=== PATIENT | male | born 1955 | race Two or more races ===

== ENCOUNTER 2024-08-04 04:27 | Inpatient (IN) | payer OTHER ==
[~2024-08-04] VITALS: Ht 182.9 cm; Wt 210.7 kg
--- NOTE | 2024-08-04 04:56 | ED.PDOC ---
History of Present Illness HPI Comments 68 y/o M, with a Hx of AFIB, CHF, DM type II, HTN, 2xSTEMI, and 3xPTCA, is BIBA for c/o shortness of breath, chest pain, dizzy spells, and nausea, today. Per EMS report, patient endorses on having symptoms for over the past 2x weeks and calling, today, due to being no longer able to tolerate them. He comments on no additional relevant or pertinent Hx, such as recent injuries, strenuous activities, sick contact, or travel. Patient denies any cough, wheezing, congestion, palpitations, vomiting, or other associated symptoms or modifiers at this time. Time Seen by MD: 04:35 Reviewed Notes: Nurses Notes, Professional Healthcare Representative Notes, Medications, Allergies Allergies: Coded Allergies: Metformin (Verified Allergy, Unknown, 08/04/24) Information Source: Patient, Emergency Med Personnel Mode of Arrival: EMS Severity: Moderate Timing: Weeks Duration: Since onset Prehospital treatment: 12 Lead EKG, Audiometrist, Other (IV access ) Past Medical History PAST MEDICAL HISTORY: AFIB, CHF, DM (type II), HTN, [place] (2x NSTEMI) Surgical History: PTCA (3x) Family History Family History: Unknown Social History Smoker: Non-Smoker Alcohol: Denies ETOH Use Drugs: Denies Drug Use Lives In: Home Respiratory: reports: shortness of breath Cardiovascular: reports: chest pain, dizzy spells Gastrointestinal: reports: nausea All Other Systems: Reviewed and Negative (negative unless otherwise stated above or in HPI) Physical Exam General Appearance: No Apparent Distress, Normal HEENT: Normal ENT Inspection, Pharynx Normal, TMs Normal Neck: Full Range of Motion, Non-Tender, Normal, Normal Inspection Respiratory: Chest Non-Tender, Lungs Clear, No Accessory Muscle Use, No Respiratory Distress, Normal Breath Sounds Cardiovascular: No Edema, No JVD, No Murmur, No Gallop, Normal Peripheral Pulses, Regular Rate/Rhythm Breast Exam: Deferred Gastrointestinal: No Organomegaly, Non Tender, No Pulsatile Mass, Normal Bowel Sounds, Soft Genitalia: Deferred Pelvic: Deferred Rectal: Deferred Extremities: No calf tenderness, Normal capillary refill, Normal inspection, Normal range of motion, Non-tender, No pedal edema Musculoskeletal : Apperance: Normal Neurologic: Alert, maint mechanic II-XII nml as Tested, No Motor Deficits, Normal Affect, Normal Mood, No Sensory Deficits Cerebellar Function: Normal Reflexes: Normal Skin: Dry, Normal Color, Warm Lymphatic: No Adenopathy Was a procedure done? Was a procedure done?: No EKG EKG : Pulse Rate (adult): 132 [place]: Normal Cardiac Rhythm: Afib (RVR) Block: None Hypertrophy: None ST: Normal Differential Dx Considerations may include: AFIB RVR, TX, PE, PNA, ACS, URI, costochondritis, pericarditis X-Ray, Labs, Meds, VS Vital Signs Date Time Temp Pulse Resp B/P (MAP) Pulse Ox O2 Delivery O2 Flow Rate FiO2 08/04/24 04:56 132 08/04/24 04:30 132 08/04/24 04:30 98.8 132 16 143/79 (100) 96 Lab Test 08/04/24 04:27 Range/Units White Blood Count 10.7 4.4-10.8 10^3/uL Red Blood Count 6.66 H 4.5-5.90 10^6/uL Hemoglobin 18.8 H 13.5-17.5 g/dL Hematocrit 55.4 H 41.0-53.0 % Mean Corpuscular Volume 83.3 80.0-100.0 fL Mean Corpuscular Hemoglobin 28.2 28.0-32.0 pg Mean Corpuscular Hemoglobin Concent 33.9 32.0-36.0 g/dL Red Cell Distribution Width 16.2 H 11.8-14.3 % Platelet Count 212 140-450 10^3/uL Mean Platelet Volume 8.5 6.9-10.8 fL Neutrophils (%) (Auto) 79.4 37.0-80.0 % Lymphocytes (%) (Auto) 8.4 L 10.0-50.0 % Monocytes (%) (Auto) 11.8 0.0-12.0 % Eosinophils (%) (Auto) 0.0 0.0-7.0 % Basophils (%) (Auto) 0.4 0.0-2.0 % Neutrophils # (Auto) 8.5 1.6-8.6 10 ^3/uL Lymphocytes # (Auto) 0.9 0.4-5.4 10 ^3/uL Monocytes # (Auto) 1.3 0-1.3 10 ^3/uL Eosinophils # (Auto) 0 0-0.8 10 ^3/uL Basophils # (Auto) 0 0-0.2 10 ^3/uL Nucleated Red Blood Cells 0.1 % Prothrombin Time 16.2 H 9.3-11.8 sec Prothrombin Time INR 1.58 H 0.9-1.15 Activated Partial Thromboplast Time 36.1 H 24.5-34.5 SEC Sodium Level 131 L 136-145 mmol/L Potassium Level 3.3 L 3.5-5.1 mmol/L Chloride Level 99 98-107 mmol/L Carbon Dioxide Level 20 20-31 mmol/L Anion Gap 12 5-15 Blood Urea Nitrogen Pending Creatinine 1.13 0.700-1.30 mg/dL Glomerular Filtration Rate Calc 70 >90 mL/min BUN/Creatinine Ratio Pending Serum Glucose 392 H 74-106 mg/dL Calcium Level 8.7 8.7-10.4 mg/dL Total Bilirubin 1.2 H 0.2-1.0 mg/dL Aspartate Amino Transferase (AST) 14 13-40 U/L Alanine Aminotransferase (ALT) < 9 7-40 U/L Alkaline Phosphatase 64 46-116 U/L Troponin I High Sensitivity 50 </=54 ng/L B-Type Natriuretic Peptide 456.28 0-100 pg/mL Total Protein 6.0 5.7-8.2 g/dL Albumin 3.6 3.2-4.8 g/dL T hemoglobin is 18. Potassium 3.3. Sodium 131. Troponin is 50. BNP is 456. EKG shows AFib. Metoprolol was ordered 5 mg Q 5 minutes IV. Time of 1ST Reevaluation: 05:05 Reevaluation 1ST: Unchanged Patient Education/Counseling: Diagnosis, Treatment Family Education/Counseling: No Family Present Departure 1 Departure Time of Disposition: 05:50 Impression: Primary Impression: Chest pain Qualified Codes: R07.9 - Chest pain, unspecified Additional Impression: Atrial fibrillation Disposition: ADMITTED INPATIENT Admit to: Tele Condition: Guarded Critical Care Note Critical Care Time?: Yes (45 min-critical care time only) Stability Stability form required: No Heart Score Heart Score: Heart Score Response (Comments) Value History Highly Suspicious 2 EKG Repolarization Disturb 1 Age >65 2 Risk Factors >3 or Hx ASHD 2 Troponin Normal limit 0 Total 7 I personally scribed for MANUEL HERNANDEZ MD ([email or web address]) on 08/04/24 at 04:56. Electronically submitted by Houston Canchola ([email or web address]). MANUEL HERNANDEZ MD Aug 04, 2024 04:56
[2024-08-04 05:05] LABS: Basophils # (auto) 0 10 ^3/uL (0-0.2); Basophils % (auto) 0.4 % (0.0-2.0); Eosinophils # (auto) 0 10 ^3/uL (0-0.8); Lymphocytes # (auto) 0.9 10 ^3/uL (0.4-5.4); Lymphocytes % (auto) 8.4 % (10.0-50.0); Mean Corpuscular Volume 83.3 fL (80.0-100.0); Monocytes # (auto) 1.3 10 ^3/uL (0-1.3); Monocytes % (auto) 11.8 % (0.0-12.0); Neutrophils % (auto) 79.4 % (37.0-80.0)
[2024-08-04] MEDS: METOPROLOL TARTRATE 1MG/1ML-5ML VIAL IV SCH (05:05)
[2024-08-04 05:06] LABS: Hematocrit 55.4 % (41.0-53.0); Hemoglobin 18.8 g/dL (13.5-17.5); Mean Corpuscular Hemoglobin 28.2 pg (28.0-32.0); Mean Corpuscular Hgb Conc. 33.9 g/dL (32.0-36.0); Neutrophils # (auto) 8.5 10 ^3/uL (1.6-8.6); Nucleated Red Blood Cells % 0.1 %; Platelet Count (auto) 212 10^3/uL (140-450); Red Blood Cells 6.66 10^6/uL (4.5-5.90); Red Cell Distribution Width 16.2 % (11.8-14.3); White Blood Cell 10.7 10^3/uL (4.4-10.8)
[2024-08-04 05:19] LABS: INR 1.58 (0.9-1.15); Partial Thromboplastin Time 36.1 SEC (24.5-34.5); Prothrombin Time 16.2 sec (9.3-11.8)
[2024-08-04 05:29] LABS: Albumin 3.6 g/dL (3.2-4.8); Alkaline Phosphatase 64 U/L (46-116); Anion Gap 12 (5-15); Aspartate Aminotransferase 14 U/L (13-40); Chloride 99 mmol/L (98-107)
[2024-08-04 05:30] LABS: Alanine Aminotransferase < 9 U/L (7-40); Bilirubin, Total 1.2 mg/dL (0.2-1.0); Carbon Dioxide 20 mmol/L (20-31); Glucose 392 mg/dL (74-106); Potassium 3.3 mmol/L (3.5-5.1); Sodium 131 mmol/L (136-145)
[2024-08-04 05:31] LABS: Calcium 8.7 mg/dL (8.7-10.4)
[2024-08-04 05:40] LABS: BUN/Creatinine Ratio 17.7 (10.0-20.0); Blood Urea Nitrogen 20 mg/dL (9-23)
--- NOTE | 2024-08-04 05:50 | DVH ---
CHEST RADIOGRAPH Indication: chest pain Technique: Single frontal view of the chest was obtained COMPARISON: None FINDINGS: Lines and Tubes: None Lungs: Multifocal airspace disease. Pleura: No effusion. No pneumothorax. Cardiomediastinal contours: Cardiomegaly Bones: Unremarkable IMPRESSION: Multifocal airspace disease and/or pulmonary vascular congestion
[2024-08-04] MEDS: MORPHINE SULFATE 4 MG/ML SYR/VIAL IV ONE (06:54)
[2024-08-04] MEDS: ONDANSETRON HCL 4 MG/2 ML VIAL IV ONE (06:55)
[2024-08-04] MEDS: SODIUM CHLORIDE 0.9% 1,000 ML IV ONE (06:55)
[2024-08-04] MEDS: InsuLIN REG 1unit/0.01ml Soln (100units/ml) SC ONE (06:59)
[2024-08-04] MEDS ORDERED: DEXTROSE (50%) 50ML SYRG IV PRN (07:15)
[2024-08-04] MEDS ORDERED: DOCUSATE SOD 100 MG CAP PO PRN (07:15)
[2024-08-04 07:30] VITALS: RESP 23; O2SAT 95
[2024-08-04] MEDS: ACCU-CHEK COMFORT CURVE STRIP VI SCH (08:22)
[2024-08-04] MEDS: FUROSEMIDE 40 MG/4 ML VIAL IV ONE (08:45)
[2024-08-04] MEDS: InsuLIN REG 1unit/0.01ml Soln (100units/ml) SC SCH (08:56)
[2024-08-04] MEDS ORDERED: NITROGLYCERIN 0.4 MG SL TAB SL PRN (11:00)
[2024-08-04] MEDS: ASPirin 81 mg TAB PO SCH (11:09)
[2024-08-04] MEDS: CARVEDILOL 12.5 MG TAB PO SCH (11:10)
--- NOTE | 2024-08-04 11:18 | DVHHP2 ---
History of Present Illness Reason for Visit: Atrial fibrillation History of Present Illness The patient is a 68-year-old male with past medical history of AFib, CHF, DM, hypertension, DE, and hypertension who presented to [facility] ED with complaint of chest pain. Patient reports symptoms progressively get worse with dizzy spells, shortness of breath, nausea, rating pain 7/10 numeric scale, getting worse that prompted this visit. Patient was seen and evaluated in the ED, laboratory data shows WBC 10.7, hemoglobin 18.8, hematocrit 55.4, platelets 212, sodium 131, potassium 3.3, BUN 20, creatinine 1.13, glucose 392, troponin 50, BNP 456.28, PT 16.2, INR 1.58, PTT 36.1, blood pressure 118/84, heart rate 145 trending down to 110, temperature 98.2 F, O2 saturation 94% on oxygen. Chest x-ray revealing multifocal airspace disease and/or pulmonary vascular congestion. Patient was started on IV antibiotic regimen azithromycin, please medication orders section in the computer. On my assessment, patient denied chest pain, no headache, no dizziness, no diaphoresis, no diarrhea, no nausea, no vomiting, no fever, no chills. Patient was admitted further evaluation and medical management. Past Medical History AFIB, CHF, DM (type II), HTN, [place] (2x NSTEMI) Past Surgical History PTCA (3x) Family History Reviewed, noncontributory to the management of this case. Past Social History The patient lives at home, denies smoking, alcohol or illicit drugs abuse. Review of Systems Constitutional: Yes: Weakness; No: Fever, Chills, Sweats, Malaise, Other Eyes: No: Pain, Vision change, Conjunctivae inflammation, Eyelid inflammation, Other, Redness ENT: No: Ear pain, Ear discharge, Nose pain, Nose discharge, Nose congestion, Mouth pain, Mouth swelling, Throat pain, Throat swelling, Other Respiratory: Shortness of breath; No: Cough, Dry, SOB with excertion, Wheezing, Hemoptysis, Pleuritic Pain, Sputum, Wheezing, Other Cardiovascular: Chest Pain, Other (Dizzy spells); No: Palpitations, Orthopnea, Paroxysmal Noc. Dyspnea, Edema, Lt Headedness Gastrointestinal: Nausea; No: Vomiting, Abdominal Pain, Diarrhea, Constipation, Melena, Hematochezia, Other Genitourinary: No Dysuria, No Frequency, No Incontinence, No Hematuria, No Retention, No Other Musculoskeletal: No: other, neck pain, shoulder pain, arm pain, back pain, hand pain, leg pain, foot pain Skin: No: Rash, Lesions, Jaundice, Bruising, Other Neurological: No: Weakness, Numbness, Incoordination, Change in speech, Confusion, Seizures, Other Allergies: Coded Allergies: Metformin (Verified Allergy, Unknown, 08/04/24) Medications Current Medications Medications Dose Ordered Sig/Johan Route Start Time Stop Time Status Last Admin Dose Admin Furosemide 40 mg DAILY IV 08/05/24 10:00 Aspirin 81 mg DAILY PO 08/04/24 10:00 Carvedilol 12.5 mg Q12HR PO 08/04/24 10:00 Diagnostic Test (Pha) 1 strip IQ4HR 08/04/24 08:00 08/04/24 08:22 1 STRIP Insulin Human Regular IQ4HR SC 08/04/24 08:00 08/04/24 08:56 15 UNITS Dextrose 50 ml UD PRN IV 08/04/24 07:15 Sodium Chloride 10 ml Q8HR IV 08/04/24 14:00 Acetaminophen/ Hydrocodone Bitart 1 tab Q4HP PRN PO 08/04/24 07:15 Ondansetron HCl 4 mg Q4HP PRN IV 08/04/24 07:15 Docusate Sodium 100 mg BIDPRN PRN PO 08/04/24 07:15 Acetaminophen 650 mg Q6HP PRN PO 08/04/24 07:15 Exam Vital Signs Vital Signs Date Time Temp Pulse Resp B/P (MAP) Pulse Ox O2 Delivery O2 Flow Rate FiO2 08/04/24 08:45 113/82 08/04/24 08:00 98 08/04/24 07:30 97.7 23 95 97.7 08/04/24 07:30 Nasal Cannula* 2 28 General Appearance: Alert, Oriented X3, Cooperative, No acute distress HEENT: Atraumatic, PERRLA, EOMI, Mucous membr. moist/pink Respiratory: Normal air movement, Other (Diminished breath sounds) Cardiovascular: Regular rate, Normal S1, Normal S2, No murmurs Abdominal: Normal bowel sounds, Soft, No tenderness, No hepatospenomegaly, No masses Extremities: No clubbing, No cyanosis, No edema, Normal pulses, No tenderness/swelling Skin: No rashes, No breakdown, No significant lesion Neuro: Normal speech, Normal tone, Sensation intact, Cranial nerves 3-12 NL, Reflexes 2+, Other (Generalized weakness) Psych/Mental Status: Mental status NL, Mood NL Labs/Xrays Labs Test 08/04/24 08:42 08/04/24 04:27 Range/Units Troponin I High Sensitivity 42 </=54 ng/L White Blood Count 10.7 4.4-10.8 10^3/uL Red Blood Count 6.66 H 4.5-5.90 10^6/uL Hemoglobin 18.8 H 13.5-17.5 g/dL Hematocrit 55.4 H 41.0-53.0 % Mean Corpuscular Volume 83.3 80.0-100.0 fL Mean Corpuscular Hemoglobin 28.2 28.0-32.0 pg Mean Corpuscular Hemoglobin Concent 33.9 32.0-36.0 g/dL Red Cell Distribution Width 16.2 H 11.8-14.3 % Platelet Count 212 140-450 10^3/uL Mean Platelet Volume 8.5 6.9-10.8 fL Neutrophils (%) (Auto) 79.4 37.0-80.0 % Lymphocytes (%) (Auto) 8.4 L 10.0-50.0 % Monocytes (%) (Auto) 11.8 0.0-12.0 % Eosinophils (%) (Auto) 0.0 0.0-7.0 % Basophils (%) (Auto) 0.4 0.0-2.0 % Neutrophils # (Auto) 8.5 1.6-8.6 10 ^3/uL Lymphocytes # (Auto) 0.9 0.4-5.4 10 ^3/uL Monocytes # (Auto) 1.3 0-1.3 10 ^3/uL Eosinophils # (Auto) 0 0-0.8 10 ^3/uL Basophils # (Auto) 0 0-0.2 10 ^3/uL Nucleated Red Blood Cells 0.1 % Prothrombin Time 16.2 H 9.3-11.8 sec Prothrombin Time INR 1.58 H 0.9-1.15 Activated Partial Thromboplast Time 36.1 H 24.5-34.5 SEC Sodium Level 131 L 136-145 mmol/L Potassium Level 3.3 L 3.5-5.1 mmol/L Chloride Level 99 98-107 mmol/L Carbon Dioxide Level 20 20-31 mmol/L Anion Gap 12 5-15 Blood Urea Nitrogen 20 9-23 mg/dL Creatinine 1.13 0.700-1.30 mg/dL Glomerular Filtration Rate Calc 70 >90 mL/min BUN/Creatinine Ratio 17.7 10.0-20.0 Serum Glucose 392 H 74-106 mg/dL Calcium Level 8.7 8.7-10.4 mg/dL Total Bilirubin 1.2 H 0.2-1.0 mg/dL Aspartate Amino Transferase (AST) 14 13-40 U/L Alanine Aminotransferase (ALT) < 9 7-40 U/L Alkaline Phosphatase 64 46-116 U/L B-Type Natriuretic Peptide 456.28 0-100 pg/mL Total Protein 6.0 5.7-8.2 g/dL Albumin 3.6 3.2-4.8 g/dL PATIENT: STEVIE PRIEST ACCT: [id number] UNIT: [id number] : 1955 LOC: ER ROOM / BED: / AGE / SEX: 68 / M ADM STATUS: REG ER SERVICE [id number] ORDERING PHYSICIAN: MANUEL HERNANDEZ MD PROCEDURE(s): CXRP - CHEST PORTABLE REASON: chest pain ORDER NUMBER(s): [id number], ACCESSION NUMBER(s): [id number] CHEST RADIOGRAPH Indication: chest pain Technique: Single frontal view of the chest was obtained COMPARISON: None FINDINGS: Lines and Tubes: None Lungs: Multifocal airspace disease. Pleura: No effusion. No pneumothorax. Cardiomediastinal contours: Cardiomegaly Bones: Unremarkable IMPRESSION: Multifocal airspace disease and/or pulmonary vascular congestion Assessment/Plan Assessment/Plan Atrial fibrillation Chest pain Electrolyte imbalance Pneumonia, unspecified organism Generalized weakness Acute exacerbation of congestive heart failure Plan 1. Admit to telemetry unit 2. Breathing treatment 3. Pain control management 4. IV antibiotic management 5. Management of fluids and electrolytes 6. Consultation for cardiology 7. Diagnostic test chest x-ray 8. DVT prophylaxis-on aspirin 9. Repeat labs CBC, CMP in a.m. 10. Home medication reviewed and reconciled 11. Continue with current medical management 12. Treatment plan discussed with patient and RN. Patient verbalized understanding. Plan discussed with: Patient, Other (RN) My Orders Orders - ISABELLE MINER DNP Procedure Category Date Status Time Aspirin Tablet PHA 08/04/24 In Process 10:00 Consistent DIET 08/04/24 Transmitted Carb(Ccho)Diabetes Breakfast Carvedilol Tablet PHA 08/04/24 In Process (Coreg Tablet) 10:00 Glucose Blood PHA 08/04/24 In Process (Accu-Chek Comfort 08:00 Insulin R (Human) PHA 08/04/24 In Process (Insulin R) 08:00 Dextrose 50% Syringe PHA 08/04/24 In Process 07:15 Allergies RACHNA 08/04/24 In Process 07:13 Code Status CODE 08/04/24 Transmitted 07:13 Sodium Chloride Lock PHA 08/04/24 In Process (Saline Lock Ns) 14:00 Oxygen Per Hour RT 08/04/24 Transmitted 07:13 Hydrocodone-Acet PHA 08/04/24 In Process 5/325mg Tab ([place] 07:15 Ondansetron Hcl PHA 08/04/24 In Process (Zofran) 07:15 Docusate Sodium PHA 08/04/24 In Process Capsule (Colace 07:15 Complete Blood Count LAB 08/05/24 Verified 04:00 Comprehensive LAB 08/05/24 Verified Metabolic Panel 04:00 Condition: Serious RACHNA 08/04/24 In Process 07:13 Acetaminophen Tablet PHA 08/04/24 In Process (Tylenol Tablet) 07:15 Bedrest With Bathroom RACHNA 08/04/24 In Process Privileg 07:13 Sequential RACHNA 08/04/24 In Process Compression Device Furosemide Injection PHA 08/05/24 In Process (Lasix Injection) 10:00 Problem List: (1) Atrial fibrillation (2) Chest pain (3) Electrolyte imbalance (4) Generalized weakness (5) Pneumonia, unspecified organism (6) Acute exacerbation of congestive heart failure Date of Service: Aug 04, 2024 Billing Provider: ISABELLE MINER DNP Common Visit Codes: [id number] INP/OBS CARE (HIGH) ISABELLE MINER DNP Aug 04, 2024 11:18
[2024-08-04] MEDS: POTASSIUM CHL 20 Meq TABLET PO ONE (11:59)
[2024-08-04] MEDS: cefTRIAXone 1GM/50ML D5W 50 ML IV ONE (12:00)
[2024-08-04] MEDS: AZITHROMYCIN 500MG/ 250ML 250 ML IV ONE (12:54)
[2024-08-04] MEDS: SODIUM CHLOR 0.9% PF (SALINE LOCK) 10ML VIAL/SYR IV SCH (14:09)
[2024-08-04 15:56] LABS: Urine Bacteria None Seen /hpf (None Seen)
[2024-08-04 16:14] LABS: Urine Blood TRACE /uL (Negative); Urine Clarity Clear (Clear); Urine Color Yellow (Yellow); Urine Hyaline Cast FEW /lpf (0 - 2); Urine Mucus FEW (None Seen); Urine Protein, UAD 1+ (Negative); Urine Specific Gravity 1.014 (1.001-1.035); Urine Squamous Epithelial Cell FEW /hpf (<5); Urine Urobilinogen Normal (Negative); Urine WBC 2 /hpf (0 - 3)
[2024-08-04 16:22] LABS: Benzodiazephine Screen, Urine Neg (NEGATIVE)
[2024-08-04 16:23] LABS: Opiate Scree,Urine Neg (NEGATIVE)
[2024-08-04 16:27] LABS: Amphetamine Screen, Urine Neg (NEGATIVE); Barbiturate Scree,Urine Neg (NEGATIVE); Cannabinoid Screen, Urine Neg (NEGATIVE); Cocaine Screen, Urine Neg (NEGATIVE); Phencyclidine Screen, Urine Neg (NEGATIVE)
--- NOTE | 2024-08-04 17:42 | DVHINCON2 ---
Date Seen: Aug 04, 2024 Referring Physician MARIEL Colon Reason for Consultation Atrial fibrillation History of Present Illness This is a 68-year-old male who presented to the emergency room via EMS with a chief complaint of shortness of breath for two weeks. At time of assessment, the patient was found somewhat somnolent. He is a poor historian. Information mostly obtained from records which indicate patient presented with complaints of progressive shortness of breath associated with chest pain, dizziness, and nausea. He underwent multiple 12 lead electrocardiogram revealing an atrial fibrillation rhythm with anterolateral ST depression. Serial troponin levels are negative. Follows up with primary vertical contour band saw operator Dr. Garcia. Significant medical history includes coronary artery disease status post PTCA including three AGUEDA, congestive heart failure, paroxysmal atrial fibrillation on amiodarone/Eliquis therapy, insulin-dependent diabetes mellitus, hypertension, dyslipidemia, benign prostatic hyperplasia, and obesity. Past Medical History Past medical history reviewed. No other significant than mentioned above. Past Surgical History PTCA including three AGUEDA Family History Unable to retrieve family history. Social History Unable to retrieve social history. Allergies: Coded Allergies: Metformin (Verified Allergy, Unknown, 08/04/24) Home Meds Home medications reviewed. Current Medications Current Medications Medications (Trade) Dose Ordered Sig/Johan Route PRN Reason Start Time Stop Time Status Last Admin Metoprolol Tartrate (Lopressor) 5 mg Q5M IV 08/04/24 05:00 08/04/24 05:11 DC 08/04/24 06:55 Furosemide (Lasix Injection) 40 mg DAILY IV 08/05/24 10:00 Aspirin 81 mg DAILY PO 08/04/24 10:00 08/04/24 11:09 Carvedilol (Coreg Tablet) 12.5 mg Q12HR PO 08/04/24 10:00 08/04/24 11:10 Diagnostic Test (Pha) (Accu-Chek Comfort Curve T) 1 strip IQ4HR 08/04/24 08:00 08/04/24 16:26 Insulin Human Regular (InsuLIN R) IQ4HR SC 08/04/24 08:00 08/04/24 16:26 Dextrose 50 ml UD PRN IV Blood Sugar LESS THAN 60 08/04/24 07:15 Sodium Chloride (Saline Lock Ns) 10 ml Q8HR IV 08/04/24 14:00 08/04/24 14:09 Acetaminophen/ Hydrocodone Bitart ([place] 5/325MG Tab) 1 tab Q4HP PRN PO MODERATE PAIN (4-6 PAIN SCALE) 08/04/24 07:15 Ondansetron HCl (Zofran) 4 mg Q4HP PRN IV NAUSEA / VOMITING 08/04/24 07:15 Docusate Sodium (Colace Capsule) 100 mg BIDPRN PRN PO FOR CONSTIPATION 08/04/24 07:15 Acetaminophen (Tylenol Tablet) 650 mg Q6HP PRN PO PAIN SCALE 1-3 OR TEMP>100.4 08/04/24 07:15 Nitroglycerin (Ntrostat Sublingual) 0.4 mg Q5MINP PRN SL FOR CHEST PAIN 08/04/24 11:00 Morphine Sulfate 2 mg Q30M PRN IV FOR CHEST PAIN 08/04/24 11:00 Ceftriaxone Sodium 50 ml @ 100 mls/hr DAILY@09 IV 08/05/24 09:00 Azithromycin 250 ml @ 125 mls/hr DAILY IV 08/05/24 10:00 Review of Systems Constitutional: No symptom reported Ears, Nose, & Throat: No symptom reported Eyes: No symptom reported Neurological: Dizziness Pulmonary/Respiratory: Shortness of breath Cardiovascular: Chest pain Gastrointestinal: No symptom reported Genitourinary: No symptom reported Musculoskeletal: No symptom reported Skin: No symptom reported Psychiatric: No symptom reported Endocrine: No symptom reported Hemotologic/Lymphatic: No symptom reported Vital Signs Vital Signs Date Time Temp Pulse Resp B/P (MAP) Pulse Ox O2 Delivery O2 Flow Rate FiO2 08/04/24 16:00 91 08/04/24 14:00 22 101/71 (81) 92 08/04/24 07:30 97.7 97.7 08/04/24 07:30 Nasal Cannula* 2 28 Physical Exam General Appearance: Somnolent. Mild acute respiratory distress Head Exam: Normal inspection Neck Exam: Normal inspection. Non-tender. Normal alignment Pulmonary/Respiratory: Crackles to bilateral breath sounds Cardiovascular/Chest: Irregularly irregular rate and rhythm. AFib with a RVR and associated anterolateral ST depression. Peripheral Pulses: 2+ Radial (R). 2+ Radial (L). 2+ Pedal (R). 2+ Pedal (L) Abdominal Exam: Normal bowel sounds. Soft. Nontender. No hepatospenomegaly. No masses Ankle Exam: Negative ankle edema Lower extremities: Negative lower extremity edema Neuro/Mental Status: A&O x2. Somnolent, poor historian Thoughts/Psych: Unable to assess Appearance: Mild acute respiratory distress Skin Exam: Normal inspection. Normal color. Warm. Dry Labs/Diagnostic Data Labs Test 08/04/24 15:54 08/04/24 08:42 08/04/24 04:27 Range/Units Urine Color Yellow Yellow Urine Clarity Clear Clear Urine pH 6.0 5.0-9.0 Urine Specific [place] 1.014 1.001-1.035 Urine Protein 1+ H Negative Urine Ketones Trace Negative Urine Blood Trace H Negative /uL Urine Nitrite Negative Negative Urine Bilirubin Negative Negative Urine Urobilinogen Normal Negative mg/dL Urine Leukocyte Esterase Negative Negative /uL Urine RBC 1 0 - 3 /hpf Urine WBC 2 0 - 3 /hpf Urine Squamous Epithelial Cells Few <5 /hpf Urine Bacteria None seen None Seen /hpf Urine Hyaline Casts Few 0 - 2 /lpf Urine Mucus Few None Seen Urine Glucose 3+ H Normal mg/dL Urine Opiates Screen Neg NEGATIVE Urine Fentanyl Screen Neg NEGATIVE Urine Barbiturates Screen Neg NEGATIVE Urine Phencyclidine Screen Neg NEGATIVE Urine Amphetamines Screen Neg NEGATIVE Urine Benzodiazepines Screen Neg NEGATIVE Urine Cocaine Screen Neg NEGATIVE Urine Cannabinoids Screen Neg NEGATIVE Troponin I High Sensitivity 42 </=54 ng/L White Blood Count 10.7 4.4-10.8 10^3/uL Red Blood Count 6.66 H 4.5-5.90 10^6/uL Hemoglobin 18.8 H 13.5-17.5 g/dL Hematocrit 55.4 H 41.0-53.0 % Mean Corpuscular Volume 83.3 80.0-100.0 fL Mean Corpuscular Hemoglobin 28.2 28.0-32.0 pg Mean Corpuscular Hemoglobin Concent 33.9 32.0-36.0 g/dL Red Cell Distribution Width 16.2 H 11.8-14.3 % Platelet Count 212 140-450 10^3/uL Mean Platelet Volume 8.5 6.9-10.8 fL Neutrophils (%) (Auto) 79.4 37.0-80.0 % Lymphocytes (%) (Auto) 8.4 L 10.0-50.0 % Monocytes (%) (Auto) 11.8 0.0-12.0 % Eosinophils (%) (Auto) 0.0 0.0-7.0 % Basophils (%) (Auto) 0.4 0.0-2.0 % Neutrophils # (Auto) 8.5 1.6-8.6 10 ^3/uL Lymphocytes # (Auto) 0.9 0.4-5.4 10 ^3/uL Monocytes # (Auto) 1.3 0-1.3 10 ^3/uL Eosinophils # (Auto) 0 0-0.8 10 ^3/uL Basophils # (Auto) 0 0-0.2 10 ^3/uL Nucleated Red Blood Cells 0.1 % Prothrombin Time 16.2 H 9.3-11.8 sec Prothrombin Time INR 1.58 H 0.9-1.15 Activated Partial Thromboplast Time 36.1 H 24.5-34.5 SEC Sodium Level 131 L 136-145 mmol/L Potassium Level 3.3 L 3.5-5.1 mmol/L Chloride Level 99 98-107 mmol/L Carbon Dioxide Level 20 20-31 mmol/L Anion Gap 12 5-15 Blood Urea Nitrogen 20 9-23 mg/dL Creatinine 1.13 0.700-1.30 mg/dL Glomerular Filtration Rate Calc 70 >90 mL/min BUN/Creatinine Ratio 17.7 10.0-20.0 Serum Glucose 392 H 74-106 mg/dL Calcium Level 8.7 8.7-10.4 mg/dL Total Bilirubin 1.2 H 0.2-1.0 mg/dL Aspartate Amino Transferase (AST) 14 13-40 U/L Alanine Aminotransferase (ALT) < 9 7-40 U/L Alkaline Phosphatase 64 46-116 U/L B-Type Natriuretic Peptide 456.28 0-100 pg/mL Total Protein 6.0 5.7-8.2 g/dL Albumin 3.6 3.2-4.8 g/dL Assessment Paroxysmal atrial fibrillation with RVR, on amiodarone/Eliquis therapy Chest pain rule out progressive coronary artery disease Acute on chronic decompensated unspecified CHF Coronary artery disease status post PTCA including 3 AGUEDA Acute hypoxic respiratory failure with PNA Insulin-dependent diabetes mellitus Hypertension Dyslipidemia Obesity Plan/Recommendation We will continue the following plan/recommendations (Dr. Warren): * Echocardiogram to evaluate cardiac function * Preload and afterload reduction as tolerated * Strict I&Os. Daily weight. Fluid restriction * Single-antiplatelet therapy and lipid lowering agent * Therapeutic Lovenox. Hold Eliquis therapy * [id number] Score 5. HAS-BLED Score 2 * Initiate antiarrhythmic therapy, amiodarone * Rate control, metoprolol XL * Monitor ECG changes and notify * Chest pain protocol * Influenza A&B, COVID-19 swabs The patient presents with an abnormal 12-lead electrocardiogram with no other ECGs on the past for comparison. We will consider ischemic work-up with improved mental status and clinical stability. Thank you for allowing us to participate in this patient's care. Please call if you have any questions or concerns. This medical document was created using an electronic medical record system with voice recognition software and computerized dictation system. Although this document has been carefully reviewed, there might still be some phonetic and typographical errors. Occasional wrong-word or ``sound-alike substitutions may have occurred due to the inherent limitations of voice recognition software. These areas are purely typographical due to imperfections of the software programs and do not reflect any compromise in the patient's medical care. Please read the chart carefully and recognize, using context, where these substitutions have occurred. Plan discussed with: Patient, Other NYHA Physical activity limitations: Class3(Marked) ordinary Date of Service: Aug 04, 2024 Billing Provider: KORINA WARERN MD Cardiology Common Codes: [id number] INP/OBS CARE (High) BRIDGER CHEN [facility] Aug 04, 2024 17:42
[2024-08-04 18:35] VITALS: BP 116/89; PULSE 85; RESP 19; TEMP 97.6; O2SAT 97
[2024-08-04] MEDS ORDERED: AMIO200T13 PO (18:38)
[2024-08-04] MEDS ORDERED: SACU1TAB PO (18:38)
[2024-08-04] MEDS ORDERED: FURO40TA4 PO (18:38)
[2024-08-04] MEDS ORDERED: METO1TAB9 PO (18:38)
[2024-08-04] MEDS ORDERED: TRAM50TA2 PO (18:38)
[2024-08-04] MEDS ORDERED: GABA-339 PO (18:38)
[2024-08-04] MEDS ORDERED: FIN5T PO (18:38)
[2024-08-04] MEDS ORDERED: APIX5TAB PO (18:38)
[2024-08-04] MEDS ORDERED: SPIR25TA8 PO (18:38)
[2024-08-04] MEDS ORDERED: HYDR-4072 PO (18:38)
[2024-08-04 20:00] VITALS: PULSE 101
[2024-08-04 20:26] LABS: COVID19 ANTIGEN SOFIA FIA NEGATIVE (NEGATIVE); Rapid Influenza A Negative (Negative); Rapid Influenza B Negative (Negative)
[2024-08-04] MEDS: ONDANSETRON HCL 4 MG/2 ML VIAL IV PRN (20:30)
[2024-08-04 21:00] VITALS: BP 119/76; PULSE 65; RESP 18; TEMP 97.7; O2SAT 94
[2024-08-04] MEDS: ENOXAPARIN SOD 120 MG/0.8 ML SYRINGE SC SCH (21:14)
[2024-08-04] MEDS: SACUBITRIL-VALSARTAN 24mg/26mg TAB PO SCH (21:14)
[2024-08-04] MEDS: ATORVASTATIN 20 MG TAB PO SCH (21:14)
[2024-08-04] MEDS: AMIODARONE HCL 200 MG TAB PO SCH (21:14)
[2024-08-04] MEDS: HYDROcodone-ACET 5/325MG TAB PO PRN (21:24)
[2024-08-05] VITALS (27 sets, daily range): BP systolic 75–127; BP diastolic 40–90; PULSE 50–131; RESP 16–33; TEMP 97.5–98.4; O2SAT 92–100
--- NOTE | 2024-08-05 06:35 | ECG ---
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
--- NOTE | 2024-08-05 06:36 | ECG ---
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
[2024-08-05] MEDS: AMIODARONE BOLUS KIT 100 ML IV ONE ×3 (08:56→10:54)
[2024-08-05] MEDS: AMIODARONE 450mg/250ml AE 250 ML IV ONE (08:56)
[2024-08-05 09:12] LABS: Basophils # (auto) 0 10 ^3/uL (0-0.2); Basophils % (auto) 0.2 % (0.0-2.0); Eosinophils # (auto) 0.1 10 ^3/uL (0-0.8); Eosinophils % (auto) 0.5 % (0.0-7.0); Hematocrit 46.3 % (41.0-53.0); Hemoglobin 15.8 g/dL (13.5-17.5); Lymphocytes % (auto) 13.4 % (10.0-50.0); Mean Corpuscular Hgb Conc. 34.1 g/dL (32.0-36.0); Mean Corpuscular Volume 82.2 fL (80.0-100.0); Monocytes # (auto) 1.9 10 ^3/uL (0-1.3); Monocytes % (auto) 13.1 % (0.0-12.0); Neutrophils # (auto) 10.7 10 ^3/uL (1.6-8.6); Neutrophils % (auto) 72.8 % (37.0-80.0); Nucleated Red Blood Cells % 0.1 %; Platelet Count (auto) 342 10^3/uL (140-450); Red Blood Cells 5.64 10^6/uL (4.5-5.90); Red Cell Distribution Width 16.4 % (11.8-14.3); White Blood Cell 14.6 10^3/uL (4.4-10.8)
--- NOTE | 2024-08-05 09:13 | DVHPN2 ---
Subjective 68 year old male with h/o CHF, afib, CAD, stents, DM2, HTN, BPH came with CP and SOB after he says he caught a cold. Now c/o CP, 03/08, BP dropped to 70s, HR 130s afib RVR, He also has been having loose stools since yesterday He just had a large black BM He take amiodarone and Eliquis at home He is on Lovenox and ASA here Changes from previous H/P or p: Changes Eyes: No Pain, No Vision change, No Conjunctivae inflammation, No Eyelid inflammation, No Other, No Redness ENT: No Ear pain, No Ear discharge, No Nose pain, No Nose discharge, No Nose congestion, No Mouth pain, No Mouth swelling, No Throat pain, No Throat swelling, No Other Cardiovascular: Chest Pain; No Palpitations, No Orthopnea, No Paroxysmal Noc. Dyspnea, No Edema, No Lt Headedness; Other (Dizzy spells) Respiratory: No Cough, No Dry; Shortness of breath; No SOB with excertion, No Wheezing, No Hemoptysis, No Pleuritic Pain, No Sputum, No Other Gastrointestinal: Nausea; No Vomiting, No Abdominal Pain, No Diarrhea, No Constipation, No Melena, No Hematochezia, No Other Genitourinary: No Dysuria, No Frequency, No Incontinence, No Hematuria, No Retention, No Other Musculoskeletal: No other, No neck pain, No shoulder pain, No arm pain, No back pain, No hand pain, No leg pain, No foot pain Skin: No Rash, No Lesions, No Jaundice, No Bruising, No Other Objective Vitals Vital Signs Date Time Temp Pulse Resp B/P (MAP) Pulse Ox O2 Delivery O2 Flow Rate FiO2 08/05/24 05:00 98.4 113 18 93/74 (80) 95 98.4 08/04/24 20:00 Nasal Cannula* 2 28 Intake/Output Intake and Output 08/05/24 07:00 Intake Total 1825 ml Output Total 650 ml Balance 1175 ml Intake Oral 350 ml IV Total 1475 ml Output Urine Total 650 ml # Bowel Movements 2 General Appearance: Alert, Oriented X3, Cooperative, moderate distress Lungs: Clear to auscultation Cardiovascular: Other (irregularly irregular) Extremities: No edema Medications Current Medications Medications Dose Ordered Sig/Johan Route Start Time Stop Time Status Last Admin Dose Admin Furosemide 40 mg DAILY IV 08/05/24 10:00 Aspirin 81 mg DAILY PO 08/04/24 10:00 08/04/24 11:09 81 MG Diagnostic Test (Pha) 1 strip IQ4HR 08/04/24 08:00 08/05/24 04:46 1 STRIP Insulin Human Regular IQ4HR SC 08/04/24 08:00 08/05/24 04:48 6 UNITS Dextrose 50 ml UD PRN IV 08/04/24 07:15 Sodium Chloride 10 ml Q8HR IV 08/04/24 14:00 08/05/24 06:19 10 ML Acetaminophen/ Hydrocodone Bitart 1 tab Q4HP PRN PO 08/04/24 07:15 08/05/24 04:45 1 TAB Ondansetron HCl 4 mg Q4HP PRN IV 08/04/24 07:15 Docusate Sodium 100 mg BIDPRN PRN PO 08/04/24 07:15 Acetaminophen 650 mg Q6HP PRN PO 08/04/24 07:15 Nitroglycerin 0.4 mg Q5MINP PRN SL 08/04/24 11:00 Morphine Sulfate 2 mg Q30M PRN IV 08/04/24 11:00 Ceftriaxone Sodium 50 ml @ 100 mls/hr DAILY@09 IV 08/05/24 09:00 Azithromycin 250 ml @ 125 mls/hr DAILY IV 08/05/24 10:00 Enoxaparin Sodium 110 mg Q12HR SC 08/04/24 22:00 08/04/24 21:14 110 MG Empaglifozin 10 mg DAILY PO 08/05/24 10:00 Sacubitril/ Valsartan 1 tab BID PO 08/04/24 22:00 08/04/24 21:14 1 TAB Atorvastatin Calcium 40 mg HS PO 08/04/24 22:00 08/04/24 21:14 40 MG Metoprolol Succinate 25 mg DAILY PO 08/05/24 10:00 Amiodarone HCl 200 mg Q12HR PO 08/04/24 22:00 08/04/24 21:14 200 MG Amiodarone HCl 250 ml @ 33.333 mls/ hr Q7H30M IV 08/05/24 09:15 08/05/24 15:14 UNV Amiodarone HCl 250 ml @ 16.667 mls/ hr Q15H IV 08/05/24 15:15 UNV Laboratory Results Chemistry Test 08/05/24 07:42 Albumin Pending Calcium Level Pending Magnesium Level Pending Total Protein Pending LFT Test 08/05/24 07:42 Alanine Aminotransferase (ALT) Pending Alkaline Phosphatase Pending Aspartate Amino Transferase (AST) Pending Total Bilirubin Pending HgA1c, TSH Test 08/05/24 07:42 Thyroid Stimulating Hormone (TSH) Pending Urinalysis Test 08/04/24 15:54 Urine Color Yellow (Yellow) Urine Clarity Clear (Clear) Urine pH 6.0 (5.0-9.0) Urine Specific [place] 1.014 (1.001-1.035) Urine Protein 1+ (Negative) H Urine Ketones Trace (Negative) Urine Blood Trace /uL (Negative) H Urine Nitrite Negative (Negative) Urine Bilirubin Negative (Negative) Urine Urobilinogen Normal mg/dL (Negative) Urine Leukocyte Esterase Negative /uL (Negative) Urine RBC 1 /hpf (0 - 3) Urine WBC 2 /hpf (0 - 3) Urine Squamous Epithelial Cells Few /hpf (<5) Urine Bacteria None seen /hpf (None Seen) Urine Hyaline Casts Few /lpf (0 - 2) Urine Mucus Few (None Seen) Urine Glucose 3+ mg/dL (Normal) H Assessment/Plan Assessment/Plan Afib RVR Hypotension GI Bleed Hypovolemic shock vs cardiogenic shock CHF CAD Dyslipidemia BPH DM2 Obstructive sleep apnea on C-PAP at home PLAN: IV fluids low rate due to CHF Afib RVR Patient declines blood transfusion DNR Amiodarone bolus and drip Stop Lovenox and aspirin IV Protonix GI consult Cardiology consult Echo: Pending Discussed advance directives with patient, he wants DNR, agrees to medications and BiPAP only Plan discussed with: Patient My Orders Orders - HADLEY LAZCANO MD Procedure Category Date Status Time Thyroid Stimulating LAB 08/05/24 In Process Hormone 04:00 Sodium Chloride 0.9% PHA 08/05/24 In Process 09:00 Amiodarone Bolus Kit PHA 08/05/24 Logged (Cordarone) 09:00 Amiodarone PHA 08/05/24 Logged 450mg/250ml Ae 09:15 Amiodarone PHA 08/05/24 Logged 450mg/250ml Ae 15:15 Date of Service: Aug 05, 2024 Billing Provider: HADLEY LAZCANO MD Common Visit Codes: NOT BILLABLE HADLEY LAZCANO MD Aug 05, 2024 09:13
[2024-08-05] MEDS: AMIODARONE 450mg/250ml AE 250 ML IV SCH ×2 (09:15→16:03)
[2024-08-05] MEDS: PANTOPRAZOLE 80 MG in SODIUM CHL 0.9% 100 ML IV ONE (09:15)
--- NOTE | 2024-08-05 09:21 | DVHPN2 ---
Consult Progress Note Date Seen: Aug 05, 2024 Subjective Review of Systems: CVS:Abnormal, RESPIRATORY:Normal, NEURO:Normal Other Systems: Notified of acute chest pain episodes with associated hypotension. Repeat ECG reviewed. Rectal bleed present Objective vital signs Vital Sign Date Time Temp Pulse Resp B/P (MAP) Pulse Ox O2 Delivery O2 Flow Rate FiO2 08/05/24 05:00 98.4 113 18 93/74 (80) 95 98.4 08/04/24 20:00 Nasal Cannula* 2 28 Total Intake and Output 08/04/24 08/04/24 08/05/24 15:00 23:00 07:00 Intake Total 1475 ml 350 ml Output Total 650 ml Balance 1475 ml -300 ml medications Current Medications Medications Dose Ordered Sig/Johan Route Start Time Stop Time Status Last Admin Dose Admin Furosemide 40 mg DAILY IV 08/05/24 10:00 Aspirin 81 mg DAILY PO 08/04/24 10:00 08/04/24 11:09 81 MG Diagnostic Test (Pha) 1 strip IQ4HR 08/04/24 08:00 08/05/24 04:46 1 STRIP Insulin Human Regular IQ4HR SC 08/04/24 08:00 08/05/24 04:48 6 UNITS Dextrose 50 ml UD PRN IV 08/04/24 07:15 Sodium Chloride 10 ml Q8HR IV 08/04/24 14:00 08/05/24 06:19 10 ML Acetaminophen/ Hydrocodone Bitart 1 tab Q4HP PRN PO 08/04/24 07:15 08/05/24 04:45 1 TAB Ondansetron HCl 4 mg Q4HP PRN IV 08/04/24 07:15 Docusate Sodium 100 mg BIDPRN PRN PO 08/04/24 07:15 Acetaminophen 650 mg Q6HP PRN PO 08/04/24 07:15 Nitroglycerin 0.4 mg Q5MINP PRN SL 08/04/24 11:00 Morphine Sulfate 2 mg Q30M PRN IV 08/04/24 11:00 Ceftriaxone Sodium 50 ml @ 100 mls/hr DAILY@09 IV 08/05/24 09:00 Azithromycin 250 ml @ 125 mls/hr DAILY IV 08/05/24 10:00 Enoxaparin Sodium 110 mg Q12HR SC 08/04/24 22:00 08/04/24 21:14 110 MG Empaglifozin 10 mg DAILY PO 08/05/24 10:00 Sacubitril/ Valsartan 1 tab BID PO 08/04/24 22:00 08/04/24 21:14 1 TAB Atorvastatin Calcium 40 mg HS PO 08/04/24 22:00 08/04/24 21:14 40 MG Metoprolol Succinate 25 mg DAILY PO 08/05/24 10:00 Amiodarone HCl 200 mg Q12HR PO 08/04/24 22:00 08/04/24 21:14 200 MG Amiodarone HCl 250 ml @ 33.333 mls/ hr Q7H30M IV 08/05/24 09:15 08/05/24 15:14 UNV Amiodarone HCl 250 ml @ 16.667 mls/ hr Q15H IV 08/05/24 15:15 UNV Examination: GENERAL:Abnormal (Pale), LUNGS:Abnormal (Diminished), CVS:Normal, NEURO:Normal laboratory and microbiology Test 08/05/24 07:42 Range/Units Serum Glucose Pending Problem List/Assessment/Plan Problem List/Assessment/Plan Paroxysmal atrial fibrillation with RVR, on amiodarone/Eliquis therapy Chest pain rule out progressive coronary artery disease Acute on chronic decompensated unspecified CHF Coronary artery disease status post PTCA including 3 AGUEDA Acute hypoxic respiratory failure with PNA Insulin-dependent diabetes mellitus Hypertension Dyslipidemia Obesity Rectal bleed Plan/Recommendation (Dr. Casanova) * Echocardiogram to evaluate cardiac function * Preload and afterload reduction as tolerated * Strict I&Os. Daily weight. Fluid restriction * Hold all AC/antiplatelet therapy given active rectal bleed * [id number] Score 5. HAS-BLED Score 2 * Antiarrhythmic therapy, amiodarone * Lipid lowering agent * Monitor ECG changes and notify * Chest pain protocol * GI consult. T&S. IVF. FOBT. Upgrade to PAVAN The patient with active chest pain and rectal bleed is pending H&H and T&S levels at this time. Per patient he does not want blood transfusion and would like to be a modified DNR with BiPAP and medications only. Thank you for allowing us to participate in this patient's care. Please call if you have any questions or concerns. Critical care time: 30 min. This medical document was created using an electronic medical record system with voice recognition software and computerized dictation system. Although this document has been carefully reviewed, there might still be some phonetic and typographical errors. Occasional wrong-word or ``sound-alike substitutions may have occurred due to the inherent limitations of voice recognition software. These areas are purely typographical due to imperfections of the software programs and do not reflect any compromise in the patient's medical care. Please read the chart carefully and recognize, using context, where these substitutions have occurred. Plan discussed with: Patient, Other Date of Service: Aug 05, 2024 Billing Provider: ELIZABETH CASANOVA Sr., MD Cardiology Common Codes: [id number] CARE 30-74 MIN BRIDGER CHEN [facility] Aug 05, 2024 09:21
[2024-08-05 09:24] LABS: Alkaline Phosphatase 56 U/L (46-116); Anion Gap 9 (5-15); Aspartate Aminotransferase 24 U/L (13-40); BUN/Creatinine Ratio 40.4 (10.0-20.0); Carbon Dioxide 25 mmol/L (20-31); Chloride 105 mmol/L (98-107); Magnesium 2.2 mg/dL (1.6-2.6); Potassium 3.8 mmol/L (3.5-5.1); Sodium 139 mmol/L (136-145)
[2024-08-05 09:25] LABS: Bilirubin, Total 0.8 mg/dL (0.2-1.0)
[2024-08-05] MEDS: SODIUM CHLORIDE 0.9% 1,000 ML IV SCH (09:30)
[2024-08-05 09:41] LABS: Alanine Aminotransferase < 9 U/L (7-40); Blood Urea Nitrogen 46 mg/dL (9-23); Calcium 8.2 mg/dL (8.7-10.4); Glucose 224 mg/dL (74-106)
[2024-08-05] MEDS: FUROSEMIDE 40 MG/4 ML VIAL IV SCH (10:00)
[2024-08-05] MEDS ORDERED: METOPROLOL SUCCINATE XL 50 MG TAB PO SCH (10:00)
[2024-08-05] MEDS ORDERED: AMIODARONE BOLUS KIT 100 ML IV ONE (10:30)
[2024-08-05] MEDS ORDERED: AMIODARONE 450mg/250ml AE 250 ML IV SCH ×2 (10:45→16:45)
[2024-08-05] MEDS: EMPAGLIFLOZIN 10 MG TAB PO SCH (10:46)
[2024-08-05] MEDS: cefTRIAXone 1GM/50ML D5W 50 ML IV SCH (10:46)
[2024-08-05] MEDS: AZITHROMYCIN 500MG/ 250ML 250 ML IV SCH (10:46)
[2024-08-05] MEDS: SODIUM CHLORIDE 0.9% 250 ML IV ONE (10:53)
[2024-08-05] MEDS: PANTOPRAZOLE 40mg/50ML NS AE 50 ML IV SCH (12:05)
[2024-08-05 13:58] LABS: Hematocrit 41.2 % (41.0-53.0); Hemoglobin 13.7 g/dL (13.5-17.5)
--- NOTE | 2024-08-05 14:59 | ECG ---
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
--- NOTE | 2024-08-05 14:59 | ECG ---
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1955 Requested By: BRIDGER CHEN Order Number: [id number] Reading MD: Edison Montilla Measurements Intervals [place] Rate: 133 P: 50 MI: 80 QRS: 83 QRSD: 114 T: 235 QT: 347 QTc: 517 Interpretive Statements Incomplete analysis due to missing data in precordial lead(s) Atrial fibrillation with rapid ventricular response Multiform ventricular premature complexes Borderline intraventricular conduction delay Abnormal R-wave progression, late transition Nonspecific T abnormalities Prolonged QT interval Missing lead(s): V3 Electronically Signed On 08-06-2024 12:27:00 PST by Edison Montilla Please click the below link to view image of tracing.
--- NOTE | 2024-08-05 16:12 | DVHINCON2 ---
GI Consult Consult Note GI consult note Date of Consultation: 08/05/2024 Chief Complaint: GI bleed Referring Physician: Dr. Romano H&P: 68-year-old male presented to ER with shortness of breath, chest pain, and nausea Patient also complaining of periumbilical abdominal pain, , for two weeks getting worse now. Patient describes pain as a constant pressure-like pain No nausea or vomiting. Patient has history of GERD which is occasional only. Patient has weight loss of 25 lb in the last few months due to dental issues. Patient has loose stool on and off for two months, and has been tarry the last few times Patient takes Eliquis, last dose 3-4 days ago SP colonoscopy 10-12 years ago. No EGD in past Patient also complaining of neck and back pain, which he has a history of chronic pain Past Medical History: AFIB, CHF, DM (type II), HTN, MA (2x NSTEMI) Past Surgical History: PTCA x3 Social History: NO smoking, drinking ETOH and use of illegal drugs. Family History: Unknown per chart Review of Systems: Constitutional: no fever, chill, weight loss HEENT: no eye pain, no hearing loss, no oral lesion, no scleral icterus Heart: no chest pain, no chest pressure Lung: no cough, no dyspnea with exertion Abdomen: see HPI Physical exam: General: NAD, AAOX3 Chest: lung dickson clear to auscultation Heart: RRR, no murmur Abdomen: [id number] periumbilical tenderness to palpation, +BS Labs: Labs Test 08/05/24 13:32 08/05/24 09:15 08/05/24 07:42 08/04/24 19:52 Range/Units Hemoglobin 13.7 13.5-17.5 g/dL Hematocrit 41.2 # 41.0-53.0 % Stool Occult Blood Positive Negative Stool Occult Blood Sample #3 Negative White Blood Count 14.6 #H 4.4-10.8 10^3/uL Red Blood Count 5.64 4.5-5.90 10^6/uL Mean Corpuscular Volume 82.2 80.0-100.0 fL Mean Corpuscular Hemoglobin 28.0 28.0-32.0 pg Mean Corpuscular Hemoglobin Concent 34.1 32.0-36.0 g/dL Red Cell Distribution Width 16.4 H 11.8-14.3 % Platelet Count 342 # 140-450 10^3/uL Mean Platelet Volume 8.8 6.9-10.8 fL Neutrophils (%) (Auto) 72.8 37.0-80.0 % Lymphocytes (%) (Auto) 13.4 10.0-50.0 % Monocytes (%) (Auto) 13.1 H 0.0-12.0 % Eosinophils (%) (Auto) 0.5 0.0-7.0 % Basophils (%) (Auto) 0.2 0.0-2.0 % Neutrophils # (Auto) 10.7 H 1.6-8.6 10 ^3/uL Lymphocytes # (Auto) 2.0 0.4-5.4 10 ^3/uL Monocytes # (Auto) 1.9 H 0-1.3 10 ^3/uL Eosinophils # (Auto) 0.1 0-0.8 10 ^3/uL Basophils # (Auto) 0 0-0.2 10 ^3/uL Nucleated Red Blood Cells 0.1 % Sodium Level 139 # 136-145 mmol/L Potassium Level 3.8 3.5-5.1 mmol/L Chloride Level 105 98-107 mmol/L Carbon Dioxide Level 25 20-31 mmol/L Anion Gap 9 5-15 Blood Urea Nitrogen 46 #H 9-23 mg/dL Creatinine 1.14 0.700-1.30 mg/dL Glomerular Filtration Rate Calc 69 >90 mL/min BUN/Creatinine Ratio 40.4 H 10.0-20.0 Serum Glucose 224 #H 74-106 mg/dL Calcium Level 8.2 L 8.7-10.4 mg/dL Magnesium Level 2.2 1.6-2.6 mg/dL Total Bilirubin 0.8 0.2-1.0 mg/dL Aspartate Amino Transferase (AST) 24 13-40 U/L Alanine Aminotransferase (ALT) < 9 7-40 U/L Alkaline Phosphatase 56 46-116 U/L Total Protein 5.0 L 5.7-8.2 g/dL Albumin 3.0 L 3.2-4.8 g/dL Thyroid Stimulating Hormone (TSH) 0.20 L 0.55-4.78 uIU/mL Influenza Type A Antigen Negative Negative Influenza Type B Antigen Negative Negative SARS-CoV-2 Antigen (Rapid) Negative NEGATIVE Test 1/6/25 15:54 08/04/24 08:42 08/04/24 04:27 Range/Units Urine Color Yellow Yellow Urine Clarity Clear Clear Urine pH 6.0 5.0-9.0 Urine Specific [place] 1.014 1.001-1.035 Urine Protein 1+ H Negative Urine Ketones Trace Negative Urine Blood Trace H Negative /uL Urine Nitrite Negative Negative Urine Bilirubin Negative Negative Urine Urobilinogen Normal Negative mg/dL Urine Leukocyte Esterase Negative Negative /uL Urine RBC 1 0 - 3 /hpf Urine WBC 2 0 - 3 /hpf Urine Squamous Epithelial Cells Few <5 /hpf Urine Bacteria None seen None Seen /hpf Urine Hyaline Casts Few 0 - 2 /lpf Urine Mucus Few None Seen Urine Glucose 3+ H Normal mg/dL Urine Opiates Screen Neg NEGATIVE Urine Fentanyl Screen Neg NEGATIVE Urine Barbiturates Screen Neg NEGATIVE Urine Phencyclidine Screen Neg NEGATIVE Urine Amphetamines Screen Neg NEGATIVE Urine Benzodiazepines Screen Neg NEGATIVE Urine Cocaine Screen Neg NEGATIVE Urine Cannabinoids Screen Neg NEGATIVE Troponin I High Sensitivity 42 </=54 ng/L Prothrombin Time 16.2 H 9.3-11.8 sec Prothrombin Time INR 1.58 H 0.9-1.15 Activated Partial Thromboplast Time 36.1 H 24.5-34.5 SEC B-Type Natriuretic Peptide 456.28 0-100 pg/mL Imaging: Assessment: Acute abdominal pain GI bleed Diarrhea per history Chest pain Obstructive sleep apnea on CPAP at home AFib on Eliquis Plan: Discussed with Dr. Thomas - Pt will be scheduled for an EGD tomorrow 08/06/2024 if cleared by Cardiology Pt was informed of the risks (bleeding, infection, perforation, reaction to sedation medications and cardiopulmonary arrest) and benefit and is agreeable to undergo the procedures. Monitor lab Protonix and Zofran Cardiac workup is pending Stool for WBC, culture and C diff Discussed plan with patient, at bedside and RN Thank you for the consult Date of Service: Aug 05, 2024 Billing Provider: SARAHI DIAZ Common Visit Codes: CONSULT ONLY Consultation Codes: [id number] CONSULT <60MIN SARAHI DIAZ Aug 05, 2024 16:12
[2024-08-05] MEDS ORDERED: CLOP75TA70 PO (16:53)
[2024-08-05] MEDS ORDERED: TAMS0.4C39 PO (16:53)
[2024-08-05] MEDS ORDERED: HYDR-4902 PO (16:53)
[2024-08-05] MEDS ORDERED: MONT-8 PO (16:53)
[2024-08-05] MEDS ORDERED: ALPR0.5T PO (16:53)
[2024-08-05] MEDS ORDERED: INSU100I2 SC (16:53)
[2024-08-05] MEDS ORDERED: VORT1TAB PO (16:53)
[2024-08-05] MEDS ORDERED: NITR0.4S29 SL (16:53)
[2024-08-05] MEDS ORDERED: INSLANTI SC (16:53)
--- NOTE | 2024-08-05 17:11 | DVHSR ---
APPROVED REPORT EXAM: Two-dimensional and M-mode echocardiogram with Doppler and color Doppler. Blood Pressure: 93/74 mmHg INDICATION Heart Failure RISK FACTORS Height: 6', Weight: 229 DIMENSIONS LVDd6.3 (3.8-5.7cm)LA (2D)4.8 (1.9-4.0cm)Aortic Root4.5 (2.0-3.7cm) LVDs5.2 (2.5-4.0cm)LA (MM) (1.9-4.0cm)Aortic Cusp Exc2.3 (1.5-2.0cm) EF (%) 35.0 (55-70%)Rt. Atrium (1.9-4.0cm)Asc. Aorta3.7 cm IVSd1.4 (0.7-1.1cm)RV (D) (1.8-2.4cm) PWd0.9 (0.7-1.1cm) Mitral Valve MitralMitral Stenosis E/A ratio0.02D MVAcm2 Aortic Valve Aortic ValveAortic Stenosis LVOT Diameter2.6 (1.8-2.4cm)Doppler AVAcm2 Tricuspid Valve TR Velocity2.03m/s [id number] Other Information Quality : Technically LimitedRhythm : Technically limited study due to body habitus. Pt requested for exam to be stopped. Conclusion lvef 30% by visual estimate moderate LVH mild to mdoerate LVH
--- NOTE | 2024-08-05 17:48 | MEDREC ---
[facility] ASP Intervention Section I [facility] ASP Intervention: Review courses of therapy (DUE TO PROLONG QTc > 500 PLEASE CONSIDER SWITCHING AZITHROMYCIN TO DOXYCYCLINE ) SCOTTY CARR PHARMACIST Aug 05, 2024 17:48
--- NOTE | 2024-08-05 18:36 | DVH ---
Exam: CT CT AB PEL WO CON-NO ORAL OR IV History: abdominal pain Comparison Study: None available at time of dictation. Technique: Multidetector spiral CT of the abdomen was performed from lung bases to pubic symphysis. Imaging was performed without IV contrast. Axial, coronal and sagittal multiplanar reformats were ob tained from the axial data set by the technologist. Radiation Dose : 1. Abdomen/Pelvis: CTDIvol 21 mGy, DLP 1163 mGy*cm. Findings: Evaluation of solid organs is limited due to lack of intravenous contrast use. Lung Bases: Trace effusions. Mild cardiomegaly. Scattered patchy ground-glass opacities predominantl y in the periphery of the bilateral lung bases. Liver: The liver is normal in size. No focal lesions. Gallbladder and Biliary Tree: Distended gallbladder demonstrating multiple small stones layering in t he gallbladder. Spleen: Unremarkable Pancreas: The pancreas is grossly normal in appearance. Adrenal Glands: Unremarkable Kidneys: Kidneys are grossly normal without calculi or hydronephrosis. Subcentimeter hypodensity in t he left kidney. Likely represents a cyst but can not exclude other etiologies. Bladder: Bladder is decompressed with a Bonner catheter and cannot be adequately assessed. Bowel: The stomach is grossly normal in appearance. Small bowel and colon are normal in caliber and d istribution. The appendix is not visualized; however, no secondary findings of acute appendicitis id entified. Ascites: Absent Lymphadenopathy: No mesenteric, retroperitoneal or periportal lymphadenopathy. Abdominal Wall and Mesentery: Unremarkable. Vasculature: The visualized abdominal aorta is normal in size and caliber. Evaluation of abdominal a nd pelvic vessels is limited due to lack of intravenous contrast. Pelvic Organs: Unremarkable Musculoskeletal: No aggressive focal bony lesions, acute fractures or dislocation. IMPRESSION: With trace bilateral pleural effusions. Scattered patchy ground-glass opacities predominantly in the periphery of the bilateral lung bases concerning for pulmonary edema versus multifocal pneumonia. Distended gallbladder demonstrating multiple small stones layering in the gallbladder. Consider furt her evaluation with ultrasound clinically indicated. END IMPRESSION:
[2024-08-05] MEDS: NOREPINEPHRINE 8 MG/250ML KIT 250 ML IV ONE (19:10)
[2024-08-05] MEDS: NOREPINEPHRINE BITARTRATE 32 MG in SODIUM CHL 0.9% 218 ML IV SCH (19:30)
[2024-08-05 20:12] LABS: Hematocrit 38.3 % (41.0-53.0); Hemoglobin 12.7 g/dL (13.5-17.5)
[2024-08-05] MEDS: INSULIN LANTUS (GLARGINE) 1 /0.01ml (100units/ml) SC SCH (22:06)
[2024-08-06] VITALS (119 sets, daily range): BP systolic 85–156; BP diastolic 47–115; PULSE 84–125; RESP 7–30; TEMP 96.5–99.1; O2SAT 90–100
[2024-08-06] MEDS: MORPHINE SULFATE INJ 2 MG/ml SYRG IV ONE (01:32)
[2024-08-06 04:00] LABS: Hemoglobin 12.2 g/dL (13.5-17.5)
[2024-08-06 04:04] LABS: Hematocrit 37.3 % (41.0-53.0); Mean Corpuscular Hemoglobin 27.6 pg (28.0-32.0); Mean Corpuscular Hgb Conc. 32.7 g/dL (32.0-36.0); Mean Corpuscular Volume 84.6 fL (80.0-100.0); Platelet Count (auto) 404 10^3/uL (140-450); Red Blood Cells 4.41 10^6/uL (4.5-5.90)
[2024-08-06 04:12] LABS: Band Neutrophils % (manual) 0; Basophils % (manual) 0 (0.0-2.0); Blast Cells 0; Eosinophils % (manual) 0 (0-7); Metamyelocytes % 0; Myelocytes % 0; Promyelocytes % 0; Reactive Lymphocytes 0
[2024-08-06 04:16] LABS: Alkaline Phosphatase 55 U/L (46-116); Anion Gap 11 (5-15); BUN/Creatinine Ratio 24.6 (10.0-20.0); Bilirubin, Total 0.5 mg/dL (0.2-1.0); Chloride 105 mmol/L (98-107); Magnesium 2.3 mg/dL (1.6-2.6); Potassium 3.9 mmol/L (3.5-5.1)
[2024-08-06 04:18] LABS: Alanine Aminotransferase 103 U/L (7-40); Albumin 2.9 g/dL (3.2-4.8); Aspartate Aminotransferase 358 U/L (13-40); Blood Urea Nitrogen 73 mg/dL (9-23); Calcium 8.2 mg/dL (8.7-10.4); Carbon Dioxide 19 mmol/L (20-31); Glucose 360 mg/dL (74-106); Sodium 135 mmol/L (136-145); Total Protein 4.9 g/dL (5.7-8.2)
[2024-08-06 06:53] LABS: Lymphocytes % (manual) 10 (10.0-50.0); Monocytes % (manual) 6 (0-12)
[2024-08-06 06:54] LABS: Anisocytosis Slight; Platelet Estimate Adequate
[2024-08-06 06:55] LABS: Giant Platelets Few; Large Platelets FEW
[2024-08-06 08:43] LABS: LDL Cholesterol 59 mg/dL (< 100)
[2024-08-06 08:44] LABS: Cholesterol 93 mg/dL (< 200)
[2024-08-06 08:47] LABS: HDL Cholesterol 11 mg/dL (40-59); Triglycerides 166 mg/dL (< 150)
[2024-08-06 09:13] LABS: Base Excess -4.4 mmol/L (-2.0-3.0)
--- NOTE | 2024-08-06 09:24 | DVH ---
XY CHEST XRAY 1 VIEW, HISTORY: resp failure COMPARISON: XY CHEST PORTABLE on DOS: 08/04/24 XY CHEST PORTABLE on DOS: 08/04/24 TECHNICAL DATA: 1 view of the chest was obtained. FINDINGS: Lines and tubes: None Cardiomediastinal silhouette: Enlarged Pulmonary vasculature: prominent Lung expansion: normal Lung airspace: normal Lung interstitium: normal Pleura: normal Pneumothorax: no Bones: Unremarkable Other: no IMPRESSION: Cardiomegaly with mild pulmonary congestion.
[2024-08-06] MEDS: SODIUM CHLORIDE 0.9% 500 ML IV ONE (09:27)
[2024-08-06] MEDS ORDERED: VANCOMYCIN PER PHARMACY 0 MG IV SCH (09:45)
[2024-08-06] MEDS ORDERED: VANCOMYCIN 1GM/250ML KIT 250 ML IV ONE (09:45)
[2024-08-06] MEDS: ALBUMIN 25% 100 ML IV SCH (09:46)
--- NOTE | 2024-08-06 10:10 | DVHPN2 ---
Consult Progress Note Date Seen: Aug 06, 2024 Subjective Other Systems: No overnight cardiac events reported. No further GI bleed events Objective vital signs Vital Sign Date Time Temp Pulse Resp B/P (MAP) Pulse Ox O2 Delivery O2 Flow Rate FiO2 08/06/24 06:30 106 16 90/60 (70) 100 08/05/24 20:00 Nasal Cannula* 2 28 08/05/24 19:21 97.7 97.7 Total Intake and Output 08/05/24 08/05/24 08/06/24 15:00 23:00 07:00 Intake Total 660 ml 892.83 ml 218.55 ml Output Total 350 ml 200 ml Balance 660 ml 542.83 ml 18.55 ml medications Current Medications Medications Dose Ordered Sig/Johan Route Start Time Stop Time Status Last Admin Dose Admin Furosemide 40 mg DAILY IV 08/05/24 10:00 Diagnostic Test (Pha) 1 strip IQ4HR 08/04/24 08:00 08/06/24 08:00 1 STRIP Insulin Human Regular IQ4HR SC 08/04/24 08:00 08/06/24 09:48 9 UNITS Dextrose 50 ml UD PRN IV 08/04/24 07:15 Sodium Chloride 10 ml Q8HR IV 08/04/24 14:00 08/06/24 03:41 10 ML Acetaminophen/ Hydrocodone Bitart 1 tab Q4HP PRN PO 08/04/24 07:15 08/05/24 04:45 1 TAB Ondansetron HCl 4 mg Q4HP PRN IV 08/04/24 07:15 08/04/24 20:30 4 MG Docusate Sodium 100 mg BIDPRN PRN PO 08/04/24 07:15 Acetaminophen 650 mg Q6HP PRN PO 08/04/24 07:15 Nitroglycerin 0.4 mg Q5MINP PRN SL 08/04/24 11:00 Morphine Sulfate 2 mg Q30M PRN IV 08/04/24 11:00 Empaglifozin 10 mg DAILY PO 08/05/24 10:00 08/05/24 10:46 10 MG Atorvastatin Calcium 40 mg HS PO 08/04/24 22:00 08/04/24 21:14 40 MG Amiodarone HCl 250 ml @ 16.667 mls/ hr Q15H IV 08/05/24 15:15 08/06/24 06:28 16.667 MLS/HR Pantoprazole Sodium 50 ml @ 10 mls/hr Q5H IV 08/05/24 09:15 08/06/24 05:23 10 MLS/HR Sodium Chloride 1,000 ml @ 60 mls/hr [id number] IV 08/05/24 09:30 08/05/24 09:30 60 MLS/HR Insulin Glargine 20 units BID@0700,2200 SC 08/05/24 22:00 08/06/24 06:28 20 UNITS Norepinephrine Bitartrate 32 mg/ Sodium Chloride 250 ml @ 0.938 mls/ hr Q24H IV 08/05/24 17:30 08/05/24 19:30 0.938 MLS/HR Albumin Human 100 ml @ 100 mls/hr Q8H IV 08/06/24 07:45 08/07/24 00:44 08/06/24 09:46 100 MLS/HR Meropenem 50 ml @ 17 mls/hr Q12HR IV 08/06/24 10:00 Linezolid 300 ml @ 150 mls/hr Q12HR IV 08/06/24 10:00 Examination: GENERAL:Abnormal (Pale), LUNGS:Abnormal (Crackles to BLS. O2 via NC), CVS:Abnormal (On vasopressor and amiodarone drip. A-fib 110s bpm), NEURO:Abnormal (A&O x 2) laboratory and microbiology Laboratory Tests 08/06/24 03:36 Test 08/06/24 03:36 Range/Units Serum Glucose 360 #H 74-106 mg/dL Problem List/Assessment/Plan Problem List/Assessment/Plan Septic/hypovolemic shock Paroxysmal atrial fibrillation with RVR, on amiodarone/Eliquis therapy Acute on chronic decompensated HFrEF Coronary artery disease status post PTCA including 3 AGUEDA Acute hypoxic respiratory failure with PNA Chest pain rule out progressive CAD Insulin-dependent diabetes mellitus Hypertension Dyslipidemia Obesity Rectal bleed LIANA Plan/Recommendation (Dr. Casanova) * Echocardiogram revealed EF 30% with moderate LVH * Hold all AC/antiplatelet therapy given active rectal bleed * [id number] Score 5. HAS-BLED Score 2 * Antiarrhythmic therapy, amiodarone drip per protocol * Lipid lowering agent, monitor LFTs trending up * Monitor ECG changes and notify * GI/Nephrology/Pulmonology recommendations * Septic work-up per primary care team Thank you for allowing us to participate in this patient's care. Please call if you have any questions or concerns. Critical care time: 30 min. This medical document was created using an electronic medical record system with voice recognition software and computerized dictation system. Although this document has been carefully reviewed, there might still be some phonetic and typographical errors. Occasional wrong-word or ``sound-alike substitutions may have occurred due to the inherent limitations of voice recognition software. These areas are purely typographical due to imperfections of the software programs and do not reflect any compromise in the patient's medical care. Please read the chart carefully and recognize, using context, where these substitutions have occurred. Plan discussed with: Patient, Other Date of Service: Aug 06, 2024 Billing Provider: KORINA WARREN MD Cardiology Common Codes: 18335-[id number] CARE 30-74 MIN BRIDGER CHEN COCOA PRESS OPERATOR Aug 06, 2024 10:10
--- NOTE | 2024-08-06 10:28 | CONS ---
Pharmacy Clinical Information: From Heart Failure Fallout Report on CQM Appplication, Gustavo Munoz is a 68 year old male with PMH of paroxysmal Afib, T2DM, HTN, CAD x/p PTCA, NM, BPH, and dyslipidemia. His home medications for heart failure include sacubitril/valsartan, dapagliflozin, spironolactone, metoprolol succinate, and furosemide. His inpatient medications that were discontinued/held include furosemide, empagliflozin, metoprolol succinate, and sacubitril/valsartan. Continue to hold off on initiating GDMT due to NPO for EGD procedure, hypotension, and LIANA. SATHYA UNGER PHARMACIST Aug 06, 2024 10:28
[2024-08-06] MEDS: LINEZOLID 600MG/300ML 300 ML IV SCH (10:45)
--- NOTE | 2024-08-06 11:27 | DVHPN2 ---
Subjective He is more altered today Labs shows metabolic acidosis The blood gas also shows metabolic acidosis with respiratory compensation Chest x-ray shows cardiomegaly with mild pulmonary congestion The echocardiogram yesterday showed ejection fraction 30% with moderate LVH Kidney function is worse today with a creatinine of 2.9 and a CO2 of 19 Liver functions are elevated White count is higher at 32 Changes from previous H/P or p: Changes Eyes: No Pain, No Vision change, No Conjunctivae inflammation, No Eyelid inflammation, No Other, No Redness ENT: No Ear pain, No Ear discharge, No Nose pain, No Nose discharge, No Nose congestion, No Mouth pain, No Mouth swelling, No Throat pain, No Throat swelling, No Other Cardiovascular: Chest Pain; No Palpitations, No Orthopnea, No Paroxysmal Noc. Dyspnea, No Edema, No Lt Headedness; Other (Dizzy spells) Respiratory: No Cough, No Dry; Shortness of breath; No SOB with excertion, No Wheezing, No Hemoptysis, No Pleuritic Pain, No Sputum, No Other Gastrointestinal: Nausea; No Vomiting, No Abdominal Pain, No Diarrhea, No Constipation, No Melena, No Hematochezia, No Other Genitourinary: No Dysuria, No Frequency, No Incontinence, No Hematuria, No Retention, No Other Musculoskeletal: No other, No neck pain, No shoulder pain, No arm pain, No back pain, No hand pain, No leg pain, No foot pain Skin: No Rash, No Lesions, No Jaundice, No Bruising, No Other Objective Vitals Vital Signs Date Time Temp Pulse Resp B/P (MAP) Pulse Ox O2 Delivery O2 Flow Rate FiO2 08/06/24 06:30 106 16 90/60 (70) 100 08/05/24 20:00 Nasal Cannula* 2 28 08/05/24 19:21 97.7 97.7 Intake/Output Intake and Output 08/06/24 07:00 Intake Total 1787.98 ml Output Total 550 ml Balance 1237.98 ml Intake Oral 740 ml IV Total 1047.98 ml Output Urine Total 550 ml # Bowel Movements 8 General Appearance: Alert, Cooperative, moderate distress, Other (Disoriented) Lungs: Clear to auscultation Cardiovascular: Other (irregularly irregular) Extremities: No edema Medications Current Medications Medications Dose Ordered Sig/Johan Route Start Time Stop Time Status Last Admin Dose Admin Diagnostic Test (Pha) 1 strip IQ4HR 08/04/24 08:00 08/06/24 08:00 1 STRIP Insulin Human Regular IQ4HR SC 08/04/24 08:00 08/06/24 09:48 9 UNITS Dextrose 50 ml UD PRN IV 08/04/24 07:15 Sodium Chloride 10 ml Q8HR IV 08/04/24 14:00 08/06/24 03:41 10 ML Acetaminophen/ Hydrocodone Bitart 1 tab Q4HP PRN PO 08/04/24 07:15 08/05/24 04:45 1 TAB Ondansetron HCl 4 mg Q4HP PRN IV 08/04/24 07:15 08/04/24 20:30 4 MG Docusate Sodium 100 mg BIDPRN PRN PO 08/04/24 07:15 Acetaminophen 650 mg Q6HP PRN PO 08/04/24 07:15 Nitroglycerin 0.4 mg Q5MINP PRN SL 08/04/24 11:00 Morphine Sulfate 2 mg Q30M PRN IV 08/04/24 11:00 Atorvastatin Calcium 40 mg HS PO 08/04/24 22:00 08/04/24 21:14 40 MG Amiodarone HCl 250 ml @ 16.667 mls/ hr Q15H IV 08/05/24 15:15 08/06/24 06:28 16.667 MLS/HR Pantoprazole Sodium 50 ml @ 10 mls/hr Q5H IV 08/05/24 09:15 08/06/24 10:46 10 MLS/HR Sodium Chloride 1,000 ml @ 60 mls/hr [id number] IV 08/05/24 09:30 08/05/24 09:30 60 MLS/HR Insulin Glargine 20 units BID@0700,2200 SC 08/05/24 22:00 08/06/24 06:28 20 UNITS Norepinephrine Bitartrate 32 mg/ Sodium Chloride 250 ml @ 0.938 mls/ hr Q24H IV 08/05/24 17:30 08/05/24 19:30 0.938 MLS/HR Albumin Human 100 ml @ 100 mls/hr Q8H IV 08/06/24 07:45 08/07/24 00:44 08/06/24 09:46 100 MLS/HR Meropenem 50 ml @ 17 mls/hr Q12HR IV 08/06/24 10:00 Linezolid 300 ml @ 150 mls/hr Q12HR IV 08/06/24 10:00 08/06/24 10:45 150 MLS/HR Laboratory Results Laboratory Tests 08/06/24 03:36 Chemistry Test 08/06/24 03:36 Albumin 2.9 g/dL (3.2-4.8) L Calcium Level 8.2 mg/dL (8.7-10.4) L Magnesium Level 2.3 mg/dL (1.6-2.6) Total Protein 4.9 g/dL (5.7-8.2) L Lipid panel Test 08/06/24 03:36 Cholesterol Level 93 mg/dL (< 200) HDL Cholesterol 11 mg/dL (40-59) L Triglycerides Level 166 mg/dL (< 150) H LFT Test 08/06/24 03:36 Alanine Aminotransferase (ALT) 103 U/L (7-40) H Alkaline Phosphatase 55 U/L (46-116) Aspartate Amino Transferase (AST) 358 U/L (13-40) H Total Bilirubin 0.5 mg/dL (0.2-1.0) HgA1c, TSH Test 08/06/24 03:36 Hemoglobin A1c 9.7 % A1C (<5.7) H Urinalysis Test 08/04/24 15:54 Urine Color Yellow (Yellow) Urine Clarity Clear (Clear) Urine pH 6.0 (5.0-9.0) Urine Specific [place] 1.014 (1.001-1.035) Urine Protein 1+ (Negative) H Urine Ketones Trace (Negative) Urine Blood Trace /uL (Negative) H Urine Nitrite Negative (Negative) Urine Bilirubin Negative (Negative) Urine Urobilinogen Normal mg/dL (Negative) Urine Leukocyte Esterase Negative /uL (Negative) Urine RBC 1 /hpf (0 - 3) Urine WBC 2 /hpf (0 - 3) Urine Squamous Epithelial Cells Few /hpf (<5) Urine Bacteria None seen /hpf (None Seen) Urine Hyaline Casts Few /lpf (0 - 2) Urine Mucus Few (None Seen) Urine Glucose 3+ mg/dL (Normal) H Blood Gas Results Test 08/06/24 09:05 Arterial Blood pH 7.444 (7.350-7.450) FiO2 % 32.0 Assessment/Plan Assessment/Plan Afib RVR Hypotension GI Bleed Here sepsis with septic shock CHF CAD Dyslipidemia BPH DM2 Obstructive sleep apnea on C-PAP at home PLAN: 08/05/2024: IV fluids low rate due to CHF Afib RVR Patient declines blood transfusion DNR Amiodarone bolus and drip Stop Lovenox and aspirin IV Protonix GI consult Cardiology consult Echo: Pending Discussed advance directives with patient, he wants DNR, agrees to medications and BiPAP only 08/06/2024: Sepsis with septic shock: Continue Levophed, change IV antibiotics to Zyvox and meropenem LIANA of due to septic shock: Nephrology consult, ordered IV fluids however cardiology recommended against giving more IV fluids due to low ejection fraction Metabolic acidosis Atrial fibrillation with rapid ventricular response: Amiodarone drip Acute hypoxic respiratory failure simply due to pneumonia Possible underlying pneumonia, Gram-negative versus Gram-positive GI bleed: Protonix drip, GI consult, type 2 diabetes Congestive heart failure, acute on chronic, systolic Coronary artery disease with a history of stents BPH Obstructive sleep apnea on CPAP at home No anticoagulation due to GI bleed NPO Pulmonary consultation Cardiology consultation Nephrology consultation Full Code: Patient stated yesterday that he wanted to be DNR however after his came and the reason reversed the decision and he is full code now The rest of the management will depend on the hospital course Plan discussed with: Patient, Other My Orders Orders - HADLEY LAZCANO MD Procedure Category Date Status Time * Gi [facility] [employer] Clerk CONS 08/05/24 Transmitted 12:04 Insulin Lantus PHA 08/05/24 In Process (Glargine) (Lantus) 22:00 Blood Culture ARIEL 08/06/24 In Process 08:56 Abg W/ Co-Ox RT 08/06/24 Logged 08:57 Chest Xray 1 View XY 08/06/24 Resulted 08:58 *Consult CONS 08/06/24 Transmitted / 08:59 Meropenem 1gm Ivpb PHA 08/06/24 In Process (Merrem 1gm/ Ns) 10:00 Linezolid 600mg/300ml PHA 08/06/24 In Process (Zyvox) 10:00 Date of Service: Aug 06, 2024 Billing Provider: HADLEY LAZCANO MD Common Visit Codes: NOT BILLABLE HADLEY LAZCANO MD Aug 06, 2024 11:27
[2024-08-06] MEDS: MEROPENEM 1GM IVPB 50 ML IV SCH ×2 (14:00→21:43)
--- NOTE | 2024-08-06 17:15 | DVHPN2 ---
Progress Note - Dictate Date Seen: Aug 06, 2024 Medical Necessity Reason Pt with a Central, PICC or Fol: No Subjective No active GI bleeding reported, hemoglobin stable at 12.2 Stool was occult blood positive with a few WBC He is more altered today Labs shows metabolic acidosis The blood gas also shows metabolic acidosis with respiratory compensation Chest x-ray shows cardiomegaly with mild pulmonary congestion The echocardiogram yesterday showed ejection fraction 30% with moderate LVH Kidney function is worse today with a creatinine of 2.9 and a CO2 of 19 Liver functions are elevated White count is higher at 32 vital signs Vital Sign Date Time Temp Pulse Resp B/P (MAP) Pulse Ox O2 Delivery O2 Flow Rate FiO2 08/06/24 12:52 107 20 107/65 (79) 95 08/06/24 11:48 99.1 99.1 08/06/24 08:00 Nasal Cannula* 3 32 Total Intake and Output 08/05/24 08/05/24 08/06/24 15:00 23:00 07:00 Intake Total 660 ml 892.83 ml 306.05 ml Output Total 350 ml 200 ml Balance 660 ml 542.83 ml 106.05 ml medications Current Medications Medications Dose Ordered Sig/Johan Route Start Time Stop Time Status Last Admin Dose Admin Diagnostic Test (Pha) 1 strip IQ4HR 08/04/24 08:00 08/06/24 15:43 1 STRIP Insulin Human Regular IQ4HR SC 08/04/24 08:00 08/06/24 15:49 2 UNITS Dextrose 50 ml UD PRN IV 08/04/24 07:15 Sodium Chloride 10 ml Q8HR IV 08/04/24 14:00 08/06/24 14:00 10 ML Ondansetron HCl 4 mg Q4HP PRN IV 08/04/24 07:15 08/04/24 20:30 4 MG Docusate Sodium 100 mg BIDPRN PRN PO 08/04/24 07:15 Acetaminophen 650 mg Q6HP PRN PO 08/04/24 07:15 Nitroglycerin 0.4 mg Q5MINP PRN SL 08/04/24 11:00 Morphine Sulfate 2 mg Q30M PRN IV 08/04/24 11:00 Atorvastatin Calcium 40 mg HS PO 08/04/24 22:00 08/04/24 21:14 40 MG Amiodarone HCl 250 ml @ 16.667 mls/ hr Q15H IV 08/05/24 15:15 08/06/24 06:28 16.667 MLS/HR Pantoprazole Sodium 50 ml @ 10 mls/hr Q5H IV 08/05/24 09:15 08/06/24 15:23 10 MLS/HR Sodium Chloride 1,000 ml @ 60 mls/hr [id number] IV 08/05/24 09:30 08/05/24 09:30 60 MLS/HR Insulin Glargine 20 units BID@0700,2200 SC 08/05/24 22:00 08/06/24 06:28 20 UNITS Norepinephrine Bitartrate 32 mg/ Sodium Chloride 250 ml @ 0.938 mls/ hr Q24H IV 08/05/24 17:30 08/05/24 19:30 0.938 MLS/HR Albumin Human 100 ml @ 100 mls/hr Q8H IV 08/06/24 07:45 08/07/24 00:44 08/06/24 15:30 100 MLS/HR Meropenem 50 ml @ 17 mls/hr Q12HR IV 08/06/24 10:00 08/06/24 14:00 17 MLS/HR Linezolid 300 ml @ 150 mls/hr Q12HR IV 08/06/24 10:00 08/06/24 10:45 150 MLS/HR objective General Appearance: Alert, Cooperative, moderate distress, Other (Disoriented) Lungs: Clear to auscultation Cardiovascular: Other (irregularly irregular) Extremities: No edema laboratory and microbiology Laboratory Tests 08/06/24 03:36 Test 08/06/24 03:36 Range/Units Serum Glucose 360 #H 74-106 mg/dL Problems(with codes): (1) Pneumonia, unspecified organism (2) Acute exacerbation of congestive heart failure (3) Electrolyte imbalance (4) Generalized weakness (5) Chest pain (6) Atrial fibrillation Prognosis Plan Head tentatively schedule him for an endoscopy today However because of no further active bleeding and patient's overall poor clinical condition this has been canceled Continue Protonix 40 mg IV q.12 hours Continue to monitor labs Supportive care Prognosis guarded Plan discussed with: Other (Dorie Barahona) NINA KENDALL MD Aug 06, 2024 17:15
--- NOTE | 2024-08-06 18:28 | DVHNC2 ---
Procedure - ULTRASOUND-GUIDED RIGHT INTERNAL JUGULAR CENTRAL VENOUS CANNULATION CPT Codes: 09097 (ultrasound guidance) 19863 (insertion of non-tunneled centrally inserted central venous catheter) 09874 (CXR interpretation) Time out time: 1745 pm Patient medications and allergies reviewed. The risks and benefits of the procedure and the sedation options and risk were discussed with the patient's healthcare proxy. All questions were answered and informed consent was obtain ed. Patient identification and proposed procedure were verified prior to the procedure by the physician, and a nurse in the patient's room. The heart rate, respiratory rate, oxygen saturations, blood pressure, adequacy of pulmonary ventilation, and response to care were monitored throughout the procedure. The physical status of the patient was reassessed after the procedure. DATE: August 18, 2024 PHYSICIAN: Paul Junior PREOPERATIVE DIAGNOSIS: Septic shock POSTOPERATIVE DIAGNOSIS: Septic shock PROCEDURE PERFORMED: Limited Ultrasound-guided Right internal jugular central line placement. ANESTHESIA: 2 mL of 1% lidocaine plain. ESTIMATED BLOOD LOSS: less than 5 mL. SPECIMENS: None. COMPLICATIONS: None. INDICATIONS FOR PROCEDURE: The patient is in need of large bore IV access for administration of fluids, including blood products and vasoactive drugs, possible transvenous cardiac pacing and CVP monitoring for hemodynamic instability. DESCRIPTION OF PROCEDURE IN DETAIL: The patient was lying in the Trendelenburg position with head turned 30 degrees away from the insertion site. The skin was thoroughly sponged with chlorhexidine and allowed to dry. All persons involved were shielded with hair nets, face masks and sterile gowns. With sterile-gloved hands the right neck area was draped with the large disposable sterile field provided in the pre-manufactured kit. The skin and subcutaneous tissues superficial to the RIGHT internal jugular vein were anesthetized with 2 mL of 1% lidocaine. The RIGHT internal jugular vein was identified on ultrasound from the angle of the mandible down into the supraclavicular fossa using the linear ultrasound probe in the transverse orientation. The carotid artery was identified and avoided utilizing color-flow. The internal jugular vein was then placed in the center of the ultrasound field and compressed for patency. A movement artifact was identified as the needle was advanced through the skin and advanced toward the vessel. A real time hyperechoic signal revealed visualization of vascular needle entry into the lumen as blood was noted to flashback in the syringe. The needle was then held in place while the guide wire was advanced. The needle was then removed. Direct visualization of guide wire location within the vein was noted on ultrasound indicating proper placement and was document in the electronic medical record chart. A skin dilator was advanced over the guidewire and removed, and the triple-lumen catheter was then advanced over the guide wire into proper position. The guide wire was removed and discarded. The ports were aspirated which showed good blood return and then carefully flushed with normal saline. The catheter was stabilized and sutured to the skin with 2-0 silk at 4 anchor points. A sterile bio-patch and dressing was placed over the catheter, including the insertion site. The patient tolerated the procedure well. A chest x-ray was ordered for position confirmation. I reviewed the image immediately after it was taken at bedside. Post-procedure chest x-ray demonstrates the central line in the superior vena and no evidence of any pneumothorax. An image recording of the procedure accompanies the chart. PAUL JUNIOR MD Aug 06, 2024 18:28
--- NOTE | 2024-08-06 18:32 | DVHINCON2 ---
Date of service: Aug 06, 2024 Reason for Consultation LIANA History of Present Illness 68 years old man with past medical history of coronary artery disease status post PTCA including three AGUEDA, congestive heart failure, paroxysmal atrial fibrillation on amiodarone/Eliquis therapy, insulin-dependent diabetes mellitus, hypertension, dyslipidemia, benign prostatic hyperplasia, and obesity. Presented with chief complaints of shortness breath he is eventually intubated for worsening hypoxia, also found to have septic shock treated with vasopressors antibiotics had GI bleed bloody stool as reported by RN nephrology consulted for Acute kidney injury urine output going down Patient seen and examined in ICU Ejection fraction is 30 Past Medical History As per HPI Past Surgical History As per HPI Allergies: Coded Allergies: Metformin (Verified Allergy, Unknown, 08/04/24) Home Meds Reported Medications Hydrocodone-Acetaminophen (Hydrocodone Bitartrate/AC 5-325 mg) 1 Tab Tab, 1 TAB PO, TAB 08/05/24 Alprazolam (Xanax) 0.5 Mg Tb, 1 TAB PO DAILY, #30 TAB 08/05/24 Tramadol Hcl (Tramadol Hcl) 50 Mg Tab, 50 MG PO Q4HPRN, MG 08/05/24 Nitroglycerin (NTROSTAT SUBLINGUAL) 0.4 Mg Sl, 0.4 MG SL PRN, TAB *MAY REPEAT EVERY 5 MINUTES X 3 TOTAL IF NO RELIEF, INITIATE ANALGESIC THERAPY. NOTIFY PHYSICIAN *Do not crush. 08/05/24 Insulin Lispro (Human) (Humalog) 100 Unit/Ml Inj, 10 UNIT SC TID, INJ 08/05/24 Insulin Glargine (Lantus) 100 Unit/Ml Inj, 70 UNIT SC, INJ 08/05/24 Vortioxetine Hydrobromide (Trintellix) 5 Mg Tab, 5 MG PO, TAB 08/05/24 Montelukast Sodium (MONTELUKAST SODIUM) 10 Mg Tab, 1 TAB PO DAILY, #30 TAB 5 Refills 08/05/24 Tamsulosin Hcl (Tamsulosin Hcl) 0.4 Mg Cap, 1 CAP PO DAILY, #30 CAP 5 Refills 08/05/24 Clopidogrel Bisulfate (CLOPIDOGREL) 75 Mg Tab, 75 MG PO DAILY for 30 Days, MG 08/05/24 Tramadol Hcl (Tramadol Hcl) 50 Mg Tab, 1 TAB PO Q4HPRN PRN for MILD PAIN (1-3 PAIN SCALE) 08/04/24 Amiodarone HCl (Amiodarone HCl) 200 Mg Tab, 1 TAB PO DAILY 08/04/24 Furosemide (Furosemide) 40 Mg Tab, 1 TAB PO BID 08/04/24 Metoprolol Succinate (Metoprolol Succinate Er) 100 Mg Tab, 1 TAB PO BID 08/04/24 Finasteride (Finasteride) 5 Mg Tab, 1 TAB PO DAILY 08/04/24 Spironolactone (Spironolactone) 25 Mg Tab, 1 TAB PO DAILY 08/04/24 Apixaban Base (ELIQUIS) 5 Mg Tab, 1 TAB PO BID 08/04/24 Sacubitril-Valsartan (Entresto 24-26 mg) 1 Tab Tab, 1 TAB PO BID 08/04/24 Gabapentin (Gabapentin) 600 Mg Tab, 1 TAB PO TID 08/04/24 Hydrocodone-Acetaminophen (Hydrocodone/Acetaminophen 10-325 mg) 1 Tab Tab, 1 TAB PO TID PRN for MODERATE PAIN (4-6 PAIN SCALE) 08/04/24 Current Medications Current Medications Medications (Trade) Dose Ordered Sig/Johan Route PRN Reason Start Time Stop Time Status Last Admin Insulin Glargine (Lantus) 20 units BID@0700,2200 SC 08/05/24 22:00 08/06/24 06:28 Albumin Human 100 ml @ 100 mls/hr Q8H IV 08/06/24 07:45 08/07/24 00:44 08/06/24 15:30 Vancomycin HCl 0 ml @ 0 mls/hr UD IV 08/06/24 09:45 08/06/24 09:34 DC Meropenem 50 ml @ 17 mls/hr Q12HR IV 08/06/24 10:00 08/06/24 17:14 DC 08/06/24 14:00 Linezolid 300 ml @ 150 mls/hr Q12HR IV 08/06/24 10:00 08/06/24 10:45 Meropenem 50 ml @ 17 mls/hr Q12HR IV 08/06/24 22:00 Family History: Cardiovascular disease G8 FATHER Diabetes mellitus G8 MOTHER Review of Systems Unable to obtain H&P Exam Vital Signs/I&O Vital Sign Date Time Temp Pulse Resp B/P (MAP) Pulse Ox O2 Delivery O2 Flow Rate FiO2 08/06/24 12:52 107 20 107/65 (79) 95 08/06/24 11:48 99.1 99.1 08/06/24 08:00 Nasal Cannula* 3 32 Intake and Output 08/05/24 08/06/24 19:00 07:00 Intake Total 1440 ml 418.88 ml Output Total 350 ml 200 ml Balance 1090 ml 218.88 ml Intake Oral 720 ml 20 ml IV Total 720 ml 398.88 ml Output Urine Total 350 ml 200 ml # Bowel Movements 5 3 Physical Exam General-intubated HEENT-normocephalic, no icterus, no pallor, neck supple Respiratory-fair air entry bilateral, no rhonchi, no wheeze [id number] heard, Abdominal-soft, nontender, nondistended Musculoskeletal-no pedal edema, no calf tenderness Labs/Diagnostic Data Labs/Diagnostic Data Laboratory Tests Test 08/06/24 15:45 08/06/24 11:48 08/06/24 10:00 08/06/24 09:05 Range/Units POC Glucose 157 H 231 H 70-106 mg/dl Lactic Acid Level 1.6 0.4-2.0 mmol/L Blood Gas Specimen Type Arterial Blood Gas Sample Site Left radial Blood Gas Patient Temperature 37.0 Arterial Blood Date Drawn [id number] Arterial Blood pH 7.444 7.350-7.450 Arterial Blood Partial Pressure CO2 27.3 L 35.0-48.0 mmHg Arterial Blood Partial Pressure O2 67.2 L 83.0-108.0 mmHg Arterial Blood HCO3 18.3 L 21.0-28.0 mmol/L Arterial Blood Oxygen Saturation 91.8 L 94.0-98.0 % Arterial Blood Base Excess -4.4 L -2.0-3.0 mmol/L Arterial Blood Oxyhemoglobin 91.3 L 94.0-98.0 % Arterial Blood Carboxyhemoglobin 0.3 L 0.5-1.5 % Arterial Blood Methemoglobin 0.2 0.0-1.5 % Art Test Modified Blood Gas Total Hemoglobin 12.50 L 13.5-17.5 g/dL Blood Gas Liter Flow 3.00 Blood Gas Modality Nasal cannula FiO2 % 32.0 Test 08/06/24 08:10 08/06/24 06:26 08/06/24 03:36 08/06/24 03:31 Range/Units POC Glucose 267 H 269 H 351 H 70-106 mg/dl White Blood Count 32.0 #*H 4.4-10.8 10^3/uL Red Blood Count 4.41 L 4.5-5.90 10^6/uL Hemoglobin 12.2 L 13.5-17.5 g/dL Hematocrit 37.3 L 41.0-53.0 % Mean Corpuscular Volume 84.6 80.0-100.0 fL Mean Corpuscular Hemoglobin 27.6 L 28.0-32.0 pg Mean Corpuscular Hemoglobin Concent 32.7 32.0-36.0 g/dL Red Cell Distribution Width 16.0 H 11.8-14.3 % Platelet Count 404 140-450 10^3/uL Mean Platelet Volume 8.7 6.9-10.8 fL Neutrophils (%) (Auto) 37.0-80.0 % Lymphocytes (%) (Auto) 10.0-50.0 % Monocytes (%) (Auto) 0.0-12.0 % Basophils (%) (Auto) 0.0-2.0 % Neutrophils # (Auto) 1.6-8.6 10 ^3/uL Lymphocytes # (Auto) 0.4-5.4 10 ^3/uL Monocytes # (Auto) 0-1.3 10 ^3/uL Differential Total Cells Counted 100.0 100 Neutrophils % (Manual) 84 H 37.0-80.0 Band Neutrophils % (Manual) 0 Lymphocytes % (Manual) 10 10.0-50.0 Monocytes % (Manual) 6 0-12 Eosinophils % (Manual) 0 0-7 Basophils % (Manual) 0 0.0-2.0 Metamyelocytes % (manual) 0 Myelocytes % (Manual) 0 Promyelocytes % (Manual) 0 Blast Cells % (Manual) 0 Reactive Lymphocytes 0 Platelet Estimate Adequate Large Platelets Few Giant Platelets Few Anisocytosis (manual) Slight Schistocytes Few Sodium Level 135 L 136-145 mmol/L Potassium Level 3.9 3.5-5.1 mmol/L Chloride Level 105 98-107 mmol/L Carbon Dioxide Level 19 L 20-31 mmol/L Anion Gap 11 5-15 Blood Urea Nitrogen 73 #H 9-23 mg/dL Creatinine 2.97 H 0.700-1.30 mg/dL Glomerular Filtration Rate Calc 22 >90 mL/min BUN/Creatinine Ratio 24.6 H 10.0-20.0 Serum Glucose 360 #H 74-106 mg/dL Hemoglobin A1c 9.7 H <5.7 % A1C Calcium Level 8.2 L 8.7-10.4 mg/dL Magnesium Level 2.3 1.6-2.6 mg/dL Total Bilirubin 0.5 0.2-1.0 mg/dL Aspartate Amino Transferase (AST) 358 H 13-40 U/L Alanine Aminotransferase (ALT) 103 H 7-40 U/L Alkaline Phosphatase 55 46-116 U/L Total Protein 4.9 L 5.7-8.2 g/dL Albumin 2.9 L 3.2-4.8 g/dL Triglycerides Level 166 H < 150 mg/dL Cholesterol Level 93 < 200 mg/dL LDL Cholesterol 59 < 100 mg/dL HDL Cholesterol 11 L 40-59 mg/dL Test 08/06/24 00:15 08/05/24 22:01 08/05/24 21:00 08/05/24 20:22 Range/Units POC Glucose 333 H 393 H 365 H 70-106 mg/dl Stool for White Cells Few Test 08/05/24 19:52 08/05/24 16:11 08/05/24 16:09 08/05/24 13:32 Range/Units Hemoglobin 12.7 L 13.7 13.5-17.5 g/dL Hematocrit 38.3 L 41.2 # 41.0-53.0 % POC Glucose 470 *H 427 *H 70-106 mg/dl Test 08/05/24 11:39 08/05/24 09:15 08/05/24 08:09 08/05/24 07:42 Range/Units POC Glucose 380 H 210 H 70-106 mg/dl Stool Occult Blood Positive Negative Stool Occult Blood Sample #3 Negative White Blood Count 14.6 #H 4.4-10.8 10^3/uL Red Blood Count 5.64 4.5-5.90 10^6/uL Hemoglobin 15.8 # 13.5-17.5 g/dL Hematocrit 46.3 # 41.0-53.0 % Mean Corpuscular Volume 82.2 80.0-100.0 fL Mean Corpuscular Hemoglobin 28.0 28.0-32.0 pg Mean Corpuscular Hemoglobin Concent 34.1 32.0-36.0 g/dL Red Cell Distribution Width 16.4 H 11.8-14.3 % Platelet Count 342 # 140-450 10^3/uL Mean Platelet Volume 8.8 6.9-10.8 fL Neutrophils (%) (Auto) 72.8 37.0-80.0 % Lymphocytes (%) (Auto) 13.4 10.0-50.0 % Monocytes (%) (Auto) 13.1 H 0.0-12.0 % Eosinophils (%) (Auto) 0.5 0.0-7.0 % Basophils (%) (Auto) 0.2 0.0-2.0 % Neutrophils # (Auto) 10.7 H 1.6-8.6 10 ^3/uL Lymphocytes # (Auto) 2.0 0.4-5.4 10 ^3/uL Monocytes # (Auto) 1.9 H 0-1.3 10 ^3/uL Eosinophils # (Auto) 0.1 0-0.8 10 ^3/uL Basophils # (Auto) 0 0-0.2 10 ^3/uL Nucleated Red Blood Cells 0.1 % Sodium Level 139 # 136-145 mmol/L Potassium Level 3.8 3.5-5.1 mmol/L Chloride Level 105 98-107 mmol/L Carbon Dioxide Level 25 20-31 mmol/L Anion Gap 9 5-15 Blood Urea Nitrogen 46 #H 9-23 mg/dL Creatinine 1.14 0.700-1.30 mg/dL Glomerular Filtration Rate Calc 69 >90 mL/min BUN/Creatinine Ratio 40.4 H 10.0-20.0 Serum Glucose 224 #H 74-106 mg/dL Calcium Level 8.2 L 8.7-10.4 mg/dL Magnesium Level 2.2 1.6-2.6 mg/dL Total Bilirubin 0.8 0.2-1.0 mg/dL Aspartate Amino Transferase (AST) 24 13-40 U/L Alanine Aminotransferase (ALT) < 9 7-40 U/L Alkaline Phosphatase 56 46-116 U/L Total Protein 5.0 L 5.7-8.2 g/dL Albumin 3.0 L 3.2-4.8 g/dL Thyroid Stimulating Hormone (TSH) 0.20 L 0.55-4.78 uIU/mL Test 08/05/24 04:37 08/05/24 00:53 08/04/24 20:32 08/04/24 19:52 Range/Units POC Glucose 201 H 180 H 177 H 70-106 mg/dl Influenza Type A Antigen Negative Negative Influenza Type B Antigen Negative Negative SARS-CoV-2 Antigen (Rapid) Negative NEGATIVE Test 08/04/24 16:15 08/04/24 15:54 08/04/24 12:23 08/04/24 08:42 Range/Units POC Glucose 140 H 260 H 70-106 mg/dl Urine Color Yellow Yellow Urine Clarity Clear Clear Urine pH 6.0 5.0-9.0 Urine Specific [place] 1.014 1.001-1.035 Urine Protein 1+ H Negative Urine Ketones Trace Negative Urine Blood Trace H Negative /uL Urine Nitrite Negative Negative Urine Bilirubin Negative Negative Urine Urobilinogen Normal Negative mg/dL Urine Leukocyte Esterase Negative Negative /uL Urine RBC 1 0 - 3 /hpf Urine WBC 2 0 - 3 /hpf Urine Squamous Epithelial Cells Few <5 /hpf Urine Bacteria None seen None Seen /hpf Urine Hyaline Casts Few 0 - 2 /lpf Urine Mucus Few None Seen Urine Glucose 3+ H Normal mg/dL Urine Opiates Screen Neg NEGATIVE Urine Fentanyl Screen Neg NEGATIVE Urine Barbiturates Screen Neg NEGATIVE Urine Phencyclidine Screen Neg NEGATIVE Urine Amphetamines Screen Neg NEGATIVE Urine Benzodiazepines Screen Neg NEGATIVE Urine Cocaine Screen Neg NEGATIVE Urine Cannabinoids Screen Neg NEGATIVE Troponin I High Sensitivity 42 </=54 ng/L Test 08/04/24 08:04 08/04/24 04:27 Range/Units Troponin I High Sensitivity 44 50 </=54 ng/L White Blood Count 10.7 4.4-10.8 10^3/uL Red Blood Count 6.66 H 4.5-5.90 10^6/uL Hemoglobin 18.8 H 13.5-17.5 g/dL Hematocrit 55.4 H 41.0-53.0 % Mean Corpuscular Volume 83.3 80.0-100.0 fL Mean Corpuscular Hemoglobin 28.2 28.0-32.0 pg Mean Corpuscular Hemoglobin Concent 33.9 32.0-36.0 g/dL Red Cell Distribution Width 16.2 H 11.8-14.3 % Platelet Count 212 140-450 10^3/uL Mean Platelet Volume 8.5 6.9-10.8 fL Neutrophils (%) (Auto) 79.4 37.0-80.0 % Lymphocytes (%) (Auto) 8.4 L 10.0-50.0 % Monocytes (%) (Auto) 11.8 0.0-12.0 % Eosinophils (%) (Auto) 0.0 0.0-7.0 % Basophils (%) (Auto) 0.4 0.0-2.0 % Neutrophils # (Auto) 8.5 1.6-8.6 10 ^3/uL Lymphocytes # (Auto) 0.9 0.4-5.4 10 ^3/uL Monocytes # (Auto) 1.3 0-1.3 10 ^3/uL Eosinophils # (Auto) 0 0-0.8 10 ^3/uL Basophils # (Auto) 0 0-0.2 10 ^3/uL Nucleated Red Blood Cells 0.1 % Prothrombin Time 16.2 H 9.3-11.8 sec Prothrombin Time INR 1.58 H 0.9-1.15 Activated Partial Thromboplast Time 36.1 H 24.5-34.5 SEC Sodium Level 131 L 136-145 mmol/L Potassium Level 3.3 L 3.5-5.1 mmol/L Chloride Level 99 98-107 mmol/L Carbon Dioxide Level 20 20-31 mmol/L Anion Gap 12 5-15 Blood Urea Nitrogen 20 9-23 mg/dL Creatinine 1.13 0.700-1.30 mg/dL Glomerular Filtration Rate Calc 70 >90 mL/min BUN/Creatinine Ratio 17.7 10.0-20.0 Serum Glucose 392 H 74-106 mg/dL Calcium Level 8.7 8.7-10.4 mg/dL Total Bilirubin 1.2 H 0.2-1.0 mg/dL Aspartate Amino Transferase (AST) 14 13-40 U/L Alanine Aminotransferase (ALT) < 9 7-40 U/L Alkaline Phosphatase 64 46-116 U/L B-Type Natriuretic Peptide 456.28 0-100 pg/mL Total Protein 6.0 5.7-8.2 g/dL Albumin 3.6 3.2-4.8 g/dL Assessment Acute kidney injury likely ATN in the setting of shock Septic shock Acute on chronic Congestive heart failure reduced ejection fraction 30 Ventilator-dependent hypoxic respiratory failure Obesity GI bleed recs dc ivf lasix drip as ordered abx vasopressors will f/u Plan discussed with: Other BOOKER GALE MD Aug 06, 2024 18:32
--- NOTE | 2024-08-06 18:41 | DVH ---
CHEST RADIOGRAPH Indication: CENTRAL LINE PLACEMENT Technique: Single frontal view of the chest was obtained Comparison: XY CHEST XRAY 1 VIEW on DOS: 08/06/24, XY CHEST PORTABLE on DOS: 08/04/24 FINDINGS: Lines and Tubes: Interval placement of Right IJ approach central venous catheter terminating over the distal SVC. Lungs: Diffuse interstitial prominence. Motion of the left hemidiaphragm. No pneumothorax. Cardiomediastinal contours: Unremarkable Bones: No acute osseous abnormality. IMPRESSION: Right IJ approach central venous catheter terminating over the distal SVC. Cardiomegaly with mild pulmonary congestion. Obscuration of the left hemidiaphragm which may be from overlying cardiac silhouette. Underlying effu kvein with atelectasis can not be excluded.
[2024-08-06] MEDS: FUROSEMIDE INJECTION 100 MG in SODIUM CHL 0.9% 100 ML IV SCH (20:20)
[2024-08-06] MEDS: ALBUMIN 25% 50 ML IV SCH (20:30)
--- NOTE | 2024-08-06 22:32 | DVHINCON2 ---
Date of service: Aug 06, 2024 Referring Physician Nehemias Romano MD Reason for Consultation Acute hypoxic respiratory failure, pneumonia, ROSENDA History of Present Illness A 68-year-old man with past medical history that includes AFib, CHF, diabetes, hypertension, and MD who presented to ED on 08/04/24 with c/o chest pain rated 7/10. Patient reported progressively worsening symptoms with dizzy spells, shortness of breath, and nausea, prompting him to seek care. Workup in ED notable for WBC of 10.7, hemoglobin 18.8, hematocrit 55.4, platelets 212, sodium 131, potassium 3.3, BUN 20, creatinine 1.13, glucose 392, troponin 50, BNP 456.28, PT 16.2, INR 1.58, PTT 36.1. Blood pressure was 118/84, heart rate 145 trending down to 110, temperature 98.2 F, O2 saturation 94% on oxygen. Chest x- ray showed multifocal airspace disease and/or pulmonary vascular congestion. Patient was admitted for further care, and pulmonary consultation is called for evaluation and management due to these findings. Review of Systems: 14-point review of systems negative unless otherwise noted above. Past Medical History: AFIB, CHF, DM (type II), hypertension, MD (2x NSTEMI) Past Surgical History: PTCA (3x) Medications: Reviewed. Allergies: No known drug allergies. Family History: Heart disease, diabetes. Social History: Nonsmoker. No alcohol or illicit drug use. Family History: Cardiovascular disease G8 FATHER Diabetes mellitus G8 MOTHER Allergies: Coded Allergies: Metformin (Verified Allergy, Unknown, 08/04/24) Home Meds Reported Medications Hydrocodone-Acetaminophen (Hydrocodone Bitartrate/AC 5-325 mg) 1 Tab Tab, 1 TAB PO, TAB 08/05/24 Alprazolam (Xanax) 0.5 Mg Tb, 1 TAB PO DAILY, #30 TAB 08/05/24 Tramadol Hcl (Tramadol Hcl) 50 Mg Tab, 50 MG PO Q4HPRN, MG 08/05/24 Nitroglycerin (NTROSTAT SUBLINGUAL) 0.4 Mg Sl, 0.4 MG SL PRN, TAB *MAY REPEAT EVERY 5 MINUTES X 3 TOTAL IF NO RELIEF, INITIATE ANALGESIC THERAPY. NOTIFY PHYSICIAN *Do not crush. 08/05/24 Insulin Lispro (Human) (Humalog) 100 Unit/Ml Inj, 10 UNIT SC TID, INJ 08/05/24 Insulin Glargine (Lantus) 100 Unit/Ml Inj, 70 UNIT SC, INJ 08/05/24 Vortioxetine Hydrobromide (Trintellix) 5 Mg Tab, 5 MG PO, TAB 08/05/24 Montelukast Sodium (MONTELUKAST SODIUM) 10 Mg Tab, 1 TAB PO DAILY, #30 TAB 5 Refills 08/05/24 Tamsulosin Hcl (Tamsulosin Hcl) 0.4 Mg Cap, 1 CAP PO DAILY, #30 CAP 5 Refills 08/05/24 Clopidogrel Bisulfate (CLOPIDOGREL) 75 Mg Tab, 75 MG PO DAILY for 30 Days, MG 08/05/24 Tramadol Hcl (Tramadol Hcl) 50 Mg Tab, 1 TAB PO Q4HPRN PRN for MILD PAIN (1-3 PAIN SCALE) 08/04/24 Amiodarone HCl (Amiodarone HCl) 200 Mg Tab, 1 TAB PO DAILY 08/04/24 Furosemide (Furosemide) 40 Mg Tab, 1 TAB PO BID 08/04/24 Metoprolol Succinate (Metoprolol Succinate Er) 100 Mg Tab, 1 TAB PO BID 08/04/24 Finasteride (Finasteride) 5 Mg Tab, 1 TAB PO DAILY 08/04/24 Spironolactone (Spironolactone) 25 Mg Tab, 1 TAB PO DAILY 08/04/24 Apixaban Base (ELIQUIS) 5 Mg Tab, 1 TAB PO BID 08/04/24 Sacubitril-Valsartan (Entresto 24-26 mg) 1 Tab Tab, 1 TAB PO BID 08/04/24 Gabapentin (Gabapentin) 600 Mg Tab, 1 TAB PO TID 08/04/24 Hydrocodone-Acetaminophen (Hydrocodone/Acetaminophen 10-325 mg) 1 Tab Tab, 1 TAB PO TID PRN for MODERATE PAIN (4-6 PAIN SCALE) 08/04/24 Current Medications Current Medications Medications (Trade) Dose Ordered Sig/Johan Route PRN Reason Start Time Stop Time Status Last Admin Albumin Human 100 ml @ 100 mls/hr Q8H IV 08/06/24 07:45 08/06/24 18:37 DC 08/06/24 15:30 Vancomycin HCl 0 ml @ 0 mls/hr UD IV 08/06/24 09:45 08/06/24 09:34 DC Meropenem 50 ml @ 17 mls/hr Q12HR IV 08/06/24 10:00 08/06/24 17:14 DC 08/06/24 14:00 Linezolid 300 ml @ 150 mls/hr Q12HR IV 08/06/24 10:00 08/06/24 21:43 Meropenem 50 ml @ 17 mls/hr Q12HR IV 08/06/24 22:00 08/06/24 21:43 Furosemide 100 mg/ Sodium Chloride 110 ml @ 4.4 mls/hr Q24H IV 08/06/24 18:30 08/06/24 20:20 Albumin Human 50 ml @ 100 mls/hr Q8H IV 08/06/24 18:45 08/07/24 11:14 08/06/24 21:54 Vital Signs Vital Signs Date Time Temp Pulse Resp B/P (MAP) Pulse Ox O2 Delivery O2 Flow Rate FiO2 08/06/24 20:20 111/67 08/06/24 19:01 98 16 98 08/06/24 18:15 Nasal Cannula* 3 32 08/06/24 11:48 99.1 99.1 Physical Exam Gen.: Patient lying in bed in no apparent distress. On supplemental oxygen. Head: Normocephalic, atraumatic. Eyes: EOMI/PERRLA. Ears: Normal hearing. Normal anatomy. Neck/trachea: Trachea midline, supple. Nose: Normal external anatomy. Mouth: Moist mucous membranes. Chest: Decreased air entry bilaterally. No wheezing or rhonchi. Cardiovascular: Positive S1, positive S2. Regular rate and rhythm. Abdomen: Positive bowel sounds in all 4 quadrants. Soft, non-tender, non- distended. : Deferred. Rectal: Deferred. Skin: Warm, dry. Intact. Extremities: 2+ radial pulses bilaterally. No lower extremity edema. Neuro: Awake, alert, oriented x3. No gross motor or sensory deficits. Cranial nerves II through XII intact. Gait not assessed. Labs/Diagnostic Data Labs Test 08/06/24 21:00 08/06/24 10:00 08/06/24 09:05 08/06/24 03:36 Range/Units POC Glucose 136 H 70-106 mg/dl Lactic Acid Level 1.6 0.4-2.0 mmol/L Blood Gas Specimen Type Arterial Blood Gas Sample Site Left radial Blood Gas Patient Temperature 37.0 Arterial Blood Date Drawn [id number] Arterial Blood pH 7.444 7.350-7.450 Arterial Blood Partial Pressure CO2 27.3 L 35.0-48.0 mmHg Arterial Blood Partial Pressure O2 67.2 L 83.0-108.0 mmHg Arterial Blood HCO3 18.3 L 21.0-28.0 mmol/L Arterial Blood Oxygen Saturation 91.8 L 94.0-98.0 % Arterial Blood Base Excess -4.4 L -2.0-3.0 mmol/L Arterial Blood Oxyhemoglobin 91.3 L 94.0-98.0 % Arterial Blood Carboxyhemoglobin 0.3 L 0.5-1.5 % Arterial Blood Methemoglobin 0.2 0.0-1.5 % Art Test Modified Blood Gas Total Hemoglobin 12.50 L 13.5-17.5 g/dL Blood Gas Liter Flow 3.00 Blood Gas Modality Nasal cannula FiO2 % 32.0 White Blood Count 32.0 #*H 4.4-10.8 10^3/uL Red Blood Count 4.41 L 4.5-5.90 10^6/uL Hemoglobin 12.2 L 13.5-17.5 g/dL Hematocrit 37.3 L 41.0-53.0 % Mean Corpuscular Volume 84.6 80.0-100.0 fL Mean Corpuscular Hemoglobin 27.6 L 28.0-32.0 pg Mean Corpuscular Hemoglobin Concent 32.7 32.0-36.0 g/dL Red Cell Distribution Width 16.0 H 11.8-14.3 % Platelet Count 404 140-450 10^3/uL Mean Platelet Volume 8.7 6.9-10.8 fL Neutrophils (%) (Auto) 37.0-80.0 % Lymphocytes (%) (Auto) 10.0-50.0 % Monocytes (%) (Auto) 0.0-12.0 % Basophils (%) (Auto) 0.0-2.0 % Neutrophils # (Auto) 1.6-8.6 10 ^3/uL Lymphocytes # (Auto) 0.4-5.4 10 ^3/uL Monocytes # (Auto) 0-1.3 10 ^3/uL Differential Total Cells Counted 100.0 100 Neutrophils % (Manual) 84 H 37.0-80.0 Band Neutrophils % (Manual) 0 Lymphocytes % (Manual) 10 10.0-50.0 Monocytes % (Manual) 6 0-12 Eosinophils % (Manual) 0 0-7 Basophils % (Manual) 0 0.0-2.0 Metamyelocytes % (manual) 0 Myelocytes % (Manual) 0 Promyelocytes % (Manual) 0 Blast Cells % (Manual) 0 Reactive Lymphocytes 0 Platelet Estimate Adequate Large Platelets Few Giant Platelets Few Anisocytosis (manual) Slight Schistocytes Few Sodium Level 135 L 136-145 mmol/L Potassium Level 3.9 3.5-5.1 mmol/L Chloride Level 105 98-107 mmol/L Carbon Dioxide Level 19 L 20-31 mmol/L Anion Gap 11 5-15 Blood Urea Nitrogen 73 #H 9-23 mg/dL Creatinine 2.97 H 0.700-1.30 mg/dL Glomerular Filtration Rate Calc 22 >90 mL/min BUN/Creatinine Ratio 24.6 H 10.0-20.0 Serum Glucose 360 #H 74-106 mg/dL Hemoglobin A1c 9.7 H <5.7 % A1C Calcium Level 8.2 L 8.7-10.4 mg/dL Magnesium Level 2.3 1.6-2.6 mg/dL Total Bilirubin 0.5 0.2-1.0 mg/dL Aspartate Amino Transferase (AST) 358 H 13-40 U/L Alanine Aminotransferase (ALT) 103 H 7-40 U/L Alkaline Phosphatase 55 46-116 U/L Total Protein 4.9 L 5.7-8.2 g/dL Albumin 2.9 L 3.2-4.8 g/dL Triglycerides Level 166 H < 150 mg/dL Cholesterol Level 93 < 200 mg/dL LDL Cholesterol 59 < 100 mg/dL HDL Cholesterol 11 L 40-59 mg/dL Test 08/05/24 21:00 08/05/24 09:15 08/05/24 07:42 08/04/24 19:52 Range/Units Stool for White Cells Few Stool Occult Blood Positive Negative Stool Occult Blood Sample #3 Negative Eosinophils (%) (Auto) 0.5 0.0-7.0 % Eosinophils # (Auto) 0.1 0-0.8 10 ^3/uL Basophils # (Auto) 0 0-0.2 10 ^3/uL Nucleated Red Blood Cells 0.1 % Thyroid Stimulating Hormone (TSH) 0.20 L 0.55-4.78 uIU/mL Influenza Type A Antigen Negative Negative Influenza Type B Antigen Negative Negative SARS-CoV-2 Antigen (Rapid) Negative NEGATIVE Test 08/04/24 15:54 08/04/24 08:42 08/04/24 04:27 Range/Units Urine Color Yellow Yellow Urine Clarity Clear Clear Urine pH 6.0 5.0-9.0 Urine Specific [place] 1.014 1.001-1.035 Urine Protein 1+ H Negative Urine Ketones Trace Negative Urine Blood Trace H Negative /uL Urine Nitrite Negative Negative Urine Bilirubin Negative Negative Urine Urobilinogen Normal Negative mg/dL Urine Leukocyte Esterase Negative Negative /uL Urine RBC 1 0 - 3 /hpf Urine WBC 2 0 - 3 /hpf Urine Squamous Epithelial Cells Few <5 /hpf Urine Bacteria None seen None Seen /hpf Urine Hyaline Casts Few 0 - 2 /lpf Urine Mucus Few None Seen Urine Glucose 3+ H Normal mg/dL Urine Opiates Screen Neg NEGATIVE Urine Fentanyl Screen Neg NEGATIVE Urine Barbiturates Screen Neg NEGATIVE Urine Phencyclidine Screen Neg NEGATIVE Urine Amphetamines Screen Neg NEGATIVE Urine Benzodiazepines Screen Neg NEGATIVE Urine Cocaine Screen Neg NEGATIVE Urine Cannabinoids Screen Neg NEGATIVE Troponin I High Sensitivity 42 </=54 ng/L Prothrombin Time 16.2 H 9.3-11.8 sec Prothrombin Time INR 1.58 H 0.9-1.15 Activated Partial Thromboplast Time 36.1 H 24.5-34.5 SEC B-Type Natriuretic Peptide 456.28 0-100 pg/mL Assessment Impression: Acute hypoxic respiratory failure Dependence on supplemental oxygen Septic shock Atrial fibrillation w/ RVR Obstructive sleep apnea Multifocal pneumonia, likely gram negative. Obesity, BMI 31.1 Plan: Supplemental oxygen 2 LPM NC Titrate to keep O2 sats above 92%. Taper O2 as tolerated. Continue antibiotics Amiodarone drip. On pressors for hemodynamic support Levophed 6 mcg/min Titrate to keep mean arterial pressure greater than 65 mmHg. Monitor hemoglobin Monitor renal function. Monitor electrolytes. Supplement as necessary. Monitor ins and outs. Diet and lifestyle modifications for weight reduction Obesity - complicates all care GI prophylaxis - Protonix drip DVT prophylaxis. Prognosis: Poor given patient's multiple co-morbidities. Rest of plan per hospitalist and other consultants. Thank you, Dr. Romano, for allowing me to participate in this patient's care. Further recommendations will depend on the patient's clinical course. Please do not hesitate to contact me if you have any questions or concerns. This medical document was created using an electronic medical record system with [employer] dictation system. Although these documentations are being carefully reviewed, there may still be some phonetic and typographical changes. The errors are purely typographical, due to imperfection on the software program, and do not reflect any compromise in the patient's medical care. Plan discussed with: Patient, Other (JOSE ELIAS [place]/MD Romano) PAUL HERNANDEZ MD Aug 06, 2024 22:32
[2024-08-07] VITALS (92 sets, daily range): BP systolic 85–139; BP diastolic 51–88; PULSE 82–105; RESP 12–25; TEMP 98.4–98.8; O2SAT 79–100
[2024-08-07 04:10] LABS: Albumin 3.6 g/dL (3.2-4.8); Anion Gap 9 (5-15); BUN/Creatinine Ratio 25.1 (10.0-20.0); Bilirubin, Total 0.9 mg/dL (0.2-1.0); Carbon Dioxide 27 mmol/L (20-31); Magnesium 2.3 mg/dL (1.6-2.6); Sodium 143 mmol/L (136-145)
[2024-08-07 04:26] LABS: Chloride 107 mmol/L (98-107); Glucose 199 mg/dL (74-106); Potassium 2.9 mmol/L (3.5-5.1)
[2024-08-07 04:27] LABS: Alanine Aminotransferase 69 U/L (7-40); Alkaline Phosphatase 45 U/L (46-116); Aspartate Aminotransferase 89 U/L (13-40); Calcium 8.4 mg/dL (8.7-10.4); Total Protein 5.2 g/dL (5.7-8.2)
[2024-08-07 04:28] LABS: Blood Urea Nitrogen 82 mg/dL (9-23)
--- NOTE | 2024-08-07 05:03 | DVH ---
CHEST RADIOGRAPH Indication: resp failure Technique: Single frontal view of the chest was obtained COMPARISON: XY CHEST PORTABLE on DOS: 08/06/24, XY CHEST XRAY 1 VIEW on DOS: 08/06/24, XY CHEST PORTABLE on DOS: 08/04/24 FINDINGS: Lines and Tubes: Right central venous catheter in satisfactory position. Lungs: Congestion Pleura: No effusion. No pneumothorax. Cardiomediastinal contours: Cardiomegaly Bones: Unremarkable IMPRESSION: No significant interval change.
[2024-08-07] MEDS: POTASSIUM CHL 20MEQ/100ML 100 ML IV ONE ×3 (05:55→14:49)
[2024-08-07 06:10] LABS: Basophils # (auto) 0 10 ^3/uL (0-0.2); Eosinophils # (auto) 0 10 ^3/uL (0-0.8); Eosinophils % (auto) 0.1 % (0.0-7.0); Hematocrit 29.5 % (41.0-53.0); Hemoglobin 9.6 g/dL (13.5-17.5); Lymphocytes # (auto) 2.1 10 ^3/uL (0.4-5.4); Lymphocytes % (auto) 12.2 % (10.0-50.0); Mean Corpuscular Hemoglobin 27.1 pg (28.0-32.0); Mean Corpuscular Hgb Conc. 32.4 g/dL (32.0-36.0); Mean Corpuscular Volume 83.7 fL (80.0-100.0); Monocytes # (auto) 1.9 10 ^3/uL (0-1.3); Monocytes % (auto) 10.7 % (0.0-12.0); Neutrophils # (auto) 13.5 10 ^3/uL (1.6-8.6); Nucleated Red Blood Cells % 0.1 %; Platelet Count (auto) 296 10^3/uL (140-450); Red Blood Cells 3.53 10^6/uL (4.5-5.90); Red Cell Distribution Width 16.6 % (11.8-14.3); White Blood Cell 17.6 10^3/uL (4.4-10.8)
--- NOTE | 2024-08-07 10:10 | DVHPN2 ---
Subjective Still feels Urine output is good now with Lasix drip On amiodarone drip Changes from previous H/P or p: Changes Eyes: No Pain, No Vision change, No Conjunctivae inflammation, No Eyelid inflammation, No Other, No Redness ENT: No Ear pain, No Ear discharge, No Nose pain, No Nose discharge, No Nose congestion, No Mouth pain, No Mouth swelling, No Throat pain, No Throat swelling, No Other Cardiovascular: Chest Pain; No Palpitations, No Orthopnea, No Paroxysmal Noc. Dyspnea, No Edema, No Lt Headedness; Other (Dizzy spells) Respiratory: No Cough, No Dry; Shortness of breath; No SOB with excertion, No Wheezing, No Hemoptysis, No Pleuritic Pain, No Sputum, No Other Gastrointestinal: Nausea; No Vomiting, No Abdominal Pain, No Diarrhea, No Constipation, No Melena, No Hematochezia, No Other Genitourinary: No Dysuria, No Frequency, No Incontinence, No Hematuria, No Retention, No Other Musculoskeletal: No other, No neck pain, No shoulder pain, No arm pain, No back pain, No hand pain, No leg pain, No foot pain Skin: No Rash, No Lesions, No Jaundice, No Bruising, No Other Objective Vitals Vital Signs Date Time Temp Pulse Resp B/P (MAP) Pulse Ox O2 Delivery O2 Flow Rate FiO2 08/07/24 09:45 92 16 87/51 (63) 97 08/07/24 08:15 Nasal Cannula* 3 32 08/07/24 08:00 98.4 98.4 Intake/Output Intake and Output 08/07/24 07:00 Intake Total 2630.495 ml Output Total 3650 ml Balance -1019.505 ml Intake Oral 0 ml IV Total 2630.495 ml Output Urine Total 3650 ml # Bowel Movements 2 General Appearance: Alert, Cooperative, moderate distress, Other (Disoriented) Lungs: Clear to auscultation Cardiovascular: Other (irregularly irregular) Extremities: No edema Medications Current Medications Medications Dose Ordered Sig/Johan Route Start Time Stop Time Status Last Admin Dose Admin Diagnostic Test (Pha) 1 strip IQ4HR 08/04/24 08:00 08/07/24 08:50 1 STRIP Insulin Human Regular IQ4HR SC 08/04/24 08:00 08/07/24 09:04 3 UNITS Dextrose 50 ml UD PRN IV 08/04/24 07:15 Sodium Chloride 10 ml Q8HR IV 08/04/24 14:00 08/07/24 05:59 10 ML Ondansetron HCl 4 mg Q4HP PRN IV 08/04/24 07:15 08/04/24 20:30 4 MG Docusate Sodium 100 mg BIDPRN PRN PO 08/04/24 07:15 Acetaminophen 650 mg Q6HP PRN PO 08/04/24 07:15 Nitroglycerin 0.4 mg Q5MINP PRN SL 08/04/24 11:00 Morphine Sulfate 2 mg Q30M PRN IV 08/04/24 11:00 Atorvastatin Calcium 40 mg HS PO 08/04/24 22:00 08/04/24 21:14 40 MG Amiodarone HCl 250 ml @ 16.667 mls/ hr Q15H IV 08/05/24 15:15 08/06/24 20:13 16.667 MLS/HR Pantoprazole Sodium 50 ml @ 10 mls/hr Q5H IV 08/05/24 09:15 08/07/24 06:03 10 MLS/HR Insulin Glargine 20 units BID@0700,2200 SC 08/05/24 22:00 08/07/24 09:05 20 UNITS Norepinephrine Bitartrate 32 mg/ Sodium Chloride 250 ml @ 0.938 mls/ hr Q24H IV 08/05/24 17:30 08/05/24 19:30 0.938 MLS/HR Linezolid 300 ml @ 150 mls/hr Q12HR IV 08/06/24 10:00 08/06/24 21:43 150 MLS/HR Meropenem 50 ml @ 17 mls/hr Q12HR IV 08/06/24 22:00 08/06/24 21:43 17 MLS/HR Furosemide 100 mg/ Sodium Chloride 110 ml @ 4.4 mls/hr Q24H IV 08/06/24 18:30 08/06/24 20:20 4.4 MLS/HR Albumin Human 50 ml @ 100 mls/hr Q8H IV 08/06/24 18:45 08/07/24 11:14 08/06/24 21:54 100 MLS/HR Laboratory Results Laboratory Tests 08/07/24 03:08 08/07/24 05:15 Chemistry Test 08/07/24 03:08 Albumin 3.6 g/dL (3.2-4.8) Calcium Level 8.4 mg/dL (8.7-10.4) L Magnesium Level 2.3 mg/dL (1.6-2.6) Total Protein 5.2 g/dL (5.7-8.2) L LFT Test 08/07/24 03:08 Alanine Aminotransferase (ALT) 69 U/L (7-40) H Alkaline Phosphatase 45 U/L (46-116) L Aspartate Amino Transferase (AST) 89 U/L (13-40) H Total Bilirubin 0.9 mg/dL (0.2-1.0) Urinalysis Test 08/04/24 15:54 Urine Color Yellow (Yellow) Urine Clarity Clear (Clear) Urine pH 6.0 (5.0-9.0) Urine Specific [place] 1.014 (1.001-1.035) Urine Protein 1+ (Negative) H Urine Ketones Trace (Negative) Urine Blood Trace /uL (Negative) H Urine Nitrite Negative (Negative) Urine Bilirubin Negative (Negative) Urine Urobilinogen Normal mg/dL (Negative) Urine Leukocyte Esterase Negative /uL (Negative) Urine RBC 1 /hpf (0 - 3) Urine WBC 2 /hpf (0 - 3) Urine Squamous Epithelial Cells Few /hpf (<5) Urine Bacteria None seen /hpf (None Seen) Urine Hyaline Casts Few /lpf (0 - 2) Urine Mucus Few (None Seen) Urine Glucose 3+ mg/dL (Normal) H Microbiology Microbiology Date/Time Source Procedure Growth Status 08/05/24 21:00 Stool Stool Culture - Preliminary Resulted 08/05/24 21:00 Stool Shiga Toxin I & II Pending Resulted 08/05/24 21:00 Stool Clostridium difficile Toxin Assay Pending Resulted Assessment/Plan Assessment/Plan Afib RVR Hypotension GI Bleed Here sepsis with septic shock CHF CAD Dyslipidemia BPH DM2 Obstructive sleep apnea on C-PAP at home PLAN: 08/05/2024: IV fluids low rate due to CHF Afib RVR Patient declines blood transfusion DNR Amiodarone bolus and drip Stop Lovenox and aspirin IV Protonix GI consult Cardiology consult Echo: Pending Discussed advance directives with patient, he wants DNR, agrees to medications and BiPAP only 08/06/2024: Sepsis with septic shock: Continue Levophed, change IV antibiotics to Zyvox and meropenem LIANA of due to septic shock: Nephrology consult, ordered IV fluids however cardiology recommended against giving more IV fluids due to low ejection fraction Metabolic acidosis Atrial fibrillation with rapid ventricular response: Amiodarone drip Acute hypoxic respiratory failure simply due to pneumonia Possible underlying pneumonia, Gram-negative versus Gram-positive GI bleed: Protonix drip, GI consult, type 2 diabetes Congestive heart failure, acute on chronic, systolic Coronary artery disease with a history of stents BPH Obstructive sleep apnea on CPAP at home No anticoagulation due to GI bleed NPO Pulmonary consultation Cardiology consultation Nephrology consultation Full Code: Patient stated yesterday that he wanted to be DNR however after his came and the reason reversed the decision and he is full code now The rest of the management will depend on the hospital course 08/07/2024: Continue IV antibiotics Zyvox and meropenem Nephrology consultation Diuresis with Lasix IV Protonix drip Levophed as needed Amiodarone drip Plan discussed with: Patient, Other My Orders Orders - HADLEY LAZCANO MD Procedure Category Date Status Time Pt Request For Service PT 08/06/24 Logged 11:24 Chest Portable XY 08/07/24 Resulted 06:00 Mrsa Screen ARIEL 08/06/24 In Process 13:36 Meropenem 1gm Ivpb PHA 08/06/24 In Process (Merrem 1gm/ Ns) 22:00 Potassium LAB 08/07/24 Logged 11:15 Date of Service: Aug 07, 2024 Billing Provider: HADLEY LAZCANO MD Common Visit Codes: NOT BILLABLE HADLEY LAZCANO MD Aug 07, 2024 10:10
--- NOTE | 2024-08-07 13:30 | DVHPN2 ---
Progress Note Date Seen: Aug 07, 2024 Medical Necessity Reason Pt with a Central, PICC or Fol: No Subjective Patient reports: Other (intubated) Review of Systems: Deferred Objective vital signs Vital Sign Date Time Temp Pulse Resp B/P (MAP) Pulse Ox O2 Delivery O2 Flow Rate FiO2 08/07/24 09:45 92 16 87/51 (63) 97 08/07/24 08:15 Nasal Cannula* 3 32 08/07/24 08:00 98.4 98.4 Total Intake and Output 08/06/24 08/06/24 08/07/24 15:00 23:00 07:00 Intake Total 1220.735 ml 1089.126 ml 320.634 ml Output Total 350 ml 3300 ml Balance 1220.735 ml 739.126 ml -2979.366 ml medications Current Medications Medications Dose Ordered Sig/Johan Route Start Time Stop Time Status Last Admin Dose Admin Diagnostic Test (Pha) 1 strip IQ4HR 08/04/24 08:00 08/07/24 12:19 1 STRIP Insulin Human Regular IQ4HR SC 08/04/24 08:00 08/07/24 12:12 3 UNITS Dextrose 50 ml UD PRN IV 08/04/24 07:15 Sodium Chloride 10 ml Q8HR IV 08/04/24 14:00 08/07/24 05:59 10 ML Ondansetron HCl 4 mg Q4HP PRN IV 08/04/24 07:15 08/04/24 20:30 4 MG Docusate Sodium 100 mg BIDPRN PRN PO 08/04/24 07:15 Acetaminophen 650 mg Q6HP PRN PO 08/04/24 07:15 Nitroglycerin 0.4 mg Q5MINP PRN SL 08/04/24 11:00 Morphine Sulfate 2 mg Q30M PRN IV 08/04/24 11:00 Atorvastatin Calcium 40 mg HS PO 08/04/24 22:00 08/04/24 21:14 40 MG Amiodarone HCl 250 ml @ 16.667 mls/ hr Q15H IV 08/05/24 15:15 08/07/24 12:19 16.667 MLS/HR Pantoprazole Sodium 50 ml @ 10 mls/hr Q5H IV 08/05/24 09:15 08/07/24 11:26 10 MLS/HR Insulin Glargine 20 units BID@0700,2200 SC 08/05/24 22:00 08/07/24 09:05 20 UNITS Norepinephrine Bitartrate 32 mg/ Sodium Chloride 250 ml @ 0.938 mls/ hr Q24H IV 08/05/24 17:30 08/05/24 19:30 0.938 MLS/HR Linezolid 300 ml @ 150 mls/hr Q12HR IV 08/06/24 10:00 08/07/24 11:16 150 MLS/HR Meropenem 50 ml @ 17 mls/hr Q12HR IV 08/06/24 22:00 08/07/24 11:16 17 MLS/HR Furosemide 100 mg/ Sodium Chloride 110 ml @ 4.4 mls/hr Q24H IV 08/06/24 18:30 08/06/24 20:20 4.4 MLS/HR Examination: GENERAL:Abnormal, LUNGS:Abnormal, CVS:Abnormal, MSK:Abnormal, NEURO:Normal laboratory and microbiology Laboratory Tests 08/07/24 11:39 08/07/24 05:15 08/07/24 03:08 Test 08/07/24 03:08 Range/Units Serum Glucose 199 #H 74-106 mg/dL Microbiology Date/Time Source Procedure Growth Status 08/06/24 13:50 Nose MRSA Screen - Final Complete 08/06/24 10:00 Blood Blood Culture - Preliminary NO GROWTH AFTER 24 HOURS OF INCUBATION. Resulted 08/05/24 21:00 Stool Stool Culture - Preliminary Resulted 08/05/24 21:00 Stool Shiga Toxin I & II - Final Resulted 08/05/24 21:00 Stool Clostridium difficile Toxin Assay - Final Resulted Problem List/Assessment/Plan Problem List/Assessment/Plan Acute kidney injury likely ATN in the setting of shock Septic shock Acute on chronic Congestive heart failure reduced ejection fraction 30 Ventilator-dependent hypoxic respiratory failure Obesity GI bleed recs lasix drip as ordered--good response k replace abx vasopressors will f/u Plan discussed with: Other My Orders My Orders Orders - BOOKER GALE MD Procedure Category Date Status Time Sodium Chl 0.9% PHA 08/06/24 In Process (So... W/Furosemide 18:30 Dietary Evaluation Review Comments: 1. Consider Glucerna once GI becomes accessible, glucerna TF at 45ml/hr provides 65g pro, 1296 kcal supporting pt's needs at 93% pro and 75% energy. 2. Consider TPN per pharmacy to meet 75% ofpt's needs, if NPO > 7 days 3. When medically feasible and pt pass speech eval, offer 2 g Na CCHO-60 lo Fat, Lo Chol diet with consideration of renal diet: a) Renal specifi -60 protein, 2gna 3K low phos, if pt has low GFR, but not being dialyzed, b) Renal Standard diet with 2gNa 3K low phos if pt is scheduled for dialysis treatments. . Expected Outcomes/Goals: controlled DM, avoid uremic symptoms, gradual weight loss. BOOKER GALE MD Aug 07, 2024 13:30
[2024-08-07] MEDS: MORPHINE SULFATE INJ 2 MG/ml SYRG IV PRN (15:15)
[2024-08-07 17:16] LABS: Hematocrit 27.2 % (41.0-53.0); Hemoglobin 9.2 g/dL (13.5-17.5)
--- NOTE | 2024-08-07 18:13 | DVHPN2 ---
Consult Progress Note Subjective Other Systems: Hgb today 9.6, patient still actively bleeding Patient in atrial fibrillation with controlled rate on monitor Objective vital signs Vital Sign Date Time Temp Pulse Resp B/P (MAP) Pulse Ox O2 Delivery O2 Flow Rate FiO2 08/07/24 16:43 106/67 08/07/24 15:45 80 14 08/07/24 14:45 100 08/07/24 12:00 98.8 98.8 08/07/24 10:15 Nasal Cannula* 3 32 Total Intake and Output 08/06/24 08/06/24 08/07/24 15:00 23:00 07:00 Intake Total 1220.735 ml 1089.126 ml 320.634 ml Output Total 350 ml 3300 ml Balance 1220.735 ml 739.126 ml -2979.366 ml medications Current Medications Medications Dose Ordered Sig/Johan Route Start Time Stop Time Status Last Admin Dose Admin Diagnostic Test (Pha) 1 strip IQ4HR 08/04/24 08:00 08/07/24 16:57 1 STRIP Insulin Human Regular IQ4HR SC 08/04/24 08:00 08/07/24 16:58 3 UNITS Dextrose 50 ml UD PRN IV 08/04/24 07:15 Sodium Chloride 10 ml Q8HR IV 08/04/24 14:00 08/07/24 15:03 10 ML Ondansetron HCl 4 mg Q4HP PRN IV 08/04/24 07:15 08/04/24 20:30 4 MG Docusate Sodium 100 mg BIDPRN PRN PO 08/04/24 07:15 Acetaminophen 650 mg Q6HP PRN PO 08/04/24 07:15 Nitroglycerin 0.4 mg Q5MINP PRN SL 08/04/24 11:00 Morphine Sulfate 2 mg Q30M PRN IV 08/04/24 11:00 08/07/24 15:15 2 MG Atorvastatin Calcium 40 mg HS PO 08/04/24 22:00 08/04/24 21:14 40 MG Amiodarone HCl 250 ml @ 16.667 mls/ hr Q15H IV 08/05/24 15:15 08/07/24 12:19 16.667 MLS/HR Pantoprazole Sodium 50 ml @ 10 mls/hr Q5H IV 08/05/24 09:15 08/07/24 16:04 10 MLS/HR Insulin Glargine 20 units BID@0700,2200 SC 08/05/24 22:00 08/07/24 09:05 20 UNITS Norepinephrine Bitartrate 32 mg/ Sodium Chloride 250 ml @ 0.938 mls/ hr Q24H IV 08/05/24 17:30 08/05/24 19:30 0.938 MLS/HR Linezolid 300 ml @ 150 mls/hr Q12HR IV 08/06/24 10:00 08/07/24 11:16 150 MLS/HR Meropenem 50 ml @ 17 mls/hr Q12HR IV 08/06/24 22:00 08/07/24 11:16 17 MLS/HR Furosemide 100 mg/ Sodium Chloride 110 ml @ 4.4 mls/hr Q24H IV 08/06/24 18:30 08/07/24 15:02 4.4 MLS/HR Examination: GENERAL:Normal, LUNGS:Normal, CVS:Normal, NEURO:Normal laboratory and microbiology Laboratory Tests 08/07/24 17:00 08/07/24 11:39 08/07/24 05:15 08/07/24 03:08 Test 08/07/24 03:08 Range/Units Serum Glucose 199 #H 74-106 mg/dL Problem List/Assessment/Plan Problem List/Assessment/Plan Septic/hypovolemic shock Paroxysmal atrial fibrillation with RVR, on amiodarone/Eliquis therapy Acute on chronic decompensated HFrEF Coronary artery disease status post PTCA including 3 AGUEDA Acute hypoxic respiratory failure with PNA Chest pain rule out progressive CAD Insulin-dependent diabetes mellitus Hypertension Dyslipidemia Obesity Rectal bleed LIANA Plan/Recommendation (Dr. Warren) * Echocardiogram revealed EF 30% with moderate LVH * Hold all AC/antiplatelet therapy given active rectal bleed * [id number] Score 5. HAS-BLED Score 2 * Antiarrhythmic therapy, amiodarone drip per protocol * Recommend PRBC transfusion if hemoglobin less than 8 given hx of CAD * Lipid lowering agent, monitor LFTs trending up * Monitor ECG changes and notify * GI/Nephrology/Pulmonology recommendations * Septic work-up per primary care team Thank you for allowing us to participate in this patient's care. Please call if you have any questions or concerns. Critical care time: 30 min. This medical document was created using an electronic medical record system with voice recognition software and computerized dictation system. Although this document has been carefully reviewed, there might still be some phonetic and typographical errors. Occasional wrong-word or ``sound-alike substitutions may have occurred due to the inherent limitations of voice recognition software. These areas are purely typographical due to imperfections of the software programs and do not reflect any compromise in the patient's medical care. Please read the chart carefully and recognize, using context, where these substitutions have occurred. Plan discussed with: Other (Bedside RN) Dietary Evaluation Review Comments: 1. Consider Glucerna once GI becomes accessible, glucerna TF at 45ml/hr provides 65g pro, 1296 kcal supporting pt's needs at 93% pro and 75% energy. 2. Consider TPN per pharmacy to meet 75% ofpt's needs, if NPO > 7 days 3. When medically feasible and pt pass speech eval, offer 2 g Na CCHO-60 lo Fat, Lo Chol diet with consideration of renal diet: a) Renal specifi -60 protein, 2gna 3K low phos, if pt has low GFR, but not being dialyzed, b) Renal Standard diet with 2gNa 3K low phos if pt is scheduled for dialysis treatments. . Expected Outcomes/Goals: controlled DM, avoid uremic symptoms, gradual weight loss. Date of Service: Aug 07, 2024 Billing Provider: KORINA WARREN MD Common Visit Codes: 81200-[id number] CARE 30-74 MIN MARÍA LIPSCOMB Aug 07, 2024 18:13
--- NOTE | 2024-08-07 19:00 | DVHPN2 ---
Progress Note - Dictate Date Seen: Aug 07, 2024 Medical Necessity Reason Pt with a Central, PICC or Fol: No Subjective Pt has ongoing Gi bleeding per rectum; 2 BMs recorded Hb did drop down from 12-9 Stool occult is positive, only a few WBC Currently hemoglobin appears to be stable Chest x-ray shows cardiomegaly with mild pulmonary congestion The echocardiogram yesterday showed ejection fraction 30% with moderate LVH Kidney function is worse today with a creatinine of 2.9 Liver functions are elevated but trending down likely from hypoxemia Leukocytosis is improving vital signs Vital Sign Date Time Temp Pulse Resp B/P (MAP) Pulse Ox O2 Delivery O2 Flow Rate FiO2 08/07/24 16:43 106/67 08/07/24 15:45 80 14 08/07/24 14:45 100 08/07/24 12:00 98.8 98.8 08/07/24 10:15 Nasal Cannula* 3 32 Total Intake and Output 08/06/24 08/06/24 08/07/24 15:00 23:00 07:00 Intake Total 1220.735 ml 1089.126 ml 320.634 ml Output Total 350 ml 3300 ml Balance 1220.735 ml 739.126 ml -2979.366 ml medications Current Medications Medications Dose Ordered Sig/Johan Route Start Time Stop Time Status Last Admin Dose Admin Diagnostic Test (Pha) 1 strip IQ4HR 08/04/24 08:00 08/07/24 16:57 1 STRIP Insulin Human Regular IQ4HR SC 08/04/24 08:00 08/07/24 16:58 3 UNITS Dextrose 50 ml UD PRN IV 08/04/24 07:15 Sodium Chloride 10 ml Q8HR IV 08/04/24 14:00 08/07/24 15:03 10 ML Ondansetron HCl 4 mg Q4HP PRN IV 08/04/24 07:15 08/04/24 20:30 4 MG Docusate Sodium 100 mg BIDPRN PRN PO 08/04/24 07:15 Acetaminophen 650 mg Q6HP PRN PO 08/04/24 07:15 Nitroglycerin 0.4 mg Q5MINP PRN SL 08/04/24 11:00 Morphine Sulfate 2 mg Q30M PRN IV 08/04/24 11:00 08/07/24 15:15 2 MG Atorvastatin Calcium 40 mg HS PO 08/04/24 22:00 08/04/24 21:14 40 MG Amiodarone HCl 250 ml @ 16.667 mls/ hr Q15H IV 08/05/24 15:15 08/07/24 12:19 16.667 MLS/HR Pantoprazole Sodium 50 ml @ 10 mls/hr Q5H IV 08/05/24 09:15 08/07/24 16:04 10 MLS/HR Insulin Glargine 20 units BID@0700,2200 SC 08/05/24 22:00 08/07/24 09:05 20 UNITS Norepinephrine Bitartrate 32 mg/ Sodium Chloride 250 ml @ 0.938 mls/ hr Q24H IV 08/05/24 17:30 08/05/24 19:30 0.938 MLS/HR Linezolid 300 ml @ 150 mls/hr Q12HR IV 08/06/24 10:00 08/07/24 11:16 150 MLS/HR Meropenem 50 ml @ 17 mls/hr Q12HR IV 08/06/24 22:00 08/07/24 11:16 17 MLS/HR Furosemide 100 mg/ Sodium Chloride 110 ml @ 4.4 mls/hr Q24H IV 08/06/24 18:30 08/07/24 15:02 4.4 MLS/HR objective General Appearance: Alert, Cooperative, moderate distress, Other (Disoriented) Lungs: Clear to auscultation Cardiovascular: Other (irregularly irregular) Extremities: No edema laboratory and microbiology Laboratory Tests 08/07/24 17:00 08/07/24 11:39 08/07/24 05:15 08/07/24 03:08 Test 08/07/24 03:08 Range/Units Serum Glucose 199 #H 74-106 mg/dL CT SCAN ABD PELVIS IMPRESSION: With trace bilateral pleural effusions. Scattered patchy ground-glass opacities predominantly in the periphery of the bilateral lung bases concerning for pulmonary edema versus multifocal pneumonia. Distended gallbladder demonstrating multiple small stones layering in the gallbladder. Consider further evaluation with ultrasound clinically indicated. Problems(with codes): (1) Rectal bleeding (2) Pneumonia, unspecified organism (3) Acute exacerbation of congestive heart failure (4) Electrolyte imbalance (5) Generalized weakness (6) Chest pain (7) Atrial fibrillation Prognosis Plan Continue to monitor labs Continue IV Protonix 40 mg q.12 hours Transfuse 1 unit PRBC if hemoglobin drops below 7.5 Give vitamin K to correct coagulopathy, patient may need FFP if bleeding continues\ I will follow up patient closely Patient may need an endoscopy and elective colonoscopy once medically stabilized Overall prognosis remains guarded Dietary Evaluation Review Comments: 1. Consider Glucerna once GI becomes accessible, glucerna TF at 45ml/hr provides 65g pro, 1296 kcal supporting pt's needs at 93% pro and 75% energy. 2. Consider TPN per pharmacy to meet 75% ofpt's needs, if NPO > 7 days 3. When medically feasible and pt pass speech eval, offer 2 g Na CCHO-60 lo Fat, Lo Chol diet with consideration of renal diet: a) Renal specifi -60 protein, 2gna 3K low phos, if pt has low GFR, but not being dialyzed, b) Renal Standard diet with 2gNa 3K low phos if pt is scheduled for dialysis treatments. . Expected Outcomes/Goals: controlled DM, avoid uremic symptoms, gradual weight loss. Plan discussed with: Other (ICU Nurse) NINA KENDALL MD Aug 07, 2024 19:00
--- NOTE | 2024-08-07 23:48 | DVHPN2 ---
Progress Note - Dictate Date Seen: Aug 07, 2024 Medical Necessity Reason Pt with a Central, PICC or Fol: Yes The following are medically ne: Lance Catheter Reason for lance catheter: Strict I&O Subjective Patient seen and examined at bedside. Remains on supplemental oxygen Overnight events reviewed. vital signs Vital Sign Date Time Temp Pulse Resp B/P (MAP) Pulse Ox O2 Delivery O2 Flow Rate FiO2 08/07/24 22:46 94 17 107/69 (82) 99 08/07/24 22:00 Nasal Cannula* 3 32 08/07/24 21:01 98.8 98.8 Total Intake and Output 08/06/24 08/06/24 08/07/24 15:00 23:00 07:00 Intake Total 1220.735 ml 1089.126 ml 320.634 ml Output Total 350 ml 3300 ml Balance 1220.735 ml 739.126 ml -2979.366 ml medications Current Medications Medications Dose Ordered Sig/Johan Route Start Time Stop Time Status Last Admin Dose Admin Diagnostic Test (Pha) 1 strip IQ4HR 08/04/24 08:00 08/07/24 21:11 1 STRIP Insulin Human Regular IQ4HR SC 08/04/24 08:00 08/07/24 21:19 3 UNITS Dextrose 50 ml UD PRN IV 08/04/24 07:15 Sodium Chloride 10 ml Q8HR IV 08/04/24 14:00 08/07/24 21:11 10 ML Ondansetron HCl 4 mg Q4HP PRN IV 08/04/24 07:15 08/04/24 20:30 4 MG Docusate Sodium 100 mg BIDPRN PRN PO 08/04/24 07:15 Acetaminophen 650 mg Q6HP PRN PO 08/04/24 07:15 Nitroglycerin 0.4 mg Q5MINP PRN SL 08/04/24 11:00 Morphine Sulfate 2 mg Q30M PRN IV 08/04/24 11:00 08/07/24 15:15 2 MG Atorvastatin Calcium 40 mg HS PO 08/04/24 22:00 08/04/24 21:14 40 MG Amiodarone HCl 250 ml @ 16.667 mls/ hr Q15H IV 08/05/24 15:15 08/07/24 12:19 16.667 MLS/HR Pantoprazole Sodium 50 ml @ 10 mls/hr Q5H IV 08/05/24 09:15 08/07/24 19:45 10 MLS/HR Insulin Glargine 20 units BID@0700,2200 SC 08/05/24 22:00 08/07/24 21:20 20 UNITS Norepinephrine Bitartrate 32 mg/ Sodium Chloride 250 ml @ 0.938 mls/ hr Q24H IV 08/05/24 17:30 08/05/24 19:30 0.938 MLS/HR Linezolid 300 ml @ 150 mls/hr Q12HR IV 08/06/24 10:00 08/07/24 20:58 150 MLS/HR Meropenem 50 ml @ 17 mls/hr Q12HR IV 08/06/24 22:00 08/07/24 20:58 17 MLS/HR Furosemide 100 mg/ Sodium Chloride 110 ml @ 4.4 mls/hr Q24H IV 08/06/24 18:30 08/07/24 15:02 4.4 MLS/HR objective Gen.: Patient lying in bed in no apparent distress. On supplemental oxygen. Head: Normocephalic, atraumatic. Eyes: EOMI/PERRLA. Ears: Normal hearing. Normal anatomy. Neck/trachea: Trachea midline, supple. Nose: Normal external anatomy. Mouth: Moist mucous membranes. Chest: Decreased air entry bilaterally. No wheezing or rhonchi. Cardiovascular: Positive S1, positive S2. Regular rate and rhythm. Abdomen: Positive bowel sounds in all 4 quadrants. Soft, non-tender, non- distended. : Deferred. Rectal: Deferred. Skin: Warm, dry. Intact. Extremities: 2+ radial pulses bilaterally. No lower extremity edema. Neuro: Awake, alert, oriented x3. No gross motor or sensory deficits. Cranial nerves II through XII intact. Gait not assessed. laboratory and microbiology Laboratory Tests 08/07/24 17:00 08/07/24 11:39 08/07/24 05:15 08/07/24 03:08 Test 08/07/24 03:08 Range/Units Serum Glucose 199 #H 74-106 mg/dL Assessment/Plan Impression: Acute hypoxic respiratory failure Dependence on supplemental oxygen Septic shock Atrial fibrillation w/ RVR Obstructive sleep apnea Multifocal pneumonia, likely gram negative. Obesity, BMI 31.1 Events: Remains on supplemental oxygen, 3 LPM NC Taper O2 as tolerated Off Levophed, hemodynamically stable. Continue antibiotics Amiodarone drip for AFib Lasix drip for diuresis Monitor renal function Monitor ins and outs Cardiology recs appreciated. GI prophylaxis w/ Protonix drip Labs and imaging reviewed. Rest of plan as noted below. Plan: Supplemental oxygen Titrate to keep O2 sats above 92%. Continue antibiotics Amiodarone drip. Pressors if necessary for hemodynamic support Titrate to keep mean arterial pressure greater than 65 mmHg. Monitor hemoglobin Diurese to euvolemia Monitor renal function. Monitor electrolytes. Supplement as necessary. Monitor ins and outs. Diet and lifestyle modifications for weight reduction Obesity - complicates all care GI prophylaxis - Protonix drip DVT prophylaxis. Prognosis: Poor given patient's multiple co-morbidities. Condition: Critical Rest of plan per hospitalist and other consultants. A total of 35 minutes of critical care time was spent reviewing the patient record, examining the patient, making a diagnostic and therapeutic plan, discussing this plan with the medical personnel, following up on diagnostic studies and following the patient for clinical stability excluding any and all procedures. At least 50% of this time was spent in direct, [id number] contact. Thank you, Dr. Romano, for allowing me to participate in this patient's care. Further recommendations will depend on the patient's clinical course. Please do not hesitate to contact me if you have any questions or concerns. This medical document was created using an electronic medical record system with [employer] dictation system. Although these documentations are being carefully reviewed, there may still be some phonetic and typographical changes. The errors are purely typographical, due to imperfection on the software program, and do not reflect any compromise in the patient's medical care. Dietary Evaluation Review Comments: 1. Consider Glucerna once GI becomes accessible, glucerna TF at 45ml/hr provides 65g pro, 1296 kcal supporting pt's needs at 93% pro and 75% energy. 2. Consider TPN per pharmacy to meet 75% ofpt's needs, if NPO > 7 days 3. When medically feasible and pt pass speech eval, offer 2 g Na CCHO-60 lo Fat, Lo Chol diet with consideration of renal diet: a) Renal specifi -60 protein, 2gna 3K low phos, if pt has low GFR, but not being dialyzed, b) Renal Standard diet with 2gNa 3K low phos if pt is scheduled for dialysis treatments. . Expected Outcomes/Goals: controlled DM, avoid uremic symptoms, gradual weight loss. Plan discussed with: Other (JOSE ELIAS [place]) Critical Care Time(min): 35 PAUL HERNANDEZ MD Aug 07, 2024 23:48
[2024-08-08] VITALS (63 sets, daily range): BP systolic 78–128; BP diastolic 30–82; PULSE 81–118; RESP 10–37; TEMP 98.4–99.4; O2SAT 89–100
[2024-08-08 04:33] LABS: Basophils # (auto) 0.1 10 ^3/uL (0-0.2); Basophils % (auto) 0.4 % (0.0-2.0); Eosinophils # (auto) 0 10 ^3/uL (0-0.8); Eosinophils % (auto) 0.3 % (0.0-7.0); Hematocrit 28.4 % (41.0-53.0); Hemoglobin 9.6 g/dL (13.5-17.5); Lymphocytes # (auto) 1.5 10 ^3/uL (0.4-5.4); Mean Corpuscular Hemoglobin 28.2 pg (28.0-32.0); Mean Corpuscular Hgb Conc. 33.7 g/dL (32.0-36.0); Mean Corpuscular Volume 83.4 fL (80.0-100.0); Monocytes # (auto) 1.5 10 ^3/uL (0-1.3); Monocytes % (auto) 10.4 % (0.0-12.0); Neutrophils # (auto) 11.7 10 ^3/uL (1.6-8.6); Neutrophils % (auto) 78.9 % (37.0-80.0); Nucleated Red Blood Cells % 0.2 %; Platelet Count (auto) 288 10^3/uL (140-450); Red Blood Cells 3.41 10^6/uL (4.5-5.90); Red Cell Distribution Width 16.4 % (11.8-14.3); White Blood Cell 14.8 10^3/uL (4.4-10.8)
[2024-08-08 04:56] LABS: Anion Gap 7 (5-15); BUN/Creatinine Ratio 21.7 (10.0-20.0); Carbon Dioxide 31 mmol/L (20-31); Magnesium 2.4 mg/dL (1.6-2.6)
[2024-08-08 04:57] LABS: Bilirubin, Total 0.9 mg/dL (0.2-1.0); Total Protein 5.8 g/dL (5.7-8.2)
[2024-08-08 05:26] LABS: Alanine Aminotransferase 61 U/L (7-40); Alkaline Phosphatase 49 U/L (46-116); Aspartate Aminotransferase 52 U/L (13-40); Blood Urea Nitrogen 53 mg/dL (9-23); Calcium 8.5 mg/dL (8.7-10.4); Chloride 109 mmol/L (98-107); Glucose 177 mg/dL (74-106); Potassium 2.8 mmol/L (3.5-5.1); Sodium 147 mmol/L (136-145)
[2024-08-08] MEDS: POTASSIUM CHL 20MEQ/100ML 100 ML IV SCH (07:15)
--- NOTE | 2024-08-08 10:27 | DVHPN2 ---
Subjective Still feels Urine output is good now with Lasix drip On amiodarone drip Changes from previous H/P or p: Changes Eyes: No Pain, No Vision change, No Conjunctivae inflammation, No Eyelid inflammation, No Other, No Redness ENT: No Ear pain, No Ear discharge, No Nose pain, No Nose discharge, No Nose congestion, No Mouth pain, No Mouth swelling, No Throat pain, No Throat swelling, No Other Cardiovascular: Chest Pain; No Palpitations, No Orthopnea, No Paroxysmal Noc. Dyspnea, No Edema, No Lt Headedness; Other (Dizzy spells) Respiratory: No Cough, No Dry; Shortness of breath; No SOB with excertion, No Wheezing, No Hemoptysis, No Pleuritic Pain, No Sputum, No Other Gastrointestinal: Nausea; No Vomiting, No Abdominal Pain, No Diarrhea, No Constipation, No Melena, No Hematochezia, No Other Genitourinary: No Dysuria, No Frequency, No Incontinence, No Hematuria, No Retention, No Other Musculoskeletal: No other, No neck pain, No shoulder pain, No arm pain, No back pain, No hand pain, No leg pain, No foot pain Skin: No Rash, No Lesions, No Jaundice, No Bruising, No Other Objective Vitals Vital Signs Date Time Temp Pulse Resp B/P (MAP) Pulse Ox O2 Delivery O2 Flow Rate FiO2 08/08/24 09:35 91 08/08/24 09:35 12 96 Nasal Cannula* 3 32 08/08/24 06:45 106/59 (75) 08/08/24 02:30 99.4 99.4 Intake/Output Intake and Output 08/08/24 07:00 Intake Total 1441.778 ml Output Total 4925 ml Balance -3483.222 ml Intake Oral 600 ml IV Total 841.778 ml Output Urine Total 4925 ml # Bowel Movements 4 General Appearance: Alert, Cooperative, moderate distress, Other (Disoriented) Lungs: Clear to auscultation Cardiovascular: Other (irregularly irregular) Extremities: No edema Medications Current Medications Medications Dose Ordered Sig/Johan Route Start Time Stop Time Status Last Admin Dose Admin Diagnostic Test (Pha) 1 strip IQ4HR 08/04/24 08:00 08/08/24 08:26 1 STRIP Insulin Human Regular IQ4HR SC 08/04/24 08:00 08/08/24 08:00 3 UNITS Dextrose 50 ml UD PRN IV 08/04/24 07:15 Sodium Chloride 10 ml Q8HR IV 08/04/24 14:00 08/08/24 05:21 10 ML Ondansetron HCl 4 mg Q4HP PRN IV 08/04/24 07:15 08/04/24 20:30 4 MG Docusate Sodium 100 mg BIDPRN PRN PO 08/04/24 07:15 Acetaminophen 650 mg Q6HP PRN PO 08/04/24 07:15 Nitroglycerin 0.4 mg Q5MINP PRN SL 08/04/24 11:00 Morphine Sulfate 2 mg Q30M PRN IV 08/04/24 11:00 08/07/24 15:15 2 MG Atorvastatin Calcium 40 mg HS PO 08/04/24 22:00 08/04/24 21:14 40 MG Amiodarone HCl 250 ml @ 16.667 mls/ hr Q15H IV 08/05/24 15:15 08/08/24 02:10 16.667 MLS/HR Pantoprazole Sodium 50 ml @ 10 mls/hr Q5H IV 08/05/24 09:15 08/08/24 07:38 10 MLS/HR Insulin Glargine 20 units BID@0700,2200 SC 08/05/24 22:00 08/08/24 07:00 20 UNITS Norepinephrine Bitartrate 32 mg/ Sodium Chloride 250 ml @ 0.938 mls/ hr Q24H IV 08/05/24 17:30 08/05/24 19:30 0.938 MLS/HR Linezolid 300 ml @ 150 mls/hr Q12HR IV 08/06/24 10:00 08/07/24 20:58 150 MLS/HR Meropenem 50 ml @ 17 mls/hr Q12HR IV 08/06/24 22:00 08/07/24 20:58 17 MLS/HR Furosemide 100 mg/ Sodium Chloride 110 ml @ 4.4 mls/hr Q24H IV 08/06/24 18:30 08/07/24 15:02 4.4 MLS/HR Potassium Chloride 100 ml @ 50 mls/hr Q2H IV 08/08/24 07:15 08/08/24 11:14 08/08/24 07:15 50 MLS/HR Laboratory Results Laboratory Tests 08/08/24 03:25 Chemistry Test 08/08/24 03:25 Albumin 4.0 g/dL (3.2-4.8) Calcium Level 8.5 mg/dL (8.7-10.4) L Magnesium Level 2.4 mg/dL (1.6-2.6) Total Protein 5.8 g/dL (5.7-8.2) LFT Test 08/08/24 03:25 Alanine Aminotransferase (ALT) 61 U/L (7-40) H Alkaline Phosphatase 49 U/L (46-116) Aspartate Amino Transferase (AST) 52 U/L (13-40) H Total Bilirubin 0.9 mg/dL (0.2-1.0) Urinalysis Test 08/04/24 15:54 Urine Color Yellow (Yellow) Urine Clarity Clear (Clear) Urine pH 6.0 (5.0-9.0) Urine Specific [place] 1.014 (1.001-1.035) Urine Protein 1+ (Negative) H Urine Ketones Trace (Negative) Urine Blood Trace /uL (Negative) H Urine Nitrite Negative (Negative) Urine Bilirubin Negative (Negative) Urine Urobilinogen Normal mg/dL (Negative) Urine Leukocyte Esterase Negative /uL (Negative) Urine RBC 1 /hpf (0 - 3) Urine WBC 2 /hpf (0 - 3) Urine Squamous Epithelial Cells Few /hpf (<5) Urine Bacteria None seen /hpf (None Seen) Urine Hyaline Casts Few /lpf (0 - 2) Urine Mucus Few (None Seen) Urine Glucose 3+ mg/dL (Normal) H Microbiology Microbiology Date/Time Source Procedure Growth Status 08/06/24 13:50 Nose MRSA Screen - Final Complete 08/06/24 10:00 Blood Blood Culture - Preliminary NO GROWTH AFTER 48 HOURS OF INCUBATION. Resulted 08/05/24 21:00 Stool Stool Culture - Final Complete 08/05/24 21:00 Stool Shiga Toxin I & II - Final Complete 08/05/24 21:00 Stool Clostridium difficile Toxin Assay - Final Complete Assessment/Plan Assessment/Plan Afib RVR Hypotension GI Bleed Here sepsis with septic shock CHF CAD Dyslipidemia BPH DM2 Obstructive sleep apnea on C-PAP at home PLAN: 08/05/2024: IV fluids low rate due to CHF Afib RVR Patient declines blood transfusion DNR Amiodarone bolus and drip Stop Lovenox and aspirin IV Protonix GI consult Cardiology consult Echo: Pending Discussed advance directives with patient, he wants DNR, agrees to medications and BiPAP only 08/06/2024: Sepsis with septic shock: Continue Levophed, change IV antibiotics to Zyvox and meropenem LIANA of due to septic shock: Nephrology consult, ordered IV fluids however cardiology recommended against giving more IV fluids due to low ejection fraction Metabolic acidosis Atrial fibrillation with rapid ventricular response: Amiodarone drip Acute hypoxic respiratory failure simply due to pneumonia Possible underlying pneumonia, Gram-negative versus Gram-positive GI bleed: Protonix drip, GI consult, type 2 diabetes Congestive heart failure, acute on chronic, systolic Coronary artery disease with a history of stents BPH Obstructive sleep apnea on CPAP at home No anticoagulation due to GI bleed NPO Pulmonary consultation Cardiology consultation Nephrology consultation Full Code: Patient stated yesterday that he wanted to be DNR however after his came and the reason reversed the decision and he is full code now The rest of the management will depend on the hospital course 08/07/2024: Continue IV antibiotics Zyvox and meropenem Nephrology consultation Diuresis with Lasix IV Protonix drip Levophed as needed Amiodarone drip Plan discussed with: Patient, Other My Orders Orders - HADLEY LAZCANO MD Procedure Category Date Status Time Electrocardigram EKG 08/07/24 Logged 15:10 Transfer Orders XFER 08/08/24 Transmitted 09:59 Date of Service: Aug 08, 2024 Billing Provider: HADLEY LAZCANO MD Common Visit Codes: NOT BILLABLE HADLEY LACZANO MD Aug 08, 2024 10:27
[2024-08-08] MEDS: phytonadione 10 MG in SODIUM CHL 0.9% 50 ML IV ONE (10:30)
--- NOTE | 2024-08-08 12:43 | DVHPN2 ---
Progress Note Date Seen: Aug 08, 2024 Resident Creating Document: VINH LESTER Medical Necessity Reason Pt with a Central, PICC or Fol: Yes The following are medically ne: Lance Catheter Reason for lance catheter: Strict I&O Medical Necessity Reason melena stool Subjective Review of Systems 08/05/2024 Consult: This is a 68-year-old male presented to ER with shortness of breath, chest pain, and nausea. Patient also complaining of periumbilical abdominal pain for two weeks getting worse now. Patient describes pain as a constant pressure-like pain No nausea or vomiting. Patient has history of GERD which is occasional only. Patient has weight loss of 25 lb in the last few months due to dental issues. Patient has loose stool on and off for two months, and has been tarry the last few times Patient takes Eliquis, last dose 3-4 days ago.SP colonoscopy 10-12 years ago. No EGD in past. Patient also complaining of neck and back pain, which he has a history of chronic pain PN: 08/08/2024 Patient is seen and examined today. He complained of pain in his abdomen. According to the nurse, patient had melena stool 2 times yesterday and 2 today. Seems like patient is having an ongoing GI bleed. WBC: 14.8 HGB: 9.6, plt: 288; Cr: 2.44 ( from 2.94), liver enzymes were mildly elevated. Chest x-ray shows cardiomegaly with mild pulmonary congestion. Echo showed EF 30% with moderate LVH Objective vital signs Vital Sign Date Time Temp Pulse Resp B/P (MAP) Pulse Ox O2 Delivery O2 Flow Rate FiO2 08/08/24 11:42 12 96 Nasal Cannula* 3 32 08/08/24 11:42 91 08/08/24 06:45 106/59 (75) 08/08/24 02:30 99.4 99.4 Total Intake and Output 08/07/24 08/07/24 08/08/24 15:00 23:00 07:00 Intake Total 107.974 ml 668.268 ml 665.536 ml Output Total 2725 ml 2200 ml Balance 107.974 ml -2056.732 ml -1534.464 ml medications Current Medications Medications Dose Ordered Sig/Johan Route Start Time Stop Time Status Last Admin Dose Admin Diagnostic Test (Pha) 1 strip IQ4HR 08/04/24 08:00 08/08/24 08:26 1 STRIP Insulin Human Regular IQ4HR SC 08/04/24 08:00 08/08/24 08:00 3 UNITS Dextrose 50 ml UD PRN IV 08/04/24 07:15 Sodium Chloride 10 ml Q8HR IV 08/04/24 14:00 08/08/24 05:21 10 ML Ondansetron HCl 4 mg Q4HP PRN IV 08/04/24 07:15 08/04/24 20:30 4 MG Docusate Sodium 100 mg BIDPRN PRN PO 08/04/24 07:15 Acetaminophen 650 mg Q6HP PRN PO 08/04/24 07:15 Nitroglycerin 0.4 mg Q5MINP PRN SL 08/04/24 11:00 Morphine Sulfate 2 mg Q30M PRN IV 08/04/24 11:00 08/07/24 15:15 2 MG Atorvastatin Calcium 40 mg HS PO 08/04/24 22:00 08/04/24 21:14 40 MG Amiodarone HCl 250 ml @ 16.667 mls/ hr Q15H IV 08/05/24 15:15 08/08/24 02:10 16.667 MLS/HR Pantoprazole Sodium 50 ml @ 10 mls/hr Q5H IV 08/05/24 09:15 08/08/24 07:38 10 MLS/HR Insulin Glargine 20 units BID@0700,2200 SC 08/05/24 22:00 08/08/24 07:00 20 UNITS Norepinephrine Bitartrate 32 mg/ Sodium Chloride 250 ml @ 0.938 mls/ hr Q24H IV 08/05/24 17:30 08/05/24 19:30 0.938 MLS/HR Linezolid 300 ml @ 150 mls/hr Q12HR IV 08/06/24 10:00 08/08/24 10:00 150 MLS/HR Meropenem 50 ml @ 17 mls/hr Q12HR IV 08/06/24 22:00 08/08/24 10:00 17 MLS/HR Furosemide 100 mg/ Sodium Chloride 110 ml @ 4.4 mls/hr Q24H IV 08/06/24 18:30 08/07/24 15:02 4.4 MLS/HR Examination General examination- Not in acute distress, AOX3, HEENT: PEERLA, no acute nasal discharge Chest: S1-S2 audible, irregularly irregular, no murmur Lung: CTAB, no wheeze or rhonchi Abdomen: Nondistend, BS+, nontenderness, no organomegaly Musculoskeletal: no acute joint swelling or tenderness Lower extremity: no leg edema Neurological: cranial nerves intact, no acute dysarthria or dysphagia Psychiatry-- Normal mood and affect, but seems sad Skin- no acute rash or purpura laboratory and microbiology Laboratory Tests 08/08/24 03:25 Test 08/08/24 03:25 Range/Units Serum Glucose 177 H 74-106 mg/dL Microbiology Date/Time Source Procedure Growth Status 08/06/24 13:50 Nose MRSA Screen - Final Complete 08/06/24 10:00 Blood Blood Culture - Preliminary NO GROWTH AFTER 48 HOURS OF INCUBATION. Resulted 08/05/24 21:00 Stool Stool Culture - Final Complete 08/05/24 21:00 Stool Shiga Toxin I & II - Final Complete 08/05/24 21:00 Stool Clostridium difficile Toxin Assay - Final Complete Problem List/Assessment/Plan Problem List/Assessment/Plan Possible GI Bleed --> Recurrent Melena stool -->stable hgb: 14.8 --> Tentatively for Endoscopy/ colonoscopy today --> Continue protonix 40 [id number] Acute blood loss anemia --> Hgb 12.7--> 9.6 --> Hold any blood thinners Coagulopathic --> Vitamin K 10mg given ( for 2 more days) --> Monitor PT/INR --> May need FFP ( monitor closely) (1) Rectal bleeding (2) Pneumonia, unspecified organism (3) Acute exacerbation of congestive heart failure (4) Electrolyte imbalance (5) Generalized weakness (6) Chest pain (7) Atrial fibrillation --> on Amiodarone now --> Off eliquis for few days Plan Continue to monitor labs Transfuse 1 unit PRBC if hemoglobin drops below 7.5 I will follow up patient closely Overall prognosis remains guarded Goal of care discussed for 35 minute Case and plan discussed with Dr. Thomas Thank you for allowing us to participate in the care of this patient. Please call if you have any questions or concerns. Plan discussed with: Patient, Spouse Dietary Evaluation Review Comments: 1. Consider Glucerna once GI becomes accessible, glucerna TF at 45ml/hr provides 65g pro, 1296 kcal supporting pt's needs at 93% pro and 75% energy. 2. Consider TPN per pharmacy to meet 75% ofpt's needs, if NPO > 7 days 3. When medically feasible and pt pass speech eval, offer 2 g Na CCHO-60 lo Fat, Lo Chol diet with consideration of renal diet: a) Renal specifi -60 protein, 2gna 3K low phos, if pt has low GFR, but not being dialyzed, b) Renal Standard diet with 2gNa 3K low phos if pt is scheduled for dialysis treatments. . Expected Outcomes/Goals: controlled DM, avoid uremic symptoms, gradual weight loss. VINH LESTER RESIDENT Aug 08, 2024 12:43
--- NOTE | 2024-08-08 13:04 | ECG ---
[facility] Test Date: 2024-08-08 Test Time: 03:15:34 Pat Name: STEVIE PRIEST Department: Room: 0274T Gender: M Sack Lifter: : 1955 Requested By: HADLEY LAZCANO Order Number: [id number] Reading MD: Edison Montilla Measurements Intervals [place] Rate: 94 P: 0 LA: 0 QRS: 6 QRSD: 120 T: 243 QT: 478 QTc: 597 Interpretive Statements Undetermined rhythm, possibly atrial fib PVC Inferior infarct , age undetermined LVH with secondary repolarization abnormality and IVCD Electronically Signed On 08-11-2024 8:30:35 PST by Edison Montilla Please click the below link to view image of tracing.
[2024-08-08 14:46] LABS: Hematocrit 28.2 % (41.0-53.0); Hemoglobin 9.5 g/dL (13.5-17.5)
[2024-08-08] MEDS ORDERED: EPINEPHrine HCL 1 MG/10 ML SYRG ONE (14:48)
[2024-08-08] MEDS ORDERED: SODIUM CHLORIDE LOCK 10 ML ONE (14:48)
[2024-08-08] MEDS: LIDOCAINE VISCOUS 2% 15ML UD ONE (14:58)
[2024-08-08] MEDS: fentaNYL CITRATE 100 MCG/2 ML VL ONE (15:01)
[2024-08-08] MEDS: diphenhdrAMINE HCL 50 MG/1 ML VL ONE (15:01)
[2024-08-08] MEDS: MIDAZOLAM HCL 5 MG/ML-1ML VIAL ONE (15:01)
--- NOTE | 2024-08-08 15:27 | DVHOP2 ---
Operative Report DATE OF OPERATION: 08/08/24 PROCEDURE: Upper Endoscopy with biopsy. PREOPERATIVE INDICATION: The patient is a 68 -year-old male undergoing endoscopy for history of melena abdominal pain and GI bleed and drop in hemoglobin hematocrit POSTOPERATIVE DIAGNOSES: 1. 2 cm sliding-type hiatal hernia with grade B erosive esophagitis with some distal esophageal ulcers 2. Nbpclobi-as-mwlcqr gastritis with pre-pyloric gastric linear ulcers and stress-induced ulcers from which biopsies were obtained 3. Davtchrk-ro-gquqml duodenitis with two large and multiple smaller coalescing duodenal ulcers Jarred classification C with no visible vessel or active bleeding 4. Otherwise normal examination up to the 2nd and 3rd part of the duodenal with no active bleeding at good bile drainage PROCEDURE PERFORMED BY: Nina Thomas GI NURSE: Fatoumata SCOPE: Olympus videoendoscope. ASA CLASS: 3. PREOPERATIVE MEDICATIONS: Versed 3 mg, Fentanyl 50 mcg, Benadryl 50 mg I administered moderate sedation throughout this _10_ minutes procedure. An independent trained observer pushed medications at my direction, and monitored the patient's level of consciousness and physiological status throughout. PROCEDURE IN DETAIL: After obtaining an informed consent, the patient was placed on left lateral decubitus position. The patient was then sedated with the above medications. A bite block was placed between his teeth. The endoscope was then passed through the oropharynx, into the esophagus, and through the stomach and pylorus up to the second and third part of the duodenum. The endoscope was then withdrawn. There was no fresh or old blood in the GI tract The 2nd and 3rd part of the duodenal were normal with good bile drainage. The duodenal bulb and postbulbar area showed nxgqffgd-bq-uqeqfe duodenitis with two medium-sized duodenal ulcers another smaller coalescing ulcers. Duodenal biopsies were obtained. The ulcers did not show any visible vessel or active bleeding The pre-pyloric area antrum and body showed zvwzljow-ze-pkvuii gastritis with multiple stress-induced gastric ulcers gastritis hyperemia erythema. Gastric biopsies were obtained. On retroflexion the fundus cardia and angularis were normal. There was no fresh or old blood in the stomach. The endoscope was then withdrawn into the distal esophagus Patient had a 2 cm sliding-type hiatal hernia with slightly irregular squamocolumnar junction grade B erosive esophagitis with some superficial distal esophageal ulcers. GE junction biopsies were obtained. The remaining distal and proximal esophagus and oropharynx were unremarkable The patient tolerated the procedure well without difficulty. COMPLICATIONS : None SPECIMENS: Duodenal biopsies Gastric biopsies GE junction biopsies DISPOSITION: Stable Continue to monitor in ICU PLAN: 1. Await for biopsy result 2. Will place pt on Protonix 40 mg bid IV 3. Carafate suspension 1 g p.o. 4 times a day 4. DC aspirin NSAIDs blood thinners at this time 5. Clear liquid diet advance to full liquid if tolerated 6. Monitor labs and I will follow up patient with NINA Uribe MD Aug 08, 2024 15:27
--- NOTE | 2024-08-08 16:47 | DVHPN2 ---
Consult Progress Note Subjective Other Systems: Patient remains in atrial fibrillation on cardiac rn Objective vital signs Vital Sign Date Time Temp Pulse Resp B/P (MAP) Pulse Ox O2 Delivery O2 Flow Rate FiO2 08/08/24 15:48 12 96 Nasal Cannula* 3 32 08/08/24 15:48 90 08/08/24 06:45 106/59 (75) 08/08/24 02:30 99.4 99.4 Total Intake and Output 08/07/24 08/07/24 08/08/24 15:00 23:00 07:00 Intake Total 107.974 ml 668.268 ml 665.536 ml Output Total 2725 ml 2200 ml Balance 107.974 ml -2056.732 ml -1534.464 ml medications Current Medications Medications Dose Ordered Sig/Johan Route Start Time Stop Time Status Last Admin Dose Admin Diagnostic Test (Pha) 1 strip IQ4HR 08/04/24 08:00 08/08/24 15:51 1 STRIP Insulin Human Regular IQ4HR SC 08/04/24 08:00 08/08/24 16:00 2 UNITS Dextrose 50 ml UD PRN IV 08/04/24 07:15 Sodium Chloride 10 ml Q8HR IV 08/04/24 14:00 08/08/24 13:07 10 ML Ondansetron HCl 4 mg Q4HP PRN IV 08/04/24 07:15 08/04/24 20:30 4 MG Docusate Sodium 100 mg BIDPRN PRN PO 08/04/24 07:15 Acetaminophen 650 mg Q6HP PRN PO 08/04/24 07:15 Nitroglycerin 0.4 mg Q5MINP PRN SL 08/04/24 11:00 Morphine Sulfate 2 mg Q30M PRN IV 08/04/24 11:00 08/07/24 15:15 2 MG Atorvastatin Calcium 40 mg HS PO 08/04/24 22:00 08/04/24 21:14 40 MG Amiodarone HCl 250 ml @ 16.667 mls/ hr Q15H IV 08/05/24 15:15 08/08/24 02:10 16.667 MLS/HR Pantoprazole Sodium 50 ml @ 10 mls/hr Q5H IV 08/05/24 09:15 08/08/24 12:51 10 MLS/HR Insulin Glargine 20 units BID@0700,2200 SC 08/05/24 22:00 08/08/24 07:00 20 UNITS Norepinephrine Bitartrate 32 mg/ Sodium Chloride 250 ml @ 0.938 mls/ hr Q24H IV 08/05/24 17:30 08/05/24 19:30 0.938 MLS/HR Linezolid 300 ml @ 150 mls/hr Q12HR IV 08/06/24 10:00 08/08/24 10:00 150 MLS/HR Meropenem 50 ml @ 17 mls/hr Q12HR IV 08/06/24 22:00 08/08/24 10:00 17 MLS/HR Furosemide 100 mg/ Sodium Chloride 110 ml @ 4.4 mls/hr Q24H IV 08/06/24 18:30 08/07/24 15:02 4.4 MLS/HR Sucralfate 1 gm QID@0600,1130,1700,2200 PO 08/08/24 17:00 Examination: GENERAL:Abnormal (Generalized weakness), LUNGS:Normal, CVS:Normal, NEURO:Normal laboratory and microbiology Laboratory Tests 08/08/24 14:19 08/08/24 03:25 Test 08/08/24 03:25 Range/Units Serum Glucose 177 H 74-106 mg/dL Problem List/Assessment/Plan Problem List/Assessment/Plan Septic/hypovolemic shock Paroxysmal atrial fibrillation with RVR, on amiodarone/Eliquis therapy Acute on chronic decompensated HFrEF Coronary artery disease status post PTCA including 3 AGUEDA Acute hypoxic respiratory failure with PNA Chest pain rule out progressive CAD Insulin-dependent diabetes mellitus Hypertension Dyslipidemia Obesity Rectal bleed LIANA Plan/Recommendation (Dr. Londono) * Echocardiogram revealed EF 30% with moderate LVH * Hold all AC/antiplatelet therapy given active rectal bleed * [id number] Score 5. HAS-BLED Score 2 * Antiarrhythmic therapy, amiodarone drip per protocol * Recommend PRBC transfusion if hemoglobin less than 8 given hx of CAD * Lipid lowering agent, monitor LFTs trending up * Monitor ECG changes and notify * GI/Nephrology/Pulmonology recommendations * Septic work-up per primary care team Patient seen and examined at bedside with . Thank you for allowing us to participate in this patient's care. Please call if you have any questions or concerns. Critical care time: 30 min. This medical document was created using an electronic medical record system with voice recognition software and computerized dictation system. Although this document has been carefully reviewed, there might still be some phonetic and typographical errors. Occasional wrong-word or ``sound-alike substitutions may have occurred due to the inherent limitations of voice recognition software. These areas are purely typographical due to imperfections of the software programs and do not reflect any compromise in the patient's medical care. Please read the chart carefully and recognize, using context, where these substitutions have occurred. Plan discussed with: Patient Dietary Evaluation Review Comments: 1. Consider Glucerna once GI becomes accessible, glucerna TF at 45ml/hr provides 65g pro, 1296 kcal supporting pt's needs at 93% pro and 75% energy. 2. Consider TPN per pharmacy to meet 75% ofpt's needs, if NPO > 7 days 3. When medically feasible and pt pass speech eval, offer 2 g Na CCHO-60 lo Fat, Lo Chol diet with consideration of renal diet: a) Renal specifi -60 protein, 2gna 3K low phos, if pt has low GFR, but not being dialyzed, b) Renal Standard diet with 2gNa 3K low phos if pt is scheduled for dialysis treatments. . Expected Outcomes/Goals: controlled DM, avoid uremic symptoms, gradual weight loss. Date of Service: Aug 08, 2024 Billing Provider: MARÍA LIPSCOMB Common Visit Codes: [id number] CARE 30-74 MIN MARÍA LIPSCOMB Aug 08, 2024 16:47
[2024-08-08] MEDS: SUCRALFATE 1 GM/10 ML ORAL SUSP PO SCH (16:54)
--- NOTE | 2024-08-08 17:56 | DVHPN2 ---
Subjective More alert On Lasix drip, amiodarone and Protonix Changes from previous H/P or p: Changes Eyes: No Pain, No Vision change, No Conjunctivae inflammation, No Eyelid inflammation, No Other, No Redness ENT: No Ear pain, No Ear discharge, No Nose pain, No Nose discharge, No Nose congestion, No Mouth pain, No Mouth swelling, No Throat pain, No Throat swelling, No Other Cardiovascular: Chest Pain; No Palpitations, No Orthopnea, No Paroxysmal Noc. Dyspnea, No Edema, No Lt Headedness; Other (Dizzy spells) Respiratory: No Cough, No Dry; Shortness of breath; No SOB with excertion, No Wheezing, No Hemoptysis, No Pleuritic Pain, No Sputum, No Other Gastrointestinal: Nausea; No Vomiting, No Abdominal Pain, No Diarrhea, No Constipation, No Melena, No Hematochezia, No Other Genitourinary: No Dysuria, No Frequency, No Incontinence, No Hematuria, No Retention, No Other Musculoskeletal: No other, No neck pain, No shoulder pain, No arm pain, No back pain, No hand pain, No leg pain, No foot pain Skin: No Rash, No Lesions, No Jaundice, No Bruising, No Other Objective Vitals Vital Signs Date Time Temp Pulse Resp B/P (MAP) Pulse Ox O2 Delivery O2 Flow Rate FiO2 08/08/24 17:39 12 96 Nasal Cannula* 3 32 08/08/24 17:39 95 08/08/24 06:45 106/59 (75) 08/08/24 02:30 99.4 99.4 Intake/Output Intake and Output 08/08/24 07:00 Intake Total 1441.778 ml Output Total 4925 ml Balance -3483.222 ml Intake Oral 600 ml IV Total 841.778 ml Output Urine Total 4925 ml # Bowel Movements 4 General Appearance: Alert, Cooperative, moderate distress, Other (Disoriented) Lungs: Clear to auscultation Cardiovascular: Other (irregularly irregular) Extremities: No edema Medications Current Medications Medications Dose Ordered Sig/Johan Route Start Time Stop Time Status Last Admin Dose Admin Diagnostic Test (Pha) 1 strip IQ4HR 08/04/24 08:00 08/08/24 15:51 1 STRIP Insulin Human Regular IQ4HR SC 08/04/24 08:00 08/08/24 16:00 2 UNITS Dextrose 50 ml UD PRN IV 08/04/24 07:15 Sodium Chloride 10 ml Q8HR IV 08/04/24 14:00 08/08/24 13:07 10 ML Ondansetron HCl 4 mg Q4HP PRN IV 08/04/24 07:15 08/04/24 20:30 4 MG Docusate Sodium 100 mg BIDPRN PRN PO 08/04/24 07:15 Acetaminophen 650 mg Q6HP PRN PO 08/04/24 07:15 Nitroglycerin 0.4 mg Q5MINP PRN SL 08/04/24 11:00 Morphine Sulfate 2 mg Q30M PRN IV 08/04/24 11:00 08/07/24 15:15 2 MG Atorvastatin Calcium 40 mg HS PO 08/04/24 22:00 08/04/24 21:14 40 MG Amiodarone HCl 250 ml @ 16.667 mls/ hr Q15H IV 08/05/24 15:15 08/08/24 02:10 16.667 MLS/HR Pantoprazole Sodium 50 ml @ 10 mls/hr Q5H IV 08/05/24 09:15 08/08/24 12:51 10 MLS/HR Insulin Glargine 20 units BID@0700,2200 SC 08/05/24 22:00 08/08/24 07:00 20 UNITS Norepinephrine Bitartrate 32 mg/ Sodium Chloride 250 ml @ 0.938 mls/ hr Q24H IV 08/05/24 17:30 08/05/24 19:30 0.938 MLS/HR Linezolid 300 ml @ 150 mls/hr Q12HR IV 08/06/24 10:00 08/08/24 10:00 150 MLS/HR Meropenem 50 ml @ 17 mls/hr Q12HR IV 08/06/24 22:00 08/08/24 10:00 17 MLS/HR Furosemide 100 mg/ Sodium Chloride 110 ml @ 4.4 mls/hr Q24H IV 08/06/24 18:30 08/07/24 15:02 4.4 MLS/HR Sucralfate 1 gm QID@0600,1130,1700,2200 PO 08/08/24 17:00 08/08/24 16:54 1 GM Laboratory Results Laboratory Tests 08/08/24 03:25 08/08/24 14:19 Chemistry Test 08/08/24 03:25 Albumin 4.0 g/dL (3.2-4.8) Calcium Level 8.5 mg/dL (8.7-10.4) L Magnesium Level 2.4 mg/dL (1.6-2.6) Total Protein 5.8 g/dL (5.7-8.2) LFT Test 08/08/24 03:25 Alanine Aminotransferase (ALT) 61 U/L (7-40) H Alkaline Phosphatase 49 U/L (46-116) Aspartate Amino Transferase (AST) 52 U/L (13-40) H Total Bilirubin 0.9 mg/dL (0.2-1.0) Urinalysis Test 08/04/24 15:54 Urine Color Yellow (Yellow) Urine Clarity Clear (Clear) Urine pH 6.0 (5.0-9.0) Urine Specific [place] 1.014 (1.001-1.035) Urine Protein 1+ (Negative) H Urine Ketones Trace (Negative) Urine Blood Trace /uL (Negative) H Urine Nitrite Negative (Negative) Urine Bilirubin Negative (Negative) Urine Urobilinogen Normal mg/dL (Negative) Urine Leukocyte Esterase Negative /uL (Negative) Urine RBC 1 /hpf (0 - 3) Urine WBC 2 /hpf (0 - 3) Urine Squamous Epithelial Cells Few /hpf (<5) Urine Bacteria None seen /hpf (None Seen) Urine Hyaline Casts Few /lpf (0 - 2) Urine Mucus Few (None Seen) Urine Glucose 3+ mg/dL (Normal) H Microbiology Microbiology Date/Time Source Procedure Growth Status 08/06/24 13:50 Nose MRSA Screen - Final Complete 08/06/24 10:00 Blood Blood Culture - Preliminary NO GROWTH AFTER 48 HOURS OF INCUBATION. Resulted 08/05/24 21:00 Stool Stool Culture - Final Complete 08/05/24 21:00 Stool Shiga Toxin I & II - Final Complete 08/05/24 21:00 Stool Clostridium difficile Toxin Assay - Final Complete Assessment/Plan Assessment/Plan Afib RVR Hypotension GI Bleed Severe sepsis with septic shock CHF CAD Dyslipidemia BPH DM2 Obstructive sleep apnea on C-PAP at home PLAN: 08/05/2024: IV fluids low rate due to CHF Afib RVR Patient declines blood transfusion DNR Amiodarone bolus and drip Stop Lovenox and aspirin IV Protonix GI consult Cardiology consult Echo: Pending Discussed advance directives with patient, he wants DNR, agrees to medications and BiPAP only 08/06/2024: Sepsis with septic shock: Continue Levophed, change IV antibiotics to Zyvox and meropenem LIANA of due to septic shock: Nephrology consult, ordered IV fluids however cardiology recommended against giving more IV fluids due to low ejection fraction Metabolic acidosis Atrial fibrillation with rapid ventricular response: Amiodarone drip Acute hypoxic respiratory failure simply due to pneumonia Possible underlying pneumonia, Gram-negative versus Gram-positive GI bleed: Protonix drip, GI consult, type 2 diabetes Congestive heart failure, acute on chronic, systolic Coronary artery disease with a history of stents BPH Obstructive sleep apnea on CPAP at home No anticoagulation due to GI bleed NPO Pulmonary consultation Cardiology consultation Nephrology consultation Full Code: Patient stated yesterday that he wanted to be DNR however after his came and the reason reversed the decision and he is full code now The rest of the management will depend on the hospital course 08/07/2024: Continue IV antibiotics Zyvox and meropenem Nephrology consultation Diuresis with Lasix IV Protonix drip Levophed as needed Amiodarone drip 08/08/24: Sepsis: Better, IV antibiotics: Zyvox, Meropenem Afib: Amiodarone HFrEF: Lasix Coronary artery disease status post PTCA Acute hypoxic respiratory failure with pneumonia Pneumonia GI Bleed: Protonix Hypertension Dyslipidemia Obesity GI bleed: EGD LIANA Insulin-dependent diabetes mellitus Replace K+ Plan discussed with: Patient, Other My Orders Orders - HADLEY LAZCANO MD Procedure Category Date Status Time Transfer Orders XFER 08/08/24 Transmitted 09:59 Date of Service: Aug 08, 2024 Billing Provider: HADLEY LAZCANO MD Common Visit Codes: NOT BILLABLE HADLEY LAZCANO MD Aug 08, 2024 17:56
--- NOTE | 2024-08-08 20:57 | DVHPN2 ---
Consult Progress Note Subjective Other Systems: Patient was seen and evaluated in follow up in the ICU. Patient remains in atrial fibrillation on equipment monitor phototypesetting. Per bedside RN patient is noted to be having melena. HGB 9.5, HCT 28.2, NA 147, K 2.8, CL 109, BUN 53, BRANCH ACCOUNT MANAGER 2.44, AST 52, ALT 61. Objective vital signs Vital Sign Date Time Temp Pulse Resp B/P (MAP) Pulse Ox O2 Delivery O2 Flow Rate FiO2 08/08/24 18:02 98.6 98.6 08/08/24 17:39 12 96 Nasal Cannula* 3 32 08/08/24 17:39 95 Total Intake and Output 08/07/24 08/07/24 08/08/24 15:00 23:00 07:00 Intake Total 107.974 ml 668.268 ml 665.536 ml Output Total 2725 ml 2200 ml Balance 107.974 ml -2056.732 ml -1534.464 ml medications Current Medications Medications Dose Ordered Sig/Johan Route Start Time Stop Time Status Last Admin Dose Admin Diagnostic Test (Pha) 1 strip IQ4HR 08/04/24 08:00 08/08/24 15:51 1 STRIP Insulin Human Regular IQ4HR SC 08/04/24 08:00 08/08/24 16:00 2 UNITS Dextrose 50 ml UD PRN IV 08/04/24 07:15 Sodium Chloride 10 ml Q8HR IV 08/04/24 14:00 08/08/24 13:07 10 ML Ondansetron HCl 4 mg Q4HP PRN IV 08/04/24 07:15 08/04/24 20:30 4 MG Docusate Sodium 100 mg BIDPRN PRN PO 08/04/24 07:15 Acetaminophen 650 mg Q6HP PRN PO 08/04/24 07:15 Nitroglycerin 0.4 mg Q5MINP PRN SL 08/04/24 11:00 Morphine Sulfate 2 mg Q30M PRN IV 08/04/24 11:00 08/07/24 15:15 2 MG Atorvastatin Calcium 40 mg HS PO 08/04/24 22:00 08/04/24 21:14 40 MG Amiodarone HCl 250 ml @ 16.667 mls/ hr Q15H IV 08/05/24 15:15 08/08/24 02:10 16.667 MLS/HR Pantoprazole Sodium 50 ml @ 10 mls/hr Q5H IV 08/05/24 09:15 08/08/24 12:51 10 MLS/HR Insulin Glargine 20 units BID@0700,2200 SC 08/05/24 22:00 08/08/24 07:00 20 UNITS Norepinephrine Bitartrate 32 mg/ Sodium Chloride 250 ml @ 0.938 mls/ hr Q24H IV 08/05/24 17:30 08/05/24 19:30 0.938 MLS/HR Linezolid 300 ml @ 150 mls/hr Q12HR IV 08/06/24 10:00 08/08/24 10:00 150 MLS/HR Meropenem 50 ml @ 17 mls/hr Q12HR IV 08/06/24 22:00 08/08/24 10:00 17 MLS/HR Furosemide 100 mg/ Sodium Chloride 110 ml @ 4.4 mls/hr Q24H IV 08/06/24 18:30 08/07/24 15:02 4.4 MLS/HR Sucralfate 1 gm QID@0600,1130,1700,2200 PO 08/08/24 17:00 08/08/24 16:54 1 GM Examination: GENERAL:Abnormal (Generalized weakness), HEENT:Normal, NECK:Normal, LUNGS:Normal, CVS:Normal, ABDOMEN:Normal, MSK:Normal, SKIN:Normal, NEURO:Normal laboratory and microbiology Laboratory Tests 08/08/24 14:19 08/08/24 03:25 Test 08/08/24 03:25 Range/Units Serum Glucose 177 H 74-106 mg/dL Problem List/Assessment/Plan Problem List/Assessment/Plan Septic/hypovolemic shock. Paroxysmal atrial fibrillation with RVR, on amiodarone/Eliquis therapy. Acute on chronic decompensated HFrEF. Coronary artery disease status post PTCA including 3 AGUEDA. Acute hypoxic respiratory failure with PNA. Chest pain rule out progressive CAD. Insulin-dependent diabetes mellitus. Hypertension. Dyslipidemia. Obesity. Rectal bleed. LIANA. Plan/Recommendation Continued all current supportive medical care. Patient has been seen by Alisha Diez on my behalf, her and I discussed the plan with the patient. Echocardiogram revealed EF 30% with moderate LVH. Hold all AC/antiplatelet therapy given active rectal bleed. [id number] Score 5. HAS-BLED Score 2. Antiarrhythmic therapy, amiodarone drip per protocol. Recommend PRBC transfusion if hemoglobin less than 8 given hx of CAD. Lipid lowering agent, monitor LFTs trending up. Monitor ECG changes and notify. GI/Nephrology/Pulmonology recommendations. Septic work-up per primary care team. Additional plan as per the hospital course. Plan discussed with: Patient Dietary Evaluation Review Comments: 1. Consider Glucerna once GI becomes accessible, glucerna TF at 45ml/hr provides 65g pro, 1296 kcal supporting pt's needs at 93% pro and 75% energy. 2. Consider TPN per pharmacy to meet 75% ofpt's needs, if NPO > 7 days 3. When medically feasible and pt pass speech eval, offer 2 g Na CCHO-60 lo Fat, Lo Chol diet with consideration of renal diet: a) Renal specifi -60 protein, 2gna 3K low phos, if pt has low GFR, but not being dialyzed, b) Renal Standard diet with 2gNa 3K low phos if pt is scheduled for dialysis treatments. . Expected Outcomes/Goals: controlled DM, avoid uremic symptoms, gradual weight loss. Date of Service: Aug 08, 2024 Billing Provider: TEJAS JUSTICE MD Cardiology Common Codes: [id number] CARE 30-74 MIN TEJAS JUSTICE MD Aug 08, 2024 19:38
[2024-08-08 23:04] LABS: Anion Gap 8 (5-15); Carbon Dioxide 28 mmol/L (20-31)
[2024-08-08 23:05] LABS: Calcium 8.9 mg/dL (8.7-10.4)
[2024-08-08 23:09] LABS: BUN/Creatinine Ratio 16.7 (10.0-20.0)
--- NOTE | 2024-08-08 23:09 | DVHPN2 ---
Progress Note - Dictate Date Seen: Aug 08, 2024 Medical Necessity Reason Pt with a Central, PICC or Fol: Yes The following are medically ne: Lance Catheter Reason for lance catheter: Strict I&O Subjective Patient seen and examined at bedside. Remains on supplemental oxygen Overnight events reviewed. vital signs Vital Sign Date Time Temp Pulse Resp B/P (MAP) Pulse Ox O2 Delivery O2 Flow Rate FiO2 08/08/24 22:30 89 15 96 08/08/24 22:00 Room Air* 0 21 08/08/24 20:00 98.6 98.6 Total Intake and Output 08/07/24 08/07/24 08/08/24 15:00 23:00 07:00 Intake Total 107.974 ml 668.268 ml 665.536 ml Output Total 2725 ml 2200 ml Balance 107.974 ml -2056.732 ml -1534.464 ml medications Current Medications Medications Dose Ordered Sig/Johan Route Start Time Stop Time Status Last Admin Dose Admin Diagnostic Test (Pha) 1 strip IQ4HR 08/04/24 08:00 08/08/24 20:07 1 STRIP Insulin Human Regular IQ4HR SC 08/04/24 08:00 08/08/24 20:09 6 UNITS Dextrose 50 ml UD PRN IV 08/04/24 07:15 Sodium Chloride 10 ml Q8HR IV 08/04/24 14:00 08/08/24 21:50 10 ML Ondansetron HCl 4 mg Q4HP PRN IV 08/04/24 07:15 08/04/24 20:30 4 MG Docusate Sodium 100 mg BIDPRN PRN PO 08/04/24 07:15 Acetaminophen 650 mg Q6HP PRN PO 08/04/24 07:15 Nitroglycerin 0.4 mg Q5MINP PRN SL 08/04/24 11:00 Morphine Sulfate 2 mg Q30M PRN IV 08/04/24 11:00 08/07/24 15:15 2 MG Atorvastatin Calcium 40 mg HS PO 08/04/24 22:00 08/08/24 21:50 40 MG Amiodarone HCl 250 ml @ 16.667 mls/ hr Q15H IV 08/05/24 15:15 08/08/24 18:15 16.667 MLS/HR Pantoprazole Sodium 50 ml @ 10 mls/hr Q5H IV 08/05/24 09:15 08/08/24 21:38 10 MLS/HR Insulin Glargine 20 units BID@0700,2200 SC 08/05/24 22:00 08/08/24 21:54 20 UNITS Norepinephrine Bitartrate 32 mg/ Sodium Chloride 250 ml @ 0.938 mls/ hr Q24H IV 08/05/24 17:30 08/05/24 19:30 0.938 MLS/HR Linezolid 300 ml @ 150 mls/hr Q12HR IV 08/06/24 10:00 08/08/24 21:50 150 MLS/HR Meropenem 50 ml @ 17 mls/hr Q12HR IV 08/06/24 22:00 08/08/24 21:50 17 MLS/HR Furosemide 100 mg/ Sodium Chloride 110 ml @ 4.4 mls/hr Q24H IV 08/06/24 18:30 08/08/24 18:30 4.4 MLS/HR Sucralfate 1 gm QID@0600,1130,1700,2200 PO 08/08/24 17:00 08/08/24 21:50 1 GM objective Gen.: Patient lying in bed in no apparent distress. On supplemental oxygen. Head: Normocephalic, atraumatic. Eyes: EOMI/PERRLA. Ears: Normal hearing. Normal anatomy. Neck/trachea: Trachea midline, supple. Nose: Normal external anatomy. Mouth: Moist mucous membranes. Chest: Decreased air entry bilaterally. No wheezing or rhonchi. Cardiovascular: Positive S1, positive S2. Regular rate and rhythm. Abdomen: Positive bowel sounds in all 4 quadrants. Soft, non-tender, non- distended. : Deferred. Rectal: Deferred. Skin: Warm, dry. Intact. Extremities: 2+ radial pulses bilaterally. No lower extremity edema. Neuro: Awake, alert, oriented x3. No gross motor or sensory deficits. Cranial nerves II through XII intact. Gait not assessed. laboratory and microbiology Laboratory Tests 08/08/24 22:20 08/08/24 14:19 08/08/24 03:25 Test 08/08/24 22:20 Range/Units Serum Glucose Pending Assessment/Plan Impression: Acute hypoxic respiratory failure Dependence on supplemental oxygen Septic shock Atrial fibrillation w/ RVR Obstructive sleep apnea Multifocal pneumonia, likely gram negative. Obesity, BMI 31.1 Events: Remains on supplemental oxygen, 3 LPM NC Taper O2 as tolerated Continue antibiotics Amiodarone drip for AFib Lasix drip for diuresis Monitor renal function Monitor ins and outs Potassium supplementation Cardiology recs appreciated GI prophylaxis w/ Protonix drip Monitor hemoglobin GI recs appreciated Status post EGD. Labs and imaging reviewed. Rest of plan as noted below. Plan: Supplemental oxygen Titrate to keep O2 sats above 92%. Off pressors, hemodynamically stable. Continue antibiotics Amiodarone drip. Pressors if necessary for hemodynamic support Titrate to keep mean arterial pressure greater than 65 mmHg. Monitor hemoglobin Diurese to euvolemia Monitor renal function. Monitor electrolytes. Supplement as necessary. Monitor ins and outs. Diet and lifestyle modifications for weight reduction Obesity - complicates all care GI prophylaxis - Protonix drip DVT prophylaxis. Prognosis: Poor given patient's multiple co-morbidities. Condition: Critical Rest of plan per hospitalist and other consultants. A total of 35 minutes of critical care time was spent reviewing the patient record, examining the patient, making a diagnostic and therapeutic plan, discussing this plan with the medical personnel, following up on diagnostic studies and following the patient for clinical stability excluding any and all procedures. At least 50% of this time was spent in direct, [id number] contact. Thank you, Dr. Romano, for allowing me to participate in this patient's care. Further recommendations will depend on the patient's clinical course. Please do not hesitate to contact me if you have any questions or concerns. This medical document was created using an electronic medical record system with [employer] dictation system. Although these documentations are being carefully reviewed, there may still be some phonetic and typographical changes. The errors are purely typographical, due to imperfection on the software program, and do not reflect any compromise in the patient's medical care. Dietary Evaluation Review Comments: 1. Consider Glucerna once GI becomes accessible, glucerna TF at 45ml/hr provides 65g pro, 1296 kcal supporting pt's needs at 93% pro and 75% energy. 2. Consider TPN per pharmacy to meet 75% ofpt's needs, if NPO > 7 days 3. When medically feasible and pt pass speech eval, offer 2 g Na CCHO-60 lo Fat, Lo Chol diet with consideration of renal diet: a) Renal specifi -60 protein, 2gna 3K low phos, if pt has low GFR, but not being dialyzed, b) Renal Standard diet with 2gNa 3K low phos if pt is scheduled for dialysis treatments. . Expected Outcomes/Goals: controlled DM, avoid uremic symptoms, gradual weight loss. Plan discussed with: Other (JOSE ELIAS Warren) Critical Care Time(min): 35 PAUL HERNANDEZ MD Aug 08, 2024 23:09
[2024-08-08 23:11] LABS: Blood Urea Nitrogen 33 mg/dL (9-23); Chloride 110 mmol/L (98-107); Glucose 200 mg/dL (74-106); Potassium 2.8 mmol/L (3.5-5.1); Sodium 146 mmol/L (136-145)
[2024-08-09] VITALS (63 sets, daily range): BP systolic 91–153; BP diastolic 62–99; PULSE 82–120; RESP 12–25; TEMP 97.7–99.3; O2SAT 89–99
[2024-08-09] MEDS: POTASSIUM CHL 20MEQ/100ML 100 ML IV SCH (04:00)
[2024-08-09 04:31] LABS: Basophils # (auto) 0 10 ^3/uL (0-0.2); Basophils % (auto) 0.2 % (0.0-2.0); Eosinophils # (auto) 0.1 10 ^3/uL (0-0.8); Eosinophils % (auto) 0.4 % (0.0-7.0); Hematocrit 29.6 % (41.0-53.0); Hemoglobin 9.9 g/dL (13.5-17.5); Lymphocytes # (auto) 1.5 10 ^3/uL (0.4-5.4); Lymphocytes % (auto) 9.3 % (10.0-50.0); Mean Corpuscular Hemoglobin 27.9 pg (28.0-32.0); Mean Corpuscular Hgb Conc. 33.4 g/dL (32.0-36.0); Mean Corpuscular Volume 83.7 fL (80.0-100.0); Monocytes # (auto) 1.7 10 ^3/uL (0-1.3); Monocytes % (auto) 10.5 % (0.0-12.0); Neutrophils # (auto) 13.2 10 ^3/uL (1.6-8.6); Neutrophils % (auto) 79.6 % (37.0-80.0); Platelet Count (auto) 296 10^3/uL (140-450); Red Blood Cells 3.53 10^6/uL (4.5-5.90); Red Cell Distribution Width 16.3 % (11.8-14.3); White Blood Cell 16.5 10^3/uL (4.4-10.8)
[2024-08-09 04:55] LABS: Alkaline Phosphatase 54 U/L (46-116); Anion Gap 9 (5-15); Aspartate Aminotransferase 34 U/L (13-40); BUN/Creatinine Ratio 19.2 (10.0-20.0); Bilirubin, Total 1.1 mg/dL (0.2-1.0); Calcium 8.8 mg/dL (8.7-10.4); Magnesium 2.2 mg/dL (1.6-2.6); Total Protein 5.9 g/dL (5.7-8.2)
--- NOTE | 2024-08-09 05:10 | DVH ---
CHEST RADIOGRAPH Indication: resp failure Technique: Single frontal view of the chest was obtained Comparison: XY CHEST PORTABLE on DOS: 08/07/24, XY CHEST PORTABLE on DOS: 08/06/24, XY CHEST XRAY 1 VIEW on DOS: 08/06/24 IMPRESSION: Heart appears enlarged. Interstitial markings appear prominent The lungs appear clear without focal a irspace opacity, effusion, or pneumothorax. Right IJ catheter tip in the region of the superior vena cava. Overall improved aeration.
[2024-08-09 05:34] LABS: Sodium 148 mmol/L (136-145)
[2024-08-09 05:35] LABS: Blood Urea Nitrogen 33 mg/dL (9-23); Carbon Dioxide 31 mmol/L (20-31); Chloride 108 mmol/L (98-107); Glucose 136 mg/dL (74-106)
[2024-08-09 05:36] LABS: Alanine Aminotransferase 49 U/L (7-40); Potassium 2.5 mmol/L (3.5-5.1)
[2024-08-09] MEDS: POTASSIUM CHL 20MEQ/100ML 100 ML IV ONE (08:00)
--- NOTE | 2024-08-09 10:21 | DVHPN2 ---
Subjective More alert On room air On Amiodarone and Lasix and Protonix drips No more bleeding or hematemesis or melena Changes from previous H/P or p: Changes Eyes: No Pain, No Vision change, No Conjunctivae inflammation, No Eyelid inflammation, No Other, No Redness ENT: No Ear pain, No Ear discharge, No Nose pain, No Nose discharge, No Nose congestion, No Mouth pain, No Mouth swelling, No Throat pain, No Throat swelling, No Other Cardiovascular: Chest Pain; No Palpitations, No Orthopnea, No Paroxysmal Noc. Dyspnea, No Edema, No Lt Headedness; Other (Dizzy spells) Respiratory: No Cough, No Dry; Shortness of breath; No SOB with excertion, No Wheezing, No Hemoptysis, No Pleuritic Pain, No Sputum, No Other Gastrointestinal: Nausea; No Vomiting, No Abdominal Pain, No Diarrhea, No Constipation, No Melena, No Hematochezia, No Other Genitourinary: No Dysuria, No Frequency, No Incontinence, No Hematuria, No Retention, No Other Musculoskeletal: No other, No neck pain, No shoulder pain, No arm pain, No back pain, No hand pain, No leg pain, No foot pain Skin: No Rash, No Lesions, No Jaundice, No Bruising, No Other Objective Vitals Vital Signs Date Time Temp Pulse Resp B/P (MAP) Pulse Ox O2 Delivery O2 Flow Rate FiO2 08/09/24 06:45 90 17 92 08/09/24 06:00 Room Air* 0 21 08/09/24 04:00 98.5 98.5 Intake/Output Intake and Output 08/09/24 06:59 Intake Total 3764.608 ml Output Total 5465 ml Balance -1700.392 ml Intake Oral 2500 ml IV Total 1264.608 ml Output Urine Total 5465 ml General Appearance: Alert, Cooperative, moderate distress, Other (Disoriented) Lungs: Clear to auscultation Cardiovascular: Other (irregularly irregular) Extremities: No edema Medications Current Medications Medications Dose Ordered Sig/Johan Route Start Time Stop Time Status Last Admin Dose Admin Diagnostic Test (Pha) 1 strip IQ4HR 08/04/24 08:00 08/09/24 08:28 1 STRIP Insulin Human Regular IQ4HR SC 08/04/24 08:00 08/09/24 08:27 2 UNITS Dextrose 50 ml UD PRN IV 08/04/24 07:15 Sodium Chloride 10 ml Q8HR IV 08/04/24 14:00 08/09/24 06:06 10 ML Ondansetron HCl 4 mg Q4HP PRN IV 08/04/24 07:15 08/04/24 20:30 4 MG Docusate Sodium 100 mg BIDPRN PRN PO 08/04/24 07:15 Acetaminophen 650 mg Q6HP PRN PO 08/04/24 07:15 Nitroglycerin 0.4 mg Q5MINP PRN SL 08/04/24 11:00 Morphine Sulfate 2 mg Q30M PRN IV 08/04/24 11:00 08/07/24 15:15 2 MG Atorvastatin Calcium 40 mg HS PO 08/04/24 22:00 08/08/24 21:50 40 MG Amiodarone HCl 250 ml @ 16.667 mls/ hr Q15H IV 08/05/24 15:15 08/09/24 08:52 16.667 MLS/HR Pantoprazole Sodium 50 ml @ 10 mls/hr Q5H IV 08/05/24 09:15 08/09/24 01:08 10 MLS/HR Insulin Glargine 20 units BID@0700,2200 SC 08/05/24 22:00 08/08/24 21:54 20 UNITS Norepinephrine Bitartrate 32 mg/ Sodium Chloride 250 ml @ 0.938 mls/ hr Q24H IV 08/05/24 17:30 08/05/24 19:30 0.938 MLS/HR Linezolid 300 ml @ 150 mls/hr Q12HR IV 08/06/24 10:00 08/09/24 10:09 150 MLS/HR Meropenem 50 ml @ 17 mls/hr Q12HR IV 08/06/24 22:00 08/09/24 10:09 17 MLS/HR Furosemide 100 mg/ Sodium Chloride 110 ml @ 4.4 mls/hr Q24H IV 08/06/24 18:30 08/08/24 18:30 4.4 MLS/HR Sucralfate 1 gm QID@0600,1130,1700,2200 PO 08/08/24 17:00 08/09/24 06:07 1 GM Laboratory Results Laboratory Tests 08/09/24 04:00 Chemistry Test 08/08/24 22:20 08/09/24 04:00 Calcium Level 8.9 mg/dL (8.7-10.4) 8.8 mg/dL (8.7-10.4) Albumin 4.0 g/dL (3.2-4.8) Magnesium Level 2.2 mg/dL (1.6-2.6) Total Protein 5.9 g/dL (5.7-8.2) LFT Test 08/09/24 04:00 Alanine Aminotransferase (ALT) 49 U/L (7-40) H Alkaline Phosphatase 54 U/L (46-116) Aspartate Amino Transferase (AST) 34 U/L (13-40) Total Bilirubin 1.1 mg/dL (0.2-1.0) H Urinalysis Test 08/04/24 15:54 Urine Color Yellow (Yellow) Urine Clarity Clear (Clear) Urine pH 6.0 (5.0-9.0) Urine Specific [place] 1.014 (1.001-1.035) Urine Protein 1+ (Negative) H Urine Ketones Trace (Negative) Urine Blood Trace /uL (Negative) H Urine Nitrite Negative (Negative) Urine Bilirubin Negative (Negative) Urine Urobilinogen Normal mg/dL (Negative) Urine Leukocyte Esterase Negative /uL (Negative) Urine RBC 1 /hpf (0 - 3) Urine WBC 2 /hpf (0 - 3) Urine Squamous Epithelial Cells Few /hpf (<5) Urine Bacteria None seen /hpf (None Seen) Urine Hyaline Casts Few /lpf (0 - 2) Urine Mucus Few (None Seen) Urine Glucose 3+ mg/dL (Normal) H Microbiology Microbiology Date/Time Source Procedure Growth Status 08/06/24 13:50 Nose MRSA Screen - Final Complete 08/06/24 10:00 Blood Blood Culture - Preliminary NO GROWTH AFTER 72 HOURS OF INCUBATION. Resulted 08/05/24 21:00 Stool Stool Culture - Final Complete 08/05/24 21:00 Stool Shiga Toxin I & II - Final Complete 08/05/24 21:00 Stool Clostridium difficile Toxin Assay - Final Complete Assessment/Plan Assessment/Plan Afib RVR Hypotension GI Bleed Severe sepsis with septic shock CHF CAD Dyslipidemia BPH DM2 Obstructive sleep apnea on C-PAP at home PLAN: 08/05/2024: IV fluids low rate due to CHF Afib RVR Patient declines blood transfusion DNR Amiodarone bolus and drip Stop Lovenox and aspirin IV Protonix GI consult Cardiology consult Echo: Pending Discussed advance directives with patient, he wants DNR, agrees to medications and BiPAP only 08/06/2024: Sepsis with septic shock: Continue Levophed, change IV antibiotics to Zyvox and meropenem LIANA of due to septic shock: Nephrology consult, ordered IV fluids however cardiology recommended against giving more IV fluids due to low ejection fraction Metabolic acidosis Atrial fibrillation with rapid ventricular response: Amiodarone drip Acute hypoxic respiratory failure simply due to pneumonia Possible underlying pneumonia, Gram-negative versus Gram-positive GI bleed: Protonix drip, GI consult, type 2 diabetes Congestive heart failure, acute on chronic, systolic Coronary artery disease with a history of stents BPH Obstructive sleep apnea on CPAP at home No anticoagulation due to GI bleed NPO Pulmonary consultation Cardiology consultation Nephrology consultation Full Code: Patient stated yesterday that he wanted to be DNR however after his came and the reason reversed the decision and he is full code now The rest of the management will depend on the hospital course 08/07/2024: Continue IV antibiotics Zyvox and meropenem Nephrology consultation Diuresis with Lasix IV Protonix drip Levophed as needed Amiodarone drip 08/08/24: Sepsis: Better, IV antibiotics: Zyvox, Meropenem Afib: Amiodarone HFrEF: Lasix Coronary artery disease status post PTCA Acute hypoxic respiratory failure with pneumonia Pneumonia GI Bleed: Protonix Hypertension Dyslipidemia Obesity GI bleed: EGD LIANA Insulin-dependent diabetes mellitus Replace K+ 08/09/24: LIANA: Better Afib: controlled rate: Change amiodarone to PO GI Bleed: Stable, Change Protonix to 40 mg bid CHF, pulmonary edema: Lasix PAVAN Pneumonia: Sepsis: Meropenem and Zyvox Hypokalemia: Replace IV Plan discussed with: Patient My Orders Orders - HADLEY LAZCANO MD Procedure Category Date Status Time Chest Portable XY 08/09/24 Resulted 06:00 Date of Service: Aug 09, 2024 Billing Provider: HADLEY LAZCANO MD Common Visit Codes: NOT BILLABLE HADLEY LAZCANO MD Aug 09, 2024 10:21
[2024-08-09] MEDS: PANTOPRAZOLE 40 MG/10 ML VIAL INJ IV ONE (10:56)
[2024-08-09] MEDS: AMIODARONE HCL 200 MG TAB PO ONE (10:57)
--- NOTE | 2024-08-09 12:13 | DVHPN2 ---
Consult Progress Note Subjective Patient reports: No new complaints Review of Systems: CVS:Abnormal (Intermittent chest pain with deep breathing and cough), MSK:Abnormal (Generalized pain) Objective vital signs Vital Sign Date Time Temp Pulse Resp B/P (MAP) Pulse Ox O2 Delivery O2 Flow Rate FiO2 08/09/24 08:00 20 95 Room Air* 0 21 08/09/24 06:45 90 08/09/24 04:00 98.5 98.5 Total Intake and Output 08/08/24 08/08/24 08/09/24 15:00 23:00 07:00 Intake Total 316.536 ml 2782.536 ml 634.469 ml Output Total 4000 ml 1465 ml Balance 316.536 ml -1217.464 ml -830.531 ml medications Current Medications Medications Dose Ordered Sig/Johan Route Start Time Stop Time Status Last Admin Dose Admin Diagnostic Test (Pha) 1 strip IQ4HR 08/04/24 08:00 08/09/24 08:28 Insulin Human Regular IQ4HR SC 08/04/24 08:00 08/09/24 08:27 Dextrose 50 ml UD PRN IV 08/04/24 07:15 Sodium Chloride 10 ml Q8HR IV 08/04/24 14:00 08/09/24 06:06 Ondansetron HCl 4 mg Q4HP PRN IV 08/04/24 07:15 08/04/24 20:30 Docusate Sodium 100 mg BIDPRN PRN PO 08/04/24 07:15 Acetaminophen 650 mg Q6HP PRN PO 08/04/24 07:15 Nitroglycerin 0.4 mg Q5MINP PRN SL 08/04/24 11:00 Morphine Sulfate 2 mg Q30M PRN IV 08/04/24 11:00 08/07/24 15:15 Atorvastatin Calcium 40 mg HS PO 08/04/24 22:00 08/08/24 21:50 Insulin Glargine 20 units BID@0700,2200 SC 08/05/24 22:00 08/08/24 21:54 Norepinephrine Bitartrate 32 mg/ Sodium Chloride 250 ml @ 0.938 mls/ hr Q24H IV 08/05/24 17:30 08/05/24 19:30 Linezolid 300 ml @ 150 mls/hr Q12HR IV 08/06/24 10:00 08/09/24 10:09 Meropenem 50 ml @ 17 mls/hr Q12HR IV 08/06/24 22:00 08/09/24 10:09 Furosemide 100 mg/ Sodium Chloride 110 ml @ 4.4 mls/hr Q24H IV 08/06/24 18:30 08/08/24 18:30 Sucralfate 1 gm QID@0600,1130,1700,2200 PO 08/08/24 17:00 08/09/24 06:07 Amiodarone HCl 200 mg Q12HR PO 08/09/24 22:00 Pantoprazole Sodium 40 mg BID IV 08/09/24 22:00 Examination: CVS:Abnormal (Telemetry consistent with atrial fibrillation controlled rate at 97 beats per minute.) laboratory and microbiology Laboratory Tests 08/09/24 04:00 Test 08/09/24 04:00 Range/Units Serum Glucose 136 H 74-106 mg/dL Problem List/Assessment/Plan Problem List/Assessment/Plan Problem List/Assessment/Plan Septic/hypovolemic shock Paroxysmal atrial fibrillation with RVR, on amiodarone/Eliquis therapy Acute on chronic decompensated HFrEF Coronary artery disease status post PTCA including 3 AGUEDA Acute hypoxic respiratory failure with PNA Chest pain rule out progressive CAD Insulin-dependent diabetes mellitus Hypertension Dyslipidemia Obesity Rectal bleed LIANA Plan/Recommendation (Dr. Londono) * Echocardiogram revealed EF 30% with moderate LVH * Hold all AC/antiplatelet therapy given active rectal bleed * [id number] Score 5. HAS-BLED Score 2 * Antiarrhythmic therapy, amiodarone drip per protocol * Recommend PRBC transfusion if hemoglobin less than 8 given hx of CAD * Lipid lowering agent, monitor LFTs trending up * Monitor ECG changes and notify * GI/Nephrology/Pulmonology recommendations * Septic work-up per primary care team Case Discussed with Dr Londono. Having intermittent atypical chest pain, pleuritic in nature. Telemetry consistent with AFib controlled rate. H&H stable. Follow up GI recs. If patient unable to tolerate DOAC recommend outpatient follow up for possible Watchman on outpatient basis. Critical care, time spent: 38 minutes This medical document was created using an electronic medical record system with voice recognition software and computerized dictation system. Although this document has been carefully reviewed, there might still be some phonetic and typographical errors. Occasional wrong-word or ``sound-alike substitutions may have occurred due to the inherent limitations of voice recognition software. These areas are purely typographical due to imperfections of the software programs and do not reflect any compromise in the patient's medical care. Please read the chart carefully and recognize, using context, where these substitutions have occurred. Thank you for allowing me to participate in the management of this patient. The treatment plan was discussed with and agreed upon by patient/family including requesting consultants and ordering of imaging/procedures. Plan discussed with: Patient Dietary Evaluation Review Comments: 1. Consider Glucerna once GI becomes accessible, glucerna TF at 45ml/hr provides 65g pro, 1296 kcal supporting pt's needs at 93% pro and 75% energy. 2. Consider TPN per pharmacy to meet 75% ofpt's needs, if NPO > 7 days 3. When medically feasible and pt pass speech eval, offer 2 g Na CCHO-60 lo Fat, Lo Chol diet with consideration of renal diet: a) Renal specifi -60 protein, 2gna 3K low phos, if pt has low GFR, but not being dialyzed, b) Renal Standard diet with 2gNa 3K low phos if pt is scheduled for dialysis treatments. . Expected Outcomes/Goals: controlled DM, avoid uremic symptoms, gradual weight loss. Date of Service: Aug 09, 2024 Billing Provider: ZAKI MONTESINOS Common Visit Codes: [id number] INP/OBS CARE(HIGH), [id number] CARE 30-74 MIN AZKI MONTESINOS Aug 09, 2024 12:13
[2024-08-09 13:28] LABS: INR 1.17 (0.9-1.15); Prothrombin Time 12.3 sec (9.3-11.8)
[2024-08-09] MEDS: POTASSIUM EFFERVESENT TAB 25 MEQ PO ONE (14:53)
--- NOTE | 2024-08-09 15:03 | DVHPN2 ---
Progress Note - Dictate Date Seen: Aug 09, 2024 Medical Necessity Reason Pt with a Central, PICC or Fol: Yes The following are medically ne: Lance Catheter Reason for lance catheter: Strict I&O Subjective Awake and alert vital signs Vital Sign Date Time Temp Pulse Resp B/P (MAP) Pulse Ox O2 Delivery O2 Flow Rate FiO2 08/09/24 12:00 98.3 91 22 128/73 (91) 94 98.3 08/09/24 10:00 Room Air* 0 21 Total Intake and Output 08/08/24 08/08/24 08/09/24 15:00 23:00 07:00 Intake Total 316.536 ml 2782.536 ml 634.469 ml Output Total 4000 ml 1465 ml Balance 316.536 ml -1217.464 ml -830.531 ml medications Current Medications Medications Dose Ordered Sig/Johan Route Start Time Stop Time Status Last Admin Dose Admin Diagnostic Test (Pha) 1 strip IQ4HR 08/04/24 08:00 08/09/24 12:55 1 STRIP Insulin Human Regular IQ4HR SC 08/04/24 08:00 08/09/24 12:47 6 UNITS Dextrose 50 ml UD PRN IV 08/04/24 07:15 Sodium Chloride 10 ml Q8HR IV 08/04/24 14:00 08/09/24 14:09 10 ML Ondansetron HCl 4 mg Q4HP PRN IV 08/04/24 07:15 08/04/24 20:30 4 MG Docusate Sodium 100 mg BIDPRN PRN PO 08/04/24 07:15 Acetaminophen 650 mg Q6HP PRN PO 08/04/24 07:15 Nitroglycerin 0.4 mg Q5MINP PRN SL 08/04/24 11:00 Morphine Sulfate 2 mg Q30M PRN IV 08/04/24 11:00 08/07/24 15:15 2 MG Atorvastatin Calcium 40 mg HS PO 08/04/24 22:00 08/08/24 21:50 40 MG Insulin Glargine 20 units BID@0700,2200 SC 08/05/24 22:00 08/08/24 21:54 20 UNITS Norepinephrine Bitartrate 32 mg/ Sodium Chloride 250 ml @ 0.938 mls/ hr Q24H IV 08/05/24 17:30 08/05/24 19:30 0.938 MLS/HR Linezolid 300 ml @ 150 mls/hr Q12HR IV 08/06/24 10:00 08/09/24 10:09 150 MLS/HR Meropenem 50 ml @ 17 mls/hr Q12HR IV 08/06/24 22:00 08/09/24 10:09 17 MLS/HR Furosemide 100 mg/ Sodium Chloride 110 ml @ 4.4 mls/hr Q24H IV 08/06/24 18:30 08/08/24 18:30 4.4 MLS/HR Sucralfate 1 gm QID@0600,1130,1700,2200 PO 08/08/24 17:00 08/09/24 12:44 1 GM Amiodarone HCl 200 mg Q12HR PO 08/09/24 22:00 Pantoprazole Sodium 40 mg BID IV 08/09/24 22:00 objective Gen: nad heent: nc/at, mmm lungs: cta anteriorly cvs: no rub abd: soft, bowel sounds audible ext: no edema skin: no rash neuro: alert and oriented laboratory and microbiology Laboratory Tests 08/09/24 12:42 08/09/24 04:00 Test 08/09/24 04:00 Range/Units Serum Glucose 136 H 74-106 mg/dL Assessment/Plan Problem List/Assessment/Plan Acute kidney injury likely ATN in the setting of shock Septic shock Acute on chronic Congestive heart failure reduced ejection fraction 30 Ventilator-dependent hypoxic respiratory failure Obesity GI bleed recs We will discontinue Lasix drip and transitioned to oral Continue supplemental potassium Discussed plan of care with patient and patient's Dietary Evaluation Review Comments: 1. Consider Glucerna once GI becomes accessible, glucerna TF at 45ml/hr provides 65g pro, 1296 kcal supporting pt's needs at 93% pro and 75% energy. 2. Consider TPN per pharmacy to meet 75% ofpt's needs, if NPO > 7 days 3. When medically feasible and pt pass speech eval, offer 2 g Na CCHO-60 lo Fat, Lo Chol diet with consideration of renal diet: a) Renal specifi -60 protein, 2gna 3K low phos, if pt has low GFR, but not being dialyzed, b) Renal Standard diet with 2gNa 3K low phos if pt is scheduled for dialysis treatments. . Expected Outcomes/Goals: controlled DM, avoid uremic symptoms, gradual weight loss. Plan discussed with: ELIZABETH Davis MD Aug 09, 2024 15:03
[2024-08-09] MEDS: phytonadione 10 MG in SODIUM CHL 0.9% 50 ML IV ONE (16:28)
--- NOTE | 2024-08-09 21:29 | DVHPN2 ---
Consult Progress Note Subjective Other Systems: Patient was seen and evaluated in follow up in the ICU. Patient is c/o intermittent atypical chest pain, pleuritic in nature. Telemetry consistent with AFib controlled rate. H&H stable. HGB 9.9, HCT 29.6, PT 12.3, INR 1.17, GLUC 208. Objective vital signs Vital Sign Date Time Temp Pulse Resp B/P (MAP) Pulse Ox O2 Delivery O2 Flow Rate FiO2 08/09/24 16:00 18 95 Room Air* 0 21 08/09/24 16:00 99.3 120 141/99 (113) 99.3 Total Intake and Output 08/08/24 08/08/24 08/09/24 15:00 23:00 07:00 Intake Total 316.536 ml 2782.536 ml 634.469 ml Output Total 4000 ml 1465 ml Balance 316.536 ml -1217.464 ml -830.531 ml medications Current Medications Medications Dose Ordered Sig/Johan Route Start Time Stop Time Status Last Admin Dose Admin Diagnostic Test (Pha) 1 strip IQ4HR 08/04/24 08:00 08/09/24 16:34 1 STRIP Insulin Human Regular IQ4HR SC 08/04/24 08:00 08/09/24 16:33 6 UNITS Dextrose 50 ml UD PRN IV 08/04/24 07:15 Sodium Chloride 10 ml Q8HR IV 08/04/24 14:00 08/09/24 14:09 10 ML Ondansetron HCl 4 mg Q4HP PRN IV 08/04/24 07:15 08/04/24 20:30 4 MG Docusate Sodium 100 mg BIDPRN PRN PO 08/04/24 07:15 Acetaminophen 650 mg Q6HP PRN PO 08/04/24 07:15 Nitroglycerin 0.4 mg Q5MINP PRN SL 08/04/24 11:00 Morphine Sulfate 2 mg Q30M PRN IV 08/04/24 11:00 08/07/24 15:15 2 MG Atorvastatin Calcium 40 mg HS PO 08/04/24 22:00 08/08/24 21:50 40 MG Insulin Glargine 20 units BID@0700,2200 SC 08/05/24 22:00 08/08/24 21:54 20 UNITS Norepinephrine Bitartrate 32 mg/ Sodium Chloride 250 ml @ 0.938 mls/ hr Q24H IV 08/05/24 17:30 08/05/24 19:30 0.938 MLS/HR Linezolid 300 ml @ 150 mls/hr Q12HR IV 08/06/24 10:00 08/09/24 10:09 150 MLS/HR Meropenem 50 ml @ 17 mls/hr Q12HR IV 08/06/24 22:00 08/09/24 10:09 17 MLS/HR Furosemide 100 mg/ Sodium Chloride 110 ml @ 4.4 mls/hr Q24H IV 08/06/24 18:30 08/08/24 18:30 4.4 MLS/HR Sucralfate 1 gm QID@0600,1130,1700,2200 PO 08/08/24 17:00 08/09/24 12:44 1 GM Amiodarone HCl 200 mg Q12HR PO 08/09/24 22:00 Pantoprazole Sodium 40 mg BID IV 08/09/24 22:00 Examination: GENERAL:Normal, HEENT:Normal, NECK:Normal, LUNGS:Normal, CVS:Normal, ABDOMEN:Normal, MSK:Normal, SKIN:Normal, NEURO:Normal laboratory and microbiology Laboratory Tests 08/09/24 12:42 08/09/24 04:00 Test 08/09/24 04:00 Range/Units Serum Glucose 136 H 74-106 mg/dL Problem List/Assessment/Plan Problem List/Assessment/Plan Septic/hypovolemic shock. Paroxysmal atrial fibrillation with RVR, on amiodarone/Eliquis therapy. Acute on chronic decompensated HFrEF. Coronary artery disease status post PTCA including 3 AGUEDA. Acute hypoxic respiratory failure with PNA. Chest pain rule out progressive CAD. Insulin-dependent diabetes mellitus. Hypertension. Dyslipidemia. Obesity. Rectal bleed. LIANA. Plan/Recommendation Continued all current supportive medical care. Patient has been seen by Cody Boogie on my behalf, him and I discussed the plan with the patient. Echocardiogram revealed EF 30% with moderate LVH. Hold all AC/antiplatelet therapy given active rectal bleed. [id number] Score 5. HAS-BLED Score 2. Antiarrhythmic therapy, amiodarone drip per protocol. Recommend PRBC transfusion if hemoglobin less than 8 given hx of CAD. Lipid lowering agent, monitor LFTs trending up. Monitor ECG changes and notify. GI/Nephrology/Pulmonology recommendations. Septic work-up per primary care team. If patient unable to tolerate DOAC recommend outpatient follow up for possible Watchman on outpatient basis. Additional plan as per the hospital course. Plan discussed with: Patient Dietary Evaluation Review Comments: 1. Consider Glucerna once GI becomes accessible, glucerna TF at 45ml/hr provides 65g pro, 1296 kcal supporting pt's needs at 93% pro and 75% energy. 2. Consider TPN per pharmacy to meet 75% ofpt's needs, if NPO > 7 days 3. When medically feasible and pt pass speech eval, offer 2 g Na CCHO-60 lo Fat, Lo Chol diet with consideration of renal diet: a) Renal specifi -60 protein, 2gna 3K low phos, if pt has low GFR, but not being dialyzed, b) Renal Standard diet with 2gNa 3K low phos if pt is scheduled for dialysis treatments. . Expected Outcomes/Goals: controlled DM, avoid uremic symptoms, gradual weight loss. Date of Service: Aug 09, 2024 Billing Provider: TEJAS JUSTICE MD Cardiology Common Codes: 70155-[id number] HOSP CARE(High TEJAS JUSTICE MD Aug 09, 2024 16:47
--- NOTE | 2024-08-09 21:47 | DVHPN2 ---
Progress Note - Dictate Date Seen: Aug 09, 2024 Medical Necessity Reason Pt with a Central, PICC or Fol: Yes The following are medically ne: Lance Catheter Reason for lance catheter: Strict I&O Subjective No further active GI bleeding He has had small amounts of dark green stool Hemoglobin is stable at 9.9 Patient is off the amiodarone Lasix drips and Levophed Downgraded to CUELLO EGD findings discussed with patient and his Chest x-ray shows cardiomegaly with mild pulmonary congestion The echocardiogram yesterday showed ejection fraction 30% with moderate LVH Kidney function is improving Liver functions are trending down Leukocytosis is improving vital signs Vital Sign Date Time Temp Pulse Resp B/P (MAP) Pulse Ox O2 Delivery O2 Flow Rate FiO2 08/09/24 21:15 107 19 93 08/09/24 20:00 98.0 98.0 08/09/24 18:00 Room Air* 0 21 Total Intake and Output 08/08/24 08/08/24 08/09/24 15:00 23:00 07:00 Intake Total 316.536 ml 2782.536 ml 665.536 ml Output Total 4000 ml 1465 ml Balance 316.536 ml -1217.464 ml -799.464 ml medications Current Medications Medications Dose Ordered Sig/Johan Route Start Time Stop Time Status Last Admin Dose Admin Diagnostic Test (Pha) 1 strip IQ4HR 08/04/24 08:00 08/09/24 20:00 1 STRIP Insulin Human Regular IQ4HR SC 08/04/24 08:00 08/09/24 20:00 3 UNITS Dextrose 50 ml UD PRN IV 08/04/24 07:15 Sodium Chloride 10 ml Q8HR IV 08/04/24 14:00 08/09/24 14:09 10 ML Ondansetron HCl 4 mg Q4HP PRN IV 08/04/24 07:15 08/04/24 20:30 4 MG Docusate Sodium 100 mg BIDPRN PRN PO 08/04/24 07:15 Acetaminophen 650 mg Q6HP PRN PO 08/04/24 07:15 Nitroglycerin 0.4 mg Q5MINP PRN SL 08/04/24 11:00 Morphine Sulfate 2 mg Q30M PRN IV 08/04/24 11:00 08/07/24 15:15 2 MG Atorvastatin Calcium 40 mg HS PO 08/04/24 22:00 08/08/24 21:50 40 MG Norepinephrine Bitartrate 32 mg/ Sodium Chloride 250 ml @ 0.938 mls/ hr Q24H IV 08/05/24 17:30 08/05/24 19:30 0.938 MLS/HR Linezolid 300 ml @ 150 mls/hr Q12HR IV 08/06/24 10:00 08/09/24 10:09 150 MLS/HR Meropenem 50 ml @ 17 mls/hr Q12HR IV 08/06/24 22:00 08/09/24 10:09 17 MLS/HR Sucralfate 1 gm QID@0600,1130,1700,2200 PO 08/08/24 17:00 08/09/24 17:13 1 GM Amiodarone HCl 200 mg Q12HR PO 08/09/24 22:00 Pantoprazole Sodium 40 mg BID IV 08/09/24 22:00 objective General Appearance: Alert, Cooperative, moderate distress, Other (Disoriented) Lungs: Clear to auscultation Cardiovascular: Other (irregularly irregular) Extremities: No edema laboratory and microbiology Laboratory Tests 08/09/24 12:42 08/09/24 04:00 Test 08/09/24 04:00 Range/Units Serum Glucose 136 H 74-106 mg/dL Problems(with codes): (1) Hiatal hernia with gastroesophageal reflux disease and esophagitis (2) Gastric stress ulcer (3) Duodenal bulb ulcer (4) Rectal bleeding (5) Pneumonia, unspecified organism (6) Acute exacerbation of congestive heart failure (7) Generalized weakness (8) Electrolyte imbalance Prognosis Plan Advance to full liquid diet Monitor labs Supportive care Protonix 40 mg IV q.12 hours Carafate suspension 1 g 4 times a day DC aspirin NSAIDs smoking alcohol Dietary Evaluation Review Comments: 1. Consider Glucerna once GI becomes accessible, glucerna TF at 45ml/hr provides 65g pro, 1296 kcal supporting pt's needs at 93% pro and 75% energy. 2. Consider TPN per pharmacy to meet 75% ofpt's needs, if NPO > 7 days 3. When medically feasible and pt pass speech eval, offer 2 g Na CCHO-60 lo Fat, Lo Chol diet with consideration of renal diet: a) Renal specifi -60 protein, 2gna 3K low phos, if pt has low GFR, but not being dialyzed, b) Renal Standard diet with 2gNa 3K low phos if pt is scheduled for dialysis treatments. . Expected Outcomes/Goals: controlled DM, avoid uremic symptoms, gradual weight loss. Plan discussed with: Spouse NINA KENDALL MD Aug 09, 2024 21:47
--- NOTE | 2024-08-09 22:16 | DVHPN2 ---
Progress Note - Dictate Date Seen: Aug 09, 2024 Medical Necessity Reason Pt with a Central, PICC or Fol: Yes The following are medically ne: Lance Catheter Reason for lance catheter: Strict I&O Subjective Patient seen and examined at bedside. Breathing comfortably on room air Overnight events reviewed. vital signs Vital Sign Date Time Temp Pulse Resp B/P (MAP) Pulse Ox O2 Delivery O2 Flow Rate FiO2 08/09/24 21:15 107 19 93 08/09/24 20:00 Room Air* 0 21 08/09/24 20:00 98.0 98.0 Total Intake and Output 08/08/24 08/08/24 08/09/24 15:00 23:00 07:00 Intake Total 316.536 ml 2782.536 ml 665.536 ml Output Total 4000 ml 1465 ml Balance 316.536 ml -1217.464 ml -799.464 ml medications Current Medications Medications Dose Ordered Sig/Johan Route Start Time Stop Time Status Last Admin Dose Admin Diagnostic Test (Pha) 1 strip IQ4HR 08/04/24 08:00 08/09/24 20:00 1 STRIP Insulin Human Regular IQ4HR SC 08/04/24 08:00 08/09/24 20:00 3 UNITS Dextrose 50 ml UD PRN IV 08/04/24 07:15 Sodium Chloride 10 ml Q8HR IV 08/04/24 14:00 08/09/24 14:09 10 ML Ondansetron HCl 4 mg Q4HP PRN IV 08/04/24 07:15 08/04/24 20:30 4 MG Docusate Sodium 100 mg BIDPRN PRN PO 08/04/24 07:15 Acetaminophen 650 mg Q6HP PRN PO 08/04/24 07:15 Nitroglycerin 0.4 mg Q5MINP PRN SL 08/04/24 11:00 Morphine Sulfate 2 mg Q30M PRN IV 08/04/24 11:00 08/07/24 15:15 2 MG Atorvastatin Calcium 40 mg HS PO 08/04/24 22:00 08/08/24 21:50 40 MG Norepinephrine Bitartrate 32 mg/ Sodium Chloride 250 ml @ 0.938 mls/ hr Q24H IV 08/05/24 17:30 08/05/24 19:30 0.938 MLS/HR Linezolid 300 ml @ 150 mls/hr Q12HR IV 08/06/24 10:00 08/09/24 10:09 150 MLS/HR Meropenem 50 ml @ 17 mls/hr Q12HR IV 08/06/24 22:00 08/09/24 10:09 17 MLS/HR Sucralfate 1 gm QID@0600,1130,1700,2200 PO 08/08/24 17:00 08/09/24 17:13 1 GM Amiodarone HCl 200 mg Q12HR PO 08/09/24 22:00 Pantoprazole Sodium 40 mg BID IV 08/09/24 22:00 objective Gen.: Patient lying in bed in no apparent distress. On room air. Head: Normocephalic, atraumatic. Eyes: EOMI/PERRLA. Ears: Normal hearing. Normal anatomy. Neck/trachea: Trachea midline, supple. Nose: Normal external anatomy. Mouth: Moist mucous membranes. Chest: Decreased air entry bilaterally. No wheezing or rhonchi. Cardiovascular: Positive S1, positive S2. Regular rate and rhythm. Abdomen: Positive bowel sounds in all 4 quadrants. Soft, non-tender, non- distended. : Deferred. Rectal: Deferred. Skin: Warm, dry. Intact. Extremities: 2+ radial pulses bilaterally. No lower extremity edema. Neuro: Awake, alert, oriented x3. No gross motor or sensory deficits. Cranial nerves II through XII intact. Gait not assessed. laboratory and microbiology Laboratory Tests 08/09/24 12:42 08/09/24 04:00 Test 08/09/24 04:00 Range/Units Serum Glucose 136 H 74-106 mg/dL Assessment/Plan Impression: Acute hypoxic respiratory failure Dependence on supplemental oxygen Septic shock Atrial fibrillation w/ RVR Obstructive sleep apnea Multifocal pneumonia, likely gram negative. Obesity, BMI 31.1 Events: Currently breathing on room air. Supplemental oxygen PRN CXR demonstrates no acute opacities, pleural effusion or pneumothorax. Off pressors, hemodynamically stable. Continue antibiotics Amio drip -transitioned to amiodarone PO for AFib Vitamin K PT evaluation. Lasix drip for diuresis Monitor renal function - creatinine trending down Monitor ins and outs Potassium supplementation Cardiology recs appreciated Monitor hemoglobin Protonix BID/sucralfate GI recs appreciated Status post EGD. Accu-Cheks, ISS. Monitor PT/INR. PAVAN status. Labs and imaging reviewed. Rest of plan as noted below. Plan: Supplemental oxygen PRN Titrate to keep O2 sats above 92%. Off pressors, hemodynamically stable. Continue antibiotics Amiodarone PO Pressors if necessary for hemodynamic support Titrate to keep mean arterial pressure greater than 65 mmHg. Monitor hemoglobin Diurese to euvolemia Monitor renal function. Monitor electrolytes. Supplement as necessary. Monitor ins and outs. Diet and lifestyle modifications for weight reduction Obesity - complicates all care GI prophylaxis - Protonix drip DVT prophylaxis. Prognosis: Poor given patient's multiple co-morbidities. Condition: Critical Rest of plan per hospitalist and other consultants. A total of 35 minutes of critical care time was spent reviewing the patient record, examining the patient, making a diagnostic and therapeutic plan, discussing this plan with the medical personnel, following up on diagnostic studies and following the patient for clinical stability excluding any and all procedures. At least 50% of this time was spent in direct, [id number] contact. Thank you, Dr. Romano, for allowing me to participate in this patient's care. Further recommendations will depend on the patient's clinical course. Please do not hesitate to contact me if you have any questions or concerns. This medical document was created using an electronic medical record system with [employer] dictation system. Although these documentations are being carefully reviewed, there may still be some phonetic and typographical changes. The errors are purely typographical, due to imperfection on the software program, and do not reflect any compromise in the patient's medical care. Dietary Evaluation Review Comments: 1. Consider Glucerna once GI becomes accessible, glucerna TF at 45ml/hr provides 65g pro, 1296 kcal supporting pt's needs at 93% pro and 75% energy. 2. Consider TPN per pharmacy to meet 75% ofpt's needs, if NPO > 7 days 3. When medically feasible and pt pass speech eval, offer 2 g Na CCHO-60 lo Fat, Lo Chol diet with consideration of renal diet: a) Renal specifi -60 protein, 2gna 3K low phos, if pt has low GFR, but not being dialyzed, b) Renal Standard diet with 2gNa 3K low phos if pt is scheduled for dialysis treatments. . Expected Outcomes/Goals: controlled DM, avoid uremic symptoms, gradual weight loss. Plan discussed with: Other (JOSE ELIAS Luna) Critical Care Time(min): 35 PAUL HERNANDEZ MD Aug 09, 2024 22:16
[2024-08-09] MEDS: PANTOPRAZOLE 40 MG/10 ML VIAL INJ IV SCH (22:17)
[2024-08-09] MEDS: AMIODARONE HCL 200 MG TAB PO SCH (22:18)
[2024-08-10] VITALS (31 sets, daily range): BP systolic 101–135; BP diastolic 71–89; PULSE 52–110; RESP 13–25; TEMP 97.6–98.5; O2SAT 91–99
[2024-08-10] MEDS: ACETAMINOPHEN 325 MG TAB PO PRN (01:31)
[2024-08-10] MEDS: POTASSIUM CHL 20MEQ/100ML 100 ML IV SCH (01:45)
[2024-08-10] MEDS: POTASSIUM CHL 20MEQ/100ML 100 ML IV ONE (01:49)
--- NOTE | 2024-08-10 05:42 | DVH ---
CHEST RADIOGRAPH Indication: fluid overload Technique: Single frontal view of the chest was obtained Comparison: XY CHEST PORTABLE on DOS: 08/09/24, XY CHEST PORTABLE on DOS: 08/07/24, XY CHEST PORTABLE on DOS: 08/06/24, XY CHEST XRAY 1 VIEW on DOS: 08/06/24, XY CHEST PORTABLE on DOS: 08/04/24, XY CHEST PORTABL E on DOS: 08/09/24 FINDINGS: Heart appears enlarged. Interstitial markings appear prominent The lungs appear clear without focal a irspace opacity, effusion, or pneumothorax. Right IJ catheter tip in the region of the superior vena cava. IMPRESSION: No change.
[2024-08-10] MEDS ORDERED: phytonadione 10 MG in SODIUM CHL 0.9% 50 ML IV ONE (10:00)
--- NOTE | 2024-08-10 10:43 | DVHPN2 ---
Subjective Alert and oriented On room air Off the drips Vital signs are stable No evidence of bleeding Changes from previous H/P or p: Changes Eyes: No Pain, No Vision change, No Conjunctivae inflammation, No Eyelid inflammation, No Other, No Redness ENT: No Ear pain, No Ear discharge, No Nose pain, No Nose discharge, No Nose congestion, No Mouth pain, No Mouth swelling, No Throat pain, No Throat swelling, No Other Cardiovascular: Chest Pain; No Palpitations, No Orthopnea, No Paroxysmal Noc. Dyspnea, No Edema, No Lt Headedness; Other (Dizzy spells) Respiratory: No Cough, No Dry; Shortness of breath; No SOB with excertion, No Wheezing, No Hemoptysis, No Pleuritic Pain, No Sputum, No Other Gastrointestinal: Nausea; No Vomiting, No Abdominal Pain, No Diarrhea, No Constipation, No Melena, No Hematochezia, No Other Genitourinary: No Dysuria, No Frequency, No Incontinence, No Hematuria, No Retention, No Other Musculoskeletal: No other, No neck pain, No shoulder pain, No arm pain, No back pain, No hand pain, No leg pain, No foot pain Skin: No Rash, No Lesions, No Jaundice, No Bruising, No Other Objective Vitals Vital Signs Date Time Temp Pulse Resp B/P (MAP) Pulse Ox O2 Delivery O2 Flow Rate FiO2 08/10/24 08:00 96 21 95 Room Air* 0 21 08/10/24 08:00 98.5 98.5 Intake/Output Intake and Output 08/10/24 07:00 Intake Total 2508.401 ml Output Total 2000 ml Balance 508.401 ml Intake Oral 1500 ml IV Total 1008.401 ml Output Urine Total 2000 ml # Bowel Movements 4 General Appearance: Alert, Cooperative, moderate distress, Other (Disoriented) Lungs: Clear to auscultation Cardiovascular: Other (irregularly irregular) Extremities: No edema Medications Current Medications Medications Dose Ordered Sig/Johan Route Start Time Stop Time Status Last Admin Dose Admin Diagnostic Test (Pha) 1 strip IQ4HR 08/04/24 08:00 08/10/24 08:00 1 STRIP Insulin Human Regular IQ4HR SC 08/04/24 08:00 08/10/24 08:00 3 UNITS Dextrose 50 ml UD PRN IV 08/04/24 07:15 Sodium Chloride 10 ml Q8HR IV 08/04/24 14:00 08/10/24 06:03 10 ML Ondansetron HCl 4 mg Q4HP PRN IV 08/04/24 07:15 08/04/24 20:30 4 MG Docusate Sodium 100 mg BIDPRN PRN PO 08/04/24 07:15 Acetaminophen 650 mg Q6HP PRN PO 08/04/24 07:15 08/10/24 01:31 650 MG Nitroglycerin 0.4 mg Q5MINP PRN SL 08/04/24 11:00 Morphine Sulfate 2 mg Q30M PRN IV 08/04/24 11:00 08/07/24 15:15 2 MG Atorvastatin Calcium 40 mg HS PO 08/04/24 22:00 08/09/24 22:18 40 MG Norepinephrine Bitartrate 32 mg/ Sodium Chloride 250 ml @ 0.938 mls/ hr Q24H IV 08/05/24 17:30 08/05/24 19:30 0.938 MLS/HR Linezolid 300 ml @ 150 mls/hr Q12HR IV 08/06/24 10:00 08/10/24 10:11 150 MLS/HR Meropenem 50 ml @ 17 mls/hr Q12HR IV 08/06/24 22:00 08/10/24 10:18 17 MLS/HR Sucralfate 1 gm QID@0600,1130,1700,2200 PO 08/08/24 17:00 08/10/24 06:51 1 GM Amiodarone HCl 200 mg Q12HR PO 08/09/24 22:00 08/10/24 10:11 200 MG Pantoprazole Sodium 40 mg BID IV 08/09/24 22:00 08/10/24 10:11 40 MG Laboratory Results Laboratory Tests 08/09/24 04:00 08/09/24 22:08 Coagulation Test 08/09/24 12:42 Prothrombin Time 12.3 sec (9.3-11.8) H Prothrombin Time INR 1.17 (0.9-1.15) H Urinalysis Test 08/04/24 15:54 Urine Color Yellow (Yellow) Urine Clarity Clear (Clear) Urine pH 6.0 (5.0-9.0) Urine Specific [place] 1.014 (1.001-1.035) Urine Protein 1+ (Negative) H Urine Ketones Trace (Negative) Urine Blood Trace /uL (Negative) H Urine Nitrite Negative (Negative) Urine Bilirubin Negative (Negative) Urine Urobilinogen Normal mg/dL (Negative) Urine Leukocyte Esterase Negative /uL (Negative) Urine RBC 1 /hpf (0 - 3) Urine WBC 2 /hpf (0 - 3) Urine Squamous Epithelial Cells Few /hpf (<5) Urine Bacteria None seen /hpf (None Seen) Urine Hyaline Casts Few /lpf (0 - 2) Urine Mucus Few (None Seen) Urine Glucose 3+ mg/dL (Normal) H Microbiology Microbiology Date/Time Source Procedure Growth Status 08/06/24 13:50 Nose MRSA Screen - Final Complete 08/06/24 10:00 Blood Blood Culture - Preliminary NO GROWTH AFTER 72 HOURS OF INCUBATION. Resulted 08/05/24 21:00 Stool Stool Culture - Final Complete 08/05/24 21:00 Stool Shiga Toxin I & II - Final Complete 08/05/24 21:00 Stool Clostridium difficile Toxin Assay - Final Complete Assessment/Plan Assessment/Plan Afib RVR Hypotension GI Bleed Severe sepsis with septic shock CHF CAD Dyslipidemia BPH DM2 Obstructive sleep apnea on C-PAP at home PLAN: 08/05/2024: IV fluids low rate due to CHF Afib RVR Patient declines blood transfusion DNR Amiodarone bolus and drip Stop Lovenox and aspirin IV Protonix GI consult Cardiology consult Echo: Pending Discussed advance directives with patient, he wants DNR, agrees to medications and BiPAP only 08/06/2024: Sepsis with septic shock: Continue Levophed, change IV antibiotics to Zyvox and meropenem LIANA of due to septic shock: Nephrology consult, ordered IV fluids however cardiology recommended against giving more IV fluids due to low ejection fraction Metabolic acidosis Atrial fibrillation with rapid ventricular response: Amiodarone drip Acute hypoxic respiratory failure simply due to pneumonia Possible underlying pneumonia, Gram-negative versus Gram-positive GI bleed: Protonix drip, GI consult, type 2 diabetes Congestive heart failure, acute on chronic, systolic Coronary artery disease with a history of stents BPH Obstructive sleep apnea on CPAP at home No anticoagulation due to GI bleed NPO Pulmonary consultation Cardiology consultation Nephrology consultation Full Code: Patient stated yesterday that he wanted to be DNR however after his came and the reason reversed the decision and he is full code now The rest of the management will depend on the hospital course 08/07/2024: Continue IV antibiotics Zyvox and meropenem Nephrology consultation Diuresis with Lasix IV Protonix drip Levophed as needed Amiodarone drip 08/08/24: Sepsis: Better, IV antibiotics: Zyvox, Meropenem Afib: Amiodarone HFrEF: Lasix Coronary artery disease status post PTCA Acute hypoxic respiratory failure with pneumonia Pneumonia GI Bleed: Protonix Hypertension Dyslipidemia Obesity GI bleed: EGD LIANA Insulin-dependent diabetes mellitus Replace K+ 08/09/24: LIANA: Better Afib: controlled rate: Change amiodarone to PO GI Bleed: Stable, Change Protonix to 40 mg bid CHF, pulmonary edema: Lasix PAVAN Pneumonia: Sepsis: Meropenem and Zyvox Hypokalemia: Replace IV 08/10/2024: Pneumonia: Meropenem and Zyvox Sepsis due to pneumonia LIANA: Hypokalemia: Replace IV GI bleed: Full liquid diet, Protonix, Carafate Downgrade to telemetry Physical therapy evaluation AFib: P.o. amiodarone Lipitor CHF: Stable Plan discussed with: Patient My Orders Orders - HADLEY LAZCANO MD Procedure Category Date Status Time Pt Request For Service PT 08/09/24 Logged 10:42 * Wound Consult CONS 08/09/24 Transmitted Transfer Orders XFER 08/10/24 Transmitted 09:29 Date of Service: Aug 10, 2024 Billing Provider: HADLEY LAZCANO MD Common Visit Codes: NOT BILLABLE HADLEY LAZCANO MD Aug 10, 2024 10:43
[2024-08-10] MEDS ORDERED: DEXTROSE (50%) 50ML SYRG IV PRN (10:45)
[2024-08-10] MEDS: ACCU-CHEK COMFORT CURVE STRIP VI SCH (11:39)
[2024-08-10] MEDS: InsuLIN REG 1unit/0.01ml Soln (100units/ml) SC SCH (11:47)
[2024-08-10 12:35] LABS: Basophils # (auto) 0 10 ^3/uL (0-0.2); Basophils % (auto) 0.1 % (0.0-2.0); Eosinophils # (auto) 0.1 10 ^3/uL (0-0.8); Eosinophils % (auto) 0.9 % (0.0-7.0); Hematocrit 28.6 % (41.0-53.0); Hemoglobin 9.5 g/dL (13.5-17.5); Lymphocytes % (auto) 12.4 % (10.0-50.0); Mean Corpuscular Hemoglobin 28.2 pg (28.0-32.0); Mean Corpuscular Hgb Conc. 33.4 g/dL (32.0-36.0); Mean Corpuscular Volume 84.6 fL (80.0-100.0); Monocytes # (auto) 1.5 10 ^3/uL (0-1.3); Monocytes % (auto) 9.8 % (0.0-12.0); Neutrophils # (auto) 12.2 10 ^3/uL (1.6-8.6); Neutrophils % (auto) 76.8 % (37.0-80.0); Nucleated Red Blood Cells % 0.1 %; Platelet Count (auto) 279 10^3/uL (140-450); Red Blood Cells 3.38 10^6/uL (4.5-5.90); Red Cell Distribution Width 16.3 % (11.8-14.3); White Blood Cell 15.8 10^3/uL (4.4-10.8)
[2024-08-10 12:51] LABS: Alanine Aminotransferase 28 U/L (7-40); Albumin 3.5 g/dL (3.2-4.8); Alkaline Phosphatase 57 U/L (46-116); Anion Gap 6 (5-15); Aspartate Aminotransferase 16 U/L (13-40); BUN/Creatinine Ratio 13.2 (10.0-20.0); Blood Urea Nitrogen 17 mg/dL (9-23); Carbon Dioxide 27 mmol/L (20-31); Sodium 140 mmol/L (136-145)
[2024-08-10 12:52] LABS: Bilirubin, Total 1.1 mg/dL (0.2-1.0)
[2024-08-10 13:00] LABS: Calcium 8.4 mg/dL (8.7-10.4); Chloride 107 mmol/L (98-107); Glucose 269 mg/dL (74-106); Potassium 3.2 mmol/L (3.5-5.1); Total Protein 5.4 g/dL (5.7-8.2)
--- NOTE | 2024-08-10 14:33 | DVHPN2 ---
Consult Progress Note Subjective Patient reports: No new complaints Objective vital signs Vital Sign Date Time Temp Pulse Resp B/P (MAP) Pulse Ox O2 Delivery O2 Flow Rate FiO2 08/10/24 12:00 100 08/10/24 12:00 20 97 Room Air* 0 21 08/10/24 08:00 98.5 98.5 Total Intake and Output 08/09/24 08/09/24 08/10/24 15:00 23:00 07:00 Intake Total 857.401 ml 767 ml 884 ml Output Total 1200 ml 800 ml Balance 857.401 ml -433 ml 84 ml medications Current Medications Medications Dose Ordered Sig/Johan Route Start Time Stop Time Status Last Admin Dose Admin Sodium Chloride 10 ml Q8HR IV 08/04/24 14:00 08/10/24 14:09 10 ML Ondansetron HCl 4 mg Q4HP PRN IV 08/04/24 07:15 08/04/24 20:30 4 MG Docusate Sodium 100 mg BIDPRN PRN PO 08/04/24 07:15 Acetaminophen 650 mg Q6HP PRN PO 08/04/24 07:15 08/10/24 01:31 650 MG Nitroglycerin 0.4 mg Q5MINP PRN SL 08/04/24 11:00 Morphine Sulfate 2 mg Q30M PRN IV 08/04/24 11:00 08/07/24 15:15 2 MG Atorvastatin Calcium 40 mg HS PO 08/04/24 22:00 08/09/24 22:18 40 MG Linezolid 300 ml @ 150 mls/hr Q12HR IV 08/06/24 10:00 08/10/24 10:11 150 MLS/HR Meropenem 50 ml @ 17 mls/hr Q12HR IV 08/06/24 22:00 08/10/24 10:18 17 MLS/HR Sucralfate 1 gm QID@0600,1130,1700,2200 PO 08/08/24 17:00 08/10/24 11:39 1 GM Amiodarone HCl 200 mg Q12HR PO 08/09/24 22:00 08/10/24 10:11 200 MG Pantoprazole Sodium 40 mg BID IV 08/09/24 22:00 08/10/24 10:11 40 MG Diagnostic Test (Pha) 1 strip ACHS 08/10/24 11:30 08/10/24 11:39 1 STRIP Insulin Human Regular ACHS SC 08/10/24 11:30 08/10/24 11:47 6 UNITS Dextrose 50 ml UD PRN IV 08/10/24 10:45 laboratory and microbiology Laboratory Tests 08/10/24 12:00 Test 08/10/24 12:00 Range/Units Serum Glucose 269 #H 74-106 mg/dL Problem List/Assessment/Plan Problem List/Assessment/Plan Problem List/Assessment/Plan Septic/hypovolemic shock Paroxysmal atrial fibrillation with RVR, on amiodarone/Eliquis therapy Acute on chronic decompensated HFrEF Coronary artery disease status post PTCA including 3 AGUEDA Acute hypoxic respiratory failure with PNA Chest pain rule out progressive CAD Insulin-dependent diabetes mellitus Hypertension Dyslipidemia Obesity Rectal bleed LIANA Plan/Recommendation (Dr. Londono) * Echocardiogram revealed EF 30% with moderate LVH * Hold all AC/antiplatelet therapy given active rectal bleed * [id number] Score 5. HAS-BLED Score 2 * Antiarrhythmic therapy, amiodarone drip per protocol * Recommend PRBC transfusion if hemoglobin less than 8 given hx of CAD * Lipid lowering agent, monitor LFTs trending up * Monitor ECG changes and notify * GI/Nephrology/Pulmonology recommendations * Septic work-up per primary care team * Monitoring and replace electrolytes. * Follow up GI recs, if unable to tolerate anticoagulation therapy recommend outpatient follow up with Cardiology for referral for possible Watchman device placement. Case Discussed with Dr Londono. Having intermittent atypical chest pain, pleuritic in nature. Telemetry consistent with AFib slightly elevated HR. H&H stable continue monitoring. Follow up GI recs. If patient unable to tolerate DOAC recommend outpatient follow up for possible Watchman on outpatient basis. Critical care, time spent: 40 minutes This medical document was created using an electronic medical record system with voice recognition software and computerized dictation system. Although this document has been carefully reviewed, there might still be some phonetic and typographical errors. Occasional wrong-word or ``sound-alike substitutions may have occurred due to the inherent limitations of voice recognition software. These areas are purely typographical due to imperfections of the software programs and do not reflect any compromise in the patient's medical care. Please read the chart carefully and recognize, using context, where these substitutions have occurred. Thank you for allowing me to participate in the management of this patient. The treatment plan was discussed with and agreed upon by patient/family including requesting consultants and ordering of imaging/procedures. Plan discussed with: Patient Dietary Evaluation Review Comments: 1. Consider Glucerna once GI becomes accessible, glucerna TF at 45ml/hr provides 65g pro, 1296 kcal supporting pt's needs at 93% pro and 75% energy. 2. Consider TPN per pharmacy to meet 75% ofpt's needs, if NPO > 7 days 3. When medically feasible and pt pass speech eval, offer 2 g Na CCHO-60 lo Fat, Lo Chol diet with consideration of renal diet: a) Renal specifi -60 protein, 2gna 3K low phos, if pt has low GFR, but not being dialyzed, b) Renal Standard diet with 2gNa 3K low phos if pt is scheduled for dialysis treatments. . Expected Outcomes/Goals: controlled DM, avoid uremic symptoms, gradual weight loss. Date of Service: Aug 10, 2024 Billing Provider: ZAKI MONTESINOS Common Visit Codes: [id number] INP/OBS CARE(HIGH), [id number] CARE 30-74 MIN ZAKI MONTESINOS Aug 10, 2024 14:33
--- NOTE | 2024-08-10 22:57 | DVHPN2 ---
Consult Progress Note Subjective Other Systems: Patient was seen and evaluated in follow up. Paient was downgraded. Patient complains of abdominal pain. WBC 15.8, HCT 9.5, HCT 28.6, K 3.2, CA 8.4. Telemetry reviewed. Telemetry consistent with AFib slightly elevated HR. Objective vital signs Vital Sign Date Time Temp Pulse Resp B/P (MAP) Pulse Ox O2 Delivery O2 Flow Rate FiO2 08/10/24 17:00 97.6 56 17 121/85 (97) 95 97.6 08/10/24 12:00 Room Air* 0 21 Total Intake and Output 08/09/24 08/09/24 08/10/24 15:00 23:00 07:00 Intake Total 857.401 ml 767 ml 884 ml Output Total 1200 ml 800 ml Balance 857.401 ml -433 ml 84 ml medications Current Medications Medications Dose Ordered Sig/Johan Route Start Time Stop Time Status Last Admin Dose Admin Sodium Chloride 10 ml Q8HR IV 08/04/24 14:00 08/10/24 14:09 10 ML Ondansetron HCl 4 mg Q4HP PRN IV 08/04/24 07:15 08/04/24 20:30 4 MG Docusate Sodium 100 mg BIDPRN PRN PO 08/04/24 07:15 Acetaminophen 650 mg Q6HP PRN PO 08/04/24 07:15 08/10/24 01:31 650 MG Nitroglycerin 0.4 mg Q5MINP PRN SL 08/04/24 11:00 Morphine Sulfate 2 mg Q30M PRN IV 08/04/24 11:00 08/07/24 15:15 2 MG Atorvastatin Calcium 40 mg HS PO 08/04/24 22:00 08/09/24 22:18 40 MG Linezolid 300 ml @ 150 mls/hr Q12HR IV 08/06/24 10:00 08/10/24 10:11 150 MLS/HR Meropenem 50 ml @ 17 mls/hr Q12HR IV 08/06/24 22:00 08/10/24 10:18 17 MLS/HR Sucralfate 1 gm QID@0600,1130,1700,2200 PO 08/08/24 17:00 08/10/24 17:26 1 GM Amiodarone HCl 200 mg Q12HR PO 08/09/24 22:00 08/10/24 10:11 200 MG Pantoprazole Sodium 40 mg BID IV 08/09/24 22:00 08/10/24 10:11 40 MG Diagnostic Test (Pha) 1 strip ACHS 08/10/24 11:30 08/10/24 17:27 1 STRIP Insulin Human Regular ACHS SC 08/10/24 11:30 08/10/24 17:38 2 UNITS Dextrose 50 ml UD PRN IV 08/10/24 10:45 Examination: GENERAL:Normal, HEENT:Normal, NECK:Normal, LUNGS:Normal, CVS:Normal, ABDOMEN:Normal, MSK:Normal, SKIN:Normal, NEURO:Normal laboratory and microbiology Laboratory Tests 08/10/24 12:00 Test 08/10/24 12:00 Range/Units Serum Glucose 269 #H 74-106 mg/dL Problem List/Assessment/Plan Problem List/Assessment/Plan Septic/hypovolemic shock. Paroxysmal atrial fibrillation with RVR, on amiodarone/Eliquis therapy. Acute on chronic decompensated HFrEF. Coronary artery disease status post PTCA including 3 AGUEDA. Acute hypoxic respiratory failure with PNA. Chest pain rule out progressive CAD. Insulin-dependent diabetes mellitus. Hypertension. Dyslipidemia. Obesity. Rectal bleed. LIANA. Plan/Recommendation Continued all current supportive medical care. Patient has been seen by Cody Boogie on my behalf, him and I discussed the plan with the patient. Echocardiogram revealed EF 30% with moderate LVH. Hold all AC/antiplatelet therapy given active rectal bleed. [id number] Score 5. HAS-BLED Score 2. Antiarrhythmic therapy, amiodarone drip per protocol. Recommend PRBC transfusion if hemoglobin less than 8 given hx of CAD. Lipid lowering agent, monitor LFTs trending up. Monitor ECG changes and notify. GI/Nephrology/Pulmonology recommendations. Septic work-up per primary care team. Monitoring and replace electrolytes. Follow up GI recs, if unable to tolerate anticoagulation therapy recommend outpatient follow up with Cardiology for referral for possible Watchman device placement. Additional plan as per the hospital course. Plan discussed with: Patient Dietary Evaluation Review Comments: 1. Consider Glucerna once GI becomes accessible, glucerna TF at 45ml/hr provides 65g pro, 1296 kcal supporting pt's needs at 93% pro and 75% energy. 2. Consider TPN per pharmacy to meet 75% ofpt's needs, if NPO > 7 days 3. When medically feasible and pt pass speech eval, offer 2 g Na CCHO-60 lo Fat, Lo Chol diet with consideration of renal diet: a) Renal specifi -60 protein, 2gna 3K low phos, if pt has low GFR, but not being dialyzed, b) Renal Standard diet with 2gNa 3K low phos if pt is scheduled for dialysis treatments. . Expected Outcomes/Goals: controlled DM, avoid uremic symptoms, gradual weight loss. Date of Service: Aug 10, 2024 Billing Provider: TEJAS JUSTICE MD Cardiology Common Codes: [id number] HOSP CARE(High TEJAS JUSTICE MD Aug 10, 2024 18:22
--- NOTE | 2024-08-10 23:32 | DVHPN2 ---
Progress Note - Dictate Date Seen: Aug 10, 2024 Medical Necessity Reason Pt with a Central, PICC or Fol: Yes The following are medically ne: Lance Catheter Reason for lance catheter: Strict I&O Subjective Patient seen and examined at bedside. Breathing comfortably on room air Overnight events reviewed. vital signs Vital Sign Date Time Temp Pulse Resp B/P (MAP) Pulse Ox O2 Delivery O2 Flow Rate FiO2 08/10/24 20:00 100 21 95 Room Air* 0 21 08/10/24 17:00 97.6 121/85 (97) 97.6 Total Intake and Output 08/09/24 08/09/24 08/10/24 15:00 23:00 07:00 Intake Total 857.401 ml 767 ml 884 ml Output Total 1200 ml 800 ml Balance 857.401 ml -433 ml 84 ml medications Current Medications Medications Dose Ordered Sig/Johan Route Start Time Stop Time Status Last Admin Dose Admin Sodium Chloride 10 ml Q8HR IV 08/04/24 14:00 08/10/24 21:20 10 ML Ondansetron HCl 4 mg Q4HP PRN IV 08/04/24 07:15 08/04/24 20:30 4 MG Docusate Sodium 100 mg BIDPRN PRN PO 08/04/24 07:15 Acetaminophen 650 mg Q6HP PRN PO 08/04/24 07:15 08/10/24 01:31 650 MG Nitroglycerin 0.4 mg Q5MINP PRN SL 08/04/24 11:00 Morphine Sulfate 2 mg Q30M PRN IV 08/04/24 11:00 08/07/24 15:15 2 MG Atorvastatin Calcium 40 mg HS PO 08/04/24 22:00 08/10/24 21:20 40 MG Linezolid 300 ml @ 150 mls/hr Q12HR IV 08/06/24 10:00 08/10/24 21:07 150 MLS/HR Meropenem 50 ml @ 17 mls/hr Q12HR IV 08/06/24 22:00 08/10/24 21:41 17 MLS/HR Sucralfate 1 gm QID@0600,1130,1700,2200 PO 08/08/24 17:00 08/10/24 21:19 1 GM Amiodarone HCl 200 mg Q12HR PO 08/09/24 22:00 08/10/24 21:20 200 MG Pantoprazole Sodium 40 mg BID IV 08/09/24 22:00 08/10/24 21:19 40 MG Diagnostic Test (Pha) 1 strip ACHS 08/10/24 11:30 08/10/24 21:41 1 STRIP Insulin Human Regular ACHS SC 08/10/24 11:30 08/10/24 22:02 6 UNITS Dextrose 50 ml UD PRN IV 08/10/24 10:45 objective Gen.: Patient lying in bed in no apparent distress. On room air. Head: Normocephalic, atraumatic. Eyes: EOMI/PERRLA. Ears: Normal hearing. Normal anatomy. Neck/trachea: Trachea midline, supple. Nose: Normal external anatomy. Mouth: Moist mucous membranes. Chest: Decreased air entry bilaterally. No wheezing or rhonchi. Cardiovascular: Positive S1, positive S2. Regular rate and rhythm. Abdomen: Positive bowel sounds in all 4 quadrants. Soft, non-tender, non- distended. : Deferred. Rectal: Deferred. Skin: Warm, dry. Intact. Extremities: 2+ radial pulses bilaterally. No lower extremity edema. Neuro: Awake, alert, oriented x3. No gross motor or sensory deficits. Cranial nerves II through XII intact. Gait not assessed. laboratory and microbiology Laboratory Tests 08/10/24 12:00 Test 08/10/24 12:00 Range/Units Serum Glucose 269 #H 74-106 mg/dL Assessment/Plan Impression: Acute hypoxic respiratory failure Dependence on supplemental oxygen Septic shock Atrial fibrillation w/ RVR Obstructive sleep apnea Multifocal pneumonia, likely gram negative. Obesity, BMI 31.1 Events: Remains on room air. Supplemental oxygen PRN Continue antibiotics Amio drip -transitioned to amiodarone PO for AFib Incentive spirometry PT evaluation. Monitor renal function - creatinine trending down Monitor ins and outs Potassium supplementation Monitor hemoglobin Protonix BID/sucralfate GI recs appreciated Status post EGD. Accu-Cheks, ISS. Monitor PT/INR. Patient is stable for downgrade from the pulmonary standpoint. Labs and imaging reviewed. Rest of plan as noted below. Plan: Supplemental oxygen PRN Titrate to keep O2 sats above 92%. Off pressors, hemodynamically stable. Continue antibiotics Amiodarone PO Pressors if necessary for hemodynamic support Titrate to keep mean arterial pressure greater than 65 mmHg. Monitor hemoglobin Diurese to euvolemia Monitor renal function. Monitor electrolytes. Supplement as necessary. Monitor ins and outs. Diet and lifestyle modifications for weight reduction Obesity - complicates all care GI prophylaxis - Protonix drip DVT prophylaxis. Prognosis: Poor given patient's multiple co-morbidities. Rest of plan per hospitalist and other consultants. Thank you, Dr. Romano, for allowing me to participate in this patient's care. Further recommendations will depend on the patient's clinical course. Please do not hesitate to contact me if you have any questions or concerns. This medical document was created using an electronic medical record system with [email or web address] dictation system. Although these documentations are being carefully reviewed, there may still be some phonetic and typographical changes. The errors are purely typographical, due to imperfection on the software program, and do not reflect any compromise in the patient's medical care. Dietary Evaluation Review Comments: 1. Consider Glucerna once GI becomes accessible, glucerna TF at 45ml/hr provides 65g pro, 1296 kcal supporting pt's needs at 93% pro and 75% energy. 2. Consider TPN per pharmacy to meet 75% ofpt's needs, if NPO > 7 days 3. When medically feasible and pt pass speech eval, offer 2 g Na CCHO-60 lo Fat, Lo Chol diet with consideration of renal diet: a) Renal specifi -60 protein, 2gna 3K low phos, if pt has low GFR, but not being dialyzed, b) Renal Standard diet with 2gNa 3K low phos if pt is scheduled for dialysis treatments. . Expected Outcomes/Goals: controlled DM, avoid uremic symptoms, gradual weight loss. Plan discussed with: Patient, Other (RN Ty) PAUL HERNANDEZ MD Aug 10, 2024 23:32
[2024-08-11] VITALS (8 sets, daily range): BP systolic 125–151; BP diastolic 72–86; PULSE 46–99; RESP 14–20; TEMP 97.8–98.3; O2SAT 95–98
[2024-08-11] MEDS: MELATONIN 5 MG TAB PO PRN (01:21)
[2024-08-11 05:50] LABS: Basophils # (auto) 0 10 ^3/uL (0-0.2); Basophils % (auto) 0.1 % (0.0-2.0); Eosinophils # (auto) 0.2 10 ^3/uL (0-0.8); Hematocrit 28.2 % (41.0-53.0); Hemoglobin 9.4 g/dL (13.5-17.5); Lymphocytes # (auto) 1.9 10 ^3/uL (0.4-5.4); Lymphocytes % (auto) 11.9 % (10.0-50.0); Mean Corpuscular Hemoglobin 28.1 pg (28.0-32.0); Mean Corpuscular Hgb Conc. 33.2 g/dL (32.0-36.0); Mean Corpuscular Volume 84.7 fL (80.0-100.0); Monocytes # (auto) 1.4 10 ^3/uL (0-1.3); Monocytes % (auto) 8.4 % (0.0-12.0); Neutrophils # (auto) 12.8 10 ^3/uL (1.6-8.6); Neutrophils % (auto) 78.6 % (37.0-80.0); Platelet Count (auto) 273 10^3/uL (140-450); Red Blood Cells 3.33 10^6/uL (4.5-5.90); Red Cell Distribution Width 16.1 % (11.8-14.3); White Blood Cell 16.3 10^3/uL (4.4-10.8)
[2024-08-11 06:12] LABS: Alanine Aminotransferase 23 U/L (7-40); Albumin 3.5 g/dL (3.2-4.8); Alkaline Phosphatase 57 U/L (46-116); Anion Gap 8 (5-15); Bilirubin, Total 1.1 mg/dL (0.2-1.0); Blood Urea Nitrogen 16 mg/dL (9-23); Carbon Dioxide 27 mmol/L (20-31); Chloride 104 mmol/L (98-107); Sodium 139 mmol/L (136-145)
[2024-08-11 06:24] LABS: Aspartate Aminotransferase 12 U/L (13-40); Calcium 8.3 mg/dL (8.7-10.4); Glucose 194 mg/dL (74-106); Total Protein 5.3 g/dL (5.7-8.2)
[2024-08-11] MEDS: SACUBITRIL-VALSARTAN 24mg/26mg TAB PO SCH (09:29)
[2024-08-11] MEDS: METOPROLOL SUCCINATE XL 50 MG TAB PO SCH (09:30)
[2024-08-11] MEDS: EMPAGLIFLOZIN 10 MG TAB PO SCH (09:30)
--- NOTE | 2024-08-11 11:23 | DVHPN2 ---
Consult Progress Note Subjective Other Systems: Patient remains in atrial fibrillation with controlled rate on cardiac rehabilitation specialist. Objective vital signs Vital Sign Date Time Temp Pulse Resp B/P (MAP) Pulse Ox O2 Delivery O2 Flow Rate FiO2 08/11/24 09:30 76 107/75 08/11/24 09:00 98.2 16 98 98.2 08/10/24 20:00 Room Air* 0 21 Total Intake and Output 08/10/24 08/10/24 08/11/24 15:00 23:00 07:00 Intake Total 590 ml 800 ml 590 ml Output Total 300 ml 750 ml Balance 590 ml 500 ml -160 ml medications Current Medications Medications Dose Ordered Sig/Johan Route Start Time Stop Time Status Last Admin Dose Admin Sodium Chloride 10 ml Q8HR IV 08/04/24 14:00 08/11/24 05:13 10 ML Ondansetron HCl 4 mg Q4HP PRN IV 08/04/24 07:15 08/04/24 20:30 4 MG Docusate Sodium 100 mg BIDPRN PRN PO 08/04/24 07:15 Acetaminophen 650 mg Q6HP PRN PO 08/04/24 07:15 08/10/24 01:31 650 MG Nitroglycerin 0.4 mg Q5MINP PRN SL 08/04/24 11:00 Morphine Sulfate 2 mg Q30M PRN IV 08/04/24 11:00 08/07/24 15:15 2 MG Atorvastatin Calcium 40 mg HS PO 08/04/24 22:00 08/10/24 21:20 40 MG Linezolid 300 ml @ 150 mls/hr Q12HR IV 08/06/24 10:00 08/11/24 09:29 150 MLS/HR Sucralfate 1 gm QID@0600,1130,1700,2200 PO 08/08/24 17:00 08/11/24 05:13 1 GM Amiodarone HCl 200 mg Q12HR PO 08/09/24 22:00 08/11/24 09:30 200 MG Pantoprazole Sodium 40 mg BID IV 08/09/24 22:00 08/11/24 09:29 40 MG Diagnostic Test (Pha) 1 strip ACHS 08/10/24 11:30 08/11/24 05:14 1 STRIP Insulin Human Regular ACHS SC 08/10/24 11:30 08/11/24 05:22 4 UNITS Dextrose 50 ml UD PRN IV 08/10/24 10:45 Melatonin 5 mg HS PRN PO 08/11/24 01:15 08/11/24 01:21 5 MG Metoprolol Succinate 25 mg DAILY PO 08/11/24 10:00 08/11/24 09:30 25 MG Sacubitril/ Valsartan 1 tab BID PO 08/11/24 10:00 08/11/24 09:29 1 TAB Empaglifozin 10 mg DAILY PO 08/11/24 10:00 08/11/24 09:30 10 MG Meropenem 50 ml @ 17 mls/hr Q8H IV 08/11/24 10:00 Examination: GENERAL:Normal, LUNGS:Normal, CVS:Normal, NEURO:Normal laboratory and microbiology Laboratory Tests 08/11/24 05:00 Test 08/11/24 05:00 Range/Units Serum Glucose 194 H 74-106 mg/dL Problem List/Assessment/Plan Problem List/Assessment/Plan Septic/hypovolemic shock Paroxysmal atrial fibrillation with RVR, on amiodarone/Eliquis therapy Acute on chronic decompensated HFrEF, NYHA class III Coronary artery disease status post PTCA including 3 AGUEDA Acute hypoxic respiratory failure with PNA Chest pain rule out progressive CAD Insulin-dependent diabetes mellitus Hypertension Dyslipidemia Obesity Rectal bleed LIANA Plan/Recommendation (Dr. Warren) * Echocardiogram revealed EF 30% with moderate LVH * Hold all AC/antiplatelet therapy given active rectal bleed * [id number] Score 5. HAS-BLED Score 2 * Antiarrhythmic therapy, amiodarone * Recommend PRBC transfusion if hemoglobin less than 8 given hx of CAD * Lipid lowering agent, monitor LFTs * Monitor ECG changes and notify * Septic work-up per primary care team * Follow up GI recommendations Patient seen and examined at bedside with . The patient recently underwent an EGD. At this time, we will wait for GI clearance to resume DOAC (Eliquis) and Aspirin therapy. The patient may also benefit from outpatient workup for possible Watchman device placement if unable to resume DOAC therapy. Thank you for allowing us to participate in this patient's care. Please call if you have any questions or concerns. This medical document was created using an electronic medical record system with voice recognition software and computerized dictation system. Although this document has been carefully reviewed, there might still be some phonetic and typographical errors. Occasional wrong-word or ``sound-alike substitutions may have occurred due to the inherent limitations of voice recognition software. These areas are purely typographical due to imperfections of the software programs and do not reflect any compromise in the patient's medical care. Please read the chart carefully and recognize, using context, where these substitutions have occurred. Plan discussed with: Patient Dietary Evaluation Review Comments: 1. Consider Glucerna once GI becomes accessible, glucerna TF at 45ml/hr provides 65g pro, 1296 kcal supporting pt's needs at 93% pro and 75% energy. 2. Consider TPN per pharmacy to meet 75% ofpt's needs, if NPO > 7 days 3. When medically feasible and pt pass speech eval, offer 2 g Na CCHO-60 lo Fat, Lo Chol diet with consideration of renal diet: a) Renal specifi -60 protein, 2gna 3K low phos, if pt has low GFR, but not being dialyzed, b) Renal Standard diet with 2gNa 3K low phos if pt is scheduled for dialysis treatments. . Expected Outcomes/Goals: controlled DM, avoid uremic symptoms, gradual weight loss. Date of Service: Aug 11, 2024 Billing Provider: KORINA WARREN MD Common Visit Codes: [id number] INP/OBS CARE(HIGH) MARÍA LIPSCOMB HYPERBARIC WELDER DIVER Aug 11, 2024 11:23
[2024-08-11] MEDS: MEROPENEM 1GM IVPB 50 ML IV SCH (11:30)
--- NOTE | 2024-08-11 13:29 | DVHPN2 ---
Progress Note Date Seen: Aug 11, 2024 Medical Necessity Reason Pt with a Central, PICC or Fol: No The following are medically ne: Lance Catheter Reason for lance catheter: Strict I&O Objective vital signs Vital Sign Date Time Temp Pulse Resp B/P (MAP) Pulse Ox O2 Delivery O2 Flow Rate FiO2 08/11/24 09:30 76 107/75 08/11/24 09:00 98.2 16 98 98.2 08/10/24 20:00 Room Air* 0 21 Total Intake and Output 08/10/24 08/10/24 08/11/24 15:00 23:00 07:00 Intake Total 590 ml 800 ml 590 ml Output Total 300 ml 750 ml Balance 590 ml 500 ml -160 ml medications Current Medications Medications Dose Ordered Sig/Johan Route Start Time Stop Time Status Last Admin Dose Admin Sodium Chloride 10 ml Q8HR IV 08/04/24 14:00 08/11/24 05:13 10 ML Ondansetron HCl 4 mg Q4HP PRN IV 08/04/24 07:15 08/04/24 20:30 4 MG Docusate Sodium 100 mg BIDPRN PRN PO 08/04/24 07:15 Acetaminophen 650 mg Q6HP PRN PO 08/04/24 07:15 08/10/24 01:31 650 MG Nitroglycerin 0.4 mg Q5MINP PRN SL 08/04/24 11:00 Morphine Sulfate 2 mg Q30M PRN IV 08/04/24 11:00 08/07/24 15:15 2 MG Atorvastatin Calcium 40 mg HS PO 08/04/24 22:00 08/10/24 21:20 40 MG Linezolid 300 ml @ 150 mls/hr Q12HR IV 08/06/24 10:00 08/11/24 09:29 150 MLS/HR Sucralfate 1 gm QID@0600,1130,1700,2200 PO 08/08/24 17:00 08/11/24 11:49 1 GM Amiodarone HCl 200 mg Q12HR PO 08/09/24 22:00 08/11/24 09:30 200 MG Pantoprazole Sodium 40 mg BID IV 08/09/24 22:00 08/11/24 09:29 40 MG Diagnostic Test (Pha) 1 strip ACHS 08/10/24 11:30 08/11/24 11:49 1 STRIP Insulin Human Regular ACHS SC 08/10/24 11:30 08/11/24 11:50 4 UNITS Dextrose 50 ml UD PRN IV 08/10/24 10:45 Melatonin 5 mg HS PRN PO 08/11/24 01:15 08/11/24 01:21 5 MG Metoprolol Succinate 25 mg DAILY PO 08/11/24 10:00 08/11/24 09:30 25 MG Sacubitril/ Valsartan 1 tab BID PO 08/11/24 10:00 08/11/24 09:29 1 TAB Empaglifozin 10 mg DAILY PO 08/11/24 10:00 08/11/24 09:30 10 MG Meropenem 50 ml @ 17 mls/hr Q8H IV 08/11/24 10:00 Examination: GENERAL:Normal, CVS:Normal laboratory and microbiology Laboratory Tests 08/11/24 05:00 Test 08/11/24 05:00 Range/Units Serum Glucose 194 H 74-106 mg/dL Microbiology Date/Time Source Procedure Growth Status 08/06/24 13:50 Nose MRSA Screen - Final Complete 08/06/24 10:00 Blood Blood Culture - Final NO GROWTH AFTER 5 DAYS OF INCUBATION. Complete 08/05/24 21:00 Stool Stool Culture - Final Complete 08/05/24 21:00 Stool Shiga Toxin I & II - Final Complete 08/05/24 21:00 Stool Clostridium difficile Toxin Assay - Final Complete Problem List/Assessment/Plan Problem List/Assessment/Plan Acute kidney injury likely ATN in the setting of shock Septic shock Acute on chronic Congestive heart failure reduced ejection fraction 30 Ventilator-dependent hypoxic respiratory failure Obesity GI bleed hypokalemia lasix po Continue supplemental potassium LIANA has resolved will sign off the case Plan discussed with: Patient My Orders My Orders Orders - KWAME LAZARO MD Procedure Category Date Status Time Potassium Er Tablet PHA 08/11/24 Transmitted (Klor-Con Tablet) 13:30 Basic Metabolic Panel LAB 08/12/24 Verified 04:00 Furosemide Tablet PHA 08/12/24 Transmitted (Lasix Tablet) 10:00 Dietary Evaluation Review Comments: 1. Consider Glucerna once GI becomes accessible, glucerna TF at 45ml/hr provides 65g pro, 1296 kcal supporting pt's needs at 93% pro and 75% energy. 2. Consider TPN per pharmacy to meet 75% ofpt's needs, if NPO > 7 days 3. When medically feasible and pt pass speech eval, offer 2 g Na CCHO-60 lo Fat, Lo Chol diet with consideration of renal diet: a) Renal specifi -60 protein, 2gna 3K low phos, if pt has low GFR, but not being dialyzed, b) Renal Standard diet with 2gNa 3K low phos if pt is scheduled for dialysis treatments. . Expected Outcomes/Goals: controlled DM, avoid uremic symptoms, gradual weight loss. KWAME LAZARO MD Aug 11, 2024 13:29
[2024-08-11] MEDS: POTASSIUM CHL 20 Meq TABLET PO ONE (14:00)
--- NOTE | 2024-08-11 16:17 | DVHPN2 ---
Progress Note Date Seen: Aug 11, 2024 Resident Creating Document: MANOJ GARNER RESIDENT Medical Necessity Reason Pt with a Central, PICC or Fol: No The following are medically ne: Lance Catheter Reason for lance catheter: Strict I&O Subjective Review of Systems Patient continues to show clinical stability with no further evidence of active GI bleeding. Today's hemoglobin is stable at 9.4. Today he had 1 bowel movement described as watery. We recommend to remains on full liquid diet for today with plans to advance to a soft mechanical diet tomorrow if tolerated. The suspected cause of the patient's ulcers is likely due to Excedrin. Moving forward, NSAIDs and aspirin are to be strictly avoid. Laboratory studies indicate improving kidney function, trending down liver enzymes slightly elevation of white blood cells count, patient will continue IV antibiotics. We will continue to monitor stool output and follow up on pending biopsy results. The patient remains off amiodarone, Lasix drip and Levophed with no hemodynamic concerns noted at this time. Patient reports: No new complaints Changes from previous H/P or p: No Changes Objective vital signs Vital Sign Date Time Temp Pulse Resp B/P (MAP) Pulse Ox O2 Delivery O2 Flow Rate FiO2 08/11/24 13:00 98.0 76 16 125/85 (98) 98 98.0 08/11/24 08:00 Room Air* 0 21 Total Intake and Output 08/10/24 08/10/24 08/11/24 15:00 23:00 07:00 Intake Total 590 ml 800 ml 590 ml Output Total 300 ml 750 ml Balance 590 ml 500 ml -160 ml medications Current Medications Medications Dose Ordered Sig/Johan Route Start Time Stop Time Status Last Admin Dose Admin Sodium Chloride 10 ml Q8HR IV 08/04/24 14:00 08/11/24 05:13 10 ML Ondansetron HCl 4 mg Q4HP PRN IV 08/04/24 07:15 08/04/24 20:30 4 MG Docusate Sodium 100 mg BIDPRN PRN PO 08/04/24 07:15 Acetaminophen 650 mg Q6HP PRN PO 08/04/24 07:15 08/10/24 01:31 650 MG Nitroglycerin 0.4 mg Q5MINP PRN SL 08/04/24 11:00 Morphine Sulfate 2 mg Q30M PRN IV 08/04/24 11:00 08/07/24 15:15 2 MG Atorvastatin Calcium 40 mg HS PO 08/04/24 22:00 08/10/24 21:20 40 MG Linezolid 300 ml @ 150 mls/hr Q12HR IV 08/06/24 10:00 08/11/24 09:29 150 MLS/HR Sucralfate 1 gm QID@0600,1130,1700,2200 PO 08/08/24 17:00 08/11/24 11:49 1 GM Amiodarone HCl 200 mg Q12HR PO 08/09/24 22:00 08/11/24 09:30 200 MG Pantoprazole Sodium 40 mg BID IV 08/09/24 22:00 08/11/24 09:29 40 MG Diagnostic Test (Pha) 1 strip ACHS 08/10/24 11:30 08/11/24 11:49 1 STRIP Insulin Human Regular ACHS SC 08/10/24 11:30 08/11/24 11:50 4 UNITS Dextrose 50 ml UD PRN IV 08/10/24 10:45 Melatonin 5 mg HS PRN PO 08/11/24 01:15 08/11/24 01:21 5 MG Metoprolol Succinate 25 mg DAILY PO 08/11/24 10:00 08/11/24 09:30 25 MG Sacubitril/ Valsartan 1 tab BID PO 08/11/24 10:00 08/11/24 09:29 1 TAB Empaglifozin 10 mg DAILY PO 08/11/24 10:00 08/11/24 09:30 10 MG Meropenem 50 ml @ 17 mls/hr Q8H IV 08/11/24 10:00 08/11/24 11:30 17 MLS/HR Furosemide 40 mg DAILY PO 08/12/24 10:00 Examination Examination General Appearance: Alert, Oriented X3, Cooperative, mild acute distress Respiratory: Clear to auscultation, Normal air movement Cardiovascular: irregular rate, Normal S1, Normal S2 Abdominal: Normal bowel sounds Extremities: No cyanosis, No edema, Normal pulses, No tenderness/swelling Neuro: Normal speech, Strength at 4/5 X4 ext, Normal tone, Sensation intact, Cranial nerves 3-12 NL, Reflexes 2+ Psych/Mental Status: Mental status NL, Mood NL laboratory and microbiology Laboratory Tests 08/11/24 05:00 Test 08/11/24 05:00 Range/Units Serum Glucose 194 H 74-106 mg/dL Microbiology Date/Time Source Procedure Growth Status 08/06/24 13:50 Nose MRSA Screen - Final Complete 08/06/24 10:00 Blood Blood Culture - Final NO GROWTH AFTER 5 DAYS OF INCUBATION. Complete 08/05/24 21:00 Stool Stool Culture - Final Complete 08/05/24 21:00 Stool Shiga Toxin I & II - Final Complete 08/05/24 21:00 Stool Clostridium difficile Toxin Assay - Final Complete Problem List/Assessment/Plan Problem List/Assessment/Plan (1) Hiatal hernia with gastroesophageal reflux disease and esophagitis (2) Gastric stress ulcer (3) Duodenal bulb ulcer (4) Rectal bleeding (5) Pneumonia, unspecified organism (6) Acute exacerbation of congestive heart failure (7) Generalized weakness (8) Electrolyte imbalance Plan Advance to soft mechanical diet, tomorrow Physical therapy evaluation Follow-up on biopsy results Monitor labs Supportive care Protonix 40 mg IV q.12 hours Carafate suspension 1 g 4 times a day DC aspirin NSAIDs smoking alcohol Thank you so much for the opportunity to consult on your patient. GI team will follow up the patient. In case of any question or concern please feel free to reach out. Case an action plan discussed with Dr.Neera Thomas Complex care planning needed total 41 minutes of detailed discussion. Plan discussed with: Patient Dietary Evaluation Review Comments: 1. Consider Glucerna once GI becomes accessible, glucerna TF at 45ml/hr provides 65g pro, 1296 kcal supporting pt's needs at 93% pro and 75% energy. 2. Consider TPN per pharmacy to meet 75% ofpt's needs, if NPO > 7 days 3. When medically feasible and pt pass speech eval, offer 2 g Na CCHO-60 lo Fat, Lo Chol diet with consideration of renal diet: a) Renal specifi -60 protein, 2gna 3K low phos, if pt has low GFR, but not being dialyzed, b) Renal Standard diet with 2gNa 3K low phos if pt is scheduled for dialysis treatments. . Expected Outcomes/Goals: controlled DM, avoid uremic symptoms, gradual weight loss. MANOJ GARNER RESIDENT Aug 11, 2024 16:17
--- NOTE | 2024-08-11 23:19 | DVHPN2 ---
Progress Note - Dictate Date Seen: Aug 11, 2024 Medical Necessity Reason Pt with a Central, PICC or Fol: No The following are medically ne: Lance Catheter Reason for lance catheter: Strict I&O Subjective Patient seen and examined at bedside. Breathing comfortably on room air Overnight events reviewed. vital signs Vital Sign Date Time Temp Pulse Resp B/P (MAP) Pulse Ox O2 Delivery O2 Flow Rate FiO2 08/11/24 21:00 98.3 46 16 151/86 (107) 95 98.3 08/11/24 20:00 Room Air* 0 21 Total Intake and Output 08/10/24 08/10/24 08/11/24 15:00 23:00 07:00 Intake Total 590 ml 800 ml 590 ml Output Total 300 ml 750 ml Balance 590 ml 500 ml -160 ml medications Current Medications Medications Dose Ordered Sig/Johan Route Start Time Stop Time Status Last Admin Dose Admin Sodium Chloride 10 ml Q8HR IV 08/04/24 14:00 08/11/24 21:25 10 ML Ondansetron HCl 4 mg Q4HP PRN IV 08/04/24 07:15 08/04/24 20:30 4 MG Docusate Sodium 100 mg BIDPRN PRN PO 08/04/24 07:15 Acetaminophen 650 mg Q6HP PRN PO 08/04/24 07:15 08/10/24 01:31 650 MG Nitroglycerin 0.4 mg Q5MINP PRN SL 08/04/24 11:00 Morphine Sulfate 2 mg Q30M PRN IV 08/04/24 11:00 08/07/24 15:15 2 MG Atorvastatin Calcium 40 mg HS PO 08/04/24 22:00 08/11/24 21:24 40 MG Linezolid 300 ml @ 150 mls/hr Q12HR IV 08/06/24 10:00 08/11/24 21:23 150 MLS/HR Sucralfate 1 gm QID@0600,1130,1700,2200 PO 08/08/24 17:00 08/11/24 21:24 1 GM Amiodarone HCl 200 mg Q12HR PO 08/09/24 22:00 08/11/24 22:11 200 MG Pantoprazole Sodium 40 mg BID IV 08/09/24 22:00 08/11/24 21:25 40 MG Diagnostic Test (Pha) 1 strip ACHS 08/10/24 11:30 08/11/24 22:11 1 STRIP Insulin Human Regular ACHS SC 08/10/24 11:30 08/11/24 22:27 4 UNITS Dextrose 50 ml UD PRN IV 08/10/24 10:45 Melatonin 5 mg HS PRN PO 08/11/24 01:15 08/11/24 22:14 5 MG Metoprolol Succinate 25 mg DAILY PO 08/11/24 10:00 08/11/24 09:30 25 MG Sacubitril/ Valsartan 1 tab BID PO 08/11/24 10:00 08/11/24 22:10 1 TAB Empaglifozin 10 mg DAILY PO 08/11/24 10:00 08/11/24 09:30 10 MG Meropenem 50 ml @ 17 mls/hr Q8H IV 08/11/24 10:00 08/11/24 17:46 17 MLS/HR Furosemide 40 mg DAILY PO 08/12/24 10:00 objective Gen.: Patient lying in bed in no apparent distress. On room air. Head: Normocephalic, atraumatic. Eyes: EOMI/PERRLA. Ears: Normal hearing. Normal anatomy. Neck/trachea: Trachea midline, supple. Nose: Normal external anatomy. Mouth: Moist mucous membranes. Chest: Decreased air entry bilaterally. No wheezing or rhonchi. Cardiovascular: Positive S1, positive S2. Regular rate and rhythm. Abdomen: Positive bowel sounds in all 4 quadrants. Soft, non-tender, non- distended. : Deferred. Rectal: Deferred. Skin: Warm, dry. Intact. Extremities: 2+ radial pulses bilaterally. No lower extremity edema. Neuro: Awake, alert, oriented x3. No gross motor or sensory deficits. Cranial nerves II through XII intact. Gait not assessed. laboratory and microbiology Laboratory Tests 08/11/24 05:00 Test 08/11/24 05:00 Range/Units Serum Glucose 194 H 74-106 mg/dL Assessment/Plan Impression: Acute hypoxic respiratory failure Dependence on supplemental oxygen Septic shock Atrial fibrillation w/ RVR Obstructive sleep apnea Multifocal pneumonia, likely gram negative. Obesity, BMI 31.1 Events: Remains on room air. Supplemental oxygen PRN Continue antibiotics Continue amiodarone PO for AFib Incentive spirometry Resume Eliquis when GI gives OK. PT evaluation. Hemoglobin stable - continue to monitor Protonix BID/Carafate GI recs appreciated Accu-Cheks, ISS. Potassium supplementation Monitor renal function - creatinine 1.07 Monitor ins and outs Monitor PT/INR. Disposition per hospitalist. Labs and imaging reviewed. Rest of plan as noted below. Plan: Supplemental oxygen PRN Titrate to keep O2 sats above 92%. Off pressors, hemodynamically stable. Continue antibiotics Amiodarone PO Pressors if necessary for hemodynamic support Titrate to keep mean arterial pressure greater than 65 mmHg. Monitor hemoglobin Diurese to euvolemia Monitor renal function. Monitor electrolytes. Supplement as necessary. Monitor ins and outs. Diet and lifestyle modifications for weight reduction Obesity - complicates all care GI prophylaxis - Protonix drip DVT prophylaxis. Prognosis: Poor given patient's multiple co-morbidities. Rest of plan per hospitalist and other consultants. Thank you, Dr. Romano, for allowing me to participate in this patient's care. Further recommendations will depend on the patient's clinical course. Please do not hesitate to contact me if you have any questions or concerns. This medical document was created using an electronic medical record system with [employer] dictation system. Although these documentations are being carefully reviewed, there may still be some phonetic and typographical changes. The errors are purely typographical, due to imperfection on the software program, and do not reflect any compromise in the patient's medical care. Dietary Evaluation Review Comments: 1. Consider Glucerna once GI becomes accessible, glucerna TF at 45ml/hr provides 65g pro, 1296 kcal supporting pt's needs at 93% pro and 75% energy. 2. Consider TPN per pharmacy to meet 75% ofpt's needs, if NPO > 7 days 3. When medically feasible and pt pass speech eval, offer 2 g Na CCHO-60 lo Fat, Lo Chol diet with consideration of renal diet: a) Renal specifi -60 protein, 2gna 3K low phos, if pt has low GFR, but not being dialyzed, b) Renal Standard diet with 2gNa 3K low phos if pt is scheduled for dialysis treatments. . Expected Outcomes/Goals: controlled DM, avoid uremic symptoms, gradual weight loss. Plan discussed with: Patient, Other (JOSE ELIAS Lujan) PAUL HERNANDEZ MD Aug 11, 2024 23:19
[2024-08-12] VITALS (8 sets, daily range): BP systolic 109–150; BP diastolic 62–87; PULSE 50–98; RESP 16–19; TEMP 98–98.4; O2SAT 94–98
[2024-08-12 08:01] LABS: Anion Gap 10 (5-15); Carbon Dioxide 24 mmol/L (20-31); Chloride 105 mmol/L (98-107); Sodium 139 mmol/L (136-145)
[2024-08-12 08:08] LABS: BUN/Creatinine Ratio 13.1 (10.0-20.0); Blood Urea Nitrogen 14 mg/dL (9-23)
[2024-08-12 08:09] LABS: Calcium 8.6 mg/dL (8.7-10.4); Glucose 162 mg/dL (74-106)
[2024-08-12] MEDS: FUROSEMIDE 40 MG TAB PO SCH (08:45)
--- NOTE | 2024-08-12 13:05 | DVHPN2 ---
Reviewed: Care Plan, H&P, Labs, Medications, Previous Orders, Radiology Changes from previous H/P or p: No Changes Eyes: No Pain, No Vision change, No Conjunctivae inflammation, No Eyelid inflammation, No Other, No Redness ENT: No Ear pain, No Ear discharge, No Nose pain, No Nose discharge, No Nose congestion, No Mouth pain, No Mouth swelling, No Throat pain, No Throat swelling, No Other Cardiovascular: Chest Pain; No Palpitations, No Orthopnea, No Paroxysmal Noc. Dyspnea, No Edema, No Lt Headedness; Other (Dizzy spells) Respiratory: No Cough, No Dry; Shortness of breath; No SOB with excertion, No Wheezing, No Hemoptysis, No Pleuritic Pain, No Sputum, No Other Gastrointestinal: Nausea; No Vomiting, No Abdominal Pain, No Diarrhea, No Constipation, No Melena, No Hematochezia, No Other Genitourinary: No Dysuria, No Frequency, No Incontinence, No Hematuria, No Retention, No Other Musculoskeletal: No other, No neck pain, No shoulder pain, No arm pain, No back pain, No hand pain, No leg pain, No foot pain Skin: No Rash, No Lesions, No Jaundice, No Bruising, No Other Objective Vitals Vital Signs Date Time Temp Pulse Resp B/P (MAP) Pulse Ox O2 Delivery O2 Flow Rate FiO2 08/12/24 09:00 98.0 80 16 120/75 (90) 97 98.0 08/12/24 08:00 Room Air* 0 21 Intake/Output Intake and Output 08/12/24 07:00 Intake Total 1810 ml Output Total 2550 ml Balance -740 ml Intake Oral 1060 ml IV Total 750 ml Output Urine Total 2550 ml # Bowel Movements 4 General Appearance: Alert, Cooperative, moderate distress, Other (Disoriented) Lungs: Clear to auscultation Cardiovascular: Other (irregularly irregular) Extremities: No edema Medications Current Medications Medications Dose Ordered Sig/Johan Route Start Time Stop Time Status Last Admin Dose Admin Sodium Chloride 10 ml Q8HR IV 08/04/24 14:00 08/12/24 04:59 10 ML Ondansetron HCl 4 mg Q4HP PRN IV 08/04/24 07:15 08/04/24 20:30 4 MG Docusate Sodium 100 mg BIDPRN PRN PO 08/04/24 07:15 Acetaminophen 650 mg Q6HP PRN PO 08/04/24 07:15 08/10/24 01:31 650 MG Nitroglycerin 0.4 mg Q5MINP PRN SL 08/04/24 11:00 Morphine Sulfate 2 mg Q30M PRN IV 08/04/24 11:00 08/07/24 15:15 2 MG Atorvastatin Calcium 40 mg HS PO 08/04/24 22:00 08/11/24 21:24 40 MG Linezolid 300 ml @ 150 mls/hr Q12HR IV 08/06/24 10:00 08/12/24 08:39 150 MLS/HR Sucralfate 1 gm QID@0600,1130,1700,2200 PO 08/08/24 17:00 08/12/24 11:59 1 GM Amiodarone HCl 200 mg Q12HR PO 08/09/24 22:00 08/12/24 08:46 200 MG Pantoprazole Sodium 40 mg BID IV 08/09/24 22:00 08/12/24 10:05 40 MG Diagnostic Test (Pha) 1 strip ACHS 08/10/24 11:30 08/12/24 12:00 1 STRIP Insulin Human Regular ACHS SC 08/10/24 11:30 08/12/24 12:01 6 UNITS Dextrose 50 ml UD PRN IV 08/10/24 10:45 Melatonin 5 mg HS PRN PO 08/11/24 01:15 08/11/24 22:14 5 MG Metoprolol Succinate 25 mg DAILY PO 08/11/24 10:00 08/12/24 08:45 25 MG Sacubitril/ Valsartan 1 tab BID PO 08/11/24 10:00 08/12/24 10:05 1 TAB Empaglifozin 10 mg DAILY PO 08/11/24 10:00 08/12/24 08:46 10 MG Meropenem 50 ml @ 17 mls/hr Q8H IV 08/11/24 10:00 08/12/24 10:40 17 MLS/HR Furosemide 40 mg DAILY PO 08/12/24 10:00 08/12/24 08:45 40 MG Laboratory Results Laboratory Tests 08/11/24 05:00 08/12/24 06:46 Chemistry Test 08/12/24 06:46 Calcium Level 8.6 mg/dL (8.7-10.4) L Urinalysis Test 08/04/24 15:54 Urine Color Yellow (Yellow) Urine Clarity Clear (Clear) Urine pH 6.0 (5.0-9.0) Urine Specific Gordon 1.014 (1.001-1.035) Urine Protein 1+ (Negative) H Urine Ketones Trace (Negative) Urine Blood Trace /uL (Negative) H Urine Nitrite Negative (Negative) Urine Bilirubin Negative (Negative) Urine Urobilinogen Normal mg/dL (Negative) Urine Leukocyte Esterase Negative /uL (Negative) Urine RBC 1 /hpf (0 - 3) Urine WBC 2 /hpf (0 - 3) Urine Squamous Epithelial Cells Few /hpf (<5) Urine Bacteria None seen /hpf (None Seen) Urine Hyaline Casts Few /lpf (0 - 2) Urine Mucus Few (None Seen) Urine Glucose 3+ mg/dL (Normal) H Microbiology Microbiology Date/Time Source Procedure Growth Status 08/06/24 13:50 Nose MRSA Screen - Final Complete 08/06/24 10:00 Blood Blood Culture - Final NO GROWTH AFTER 5 DAYS OF INCUBATION. Complete 08/05/24 21:00 Stool Stool Culture - Final Complete 08/05/24 21:00 Stool Shiga Toxin I & II - Final Complete 08/05/24 21:00 Stool Clostridium difficile Toxin Assay - Final Complete Labs and/or images reviewed: Labs reviewed by me, Image(s) reviewed by me Assessment/Plan Assessment/Plan For Dr. Juan Antonio Novak RVR Hypotension GI Bleed: Patient refused blood transfusion Severe sepsis with septic shock: Continue Meropenem CHF CAD Dyslipidemia BPH DM2 Obstructive sleep apnea on C-PAP at home Continue current management Plan discussed with: Patient Date of Service: Aug 12, 2024 Billing Provider: ALBA DIAZ MD Common Visit Codes: [id number] INP/OBS CARE(HIGH) ALBA DIAZ MD Aug 12, 2024 13:05
--- NOTE | 2024-08-12 13:50 | MEDREC ---
[facility] Intervention Section I [facility] Intervention: Deescalate AB based on CS (PLEASE CONSIDER DEESCALATION - DISCONTINUATION OF ANTIBIOTICS - FINAL BLOOD CULTURE WITH NO GROWTH) SCOTTY CARR PHARMACIST Aug 12, 2024 13:50
[2024-08-12] MEDS: POTASSIUM CHL 20 Meq TABLET PO ONE (14:15)
--- NOTE | 2024-08-12 15:39 | DVHPN2 ---
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 Objective vital signs Vital Sign Date Time Temp Pulse Resp B/P (MAP) Pulse Ox O2 Delivery O2 Flow Rate FiO2 08/12/24 13:00 98.0 50 16 109/66 (80) 97 98.0 08/12/24 08:00 Room Air* 0 21 Total Intake and Output 08/11/24 08/11/24 08/12/24 15:00 23:00 07:00 Intake Total 350 ml 470 ml 990 ml Output Total 1000 ml 1550 ml Balance 350 ml -530 ml -560 ml medications Current Medications Medications Dose Ordered Sig/Johan Route Start Time Stop Time Status Last Admin Dose Admin Sodium Chloride 10 ml Q8HR IV 08/04/24 14:00 08/12/24 14:15 10 ML Ondansetron HCl 4 mg Q4HP PRN IV 08/04/24 07:15 08/04/24 20:30 4 MG Docusate Sodium 100 mg BIDPRN PRN PO 08/04/24 07:15 Acetaminophen 650 mg Q6HP PRN PO 08/04/24 07:15 08/10/24 01:31 650 MG Nitroglycerin 0.4 mg Q5MINP PRN SL 08/04/24 11:00 Morphine Sulfate 2 mg Q30M PRN IV 08/04/24 11:00 08/07/24 15:15 2 MG Atorvastatin Calcium 40 mg HS PO 08/04/24 22:00 08/11/24 21:24 40 MG Linezolid 300 ml @ 150 mls/hr Q12HR IV 08/06/24 10:00 08/12/24 08:39 150 MLS/HR Sucralfate 1 gm QID@0600,1130,1700,2200 PO 08/08/24 17:00 08/12/24 11:59 1 GM Amiodarone HCl 200 mg Q12HR PO 08/09/24 22:00 08/12/24 08:46 200 MG Pantoprazole Sodium 40 mg BID IV 08/09/24 22:00 08/12/24 10:05 40 MG Diagnostic Test (Pha) 1 strip ACHS 08/10/24 11:30 08/12/24 12:00 1 STRIP Insulin Human Regular ACHS SC 08/10/24 11:30 08/12/24 12:01 6 UNITS Dextrose 50 ml UD PRN IV 08/10/24 10:45 Melatonin 5 mg HS PRN PO 08/11/24 01:15 08/11/24 22:14 5 MG Metoprolol Succinate 25 mg DAILY PO 08/11/24 10:00 08/12/24 08:45 25 MG Sacubitril/ Valsartan 1 tab BID PO 08/11/24 10:00 08/12/24 10:05 1 TAB Empaglifozin 10 mg DAILY PO 08/11/24 10:00 08/12/24 08:46 10 MG Meropenem 50 ml @ 17 mls/hr Q8H IV 08/11/24 10:00 08/12/24 10:40 17 MLS/HR Furosemide 40 mg DAILY PO 08/12/24 10:00 08/12/24 08:45 40 MG Examination: GENERAL:Abnormal (Generalized weakness), LUNGS:Normal, CVS:Normal, NEURO:Normal laboratory and microbiology Laboratory Tests 08/12/24 06:46 08/11/24 05:00 Test 08/12/24 06:46 Range/Units Serum Glucose 162 H 74-106 mg/dL Problem List/Assessment/Plan Problem List/Assessment/Plan Septic/hypovolemic shock Paroxysmal atrial fibrillation with RVR, now with controlled rate, on amiodarone/Eliquis therapy Acute on chronic decompensated HFrEF, NYHA class III Coronary artery disease status post PTCA including 3 AGUEDA Acute hypoxic respiratory failure with PNA Insulin-dependent diabetes mellitus Hypertension Dyslipidemia Obesity Rectal bleed s/p EGD with biopsy LIANA, resolved Plan/Recommendation (Dr. Warren) * Echocardiogram revealed EF 30% with moderate LVH * GDMT for CHF as tolerated * [id number]-TLEp Score 5. HAS-BLED Score 2 * Antiarrhythmic therapy, amiodarone * Reinitiate NOAC, Eliquis (cleared by GI team) * Recommend PRBC transfusion if hemoglobin less than 8 given hx of CAD * Avoid aspirin therapy at this time per GI team * Lipid lowering agent, monitor LFTs * Monitor ECG changes and notify * Septic work-up per primary care team * Follow up GI recommendations Case reviewed with . The patient recently underwent an EGD. Per GI clearance, the patient is clinically appropriate to reinitiate his Eliquis therapy at this time. GI team stating that aspirin is contraindicated at this time but may be reinitiated in the future once condition stabilizes. Given the patient's history of coronary artery disease with stent placement, we will recommend to reinitiate aspirin therapy as soon as possible per GI clearance. We will reinitiate Eliquis therapy at this time as per GI. We will also like to recommend for outpatient workup for possible Watchman device placement. There is no further inpatient cardiac workup indicated at this time. Thank you for allowing us to care for this patient. Please call with any questions or concerns. This medical document was created using an electronic medical record system with voice recognition software and computerized dictation system. Although this document has been carefully reviewed, there might still be some phonetic and typographical errors. Occasional wrong-word or ``sound-alike substitutions may have occurred due to the inherent limitations of voice recognition software. These areas are purely typographical due to imperfections of the software programs and do not reflect any compromise in the patient's medical care. Please read the chart carefully and recognize, using context, where these substitutions have occurred. Plan discussed with: Patient Dietary Evaluation Review Comments: 1. Consider Glucerna once GI becomes accessible, glucerna TF at 45ml/hr provides 65g pro, 1296 kcal supporting pt's needs at 93% pro and 75% energy. 2. Consider TPN per pharmacy to meet 75% ofpt's needs, if NPO > 7 days 3. When medically feasible and pt pass speech eval, offer 2 g Na CCHO-60 lo Fat, Lo Chol diet with consideration of renal diet: a) Renal specifi -60 protein, 2gna 3K low phos, if pt has low GFR, but not being dialyzed, b) Renal Standard diet with 2gNa 3K low phos if pt is scheduled for dialysis treatments. . Expected Outcomes/Goals: controlled DM, avoid uremic symptoms, gradual weight loss. Date of Service: Aug 12, 2024 Billing Provider: KORINA WARREN MD Common Visit Codes: [id number] INP/OBS CARE(HIGH) MARÍA LIPSCOMB SURGICAL DRESSING MAKER Aug 12, 2024 15:39
--- NOTE | 2024-08-12 16:11 | DVHPN2 ---
Progress Note Date Seen: Aug 12, 2024 Resident Creating Document: MANOJ GARNER RESIDENT Medical Necessity Reason Pt with a Central, PICC or Fol: No The following are medically ne: Lance Catheter Reason for lance catheter: Strict I&O Subjective Review of Systems Patient continues to show clinical stability with no further evidence of active GI bleeding. Today's hemoglobin is stable at 9.4. Patient has been on soft mechanical diet, he has been tolerating well. The suspected cause of the patient's ulcers is likely due to Excedrin. Moving forward, NSAIDs and aspirin are to be strictly avoid. Patient was evaluated at bedside, he reports feeling better without acute complaints. He denies nausea vomiting, fever, chills, diarrhea, abdominal pain. Biopsy results still pending. Based on patient's history, including a prior stent placement in the heart, it is clinically appropriate to initiate anticoagulation with Eliquis (apixaban) at this time. However, due to the recent GI bleeding, the use of aspirin is contraindicated for now, as it poses a significant risk for recurrent bleeding. Aspirin therapy can be reconsidered in the future once the patient's condition stabilizes and the source of bleeding is definitively managed. Patient reports: Feels better Changes from previous H/P or p: Changes Objective vital signs Vital Sign Date Time Temp Pulse Resp B/P (MAP) Pulse Ox O2 Delivery O2 Flow Rate FiO2 08/12/24 13:00 98.0 50 16 109/66 (80) 97 98.0 08/12/24 08:00 Room Air* 0 21 Total Intake and Output 08/11/24 08/11/24 08/12/24 15:00 23:00 07:00 Intake Total 350 ml 470 ml 990 ml Output Total 1000 ml 1550 ml Balance 350 ml -530 ml -560 ml medications Current Medications Medications Dose Ordered Sig/Johan Route Start Time Stop Time Status Last Admin Dose Admin Sodium Chloride 10 ml Q8HR IV 08/04/24 14:00 08/12/24 14:15 10 ML Ondansetron HCl 4 mg Q4HP PRN IV 08/04/24 07:15 08/04/24 20:30 4 MG Docusate Sodium 100 mg BIDPRN PRN PO 08/04/24 07:15 Acetaminophen 650 mg Q6HP PRN PO 08/04/24 07:15 08/10/24 01:31 650 MG Nitroglycerin 0.4 mg Q5MINP PRN SL 08/04/24 11:00 Morphine Sulfate 2 mg Q30M PRN IV 08/04/24 11:00 08/07/24 15:15 2 MG Atorvastatin Calcium 40 mg HS PO 08/04/24 22:00 08/11/24 21:24 40 MG Linezolid 300 ml @ 150 mls/hr Q12HR IV 08/06/24 10:00 08/12/24 08:39 150 MLS/HR Sucralfate 1 gm QID@0600,1130,1700,2200 PO 08/08/24 17:00 08/12/24 11:59 1 GM Amiodarone HCl 200 mg Q12HR PO 08/09/24 22:00 08/12/24 08:46 200 MG Pantoprazole Sodium 40 mg BID IV 08/09/24 22:00 08/12/24 10:05 40 MG Diagnostic Test (Pha) 1 strip ACHS 08/10/24 11:30 08/12/24 12:00 1 STRIP Insulin Human Regular ACHS SC 08/10/24 11:30 08/12/24 12:01 6 UNITS Dextrose 50 ml UD PRN IV 08/10/24 10:45 Melatonin 5 mg HS PRN PO 08/11/24 01:15 08/11/24 22:14 5 MG Metoprolol Succinate 25 mg DAILY PO 08/11/24 10:00 08/12/24 08:45 25 MG Sacubitril/ Valsartan 1 tab BID PO 08/11/24 10:00 08/12/24 10:05 1 TAB Empaglifozin 10 mg DAILY PO 08/11/24 10:00 08/12/24 08:46 10 MG Meropenem 50 ml @ 17 mls/hr Q8H IV 08/11/24 10:00 08/12/24 10:40 17 MLS/HR Furosemide 40 mg DAILY PO 08/12/24 10:00 08/12/24 08:45 40 MG Examination: GENERAL:Normal, HEENT:Normal, NECK:Normal, LUNGS:Normal, CVS:Normal, ABDOMEN:Normal, MSK:Normal, SKIN:Normal, NEURO:Normal, :Normal laboratory and microbiology Laboratory Tests 08/12/24 06:46 08/11/24 05:00 Test 08/12/24 06:46 Range/Units Serum Glucose 162 H 74-106 mg/dL Microbiology Date/Time Source Procedure Growth Status 08/06/24 13:50 Nose MRSA Screen - Final Complete 08/06/24 10:00 Blood Blood Culture - Final NO GROWTH AFTER 5 DAYS OF INCUBATION. Complete 08/05/24 21:00 Stool Stool Culture - Final Complete 08/05/24 21:00 Stool Shiga Toxin I & II - Final Complete 08/05/24 21:00 Stool Clostridium difficile Toxin Assay - Final Complete Problem List/Assessment/Plan Problem List/Assessment/Plan (1) Hiatal hernia with gastroesophageal reflux disease and esophagitis (2) Gastric stress ulcer (3) Duodenal bulb ulcer (4) Rectal bleeding (5) Pneumonia, unspecified organism (6) Acute exacerbation of congestive heart failure (7) Generalized weakness (8) Electrolyte imbalance Plan Mechanical soft diet Physical therapy evaluation Monitor labs Supportive care Protonix 40 mg IV q.12 hours Carafate suspension 1 g 4 times a day DC aspirin NSAIDs smoking alcohol Initiate anticoagulation with Eliquis at this time. Aspirin is contraindicated for now Biopsy results still pending. IV lines replacement should be strongly considered (rule out catheter-related bloodstream infection) Close monitoring of white blood cells trends Thank you so much for the opportunity to consult on your patient. GI team will follow up the patient. In case of any question or concern please feel free to reach out. Case an action plan discussed with Dr.Neera Thomas Complex care planning needed total 41 minutes of detailed discussion. Plan discussed with: Patient Dietary Evaluation Review Comments: 1. Consider Glucerna once GI becomes accessible, glucerna TF at 45ml/hr provides 65g pro, 1296 kcal supporting pt's needs at 93% pro and 75% energy. 2. Consider TPN per pharmacy to meet 75% ofpt's needs, if NPO > 7 days 3. When medically feasible and pt pass speech eval, offer 2 g Na CCHO-60 lo Fat, Lo Chol diet with consideration of renal diet: a) Renal specifi -60 protein, 2gna 3K low phos, if pt has low GFR, but not being dialyzed, b) Renal Standard diet with 2gNa 3K low phos if pt is scheduled for dialysis treatments. . Expected Outcomes/Goals: controlled DM, avoid uremic symptoms, gradual weight loss. MANOJ GARNRE RESIDENT Aug 12, 2024 16:11
[2024-08-12] MEDS: APIXABAN 5 MG TAB PO SCH (22:29)
--- NOTE | 2024-08-12 22:53 | DVHPN2 ---
Progress Note - Dictate Date Seen: Aug 12, 2024 Medical Necessity Reason Pt with a Central, PICC or Fol: No The following are medically ne: Lance Catheter Reason for lance catheter: Strict I&O Subjective Patient seen and examined at bedside. Breathing comfortably on room air Overnight events reviewed. vital signs Vital Sign Date Time Temp Pulse Resp B/P (MAP) Pulse Ox O2 Delivery O2 Flow Rate FiO2 08/12/24 21:00 98.4 66 16 135/71 (92) 96 98.4 08/12/24 08:00 Room Air* 0 21 Total Intake and Output 08/11/24 08/11/24 08/12/24 15:00 23:00 07:00 Intake Total 350 ml 470 ml 990 ml Output Total 1000 ml 1550 ml Balance 350 ml -530 ml -560 ml medications Current Medications Medications Dose Ordered Sig/Johan Route Start Time Stop Time Status Last Admin Dose Admin Sodium Chloride 10 ml Q8HR IV 08/04/24 14:00 08/12/24 22:43 10 ML Ondansetron HCl 4 mg Q4HP PRN IV 08/04/24 07:15 08/04/24 20:30 4 MG Docusate Sodium 100 mg BIDPRN PRN PO 08/04/24 07:15 Acetaminophen 650 mg Q6HP PRN PO 08/04/24 07:15 08/10/24 01:31 650 MG Nitroglycerin 0.4 mg Q5MINP PRN SL 08/04/24 11:00 Morphine Sulfate 2 mg Q30M PRN IV 08/04/24 11:00 08/07/24 15:15 2 MG Atorvastatin Calcium 40 mg HS PO 08/04/24 22:00 08/12/24 22:30 40 MG Linezolid 300 ml @ 150 mls/hr Q12HR IV 08/06/24 10:00 08/12/24 22:31 150 MLS/HR Sucralfate 1 gm QID@0600,1130,1700,2200 PO 08/08/24 17:00 08/12/24 22:30 1 GM Amiodarone HCl 200 mg Q12HR PO 08/09/24 22:00 08/12/24 22:30 200 MG Pantoprazole Sodium 40 mg BID IV 08/09/24 22:00 08/12/24 22:29 40 MG Diagnostic Test (Pha) 1 strip ACHS 08/10/24 11:30 08/12/24 22:00 1 STRIP Insulin Human Regular ACHS SC 08/10/24 11:30 08/12/24 22:31 3 UNITS Dextrose 50 ml UD PRN IV 08/10/24 10:45 Melatonin 5 mg HS PRN PO 08/11/24 01:15 08/11/24 22:14 5 MG Metoprolol Succinate 25 mg DAILY PO 08/11/24 10:00 08/12/24 08:45 25 MG Sacubitril/ Valsartan 1 tab BID PO 08/11/24 10:00 08/12/24 22:30 1 TAB Empaglifozin 10 mg DAILY PO 08/11/24 10:00 08/12/24 08:46 10 MG Meropenem 50 ml @ 17 mls/hr Q8H IV 08/11/24 10:00 08/12/24 17:51 17 MLS/HR Furosemide 40 mg DAILY PO 08/12/24 10:00 08/12/24 08:45 40 MG Apixaban 5 mg BID PO 08/12/24 22:00 08/12/24 22:29 5 MG Spironolactone 25 mg DAILY PO 08/13/24 10:00 objective Gen.: Patient lying in bed in no apparent distress. On room air. Head: Normocephalic, atraumatic. Eyes: EOMI/PERRLA. Ears: Normal hearing. Normal anatomy. Neck/trachea: Trachea midline, supple. Nose: Normal external anatomy. Mouth: Moist mucous membranes. Chest: Decreased air entry bilaterally. No wheezing or rhonchi. Cardiovascular: Positive S1, positive S2. Regular rate and rhythm. Abdomen: Positive bowel sounds in all 4 quadrants. Soft, non-tender, non- distended. : Deferred. Rectal: Deferred. Skin: Warm, dry. Intact. Extremities: 2+ radial pulses bilaterally. No lower extremity edema. Neuro: Awake, alert, oriented x3. No gross motor or sensory deficits. Cranial nerves II through XII intact. Gait not assessed. laboratory and microbiology Laboratory Tests 08/12/24 06:46 08/11/24 05:00 Test 08/12/24 06:46 Range/Units Serum Glucose 162 H 74-106 mg/dL Assessment/Plan Impression: Acute hypoxic respiratory failure Dependence on supplemental oxygen Septic shock Atrial fibrillation w/ RVR Obstructive sleep apnea Multifocal pneumonia, likely gram negative. Obesity, BMI 31.1 Events: Remains on room air. Supplemental oxygen PRN Continue antibiotics Continue amiodarone PO for AFib Incentive spirometry Restarted Eliquis PT evaluation. Hemoglobin stable - continue to monitor Protonix BID/Carafate GI recs appreciated Accu-Cheks, ISS. Potassium supplementation Monitor renal function Monitor ins and outs Monitor PT/INR. Disposition per hospitalist. Labs and imaging reviewed. Rest of plan as noted below. Plan: Supplemental oxygen PRN Titrate to keep O2 sats above 92%. Off pressors, hemodynamically stable. Continue antibiotics Amiodarone PO Pressors if necessary for hemodynamic support Titrate to keep mean arterial pressure greater than 65 mmHg. Monitor hemoglobin Maintain euvolemia Monitor renal function. Monitor electrolytes. Supplement as necessary. Monitor ins and outs. Diet and lifestyle modifications for weight reduction Obesity - complicates all care GI prophylaxis - Protonix drip DVT prophylaxis. Prognosis: Poor given patient's multiple co-morbidities. Rest of plan per hospitalist and other consultants. Thank you, Dr. Romano, for allowing me to participate in this patient's care. Further recommendations will depend on the patient's clinical course. Please do not hesitate to contact me if you have any questions or concerns. This medical document was created using an electronic medical record system with [employer] dictation system. Although these documentations are being carefully reviewed, there may still be some phonetic and typographical changes. The errors are purely typographical, due to imperfection on the software program, and do not reflect any compromise in the patient's medical care. Dietary Evaluation Review Comments: 1. Consider Glucerna once GI becomes accessible, glucerna TF at 45ml/hr provides 65g pro, 1296 kcal supporting pt's needs at 93% pro and 75% energy. 2. Consider TPN per pharmacy to meet 75% ofpt's needs, if NPO > 7 days 3. When medically feasible and pt pass speech eval, offer 2 g Na CCHO-60 lo Fat, Lo Chol diet with consideration of renal diet: a) Renal specifi -60 protein, 2gna 3K low phos, if pt has low GFR, but not being dialyzed, b) Renal Standard diet with 2gNa 3K low phos if pt is scheduled for dialysis treatments. . Expected Outcomes/Goals: controlled DM, avoid uremic symptoms, gradual weight loss. Plan discussed with: Patient, Other (JOSE ELIAS Lujan) PAUL HERNANDEZ MD Aug 12, 2024 22:53
[2024-08-13] VITALS (8 sets, daily range): BP systolic 112–145; BP diastolic 60–72; PULSE 55–94; RESP 16–18; TEMP 98–98.8; O2SAT 94–99
--- NOTE | 2024-08-13 10:39 | DVHPN2 ---
Subjective Better Still very weak c/o stomachache Reviewed: Care Plan, H&P, Labs, Medications, Previous Orders, Radiology Changes from previous H/P or p: Changes Eyes: No Pain, No Vision change, No Conjunctivae inflammation, No Eyelid inflammation, No Other, No Redness ENT: No Ear pain, No Ear discharge, No Nose pain, No Nose discharge, No Nose congestion, No Mouth pain, No Mouth swelling, No Throat pain, No Throat swelling, No Other Cardiovascular: Chest Pain; No Palpitations, No Orthopnea, No Paroxysmal Noc. Dyspnea, No Edema, No Lt Headedness; Other (Dizzy spells) Respiratory: No Cough, No Dry; Shortness of breath; No SOB with excertion, No Wheezing, No Hemoptysis, No Pleuritic Pain, No Sputum, No Other Gastrointestinal: Nausea; No Vomiting, No Abdominal Pain, No Diarrhea, No Constipation, No Melena, No Hematochezia, No Other Genitourinary: No Dysuria, No Frequency, No Incontinence, No Hematuria, No Retention, No Other Musculoskeletal: No other, No neck pain, No shoulder pain, No arm pain, No back pain, No hand pain, No leg pain, No foot pain Skin: No Rash, No Lesions, No Jaundice, No Bruising, No Other Objective Vitals Vital Signs Date Time Temp Pulse Resp B/P (MAP) Pulse Ox O2 Delivery O2 Flow Rate FiO2 08/13/24 09:00 98.5 64 18 144/67 (92) 96 98.5 08/13/24 08:00 Room Air* 0 21 Intake/Output Intake and Output 08/13/24 07:00 Intake Total 1425 ml Output Total 2950 ml Balance -1525 ml Intake Oral 1075 ml IV Total 350 ml Output Urine Total 2950 ml # Bowel Movements 2 General Appearance: Alert, Cooperative, moderate distress, Other (Disoriented) Lungs: Clear to auscultation Cardiovascular: Other (irregularly irregular) Extremities: No edema Medications Current Medications Medications Dose Ordered Sig/Johan Route Start Time Stop Time Status Last Admin Dose Admin Sodium Chloride 10 ml Q8HR IV 08/04/24 14:00 08/13/24 06:08 10 ML Ondansetron HCl 4 mg Q4HP PRN IV 08/04/24 07:15 08/04/24 20:30 4 MG Docusate Sodium 100 mg BIDPRN PRN PO 08/04/24 07:15 Acetaminophen 650 mg Q6HP PRN PO 08/04/24 07:15 08/10/24 01:31 650 MG Nitroglycerin 0.4 mg Q5MINP PRN SL 08/04/24 11:00 Morphine Sulfate 2 mg Q30M PRN IV 08/04/24 11:00 08/07/24 15:15 2 MG Atorvastatin Calcium 40 mg HS PO 08/04/24 22:00 08/12/24 22:30 40 MG Linezolid 300 ml @ 150 mls/hr Q12HR IV 08/06/24 10:00 08/12/24 22:31 150 MLS/HR Sucralfate 1 gm QID@0600,1130,1700,2200 PO 08/08/24 17:00 08/13/24 06:08 1 GM Amiodarone HCl 200 mg Q12HR PO 08/09/24 22:00 08/12/24 22:30 200 MG Pantoprazole Sodium 40 mg BID IV 08/09/24 22:00 08/12/24 22:29 40 MG Diagnostic Test (Pha) 1 strip ACHS 08/10/24 11:30 08/13/24 06:08 1 STRIP Insulin Human Regular ACHS SC 08/10/24 11:30 08/13/24 06:08 4 UNITS Dextrose 50 ml UD PRN IV 08/10/24 10:45 Melatonin 5 mg HS PRN PO 08/11/24 01:15 08/11/24 22:14 5 MG Metoprolol Succinate 25 mg DAILY PO 08/11/24 10:00 08/12/24 08:45 25 MG Sacubitril/ Valsartan 1 tab BID PO 08/11/24 10:00 08/12/24 22:30 1 TAB Empaglifozin 10 mg DAILY PO 08/11/24 10:00 08/12/24 08:46 10 MG Meropenem 50 ml @ 17 mls/hr Q8H IV 08/11/24 10:00 08/13/24 02:47 17 MLS/HR Furosemide 40 mg DAILY PO 08/12/24 10:00 08/12/24 08:45 40 MG Apixaban 5 mg BID PO 08/12/24 22:00 08/12/24 22:29 5 MG Spironolactone 25 mg DAILY PO 08/13/24 10:00 Laboratory Results Laboratory Tests 08/11/24 05:00 08/12/24 06:46 Urinalysis Test 08/04/24 15:54 Urine Color Yellow (Yellow) Urine Clarity Clear (Clear) Urine pH 6.0 (5.0-9.0) Urine Specific [place] 1.014 (1.001-1.035) Urine Protein 1+ (Negative) H Urine Ketones Trace (Negative) Urine Blood Trace /uL (Negative) H Urine Nitrite Negative (Negative) Urine Bilirubin Negative (Negative) Urine Urobilinogen Normal mg/dL (Negative) Urine Leukocyte Esterase Negative /uL (Negative) Urine RBC 1 /hpf (0 - 3) Urine WBC 2 /hpf (0 - 3) Urine Squamous Epithelial Cells Few /hpf (<5) Urine Bacteria None seen /hpf (None Seen) Urine Hyaline Casts Few /lpf (0 - 2) Urine Mucus Few (None Seen) Urine Glucose 3+ mg/dL (Normal) H Microbiology Microbiology Date/Time Source Procedure Growth Status 08/06/24 13:50 Nose MRSA Screen - Final Complete 08/06/24 10:00 Blood Blood Culture - Final NO GROWTH AFTER 5 DAYS OF INCUBATION. Complete 08/05/24 21:00 Stool Stool Culture - Final Complete 08/05/24 21:00 Stool Shiga Toxin I & II - Final Complete 08/05/24 21:00 Stool Clostridium difficile Toxin Assay - Final Complete Assessment/Plan Assessment/Plan Afib RVR Hypotension GI Bleed Severe sepsis with septic shock CHF CAD Dyslipidemia BPH DM2 Obstructive sleep apnea on C-PAP at home PLAN: 08/05/2024: IV fluids low rate due to CHF Afib RVR Patient declines blood transfusion DNR Amiodarone bolus and drip Stop Lovenox and aspirin IV Protonix GI consult Cardiology consult Echo: Pending Discussed advance directives with patient, he wants DNR, agrees to medications and BiPAP only 08/06/2024: Sepsis with septic shock: Continue Levophed, change IV antibiotics to Zyvox and meropenem LIANA of due to septic shock: Nephrology consult, ordered IV fluids however cardiology recommended against giving more IV fluids due to low ejection fraction Metabolic acidosis Atrial fibrillation with rapid ventricular response: Amiodarone drip Acute hypoxic respiratory failure simply due to pneumonia Possible underlying pneumonia, Gram-negative versus Gram-positive GI bleed: Protonix drip, GI consult, type 2 diabetes Congestive heart failure, acute on chronic, systolic Coronary artery disease with a history of stents BPH Obstructive sleep apnea on CPAP at home No anticoagulation due to GI bleed NPO Pulmonary consultation Cardiology consultation Nephrology consultation Full Code: Patient stated yesterday that he wanted to be DNR however after his came and the reason reversed the decision and he is full code now The rest of the management will depend on the hospital course 08/07/2024: Continue IV antibiotics Zyvox and meropenem Nephrology consultation Diuresis with Lasix IV Protonix drip Levophed as needed Amiodarone drip 08/08/24: Sepsis: Better, IV antibiotics: Zyvox, Meropenem Afib: Amiodarone HFrEF: Lasix Coronary artery disease status post PTCA Acute hypoxic respiratory failure with pneumonia Pneumonia GI Bleed: Protonix Hypertension Dyslipidemia Obesity GI bleed: EGD LIANA Insulin-dependent diabetes mellitus Replace K+ 08/09/24: LIANA: Better Afib: controlled rate: Change amiodarone to PO GI Bleed: Stable, Change Protonix to 40 mg bid CHF, pulmonary edema: Lasix PAVAN Pneumonia: Sepsis: Meropenem and Zyvox Hypokalemia: Replace IV 08/10/2024: Pneumonia: Meropenem and Zyvox Sepsis due to pneumonia LIANA: Hypokalemia: Replace IV GI bleed: Full liquid diet, Protonix, Carafate Downgrade to telemetry Physical therapy evaluation AFib: P.o. amiodarone Lipitor CHF: Stable 08/13/24: GI BLEED: Continue Protonix and Carafate, full liquids Weakness: Continue physical therapy Pneumonia: Zyvox and Meropenem Hypokalemia: Check electrolytes Afib: Amiodarone and Eliquis CHF: Lasix Patient does not want to go to SNF, continue physical therapy, order home health PT Plan discussed with: Patient My Orders Orders - HADLEY LAZCANO MD Procedure Category Date Status Time Comprehensive LAB 08/14/24 Verified Metabolic Panel 04:00 Complete Blood Count LAB 08/14/24 Verified 04:00 Magnesium LAB 08/14/24 Verified 04:00 Date of Service: Aug 13, 2024 Billing Provider: HADLEY LAZCANO MD Common Visit Codes: NOT BILLABLE HADLEY LAZCANO MD Aug 13, 2024 10:39
[2024-08-13] MEDS: SPIRONOLACTONE 25 MG TAB PO SCH (10:57)
[2024-08-13 11:55] LABS: Anion Gap 8 (5-15); Carbon Dioxide 22 mmol/L (20-31); Sodium 139 mmol/L (136-145)
[2024-08-13 12:01] LABS: BUN/Creatinine Ratio 14.7 (10.0-20.0); Blood Urea Nitrogen 15 mg/dL (9-23)
[2024-08-13 12:03] LABS: Calcium 8.5 mg/dL (8.7-10.4); Chloride 109 mmol/L (98-107); Glucose 206 mg/dL (74-106); Potassium 3.1 mmol/L (3.5-5.1)
[2024-08-13 12:42] LABS: Magnesium 2.2 mg/dL (1.6-2.6)
[2024-08-13] MEDS: POTASSIUM EFFERVESENT TAB 25 MEQ GT ONE (14:11)
--- NOTE | 2024-08-13 17:04 | DVHPN2 ---
Progress Note Date Seen: Aug 13, 2024 Resident Creating Document: MANOJ GARNER RESIDENT Medical Necessity Reason Pt with a Central, PICC or Fol: No The following are medically ne: Lance Catheter Reason for lance catheter: Strict I&O Subjective Review of Systems Patient continues to show clinical stability with no further evidence of active GI bleeding. The suspected cause of the patient's ulcers is likely due to Excedrin. Moving forward, NSAIDs and aspirin are to be strictly avoid. Patient was evaluated at bedside, he reports feeling better without acute complaints. He denies nausea vomiting, fever, chills, diarrhea, abdominal pain. Biopsy results still pending. Based on patient's history, including a prior stent placement in the heart, it is clinically appropriate to initiate anticoagulation with Eliquis (apixaban) at this time. However, due to the recent GI bleeding, the use of aspirin is contraindicated for now, as it poses a significant risk for recurrent bleeding. Aspirin therapy can be reconsidered in the future once the patient's condition stabilizes and the source of bleeding is definitively managed. Today patient was evaluated at bedside, on physical examination black tarry stools were noted, for which we will closely monitor hemoglobin and hematocrit and continue with IV PPI as ordered. Patient reports: No new complaints Changes from previous H/P or p: No Changes Objective vital signs Vital Sign Date Time Temp Pulse Resp B/P (MAP) Pulse Ox O2 Delivery O2 Flow Rate FiO2 08/13/24 12:56 98.0 72 16 112/64 (80) 96 98.0 08/13/24 08:00 Room Air* 0 21 Total Intake and Output 08/12/24 08/12/24 08/13/24 15:00 23:00 07:00 Intake Total 350 ml 600 ml 475 ml Output Total 2000 ml 950 ml Balance 350 ml -1400 ml -475 ml medications Current Medications Medications Dose Ordered Sig/Johan Route Start Time Stop Time Status Last Admin Dose Admin Sodium Chloride 10 ml Q8HR IV 08/04/24 14:00 08/13/24 16:00 10 ML Ondansetron HCl 4 mg Q4HP PRN IV 08/04/24 07:15 08/04/24 20:30 4 MG Docusate Sodium 100 mg BIDPRN PRN PO 08/04/24 07:15 Acetaminophen 650 mg Q6HP PRN PO 08/04/24 07:15 08/10/24 01:31 650 MG Nitroglycerin 0.4 mg Q5MINP PRN SL 08/04/24 11:00 Morphine Sulfate 2 mg Q30M PRN IV 08/04/24 11:00 08/07/24 15:15 2 MG Atorvastatin Calcium 40 mg HS PO 08/04/24 22:00 08/12/24 22:30 40 MG Linezolid 300 ml @ 150 mls/hr Q12HR IV 08/06/24 10:00 08/13/24 10:59 150 MLS/HR Sucralfate 1 gm QID@0600,1130,1700,2200 PO 08/08/24 17:00 08/13/24 10:58 1 GM Amiodarone HCl 200 mg Q12HR PO 08/09/24 22:00 08/13/24 10:57 200 MG Pantoprazole Sodium 40 mg BID IV 08/09/24 22:00 08/13/24 10:59 40 MG Diagnostic Test (Pha) 1 strip ACHS 08/10/24 11:30 08/13/24 12:08 1 STRIP Insulin Human Regular ACHS SC 08/10/24 11:30 08/13/24 12:22 4 UNITS Dextrose 50 ml UD PRN IV 08/10/24 10:45 Melatonin 5 mg HS PRN PO 08/11/24 01:15 08/11/24 22:14 5 MG Metoprolol Succinate 25 mg DAILY PO 08/11/24 10:00 08/13/24 10:56 25 MG Sacubitril/ Valsartan 1 tab BID PO 08/11/24 10:00 08/13/24 10:57 1 TAB Empaglifozin 10 mg DAILY PO 08/11/24 10:00 08/13/24 10:58 10 MG Meropenem 50 ml @ 17 mls/hr Q8H IV 08/11/24 10:00 08/13/24 10:58 17 MLS/HR Furosemide 40 mg DAILY PO 08/12/24 10:00 08/13/24 10:58 40 MG Apixaban 5 mg BID PO 08/12/24 22:00 08/13/24 10:57 5 MG Spironolactone 25 mg DAILY PO 08/13/24 10:00 08/13/24 10:57 25 MG Examination: GENERAL:Normal, HEENT:Normal, NECK:Normal, LUNGS:Normal, CVS:Normal, ABDOMEN:Abnormal, MSK:Abnormal, SKIN:Normal, NEURO:Normal, :Normal laboratory and microbiology Laboratory Tests 08/13/24 11:28 Test 08/13/24 11:28 Range/Units Serum Glucose 206 H 74-106 mg/dL Microbiology Date/Time Source Procedure Growth Status 08/06/24 13:50 Nose MRSA Screen - Final Complete 08/06/24 10:00 Blood Blood Culture - Final NO GROWTH AFTER 5 DAYS OF INCUBATION. Complete 08/05/24 21:00 Stool Stool Culture - Final Complete 08/05/24 21:00 Stool Shiga Toxin I & II - Final Complete 08/05/24 21:00 Stool Clostridium difficile Toxin Assay - Final Complete Problem List/Assessment/Plan Problem List/Assessment/Plan (1) Hiatal hernia with gastroesophageal reflux disease and esophagitis (2) Gastric stress ulcer (3) Duodenal bulb ulcer (4) Rectal bleeding (5) Pneumonia, unspecified organism (6) Acute exacerbation of congestive heart failure (7) Generalized weakness (8) Electrolyte imbalance (9) melena Plan Hemoglobin hematocrit Full liquid diet Physical therapy evaluation Monitor labs Supportive care Protonix 40 mg IV q.12 hours Carafate suspension 1 g 4 times a day DC aspirin NSAIDs smoking alcohol Initiate anticoagulation with Eliquis at this time. Aspirin is contraindicated for now Biopsy results still pending. IV lines replacement should be strongly considered (rule out catheter-related bloodstream infection) Close monitoring of white blood cells trends Thank you so much for the opportunity to consult on your patient. GI team will follow up the patient. In case of any question or concern please feel free to reach out. Case an action plan discussed with Dr.Neera Thomas Complex care planning needed total 41 minutes of detailed discussion. Plan discussed with: Patient Dietary Evaluation Review Comments: 1. Consider Glucerna once GI becomes accessible, glucerna TF at 45ml/hr provides 65g pro, 1296 kcal supporting pt's needs at 93% pro and 75% energy. 2. Consider TPN per pharmacy to meet 75% ofpt's needs, if NPO > 7 days 3. When medically feasible and pt pass speech eval, offer 2 g Na CCHO-60 lo Fat, Lo Chol diet with consideration of renal diet: a) Renal specifi -60 protein, 2gna 3K low phos, if pt has low GFR, but not being dialyzed, b) Renal Standard diet with 2gNa 3K low phos if pt is scheduled for dialysis treatments. . Expected Outcomes/Goals: controlled DM, avoid uremic symptoms, gradual weight loss. MANOJ GARNER RESIDENT Aug 13, 2024 17:04
[2024-08-13 18:11] LABS: Basophils # (auto) 0 10 ^3/uL (0-0.2); Basophils % (auto) 0.3 % (0.0-2.0); Eosinophils # (auto) 0.1 10 ^3/uL (0-0.8); Eosinophils % (auto) 0.9 % (0.0-7.0); Hematocrit 30.2 % (41.0-53.0); Hemoglobin 9.9 g/dL (13.5-17.5); Lymphocytes # (auto) 1.8 10 ^3/uL (0.4-5.4); Lymphocytes % (auto) 11.1 % (10.0-50.0); Mean Corpuscular Hemoglobin 28.1 pg (28.0-32.0); Mean Corpuscular Hgb Conc. 32.9 g/dL (32.0-36.0); Mean Corpuscular Volume 85.4 fL (80.0-100.0); Monocytes % (auto) 6.2 % (0.0-12.0); Neutrophils # (auto) 13.2 10 ^3/uL (1.6-8.6); Neutrophils % (auto) 81.5 % (37.0-80.0); Platelet Count (auto) 276 10^3/uL (140-450); Red Blood Cells 3.53 10^6/uL (4.5-5.90); Red Cell Distribution Width 16.7 % (11.8-14.3); White Blood Cell 16.2 10^3/uL (4.4-10.8)
--- NOTE | 2024-08-13 21:45 | DVHPN2 ---
Progress Note - Dictate Date Seen: Aug 13, 2024 Medical Necessity Reason Pt with a Central, PICC or Fol: Yes The following are medically ne: Lance Catheter Reason for lance catheter: Strict I&O Subjective Patient seen and examined at bedside. Breathing comfortably on room air Overnight events reviewed. vital signs Vital Sign Date Time Temp Pulse Resp B/P (MAP) Pulse Ox O2 Delivery O2 Flow Rate FiO2 08/13/24 21:00 98.8 55 18 117/66 (83) 99 98.8 08/13/24 08:00 Room Air* 0 21 Total Intake and Output 08/12/24 08/12/24 08/13/24 15:00 23:00 07:00 Intake Total 350 ml 600 ml 475 ml Output Total 2000 ml 950 ml Balance 350 ml -1400 ml -475 ml medications Current Medications Medications Dose Ordered Sig/Johan Route Start Time Stop Time Status Last Admin Dose Admin Sodium Chloride 10 ml Q8HR IV 08/04/24 14:00 08/13/24 16:00 10 ML Ondansetron HCl 4 mg Q4HP PRN IV 08/04/24 07:15 08/04/24 20:30 4 MG Docusate Sodium 100 mg BIDPRN PRN PO 08/04/24 07:15 Acetaminophen 650 mg Q6HP PRN PO 08/04/24 07:15 08/10/24 01:31 650 MG Nitroglycerin 0.4 mg Q5MINP PRN SL 08/04/24 11:00 Morphine Sulfate 2 mg Q30M PRN IV 08/04/24 11:00 08/07/24 15:15 2 MG Atorvastatin Calcium 40 mg HS PO 08/04/24 22:00 08/12/24 22:30 40 MG Linezolid 300 ml @ 150 mls/hr Q12HR IV 08/06/24 10:00 08/13/24 10:59 150 MLS/HR Sucralfate 1 gm QID@0600,1130,1700,2200 PO 08/08/24 17:00 08/13/24 17:17 1 GM Amiodarone HCl 200 mg Q12HR PO 08/09/24 22:00 08/13/24 10:57 200 MG Pantoprazole Sodium 40 mg BID IV 08/09/24 22:00 08/13/24 10:59 40 MG Diagnostic Test (Pha) 1 strip ACHS 08/10/24 11:30 08/13/24 17:18 1 STRIP Insulin Human Regular ACHS SC 08/10/24 11:30 08/13/24 17:17 4 UNITS Dextrose 50 ml UD PRN IV 08/10/24 10:45 Melatonin 5 mg HS PRN PO 08/11/24 01:15 08/11/24 22:14 5 MG Metoprolol Succinate 25 mg DAILY PO 08/11/24 10:00 08/13/24 10:56 25 MG Sacubitril/ Valsartan 1 tab BID PO 08/11/24 10:00 08/13/24 10:57 1 TAB Empaglifozin 10 mg DAILY PO 08/11/24 10:00 08/13/24 10:58 10 MG Meropenem 50 ml @ 17 mls/hr Q8H IV 08/11/24 10:00 08/13/24 17:24 17 MLS/HR Furosemide 40 mg DAILY PO 08/12/24 10:00 08/13/24 10:58 40 MG Apixaban 5 mg BID PO 08/12/24 22:00 08/13/24 10:57 5 MG Spironolactone 25 mg DAILY PO 08/13/24 10:00 08/13/24 10:57 25 MG objective Gen.: Patient lying in bed in no apparent distress. On room air. Head: Normocephalic, atraumatic. Eyes: EOMI/PERRLA. Ears: Normal hearing. Normal anatomy. Neck/trachea: Trachea midline, supple. Nose: Normal external anatomy. Mouth: Moist mucous membranes. Chest: Decreased air entry bilaterally. No wheezing or rhonchi. Cardiovascular: Positive S1, positive S2. Regular rate and rhythm. Abdomen: Positive bowel sounds in all 4 quadrants. Soft, non-tender, non- distended. : Deferred. Rectal: Deferred. Skin: Warm, dry. Intact. Extremities: 2+ radial pulses bilaterally. No lower extremity edema. Neuro: Awake, alert, oriented x3. No gross motor or sensory deficits. Cranial nerves II through XII intact. Gait not assessed. laboratory and microbiology Laboratory Tests 08/13/24 17:23 08/13/24 11:28 Test 08/13/24 11:28 Range/Units Serum Glucose 206 H 74-106 mg/dL Assessment/Plan Impression: Acute hypoxic respiratory failure Septic shock Atrial fibrillation w/ RVR Obstructive sleep apnea Multifocal pneumonia, likely gram negative. Obesity, BMI 31.1 Events: Remains on room air. Supplemental oxygen PRN Bronchodilators PRN Continue antibiotics Incentive spirometry Amiodarone PO for AFib Continue Eliquis Physical therapy. Wound care Hemoglobin stable - continue to monitor Protonix BID/Carafate Accu-Cheks, ISS. Potassium supplementation Monitor renal function Monitor ins and outs Monitor PT/INR. Disposition per hospitalist. Labs and imaging reviewed. Rest of plan as noted below. Plan: Supplemental oxygen PRN Titrate to keep O2 sats above 92%. Off pressors, hemodynamically stable. Continue antibiotics Amiodarone PO Pressors if necessary for hemodynamic support Titrate to keep mean arterial pressure greater than 65 mmHg. Monitor hemoglobin Maintain euvolemia Monitor renal function. Monitor electrolytes. Supplement as necessary. Monitor ins and outs. Diet and lifestyle modifications for weight reduction Obesity - complicates all care GI prophylaxis - Protonix drip DVT prophylaxis. Prognosis: Poor given patient's multiple co-morbidities. Rest of plan per hospitalist and other consultants. Thank you, Dr. Romano, for allowing me to participate in this patient's care. Further recommendations will depend on the patient's clinical course. Please do not hesitate to contact me if you have any questions or concerns. This medical document was created using an electronic medical record system with [employer] dictation system. Although these documentations are being carefully reviewed, there may still be some phonetic and typographical changes. The errors are purely typographical, due to imperfection on the software program, and do not reflect any compromise in the patient's medical care. Dietary Evaluation Review Comments: 1. Consider Glucerna once GI becomes accessible, glucerna TF at 45ml/hr provides 65g pro, 1296 kcal supporting pt's needs at 93% pro and 75% energy. 2. Consider TPN per pharmacy to meet 75% ofpt's needs, if NPO > 7 days 3. When medically feasible and pt pass speech eval, offer 2 g Na CCHO-60 lo Fat, Lo Chol diet with consideration of renal diet: a) Renal specifi -60 protein, 2gna 3K low phos, if pt has low GFR, but not being dialyzed, b) Renal Standard diet with 2gNa 3K low phos if pt is scheduled for dialysis treatments. . Expected Outcomes/Goals: controlled DM, avoid uremic symptoms, gradual weight loss. Plan discussed with: Patient, Other (RN Merlyn) PAUL HERNANDEZ MD Aug 13, 2024 21:45
[2024-08-14] VITALS (8 sets, daily range): BP systolic 94–128; BP diastolic 63–76; PULSE 50–94; RESP 16–20; TEMP 97.8–98.9; O2SAT 92–99
[2024-08-14 08:07] LABS: Basophils # (auto) 0.1 10 ^3/uL (0-0.2); Basophils % (auto) 0.5 % (0.0-2.0); Eosinophils # (auto) 0.2 10 ^3/uL (0-0.8); Eosinophils % (auto) 1.5 % (0.0-7.0); Hematocrit 30.1 % (41.0-53.0); Hemoglobin 10.1 g/dL (13.5-17.5); Lymphocytes # (auto) 1.7 10 ^3/uL (0.4-5.4); Lymphocytes % (auto) 13.8 % (10.0-50.0); Mean Corpuscular Hemoglobin 28.6 pg (28.0-32.0); Mean Corpuscular Hgb Conc. 33.6 g/dL (32.0-36.0); Mean Corpuscular Volume 85.4 fL (80.0-100.0); Monocytes # (auto) 0.8 10 ^3/uL (0-1.3); Monocytes % (auto) 6.4 % (0.0-12.0); Neutrophils # (auto) 9.8 10 ^3/uL (1.6-8.6); Neutrophils % (auto) 77.8 % (37.0-80.0); Platelet Count (auto) 264 10^3/uL (140-450); Red Blood Cells 3.52 10^6/uL (4.5-5.90); White Blood Cell 12.6 10^3/uL (4.4-10.8)
[2024-08-14 08:33] LABS: Alanine Aminotransferase 13 U/L (7-40); Albumin 3.6 g/dL (3.2-4.8); Alkaline Phosphatase 71 U/L (46-116); Anion Gap 6 (5-15); Aspartate Aminotransferase 14 U/L (13-40); BUN/Creatinine Ratio 14.4 (10.0-20.0); Bilirubin, Total 0.8 mg/dL (0.2-1.0); Blood Urea Nitrogen 15 mg/dL (9-23); Calcium 8.8 mg/dL (8.7-10.4); Carbon Dioxide 25 mmol/L (20-31); Magnesium 2.2 mg/dL (1.6-2.6); Sodium 139 mmol/L (136-145)
[2024-08-14 08:34] LABS: Chloride 108 mmol/L (98-107); Glucose 164 mg/dL (74-106); Potassium 3.1 mmol/L (3.5-5.1); Total Protein 5.5 g/dL (5.7-8.2)
--- NOTE | 2024-08-14 10:37 | DVHPN2 ---
Progress Note Date Seen: Aug 14, 2024 Resident Creating Document: MANOJ GARNER RESIDENT Medical Necessity Reason Pt with a Central, PICC or Fol: Yes The following are medically ne: Lance Catheter Reason for lance catheter: Strict I&O Subjective Review of Systems Patient continues to show clinical stability with no further evidence of active GI bleeding. The suspected cause of the patient's ulcers is likely due to Excedrin. Moving forward, NSAIDs and aspirin are to be strictly avoid. Patient was evaluated at bedside, he reports feeling better without acute complaints. He denies nausea vomiting, fever, chills, diarrhea, abdominal pain. Biopsy results still pending. Based on patient's history, including a prior stent placement in the heart, it is clinically appropriate to initiate anticoagulation with Eliquis (apixaban) at this time. However, due to the recent GI bleeding, the use of aspirin is contraindicated for now, as it poses a significant risk for recurrent bleeding. Aspirin therapy can be reconsidered in the future once the patient's condition stabilizes and the source of bleeding is definitively managed. Today patient was evaluated at bedside, on physical examination black tarry stools were noted,we will closely monitor hemoglobin and hematocrit , current hb 10.1 which is stable. No bowel movements this morning, patient is currently asymtomatic , diet is well tolerated. Physical therapy requested. Patient reports: Feels better Changes from previous H/P or p: Changes Objective vital signs Vital Sign Date Time Temp Pulse Resp B/P (MAP) Pulse Ox O2 Delivery O2 Flow Rate FiO2 08/14/24 09:00 98.3 76 20 116/63 (80) 99 98.3 08/14/24 08:00 Nasal Cannula* 2 28 Total Intake and Output 08/13/24 08/13/24 08/14/24 15:00 23:00 07:00 Intake Total 700 ml 600 ml 1250 ml Output Total 2300 ml 1200 ml Balance 700 ml -1700 ml 50 ml medications Current Medications Medications Dose Ordered Sig/Johan Route Start Time Stop Time Status Last Admin Dose Admin Sodium Chloride 10 ml Q8HR IV 08/04/24 14:00 08/14/24 06:23 10 ML Ondansetron HCl 4 mg Q4HP PRN IV 08/04/24 07:15 08/04/24 20:30 4 MG Docusate Sodium 100 mg BIDPRN PRN PO 08/04/24 07:15 Acetaminophen 650 mg Q6HP PRN PO 08/04/24 07:15 08/10/24 01:31 650 MG Nitroglycerin 0.4 mg Q5MINP PRN SL 08/04/24 11:00 Morphine Sulfate 2 mg Q30M PRN IV 08/04/24 11:00 08/07/24 15:15 2 MG Atorvastatin Calcium 40 mg HS PO 08/04/24 22:00 08/13/24 21:48 40 MG Linezolid 300 ml @ 150 mls/hr Q12HR IV 08/06/24 10:00 08/13/24 21:48 150 MLS/HR Sucralfate 1 gm QID@0600,1130,1700,2200 PO 08/08/24 17:00 08/14/24 06:23 1 GM Amiodarone HCl 200 mg Q12HR PO 08/09/24 22:00 08/13/24 21:48 200 MG Pantoprazole Sodium 40 mg BID IV 08/09/24 22:00 08/13/24 21:49 40 MG Diagnostic Test (Pha) 1 strip ACHS 08/10/24 11:30 08/14/24 06:24 1 STRIP Insulin Human Regular ACHS SC 08/10/24 11:30 08/14/24 06:23 3 UNITS Dextrose 50 ml UD PRN IV 08/10/24 10:45 Melatonin 5 mg HS PRN PO 08/11/24 01:15 08/14/24 01:19 5 MG Metoprolol Succinate 25 mg DAILY PO 08/11/24 10:00 08/13/24 10:56 25 MG Sacubitril/ Valsartan 1 tab BID PO 08/11/24 10:00 08/13/24 21:47 1 TAB Empaglifozin 10 mg DAILY PO 08/11/24 10:00 08/13/24 10:58 10 MG Meropenem 50 ml @ 17 mls/hr Q8H IV 08/11/24 10:00 08/14/24 01:19 17 MLS/HR Furosemide 40 mg DAILY PO 08/12/24 10:00 08/13/24 10:58 40 MG Apixaban 5 mg BID PO 08/12/24 22:00 08/13/24 21:47 5 MG Spironolactone 25 mg DAILY PO 08/13/24 10:00 08/13/24 10:57 25 MG Examination: GENERAL:Normal, HEENT:Normal, NECK:Normal, LUNGS:Normal, CVS:Normal, ABDOMEN:Normal, MSK:Normal, SKIN:Normal, NEURO:Normal, :Normal laboratory and microbiology Laboratory Tests 08/14/24 07:24 Test 08/14/24 07:24 Range/Units Serum Glucose 164 H 74-106 mg/dL Microbiology Date/Time Source Procedure Growth Status 08/06/24 13:50 Nose MRSA Screen - Final Complete 08/06/24 10:00 Blood Blood Culture - Final NO GROWTH AFTER 5 DAYS OF INCUBATION. Complete 08/05/24 21:00 Stool Stool Culture - Final Complete 08/05/24 21:00 Stool Shiga Toxin I & II - Final Complete 08/05/24 21:00 Stool Clostridium difficile Toxin Assay - Final Complete Problem List/Assessment/Plan Problem List/Assessment/Plan (1) Hiatal hernia with gastroesophageal reflux disease and esophagitis (2) Gastric stress ulcer (3) Duodenal bulb ulcer (4) Rectal bleeding (5) Pneumonia, unspecified organism (6) Acute exacerbation of congestive heart failure (7) Generalized weakness (8) Electrolyte imbalance (9) melena Plan Hemoglobin hematocrit,currently stable 10.1 mg/dl, monitor closely Full liquid diet Physical therapy evaluation Monitor labs Supportive care Protonix 40 mg IV q.12 hours Carafate suspension 1 g 4 times a day DC aspirin NSAIDs smoking alcohol Initiate anticoagulation with Eliquis at this time. Aspirin is contraindicated for now Biopsy results still pending. IV lines replacement should be strongly considered (rule out catheter-related bloodstream infection) Close monitoring of white blood cells trends Thank you so much for the opportunity to consult on your patient. GI team will follow up the patient. In case of any question or concern please feel free to reach out. Case an action plan discussed with Dr.Neera Thomas Complex care planning needed total 41 minutes of detailed discussion. Plan discussed with: Patient Dietary Evaluation Review Comments: 1. Consider Glucerna once GI becomes accessible, glucerna TF at 45ml/hr provides 65g pro, 1296 kcal supporting pt's needs at 93% pro and 75% energy. 2. Consider TPN per pharmacy to meet 75% ofpt's needs, if NPO > 7 days 3. When medically feasible and pt pass speech eval, offer 2 g Na CCHO-60 lo Fat, Lo Chol diet with consideration of renal diet: a) Renal specifi -60 protein, 2gna 3K low phos, if pt has low GFR, but not being dialyzed, b) Renal Standard diet with 2gNa 3K low phos if pt is scheduled for dialysis treatments. . Expected Outcomes/Goals: controlled DM, avoid uremic symptoms, gradual weight loss. MANOJ GARNER RESIDENT Aug 14, 2024 10:37
--- NOTE | 2024-08-14 12:00 | DVHPN2 ---
Subjective c/o diarrhea Reviewed: Care Plan, H&P, Labs, Medications, Previous Orders, Radiology Changes from previous H/P or p: Changes Eyes: No Pain, No Vision change, No Conjunctivae inflammation, No Eyelid inflammation, No Other, No Redness ENT: No Ear pain, No Ear discharge, No Nose pain, No Nose discharge, No Nose congestion, No Mouth pain, No Mouth swelling, No Throat pain, No Throat swelling, No Other Cardiovascular: Chest Pain; No Palpitations, No Orthopnea, No Paroxysmal Noc. Dyspnea, No Edema, No Lt Headedness; Other (Dizzy spells) Respiratory: No Cough, No Dry; Shortness of breath; No SOB with excertion, No Wheezing, No Hemoptysis, No Pleuritic Pain, No Sputum, No Other Gastrointestinal: Nausea; No Vomiting, No Abdominal Pain, No Diarrhea, No Constipation, No Melena, No Hematochezia, No Other Genitourinary: No Dysuria, No Frequency, No Incontinence, No Hematuria, No Retention, No Other Musculoskeletal: No other, No neck pain, No shoulder pain, No arm pain, No back pain, No hand pain, No leg pain, No foot pain Skin: No Rash, No Lesions, No Jaundice, No Bruising, No Other Objective Vitals Vital Signs Date Time Temp Pulse Resp B/P (MAP) Pulse Ox O2 Delivery O2 Flow Rate FiO2 08/14/24 10:51 76 116/63 08/14/24 09:00 98.3 20 99 98.3 08/14/24 08:00 Nasal Cannula* 2 28 Intake/Output Intake and Output 08/14/24 07:00 Intake Total 2550 ml Output Total 3500 ml Balance -950 ml Intake Oral 1200 ml IV Total 1350 ml Output Urine Total 3500 ml # Bowel Movements 7 General Appearance: Alert, Cooperative, moderate distress, Other (Disoriented) Lungs: Clear to auscultation Cardiovascular: Other (irregularly irregular) Extremities: No edema Medications Current Medications Medications Dose Ordered Sig/Johan Route Start Time Stop Time Status Last Admin Dose Admin Sodium Chloride 10 ml Q8HR IV 08/04/24 14:00 08/14/24 06:23 10 ML Ondansetron HCl 4 mg Q4HP PRN IV 08/04/24 07:15 08/04/24 20:30 4 MG Docusate Sodium 100 mg BIDPRN PRN PO 1/6/25 07:15 Acetaminophen 650 mg Q6HP PRN PO 08/04/24 07:15 08/10/24 01:31 650 MG Nitroglycerin 0.4 mg Q5MINP PRN SL 08/04/24 11:00 Morphine Sulfate 2 mg Q30M PRN IV 08/04/24 11:00 08/07/24 15:15 2 MG Atorvastatin Calcium 40 mg HS PO 08/04/24 22:00 08/13/24 21:48 40 MG Linezolid 300 ml @ 150 mls/hr Q12HR IV 08/06/24 10:00 08/14/24 10:52 150 MLS/HR Sucralfate 1 gm QID@0600,1130,1700,2200 PO 08/08/24 17:00 08/14/24 10:52 1 GM Amiodarone HCl 200 mg Q12HR PO 08/09/24 22:00 08/14/24 10:52 200 MG Pantoprazole Sodium 40 mg BID IV 08/09/24 22:00 08/14/24 10:53 40 MG Diagnostic Test (Pha) 1 strip ACHS 08/10/24 11:30 08/14/24 11:33 1 STRIP Insulin Human Regular ACHS SC 08/10/24 11:30 08/14/24 06:23 3 UNITS Dextrose 50 ml UD PRN IV 08/10/24 10:45 Melatonin 5 mg HS PRN PO 08/11/24 01:15 08/14/24 01:19 5 MG Metoprolol Succinate 25 mg DAILY PO 08/11/24 10:00 08/14/24 10:51 25 MG Sacubitril/ Valsartan 1 tab BID PO 08/11/24 10:00 08/14/24 10:51 1 TAB Empaglifozin 10 mg DAILY PO 08/11/24 10:00 08/14/24 10:52 10 MG Meropenem 50 ml @ 17 mls/hr Q8H IV 08/11/24 10:00 08/14/24 11:15 17 MLS/HR Furosemide 40 mg DAILY PO 08/12/24 10:00 08/13/24 10:58 40 MG Apixaban 5 mg BID PO 08/12/24 22:00 08/14/24 10:51 5 MG Spironolactone 25 mg DAILY PO 08/13/24 10:00 08/14/24 10:51 25 MG Metronidazole 100 ml @ 100 mls/hr Q8HR IV 08/14/24 14:00 Laboratory Results Laboratory Tests 08/14/24 07:24 Chemistry Test 08/14/24 07:24 Albumin 3.6 g/dL (3.2-4.8) Calcium Level 8.8 mg/dL (8.7-10.4) Magnesium Level 2.2 mg/dL (1.6-2.6) Total Protein 5.5 g/dL (5.7-8.2) L LFT Test 08/14/24 07:24 Alanine Aminotransferase (ALT) 13 U/L (7-40) Alkaline Phosphatase 71 U/L (46-116) Aspartate Amino Transferase (AST) 14 U/L (13-40) Total Bilirubin 0.8 mg/dL (0.2-1.0) Urinalysis Test 08/04/24 15:54 Urine Color Yellow (Yellow) Urine Clarity Clear (Clear) Urine pH 6.0 (5.0-9.0) Urine Specific [place] 1.014 (1.001-1.035) Urine Protein 1+ (Negative) H Urine Ketones Trace (Negative) Urine Blood Trace /uL (Negative) H Urine Nitrite Negative (Negative) Urine Bilirubin Negative (Negative) Urine Urobilinogen Normal mg/dL (Negative) Urine Leukocyte Esterase Negative /uL (Negative) Urine RBC 1 /hpf (0 - 3) Urine WBC 2 /hpf (0 - 3) Urine Squamous Epithelial Cells Few /hpf (<5) Urine Bacteria None seen /hpf (None Seen) Urine Hyaline Casts Few /lpf (0 - 2) Urine Mucus Few (None Seen) Urine Glucose 3+ mg/dL (Normal) H Microbiology Microbiology Date/Time Source Procedure Growth Status 08/06/24 13:50 Nose MRSA Screen - Final Complete 08/06/24 10:00 Blood Blood Culture - Final NO GROWTH AFTER 5 DAYS OF INCUBATION. Complete 08/05/24 21:00 Stool Stool Culture - Final Complete 08/05/24 21:00 Stool Shiga Toxin I & II - Final Complete 08/05/24 21:00 Stool Clostridium difficile Toxin Assay - Final Complete Assessment/Plan Assessment/Plan Afib RVR Hypotension GI Bleed Severe sepsis with septic shock CHF CAD Dyslipidemia BPH DM2 Obstructive sleep apnea on C-PAP at home PLAN: 08/05/2024: IV fluids low rate due to CHF Afib RVR Patient declines blood transfusion DNR Amiodarone bolus and drip Stop Lovenox and aspirin IV Protonix GI consult Cardiology consult Echo: Pending Discussed advance directives with patient, he wants DNR, agrees to medications and BiPAP only 08/06/2024: Sepsis with septic shock: Continue Levophed, change IV antibiotics to Zyvox and meropenem LIANA of due to septic shock: Nephrology consult, ordered IV fluids however cardiology recommended against giving more IV fluids due to low ejection fraction Metabolic acidosis Atrial fibrillation with rapid ventricular response: Amiodarone drip Acute hypoxic respiratory failure simply due to pneumonia Possible underlying pneumonia, Gram-negative versus Gram-positive GI bleed: Protonix drip, GI consult, type 2 diabetes Congestive heart failure, acute on chronic, systolic Coronary artery disease with a history of stents BPH Obstructive sleep apnea on CPAP at home No anticoagulation due to GI bleed NPO Pulmonary consultation Cardiology consultation Nephrology consultation Full Code: Patient stated yesterday that he wanted to be DNR however after his came and the reason reversed the decision and he is full code now The rest of the management will depend on the hospital course 08/07/2024: Continue IV antibiotics Zyvox and meropenem Nephrology consultation Diuresis with Lasix IV Protonix drip Levophed as needed Amiodarone drip 08/08/24: Sepsis: Better, IV antibiotics: Zyvox, Meropenem Afib: Amiodarone HFrEF: Lasix Coronary artery disease status post PTCA Acute hypoxic respiratory failure with pneumonia Pneumonia GI Bleed: Protonix Hypertension Dyslipidemia Obesity GI bleed: EGD LIANA Insulin-dependent diabetes mellitus Replace K+ 08/09/24: LIANA: Better Afib: controlled rate: Change amiodarone to PO GI Bleed: Stable, Change Protonix to 40 mg bid CHF, pulmonary edema: Lasix PAVAN Pneumonia: Sepsis: Meropenem and Zyvox Hypokalemia: Replace IV 08/10/2024: Pneumonia: Meropenem and Zyvox Sepsis due to pneumonia LIANA: Hypokalemia: Replace IV GI bleed: Full liquid diet, Protonix, Carafate Downgrade to telemetry Physical therapy evaluation AFib: P.o. amiodarone Lipitor CHF: Stable 08/13/24: GI BLEED: Continue Protonix and Carafate, full liquids Weakness: Continue physical therapy Pneumonia: Zyvox and Meropenem Hypokalemia: Check electrolytes Afib: Amiodarone and Eliquis CHF: Lasix Patient does not want to go to SNF, continue physical therapy, order home health PT 08/14/24: DC Bonner Replace K+ Check stools for C. Diff Add IV Flagyl Continue physical therapy Arrange SNF Plan discussed with: Patient My Orders Orders - HADLEY LAZCANO MD Procedure Category Date Status Time * [employer] CONS 08/14/24 Transmitted Consult Clostridium Difficile ARIEL 08/14/24 In Process Toxin 09:36 Metronidazole PHA 08/14/24 In Process 500mg/100ml (Flagyl 14:00 Date of Service: Aug 14, 2024 Billing Provider: HADLEY LAZCANO MD Common Visit Codes: NOT BILLABLE HADLEY LAZCANO MD Aug 14, 2024 12:00
[2024-08-14] MEDS: POTASSIUM EFFERVESENT TAB 25 MEQ PO ONE (12:10)
[2024-08-14] MEDS: metroNIDAZOLE 500MG/100ML 100 ML IV SCH (13:58)
--- NOTE | 2024-08-14 23:33 | DVHPN2 ---
Progress Note - Dictate Date Seen: Aug 14, 2024 Medical Necessity Reason Pt with a Central, PICC or Fol: Yes The following are medically ne: Lance Catheter Reason for lance catheter: Strict I&O Subjective Patient seen and examined at bedside. On supplemental oxygen Overnight events reviewed. vital signs Vital Sign Date Time Temp Pulse Resp B/P (MAP) Pulse Ox O2 Delivery O2 Flow Rate FiO2 08/14/24 17:00 98.0 78 20 121/76 (91) 97 98.0 08/14/24 08:00 Nasal Cannula* 2 28 Total Intake and Output 08/13/24 08/13/24 08/14/24 15:00 23:00 07:00 Intake Total 700 ml 600 ml 1250 ml Output Total 2300 ml 1200 ml Balance 700 ml -1700 ml 50 ml medications Current Medications Medications Dose Ordered Sig/Johan Route Start Time Stop Time Status Last Admin Dose Admin Sodium Chloride 10 ml Q8HR IV 08/04/24 14:00 08/14/24 21:26 10 ML Ondansetron HCl 4 mg Q4HP PRN IV 08/04/24 07:15 08/04/24 20:30 4 MG Docusate Sodium 100 mg BIDPRN PRN PO 08/04/24 07:15 Acetaminophen 650 mg Q6HP PRN PO 08/04/24 07:15 08/10/24 01:31 650 MG Nitroglycerin 0.4 mg Q5MINP PRN SL 08/04/24 11:00 Morphine Sulfate 2 mg Q30M PRN IV 08/04/24 11:00 08/07/24 15:15 2 MG Atorvastatin Calcium 40 mg HS PO 08/04/24 22:00 08/14/24 21:26 40 MG Linezolid 300 ml @ 150 mls/hr Q12HR IV 08/06/24 10:00 08/14/24 10:52 150 MLS/HR Sucralfate 1 gm QID@0600,1130,1700,2200 PO 08/08/24 17:00 08/14/24 21:26 1 GM Amiodarone HCl 200 mg Q12HR PO 08/09/24 22:00 08/14/24 21:26 200 MG Pantoprazole Sodium 40 mg BID IV 08/09/24 22:00 08/14/24 21:25 40 MG Diagnostic Test (Pha) 1 strip ACHS 08/10/24 11:30 08/14/24 22:47 1 STRIP Insulin Human Regular ACHS SC 08/10/24 11:30 08/14/24 22:52 3 UNITS Dextrose 50 ml UD PRN IV 08/10/24 10:45 Melatonin 5 mg HS PRN PO 08/11/24 01:15 08/14/24 22:46 5 MG Metoprolol Succinate 25 mg DAILY PO 08/11/24 10:00 08/14/24 10:51 25 MG Sacubitril/ Valsartan 1 tab BID PO 08/11/24 10:00 08/14/24 21:26 1 TAB Empaglifozin 10 mg DAILY PO 08/11/24 10:00 08/14/24 10:52 10 MG Meropenem 50 ml @ 17 mls/hr Q8H IV 08/11/24 10:00 08/14/24 17:35 17 MLS/HR Furosemide 40 mg DAILY PO 08/12/24 10:00 08/13/24 10:58 40 MG Apixaban 5 mg BID PO 08/12/24 22:00 08/14/24 21:26 5 MG Spironolactone 25 mg DAILY PO 08/13/24 10:00 08/14/24 10:51 25 MG Metronidazole 100 ml @ 100 mls/hr Q8HR IV 08/14/24 14:00 08/14/24 22:00 100 MLS/HR objective Gen.: Patient lying in bed in no apparent distress. On supplemental oxygen. Head: Normocephalic, atraumatic. Eyes: EOMI/PERRLA. Ears: Normal hearing. Normal anatomy. Neck/trachea: Trachea midline, supple. Nose: Normal external anatomy. Mouth: Moist mucous membranes. Chest: Decreased air entry bilaterally. No wheezing or rhonchi. Cardiovascular: Positive S1, positive S2. Regular rate and rhythm. Abdomen: Positive bowel sounds in all 4 quadrants. Soft, non-tender, non- distended. : Deferred. Rectal: Deferred. Skin: Warm, dry. Intact. Extremities: 2+ radial pulses bilaterally. No lower extremity edema. Neuro: Awake, alert, oriented x3. No gross motor or sensory deficits. Cranial nerves II through XII intact. Gait not assessed. laboratory and microbiology Laboratory Tests 08/14/24 07:24 Test 08/14/24 07:24 Range/Units Serum Glucose 164 H 74-106 mg/dL Assessment/Plan Impression: Acute hypoxic respiratory failure Septic shock Atrial fibrillation w/ RVR Obstructive sleep apnea Multifocal pneumonia, likely gram negative. Obesity, BMI 31.1 Events: Supplemental oxygen at 2 LPM NC Taper O2 as tolerated Bronchodilators PRN Continue antibiotics Incentive spirometry Follow up stool sample to rule out C. diff. Amiodarone PO for AFib Continue Eliquis Physical therapy. Wound care Hemoglobin stable - continue to monitor Protonix BID/Carafate Accu-Cheks, ISS. Potassium supplementation Monitor renal function Monitor ins and outs Monitor PT/INR. Patient is stable for discharge from the pulmonary standpoint. Assess for home O2 requirements Disposition per hospitalist. Labs and imaging reviewed. Rest of plan as noted below. Plan: Supplemental oxygen Titrate to keep O2 sats above 92%. Off pressors, hemodynamically stable. Continue antibiotics Amiodarone PO Pressors if necessary for hemodynamic support Titrate to keep mean arterial pressure greater than 65 mmHg. Monitor hemoglobin Maintain euvolemia Monitor renal function. Monitor electrolytes. Supplement as necessary. Monitor ins and outs. Diet and lifestyle modifications for weight reduction Obesity - complicates all care GI prophylaxis - Protonix drip DVT prophylaxis. Prognosis: Poor given patient's multiple co-morbidities. Rest of plan per hospitalist and other consultants. Thank you, Dr. Romano, for allowing me to participate in this patient's care. Further recommendations will depend on the patient's clinical course. Please do not hesitate to contact me if you have any questions or concerns. This medical document was created using an electronic medical record system with [employer] dictation system. Although these documentations are being carefully reviewed, there may still be some phonetic and typographical changes. The errors are purely typographical, due to imperfection on the software program, and do not reflect any compromise in the patient's medical care. Dietary Evaluation Review Comments: 1. Consider Glucerna once GI becomes accessible, glucerna TF at 45ml/hr provides 65g pro, 1296 kcal supporting pt's needs at 93% pro and 75% energy. 2. Consider TPN per pharmacy to meet 75% ofpt's needs, if NPO > 7 days 3. When medically feasible and pt pass speech eval, offer 2 g Na CCHO-60 lo Fat, Lo Chol diet with consideration of renal diet: a) Renal specifi -60 protein, 2gna 3K low phos, if pt has low GFR, but not being dialyzed, b) Renal Standard diet with 2gNa 3K low phos if pt is scheduled for dialysis treatments. . Expected Outcomes/Goals: controlled DM, avoid uremic symptoms, gradual weight loss. Plan discussed with: Patient, Other (RN Merlyn) PAUL HERNANDEZ MD Aug 14, 2024 23:33
[2024-08-15] VITALS (8 sets, daily range): BP systolic 91–120; BP diastolic 55–88; PULSE 68–96; RESP 17–98; TEMP 97.7–98.3; O2SAT 95–100
[2024-08-15 07:38] LABS: Basophils # (auto) 0 10 ^3/uL (0-0.2); Basophils % (auto) 0.4 % (0.0-2.0); Eosinophils # (auto) 0.1 10 ^3/uL (0-0.8); Eosinophils % (auto) 1.3 % (0.0-7.0); Hematocrit 28.3 % (41.0-53.0); Hemoglobin 9.7 g/dL (13.5-17.5); Lymphocytes # (auto) 1.6 10 ^3/uL (0.4-5.4); Lymphocytes % (auto) 15.4 % (10.0-50.0); Mean Corpuscular Hgb Conc. 34.1 g/dL (32.0-36.0); Mean Corpuscular Volume 85.1 fL (80.0-100.0); Monocytes # (auto) 0.8 10 ^3/uL (0-1.3); Monocytes % (auto) 7.3 % (0.0-12.0); Neutrophils % (auto) 75.6 % (37.0-80.0); Platelet Count (auto) 245 10^3/uL (140-450); Red Blood Cells 3.32 10^6/uL (4.5-5.90); White Blood Cell 10.5 10^3/uL (4.4-10.8)
[2024-08-15 08:00] LABS: Albumin 3.6 g/dL (3.2-4.8); Alkaline Phosphatase 71 U/L (46-116); Anion Gap 8 (5-15); Blood Urea Nitrogen 15 mg/dL (9-23); Carbon Dioxide 23 mmol/L (20-31); Magnesium 2.2 mg/dL (1.6-2.6); Sodium 139 mmol/L (136-145)
[2024-08-15 08:01] LABS: Alanine Aminotransferase < 9 U/L (7-40); Aspartate Aminotransferase 12 U/L (13-40); Bilirubin, Total 0.7 mg/dL (0.2-1.0); Calcium 8.7 mg/dL (8.7-10.4); Chloride 108 mmol/L (98-107); Glucose 164 mg/dL (74-106); Potassium 3.4 mmol/L (3.5-5.1); Total Protein 5.2 g/dL (5.7-8.2)
[2024-08-15] MEDS: POTASSIUM EFFERVESENT TAB 25 MEQ PO ONE (10:30)
--- NOTE | 2024-08-15 18:02 | DVHPN2 ---
Progress Note Date Seen: Aug 15, 2024 Resident Creating Document: MANOJ GARNER RESIDENT Medical Necessity Reason Pt with a Central, PICC or Fol: Yes The following are medically ne: Lance Catheter Reason for lance catheter: Strict I&O Subjective Review of Systems Patient continues to show clinical stability with no further evidence of active GI bleeding. The suspected cause of the patient's ulcers is likely due to Excedrin. Moving forward, NSAIDs and aspirin are to be strictly avoid. Patient was evaluated at bedside, he reports feeling better without acute complaints. He denies nausea vomiting, fever, chills, diarrhea, abdominal pain. Based on patient's history, including a prior stent placement in the heart, it is clinically appropriate to initiate anticoagulation with Eliquis (apixaban) at this time. However, due to the recent GI bleeding, the use of aspirin is contraindicated for now, as it poses a significant risk for recurrent bleeding. Aspirin therapy can be reconsidered in the future once the patient's condition stabilizes and the source of bleeding is definitively managed. Today patient was evaluated at bedside, patient patient is stable without acute complaints, hemoglobin is also stable. Patient is waiting for custodial facility placement. Objective vital signs Vital Sign Date Time Temp Pulse Resp B/P (MAP) Pulse Ox O2 Delivery O2 Flow Rate FiO2 08/15/24 17:01 98.0 74 18 110/88 (95) 98 98.0 08/15/24 08:00 Nasal Cannula* 2 28 Total Intake and Output 08/14/24 08/14/24 08/15/24 15:00 23:00 07:00 Intake Total 450 ml 850 ml 950 ml Output Total 100 ml 0 ml Balance 450 ml 750 ml 950 ml medications Current Medications Medications Dose Ordered Sig/Johan Route Start Time Stop Time Status Last Admin Dose Admin Sodium Chloride 10 ml Q8HR IV 08/04/24 14:00 08/15/24 15:15 10 ML Ondansetron HCl 4 mg Q4HP PRN IV 08/04/24 07:15 08/04/24 20:30 4 MG Docusate Sodium 100 mg BIDPRN PRN PO 08/04/24 07:15 Acetaminophen 650 mg Q6HP PRN PO 08/04/24 07:15 08/15/24 02:23 650 MG Nitroglycerin 0.4 mg Q5MINP PRN SL 08/04/24 11:00 Morphine Sulfate 2 mg Q30M PRN IV 08/04/24 11:00 08/07/24 15:15 2 MG Atorvastatin Calcium 40 mg HS PO 08/04/24 22:00 08/14/24 21:26 40 MG Linezolid 300 ml @ 150 mls/hr Q12HR IV 08/06/24 10:00 08/15/24 00:44 150 MLS/HR Sucralfate 1 gm QID@0600,1130,1700,2200 PO 08/08/24 17:00 08/15/24 06:59 1 GM Amiodarone HCl 200 mg Q12HR PO 08/09/24 22:00 08/14/24 21:26 200 MG Pantoprazole Sodium 40 mg BID IV 08/09/24 22:00 08/14/24 21:25 40 MG Diagnostic Test (Pha) 1 strip ACHS 08/10/24 11:30 08/15/24 12:06 1 STRIP Insulin Human Regular ACHS SC 08/10/24 11:30 08/15/24 12:11 3 UNITS Dextrose 50 ml UD PRN IV 08/10/24 10:45 Melatonin 5 mg HS PRN PO 08/11/24 01:15 08/14/24 22:46 5 MG Metoprolol Succinate 25 mg DAILY PO 08/11/24 10:00 08/14/24 10:51 25 MG Sacubitril/ Valsartan 1 tab BID PO 08/11/24 10:00 08/14/24 21:26 1 TAB Empaglifozin 10 mg DAILY PO 08/11/24 10:00 08/14/24 10:52 10 MG Meropenem 50 ml @ 17 mls/hr Q8H IV 08/11/24 10:00 08/15/24 02:46 17 MLS/HR Furosemide 40 mg DAILY PO 08/12/24 10:00 08/13/24 10:58 40 MG Apixaban 5 mg BID PO 08/12/24 22:00 08/14/24 21:26 5 MG Spironolactone 25 mg DAILY PO 08/13/24 10:00 08/14/24 10:51 25 MG Metronidazole 100 ml @ 100 mls/hr Q8HR IV 08/14/24 14:00 08/15/24 15:05 100 MLS/HR Examination: GENERAL:Normal, HEENT:Normal, NECK:Normal, LUNGS:Normal, CVS:Normal, ABDOMEN:Normal, MSK:Abnormal, SKIN:Normal, NEURO:Normal, :Normal laboratory and microbiology Laboratory Tests 08/15/24 06:41 Test 08/15/24 06:41 Range/Units Serum Glucose 164 H 74-106 mg/dL Microbiology Date/Time Source Procedure Growth Status 08/06/24 13:50 Nose MRSA Screen - Final Complete 08/06/24 10:00 Blood Blood Culture - Final NO GROWTH AFTER 5 DAYS OF INCUBATION. Complete 08/05/24 21:00 Stool Stool Culture - Final Complete 08/05/24 21:00 Stool Shiga Toxin I & II - Final Complete 08/05/24 21:00 Stool Clostridium difficile Toxin Assay - Final Complete Problem List/Assessment/Plan Problem List/Assessment/Plan (1) Hiatal hernia with gastroesophageal reflux disease and esophagitis (2) Gastric stress ulcer (3) Duodenal bulb ulcer (4) Rectal bleeding (5) Pneumonia, unspecified organism (6) Acute exacerbation of congestive heart failure (7) Generalized weakness (8) Electrolyte imbalance (9) melena Plan Hemoglobin hematocrit,currently stable 9.7 mg/dl, monitor closely Physical therapy evaluation Monitor labs Supportive care Protonix 40 mg IV q.12 hours Carafate suspension 1 g 4 times a day DC aspirin NSAIDs smoking alcohol Initiate anticoagulation with Eliquis at this time. Aspirin is contraindicated for now Biopsy results still pending. Close monitoring of white blood cells trends Thank you so much for the opportunity to consult on your patient. We are signing off on this patient. Follow-up in the GI outpatient clinic. In case of any question or concern please feel free to reach out. Case an action plan discussed with Dr.Neera Thomas Complex care planning needed total 41 minutes of detailed discussion. Plan discussed with: Patient, Spouse Dietary Evaluation Review Comments: 1. Consider Glucerna once GI becomes accessible, glucerna TF at 45ml/hr provides 65g pro, 1296 kcal supporting pt's needs at 93% pro and 75% energy. 2. Consider TPN per pharmacy to meet 75% ofpt's needs, if NPO > 7 days 3. When medically feasible and pt pass speech eval, offer 2 g Na CCHO-60 lo Fat, Lo Chol diet with consideration of renal diet: a) Renal specifi -60 protein, 2gna 3K low phos, if pt has low GFR, but not being dialyzed, b) Renal Standard diet with 2gNa 3K low phos if pt is scheduled for dialysis treatments. . Expected Outcomes/Goals: controlled DM, avoid uremic symptoms, gradual weight loss. MANOJ GARNER RESIDENT Aug 15, 2024 18:02
[2024-08-15] MEDS: VANCOMYCIN HCL 250 MG CAP PO SCH (22:34)
--- NOTE | 2024-08-15 23:08 | DVHPN2 ---
Progress Note - Dictate Date Seen: Aug 15, 2024 Medical Necessity Reason Pt with a Central, PICC or Fol: Yes The following are medically ne: Lance Catheter Reason for lance catheter: Strict I&O Subjective Patient seen and examined at bedside. On supplemental oxygen Overnight events reviewed. vital signs Vital Sign Date Time Temp Pulse Resp B/P (MAP) Pulse Ox O2 Delivery O2 Flow Rate FiO2 08/15/24 20:00 96 Nasal Cannula* 2 28 08/15/24 20:00 96 08/15/24 17:01 98.0 18 110/88 (95) 98.0 Total Intake and Output 08/14/24 08/14/24 08/15/24 15:00 23:00 07:00 Intake Total 450 ml 850 ml 950 ml Output Total 100 ml 0 ml Balance 450 ml 750 ml 950 ml medications Current Medications Medications Dose Ordered Sig/Johan Route Start Time Stop Time Status Last Admin Dose Admin Sodium Chloride 10 ml Q8HR IV 08/04/24 14:00 08/15/24 20:19 10 ML Ondansetron HCl 4 mg Q4HP PRN IV 08/04/24 07:15 08/04/24 20:30 4 MG Docusate Sodium 100 mg BIDPRN PRN PO 08/04/24 07:15 Acetaminophen 650 mg Q6HP PRN PO 08/04/24 07:15 08/15/24 22:45 650 MG Nitroglycerin 0.4 mg Q5MINP PRN SL 08/04/24 11:00 Morphine Sulfate 2 mg Q30M PRN IV 08/04/24 11:00 08/07/24 15:15 2 MG Atorvastatin Calcium 40 mg HS PO 08/04/24 22:00 08/15/24 22:40 40 MG Sucralfate 1 gm QID@0600,1130,1700,2200 PO 08/08/24 17:00 08/15/24 22:43 1 GM Amiodarone HCl 200 mg Q12HR PO 08/09/24 22:00 08/15/24 22:41 200 MG Pantoprazole Sodium 40 mg BID IV 08/09/24 22:00 08/15/24 20:19 40 MG Diagnostic Test (Pha) 1 strip ACHS 08/10/24 11:30 08/15/24 22:44 1 STRIP Insulin Human Regular ACHS SC 08/10/24 11:30 08/15/24 23:02 4 UNITS Dextrose 50 ml UD PRN IV 08/10/24 10:45 Melatonin 5 mg HS PRN PO 08/11/24 01:15 08/15/24 22:45 5 MG Metoprolol Succinate 25 mg DAILY PO 08/11/24 10:00 08/14/24 10:51 25 MG Sacubitril/ Valsartan 1 tab BID PO 08/11/24 10:00 08/15/24 22:42 1 TAB Empaglifozin 10 mg DAILY PO 08/11/24 10:00 08/14/24 10:52 10 MG Furosemide 40 mg DAILY PO 08/12/24 10:00 08/13/24 10:58 40 MG Apixaban 5 mg BID PO 08/12/24 22:00 08/15/24 22:42 5 MG Spironolactone 25 mg DAILY PO 08/13/24 10:00 08/14/24 10:51 25 MG Metronidazole 100 ml @ 100 mls/hr Q8HR IV 08/14/24 14:00 08/15/24 20:18 100 MLS/HR Vancomycin HCl 250 mg QID PO 08/15/24 22:00 08/15/24 22:34 250 MG objective Gen.: Patient lying in bed in no apparent distress. On supplemental oxygen. Head: Normocephalic, atraumatic. Eyes: EOMI/PERRLA. Ears: Normal hearing. Normal anatomy. Neck/trachea: Trachea midline, supple. Nose: Normal external anatomy. Mouth: Moist mucous membranes. Chest: Decreased air entry bilaterally. No wheezing or rhonchi. Cardiovascular: Positive S1, positive S2. Regular rate and rhythm. Abdomen: Positive bowel sounds in all 4 quadrants. Soft, non-tender, non- distended. : Deferred. Rectal: Deferred. Skin: Warm, dry. Intact. Extremities: 2+ radial pulses bilaterally. No lower extremity edema. Neuro: Awake, alert, oriented x3. No gross motor or sensory deficits. Cranial nerves II through XII intact. Gait not assessed. laboratory and microbiology Laboratory Tests 08/15/24 06:41 Test 08/15/24 06:41 Range/Units Serum Glucose 164 H 74-106 mg/dL Assessment/Plan Impression: Acute hypoxic respiratory failure Septic shock Atrial fibrillation w/ RVR Obstructive sleep apnea Multifocal pneumonia, likely gram negative. Obesity, BMI 31.1 Events: Supplemental oxygen at 2 LPM NC Taper O2 as tolerated Bronchodilators PRN Continue antibiotics Incentive spirometry Patient refused meds. Stool sample to rule out C. diff negative. Amiodarone PO for AFib Continue Eliquis Physical therapy. Wound care Hemoglobin stable - continue to monitor Protonix BID/Carafate Accu-Cheks, ISS. Monitor PT/INR. Patient is stable for discharge from the pulmonary standpoint. Assess for home O2 requirements Awaiting home health arrangements. Disposition per hospitalist. Labs and imaging reviewed. Rest of plan as noted below. Plan: Supplemental oxygen Titrate to keep O2 sats above 92%. Off pressors, hemodynamically stable. Continue antibiotics Amiodarone PO Pressors if necessary for hemodynamic support Titrate to keep mean arterial pressure greater than 65 mmHg. Monitor hemoglobin Maintain euvolemia Monitor renal function. Monitor electrolytes. Supplement as necessary. Monitor ins and outs. Diet and lifestyle modifications for weight reduction Obesity - complicates all care GI prophylaxis - Protonix drip DVT prophylaxis. Prognosis: Poor given patient's multiple co-morbidities. Rest of plan per hospitalist and other consultants. Thank you, Dr. Romano, for allowing me to participate in this patient's care. Further recommendations will depend on the patient's clinical course. Please do not hesitate to contact me if you have any questions or concerns. This medical document was created using an electronic medical record system with WiMi5 dictation system. Although these documentations are being carefully reviewed, there may still be some phonetic and typographical changes. The errors are purely typographical, due to imperfection on the software program, and do not reflect any compromise in the patient's medical care. Dietary Evaluation Review Comments: 1. Consider Glucerna once GI becomes accessible, glucerna TF at 45ml/hr provides 65g pro, 1296 kcal supporting pt's needs at 93% pro and 75% energy. 2. Consider TPN per pharmacy to meet 75% ofpt's needs, if NPO > 7 days 3. When medically feasible and pt pass speech eval, offer 2 g Na CCHO-60 lo Fat, Lo Chol diet with consideration of renal diet: a) Renal specifi -60 protein, 2gna 3K low phos, if pt has low GFR, but not being dialyzed, b) Renal Standard diet with 2gNa 3K low phos if pt is scheduled for dialysis treatments. . Expected Outcomes/Goals: controlled DM, avoid uremic symptoms, gradual weight loss. Plan discussed with: Patient, Other (JOSE ELIAS White) PAUL HERNANDEZ MD Aug 15, 2024 23:08
[2024-08-16 01:00] VITALS: BP 132/66; PULSE 56; RESP 16; TEMP 98.4; O2SAT 97
[2024-08-16 05:00] VITALS: BP 139/84; PULSE 78; RESP 18; TEMP 98.1; O2SAT 100
[2024-08-16 06:32] LABS: Basophils # (auto) 0.1 10 ^3/uL (0-0.2); Basophils % (auto) 0.7 % (0.0-2.0); Eosinophils # (auto) 0.1 10 ^3/uL (0-0.8); Eosinophils % (auto) 1.3 % (0.0-7.0); Hematocrit 28.7 % (41.0-53.0); Hemoglobin 9.5 g/dL (13.5-17.5); Lymphocytes # (auto) 1.4 10 ^3/uL (0.4-5.4); Lymphocytes % (auto) 17.4 % (10.0-50.0); Mean Corpuscular Hemoglobin 28.6 pg (28.0-32.0); Mean Corpuscular Hgb Conc. 33.3 g/dL (32.0-36.0); Monocytes # (auto) 0.6 10 ^3/uL (0-1.3); Monocytes % (auto) 7.3 % (0.0-12.0); Neutrophils % (auto) 73.3 % (37.0-80.0); Nucleated Red Blood Cells % 0.1 %; Platelet Count (auto) 219 10^3/uL (140-450); Red Blood Cells 3.33 10^6/uL (4.5-5.90); Red Cell Distribution Width 16.8 % (11.8-14.3); White Blood Cell 8.1 10^3/uL (4.4-10.8)
[2024-08-16 07:03] LABS: Albumin 3.6 g/dL (3.2-4.8); Alkaline Phosphatase 66 U/L (46-116); Anion Gap 8 (5-15); BUN/Creatinine Ratio 15.2 (10.0-20.0); Bilirubin, Total 0.7 mg/dL (0.2-1.0); Blood Urea Nitrogen 14 mg/dL (9-23); Calcium 8.7 mg/dL (8.7-10.4); Carbon Dioxide 23 mmol/L (20-31); Magnesium 2.2 mg/dL (1.6-2.6); Sodium 140 mmol/L (136-145)
[2024-08-16 07:07] LABS: Alanine Aminotransferase < 9 U/L (7-40); Aspartate Aminotransferase 11 U/L (13-40); Chloride 109 mmol/L (98-107); Glucose 158 mg/dL (74-106); Potassium 3.3 mmol/L (3.5-5.1); Total Protein 5.2 g/dL (5.7-8.2)
[2024-08-16 08:00] VITALS: PULSE 84; O2SAT 96
[2024-08-16 09:00] VITALS: BP 118/55; PULSE 54; RESP 16; TEMP 97.5; O2SAT 99
--- NOTE | 2024-08-16 09:45 | DVHDS2 ---
Discharge Summary Date of Admission Aug 04, 2024 at 10:49 Date of Discharge: Aug 15, 2024 Labs/Diagnostic Data: Laboratory Results Test 08/16/24 06:06 08/16/24 05:42 08/09/24 12:42 08/06/24 10:00 White Blood Count 8.1 10^3/uL (4.4-10.8) Red Blood Count 3.33 10^6/uL (4.5-5.90) Hemoglobin 9.5 g/dL (13.5-17.5) Hematocrit 28.7 % (41.0-53.0) Mean Corpuscular Volume 86.0 fL (80.0-100.0) Mean Corpuscular Hemoglobin 28.6 pg (28.0-32.0) Mean Corpuscular Hemoglobin Concent 33.3 g/dL (32.0-36.0) Red Cell Distribution Width 16.8 % (11.8-14.3) Platelet Count 219 10^3/uL (140-450) Mean Platelet Volume 7.9 fL (6.9-10.8) Neutrophils (%) (Auto) 73.3 % (37.0-80.0) Lymphocytes (%) (Auto) 17.4 % (10.0-50.0) Monocytes (%) (Auto) 7.3 % (0.0-12.0) Eosinophils (%) (Auto) 1.3 % (0.0-7.0) Basophils (%) (Auto) 0.7 % (0.0-2.0) Neutrophils # (Auto) 6.0 10 ^3/uL (1.6-8.6) Lymphocytes # (Auto) 1.4 10 ^3/uL (0.4-5.4) Monocytes # (Auto) 0.6 10 ^3/uL (0-1.3) Eosinophils # (Auto) 0.1 10 ^3/uL (0-0.8) Basophils # (Auto) 0.1 10 ^3/uL (0-0.2) Nucleated Red Blood Cells 0.1 % Sodium Level 140 mmol/L (136-145) Potassium Level 3.3 mmol/L (3.5-5.1) Chloride Level 109 mmol/L (98-107) Carbon Dioxide Level 23 mmol/L (20-31) Anion Gap 8 (5-15) Blood Urea Nitrogen 14 mg/dL (9-23) Creatinine 0.92 mg/dL (0.700-1.30) Glomerular Filtration Rate Calc 89 mL/min (>90) BUN/Creatinine Ratio 15.2 (10.0-20.0) Serum Glucose 158 mg/dL (74-106) Calcium Level 8.7 mg/dL (8.7-10.4) Magnesium Level 2.2 mg/dL (1.6-2.6) Total Bilirubin 0.7 mg/dL (0.2-1.0) Aspartate Amino Transferase (AST) 11 U/L (13-40) Alanine Aminotransferase (ALT) < 9 U/L (7-40) Alkaline Phosphatase 66 U/L (46-116) Total Protein 5.2 g/dL (5.7-8.2) Albumin 3.6 g/dL (3.2-4.8) POC Glucose 163 mg/dl (70-106) Prothrombin Time 12.3 sec (9.3-11.8) Prothrombin Time INR 1.17 (0.9-1.15) Lactic Acid Level 1.6 mmol/L (0.4-2.0) Test 08/06/24 09:05 08/06/24 03:36 08/05/24 21:00 08/05/24 09:15 Blood Gas Specimen Type Arterial Blood Gas Sample Site Left radial Blood Gas Patient Temperature 37.0 Arterial Blood Date Drawn [id number] Arterial Blood pH 7.444 (7.350-7.450) Arterial Blood Partial Pressure CO2 27.3 mmHg (35.0-48.0) Arterial Blood Partial Pressure O2 67.2 mmHg (83.0-108.0) Arterial Blood HCO3 18.3 mmol/L (21.0-28.0) Arterial Blood Oxygen Saturation 91.8 % (94.0-98.0) Arterial Blood Base Excess -4.4 mmol/L (-2.0-3.0) Arterial Blood Oxyhemoglobin 91.3 % (94.0-98.0) Arterial Blood Carboxyhemoglobin 0.3 % (0.5-1.5) Arterial Blood Methemoglobin 0.2 % (0.0-1.5) Art Test Modified Blood Gas Total Hemoglobin 12.50 g/dL (13.5-17.5) Blood Gas Liter Flow 3.00 Blood Gas Modality Nasal cannula FiO2 % 32.0 Differential Total Cells Counted 100.0 (100) Neutrophils % (Manual) 84 (37.0-80.0) Band Neutrophils % (Manual) 0 Lymphocytes % (Manual) 10 (10.0-50.0) Monocytes % (Manual) 6 (0-12) Eosinophils % (Manual) 0 (0-7) Basophils % (Manual) 0 (0.0-2.0) Metamyelocytes % (manual) 0 Myelocytes % (Manual) 0 Promyelocytes % (Manual) 0 Blast Cells % (Manual) 0 Reactive Lymphocytes 0 Platelet Estimate Adequate Large Platelets Few Giant Platelets Few Anisocytosis (manual) Slight Schistocytes Few Hemoglobin A1c 9.7 % A1C (<5.7) Triglycerides Level 166 mg/dL (< 150) Cholesterol Level 93 mg/dL (< 200) LDL Cholesterol 59 mg/dL (< 100) HDL Cholesterol 11 mg/dL (40-59) Stool for White Cells Few Stool Occult Blood Positive (Negative) Stool Occult Blood Sample #3 (Negative) Test 08/05/24 07:42 08/04/24 19:52 08/04/24 15:54 08/04/24 08:42 Thyroid Stimulating Hormone (TSH) 0.20 uIU/mL (0.55-4.78) Influenza Type A Antigen Negative (Negative) Influenza Type B Antigen Negative (Negative) SARS-CoV-2 Antigen (Rapid) Negative (NEGATIVE) Urine Color Yellow (Yellow) Urine Clarity Clear (Clear) Urine pH 6.0 (5.0-9.0) Urine Specific [place] 1.014 (1.001-1.035) Urine Protein 1+ (Negative) Urine Ketones Trace (Negative) Urine Blood Trace /uL (Negative) Urine Nitrite Negative (Negative) Urine Bilirubin Negative (Negative) Urine Urobilinogen Normal mg/dL (Negative) Urine Leukocyte Esterase Negative /uL (Negative) Urine RBC 1 /hpf (0 - 3) Urine WBC 2 /hpf (0 - 3) Urine Squamous Epithelial Cells Few /hpf (<5) Urine Bacteria None seen /hpf (None Seen) Urine Hyaline Casts Few /lpf (0 - 2) Urine Mucus Few (None Seen) Urine Glucose 3+ mg/dL (Normal) Urine Opiates Screen Neg (NEGATIVE) Urine Fentanyl Screen Neg (NEGATIVE) Urine Barbiturates Screen Neg (NEGATIVE) Urine Phencyclidine Screen Neg (NEGATIVE) Urine Amphetamines Screen Neg (NEGATIVE) Urine Benzodiazepines Screen Neg (NEGATIVE) Urine Cocaine Screen Neg (NEGATIVE) Urine Cannabinoids Screen Neg (NEGATIVE) Troponin I High Sensitivity 42 ng/L (</=54) Test 08/04/24 04:27 Activated Partial Thromboplast Time 36.1 SEC (24.5-34.5) B-Type Natriuretic Peptide 456.28 pg/mL (0-100) Other Laboratory Tests 08/16/24 06:06 Brief Hx & Hospital Course: Final diagnoses: Afib RVR Hypotension GI Bleed Severe sepsis with septic shock CHF CAD Dyslipidemia BPH DM2 Obstructive sleep apnea on C-PAP at home 08/05/2024: IV fluids low rate due to CHF Afib RVR Patient declines blood transfusion DNR Amiodarone bolus and drip Stop Lovenox and aspirin IV Protonix GI consult Cardiology consult Echo: Pending Discussed advance directives with patient, he wants DNR, agrees to medications and BiPAP only 08/06/2024: Sepsis with septic shock: Continue Levophed, change IV antibiotics to Zyvox and meropenem LIANA of due to septic shock: Nephrology consult, ordered IV fluids however cardiology recommended against giving more IV fluids due to low ejection fraction Metabolic acidosis Atrial fibrillation with rapid ventricular response: Amiodarone drip Acute hypoxic respiratory failure simply due to pneumonia Possible underlying pneumonia, Gram-negative versus Gram-positive GI bleed: Protonix drip, GI consult, type 2 diabetes Congestive heart failure, acute on chronic, systolic Coronary artery disease with a history of stents BPH Obstructive sleep apnea on CPAP at home No anticoagulation due to GI bleed NPO Pulmonary consultation Cardiology consultation Nephrology consultation Full Code: Patient stated yesterday that he wanted to be DNR however after his came and the reason reversed the decision and he is full code now The rest of the management will depend on the hospital course 08/07/2024: Continue IV antibiotics Zyvox and meropenem Nephrology consultation Diuresis with Lasix IV Protonix drip Levophed as needed Amiodarone drip 08/08/24: Sepsis: Better, IV antibiotics: Zyvox, Meropenem Afib: Amiodarone HFrEF: Lasix Coronary artery disease status post PTCA Acute hypoxic respiratory failure with pneumonia Pneumonia GI Bleed: Protonix Hypertension Dyslipidemia Obesity GI bleed: EGD LIANA Insulin-dependent diabetes mellitus Replace K+ 08/09/24: LIANA: Better Afib: controlled rate: Change amiodarone to PO GI Bleed: Stable, Change Protonix to 40 mg bid CHF, pulmonary edema: Lasix PAVAN Pneumonia: Sepsis: Meropenem and Zyvox Hypokalemia: Replace IV 08/10/2024: Pneumonia: Meropenem and Zyvox Sepsis due to pneumonia LIANA: Hypokalemia: Replace IV GI bleed: Full liquid diet, Protonix, Carafate Downgrade to telemetry Physical therapy evaluation AFib: P.o. amiodarone Lipitor CHF: Stable 08/13/24: GI BLEED: Continue Protonix and Carafate, full liquids Weakness: Continue physical therapy Pneumonia: Zyvox and Meropenem Hypokalemia: Check electrolytes Afib: Amiodarone and Eliquis CHF: Lasix Patient does not want to go to SNF, continue physical therapy, order home health PT 08/14/24: ZACH Bonner Replace K+ Check stools for C. Diff Add IV Flagyl Continue physical therapy Arrange SNF Plan discussed with: Patient C. Diff was ruled out Continue amiodarone and Eliquis Patient to go to SNF for PT/OT Condition at Discharge: Stable Final Diagnosis/Problems List Severe sepsis with septic shock Afib RVR Hypotension GI Bleed Chronic Systolic vs Diasotlic CHF CAD Dyslipidemia BPH DM2 Obstructive sleep apnea on C-PAP at home [facility] Discharge Will this Physician continue t: No Discharge Instruct/Medications Diet: Consistent carbohydrate Activity: Light activity Discharge Statement: "Patient was advised to return to the ER or call 911 if any headaches, dizziness, shortness of breath, chest pain, abdominal pain, bleeding, fevers, or worsening of medical condition. Patient was counseled about treatment plan, medications, possible side effects, patientverbalized understanding. All questions were answered to the best of my ability. This discharge took greater then 30 minutes in planning, reviewing documentation, counseling the patient, and discussing with other team members." ASSESSMENT ASSESSMENT Assessment Severe sepsis with septic shock Afib RVR Hypotension GI Bleed Chronic Systolic vs Diasotlic CHF CAD Dyslipidemia BPH DM2 Obstructive sleep apnea on C-PAP at home Date of Service: Aug 16, 2024 Billing Provider: HADLEY LAZCANO MD Common Visit Codes: NOT BILLABLE HADLEY LAZCANO MD Aug 16, 2024 09:45
[2024-08-16] MEDS: POTASSIUM EFFERVESENT TAB 25 MEQ PO ONE (09:55)
[2024-08-16] MEDS: ALPRAZolam 0.5 MG TAB PO PRN (10:09)
[2024-08-16 13:00] VITALS: BP 124/74; PULSE 74; RESP 18; TEMP 98.4; O2SAT 98
--- NOTE | 2024-08-16 20:31 | DVHPN2 ---
Progress Note - Dictate Date Seen: Aug 16, 2024 Medical Necessity Reason Pt with a Central, PICC or Fol: Yes The following are medically ne: Lance Catheter Reason for lance catheter: Strict I&O Subjective Patient seen and examined at bedside. On supplemental oxygen Overnight events reviewed. vital signs Vital Sign Date Time Temp Pulse Resp B/P (MAP) Pulse Ox O2 Delivery O2 Flow Rate FiO2 08/16/24 13:00 98.4 74 18 124/74 (91) 98 98.4 08/16/24 08:00 Nasal Cannula* 2 28 Total Intake and Output 08/15/24 08/15/24 08/16/24 15:00 23:00 07:00 Intake Total 100 ml 425 ml 500 ml Output Total 1100 ml 150 ml Balance 100 ml -675 ml 350 ml objective Gen.: Patient lying in bed in no apparent distress. On supplemental oxygen. Head: Normocephalic, atraumatic. Eyes: EOMI/PERRLA. Ears: Normal hearing. Normal anatomy. Neck/trachea: Trachea midline, supple. Nose: Normal external anatomy. Mouth: Moist mucous membranes. Chest: Decreased air entry bilaterally. No wheezing or rhonchi. Cardiovascular: Positive S1, positive S2. Regular rate and rhythm. Abdomen: Positive bowel sounds in all 4 quadrants. Soft, non-tender, non- distended. : Deferred. Rectal: Deferred. Skin: Warm, dry. Intact. Extremities: 2+ radial pulses bilaterally. No lower extremity edema. Neuro: Awake, alert, oriented x3. No gross motor or sensory deficits. Cranial nerves II through XII intact. Gait not assessed. laboratory and microbiology Laboratory Tests 08/16/24 06:06 Test 08/16/24 06:06 Range/Units Serum Glucose 158 H 74-106 mg/dL Assessment/Plan Impression: Acute hypoxic respiratory failure Septic shock Atrial fibrillation w/ RVR Obstructive sleep apnea Multifocal pneumonia, likely gram negative. Obesity, BMI 31.1 Events: Supplemental oxygen at 2 LPM NC Taper O2 as tolerated Bronchodilators PRN Continue antibiotics Incentive spirometry Amiodarone PO for AFib Continue Eliquis Physical therapy. Wound care Hemoglobin stable - continue to monitor Protonix BID/Carafate Accu-Cheks, ISS. Monitor PT/INR. Patient is stable for discharge from the pulmonary standpoint. Assess for home O2 requirements Awaiting home health arrangements. Disposition per hospitalist. Labs and imaging reviewed. Rest of plan as noted below. Plan: Supplemental oxygen Titrate to keep O2 sats above 92%. Off pressors, hemodynamically stable. Continue antibiotics Stool sample to rule out C. diff negative. Amiodarone PO Pressors if necessary for hemodynamic support Titrate to keep mean arterial pressure greater than 65 mmHg. Monitor hemoglobin Maintain euvolemia Monitor renal function. Monitor electrolytes. Supplement as necessary. Monitor ins and outs. Diet and lifestyle modifications for weight reduction Obesity - complicates all care GI prophylaxis - Protonix drip DVT prophylaxis. Prognosis: Poor given patient's multiple co-morbidities. Rest of plan per hospitalist and other consultants. Thank you, Dr. Romano, for allowing me to participate in this patient's care. Further recommendations will depend on the patient's clinical course. Please do not hesitate to contact me if you have any questions or concerns. This medical document was created using an electronic medical record system with [employer] dictation system. Although these documentations are being carefully reviewed, there may still be some phonetic and typographical changes. The errors are purely typographical, due to imperfection on the software program, and do not reflect any compromise in the patient's medical care. Dietary Evaluation Review Comments: 1. Consider Glucerna once GI becomes accessible, glucerna TF at 45ml/hr provides 65g pro, 1296 kcal supporting pt's needs at 93% pro and 75% energy. 2. Consider TPN per pharmacy to meet 75% ofpt's needs, if NPO > 7 days 3. When medically feasible and pt pass speech eval, offer 2 g Na CCHO-60 lo Fat, Lo Chol diet with consideration of renal diet: a) Renal specifi -60 protein, 2gna 3K low phos, if pt has low GFR, but not being dialyzed, b) Renal Standard diet with 2gNa 3K low phos if pt is scheduled for dialysis treatments. . Expected Outcomes/Goals: controlled DM, avoid uremic symptoms, gradual weight loss. Plan discussed with: Patient, Other (JOSE ELIAS Serra) PAUL HERNANDEZ MD Aug 16, 2024 20:31
== END 2024-08-16 13:30 | DRG 871 ==
LOC: ER 04:27 → EDBD 04:27 → OVERFLOW 10:49 → TELE 15:17 → TELE-WESTW 18:22 → CATH ICU 08-05 19:10 → ICU WEST 08-06 13:30 → DOU IN ICU 08-10 05:50 → TELE-WESTW 08-10 13:02
PROVIDERS: ADMIT Internal Medicine Geriatric Medicine; ATTEND Internal Medicine Geriatric Medicine
PROC: 02HV33Z Insertion of Infusion Device into Superior Vena Cava, Percutaneous Approach (ICD-10-PCS; 2024-08-06)
PROC: B548ZZA Ultrasonography of Superior Vena Cava, Guidance (ICD-10-PCS; 2024-08-06)
PROC: 0DB68ZX Excision of Stomach, Via Natural or Artificial Opening Endoscopic, Diagnostic (ICD-10-PCS; 2024-08-08)
PROC: 0DB48ZX Excision of Esophagogastric Junction, Via Natural or Artificial Opening Endoscopic, Diagnostic (ICD-10-PCS; 2024-08-08)
PROC: 0DB98ZX Excision of Duodenum, Via Natural or Artificial Opening Endoscopic, Diagnostic (ICD-10-PCS; principal; 2024-08-08 15:00)
DX: A41.50 Gram-negative sepsis, unspecified (principal); I50.23 Acute on chronic systolic (congestive) heart failure; J15.69 Pneumonia due to other Gram-negative bacteria; J96.01 Acute respiratory failure with hypoxia; K26.4 Chronic or unspecified duodenal ulcer with hemorrhage; R65.21 Severe sepsis with septic shock; K22.11 Ulcer of esophagus with bleeding; R57.1 Hypovolemic shock; K21.01 Gastro-esophageal reflux disease with esophagitis, with bleeding; K25.4 Chronic or unspecified gastric ulcer with hemorrhage; K29.71 Gastritis, unspecified, with bleeding; K29.81 Duodenitis with bleeding; J15.9 Unspecified bacterial pneumonia; E87.20 Acidosis, unspecified; Z99.11 Dependence on respirator [ventilator] status; D62 Acute posthemorrhagic anemia; N17.9 Acute kidney failure, unspecified; Z20.822 Contact with and (suspected) exposure to COVID-19; N40.0 Benign prostatic hyperplasia without lower urinary tract symptoms; G47.33 Obstructive sleep apnea (adult) (pediatric); E78.5 Hyperlipidemia, unspecified; E66.9 Obesity, unspecified; E11.9 Type 2 diabetes mellitus without complications; I25.10 Atherosclerotic heart disease of native coronary artery without angina pectoris; I48.0 Paroxysmal atrial fibrillation; K44.9 Diaphragmatic hernia without obstruction or gangrene; Z66 Do not resuscitate; I11.0 Hypertensive heart disease with heart failure; E87.6 Hypokalemia; Z68.31 Body mass index [BMI] 31.0-31.9, adult; Z98.61 Coronary angioplasty status; Z88.8 Allergy status to other drugs, medicaments and biological substances; I25.2 Old myocardial infarction; Z79.01 Long term (current) use of anticoagulants; Z79.4 Long term (current) use of insulin; Z82.49 Family history of ischemic heart disease and other diseases of the circulatory system; Z83.3 Family history of diabetes mellitus; Z99.81 Dependence on supplemental oxygen
CPT/HCPCS: 36415; 36556; 36600; 43239; 71045; 74176; 80048; 80053; 80061; 80307; 81001; 82270; 82805; 82962; 83036; 83605; 83735; 83880; 84132; 84443; 84484; 85007; 85014; 85018; 85025; 85027; 85048; 85610; 85730; 86850; 86900; 86901; 87040; 87045; 87081; 87426; 87427; 87493; 87804; 93005; 93306; 96361; 96365; 96367; 96375; 97110; 97116; 97163; 97530; 99291; G0378; J1815; J2185; J2250; J2405; J2470; J3430; J3480; J3490; P9047